=== PATIENT | female | born 1955 | race Caucasian/White ===

== ENCOUNTER 2017-05-18 12:01 | Observation (INO) | payer MEDICARE ==
--- NOTE | 2017-05-18 12:23 | ERPHSYRPT ---
- History of Present Illness Time Seen by Provider: 05/18/17 12:18 Source: patient Exam Limitations: no limitations Patient Subjective Stated Complaint: PT REPORTS FALLING 1 WK AGO TODAY-REPORTS LEFT HIP PAIN-STATES THAT SHE GOT HER WALKER CAUGHT ON KITCHEN TABLE-DENIES LOC Triage Nursing Assessment: PT PALE WARM ET [id number] QUESTIONS CORRECTLY-SHORTENING NOTED THAT PT STATES IS NORMAL FOR HER SINCE HER SUGERY- PEDAL PULSES PRESENT Physician History: This is 62-year-old white female with history of dementia seizures, cataracts, hypothyroidism, asthma, COPD arthritis, fibromyalgia, anxiety and depression She arrives with complaint of pain in her left hip laterally for one week she states she fell one week ago she states she's had pain in the left lateral hip since she states she is unable to walk on the left left leg secondary to pain for 2-3 days. Patient is on chronic oxycodone and acetaminophen 10/325 secondary to chronic pain. Past medical history includes dementia, seizures, cataracts, hypothyroidism, asthma, COPD, pneumonia, diverticulitis, cervical cancer, arthritis, fibromyalgia, anxiety, depression Past surgical history includes appendectomy, cholecystectomy, hysterectomy, orthopedic surgery, left and right hip surgery social history positive tobacco use Method of Injury: fell (follow week ago) Occurred: other (fell week ago) Lower Extremities Pain: hip: left Modifying Factors: Improves With: nothing Associated Symptoms: unable to bear weight Allergies/Adverse Reactions: tramadol HCl [From Ultram] Allergy (Mild, Verified 05/18/17 12:07) aspirin Allergy (Verified 05/18/17 12:07) ciprofloxacin [From Cipro] Allergy (Verified 05/18/17 12:07) ciprofloxacin HCl [From Cipro] Allergy (Verified 05/18/17 12:07) penicillin V [Penicillin V] Allergy (Verified 05/18/17 12:07) Home Medications: AMITRIPTYLINE HCL 50 mg Tab [AMITRIPTYLINE HCL 50 mg Tablet] 150 mg PO HS [History] Alendronate Sodium 70 mg [Fosamax 70 MG] 70 mg PO WEEKLY 12/19/15 [History ] Alprazolam 1 mg [Xanax 1 mg] 1 mg PO QID 12/19/15 [History] Cyclobenzaprine HCl 10 mg [Cyclobenzaprine 10 MG] 10 mg PO QPM 12/19/15 [ History] Duloxetine HCl [Cymbalta] 60 mg PO QAM 12/19/15 [History] Estradiol 1 mg [Estrace 1 mg] 1 mg PO DAILY 12/19/15 [History] Levetiracetam [Keppra] 750 mg PO BID 12/19/15 [History] Levothyroxine Sodium 75 Mcg [Synthroid 75 Mcg] 75 mcg PO DAILY 12/19/15 [ History] Lisinopril [Zestril] 20 mg PO QAM 12/19/15 [History] Potassium Chloride 10 Meq Tab* [Klor Con 10 MEQ] 10 meq PO TID 12/19/15 [ History] Ranitidine HCl [Zantac 75] 150 mg PO BID 12/19/15 [History] Rivastigmine [Exelon] 1 each TD DAILY 12/19/15 [History] Oxycodone / APAP 10/325 mg [Oxycodone-Acetaminophen 10-325] 1 tab PO Q4HPRN PRN 02/20/16 [History] Albuterol Sulfate [Albuterol Sulfate Hfa] 2 puff IH Q4HPRN PRN 02/22/17 [History ] Cyclosporine [Restasis Multidose] 1 drop OP BID 02/22/17 [History] Omeprazole 20 MG [Prilosec 20 mg] 20 mg PO DAILY 02/22/17 [History] Risperidone [Risperdal] 2 mg PO TID 02/22/17 [History] Buspirone HCl [Buspar] 15 mg PO BID 05/18/17 [History] Trazodone HCl [Desyrel] 150 mg PO DAILY 05/18/17 [History] Hx Tetanus, Diphtheria Vaccination/Date Given: Yes Hx Influenza Vaccination/Date Given: Yes Hx Pneumococcal Vaccination/Date Given: Yes Immunizations Up to Date: Yes - Review of Systems Constitutional: No Fever, No Chills Eyes: No Symptoms Ears, Nose, & Throat: No Symptoms Respiratory: No Cough, No Dyspnea Cardiac: No Chest Pain, No Edema, No Syncope Abdominal/Gastrointestinal: No Abdominal Pain, No Nausea, No Vomiting, No Diarrhea Genitourinary Symptoms: No Dysuria Musculoskeletal: Fall (follow week ago), Injury, Joint Pain (left hip pain) Skin: No Rash Neurological: No Dizziness, No Focal Weakness, No Sensory Changes Psychological: No Symptoms Endocrine: No Symptoms All Other Systems: Reviewed and Negative - Past Medical History Pertinent Past Medical History: Yes Neurological History: Dementia, Seizures ENT History: Cataracts Cardiac History: No Pertinent History Respiratory History: Asthma, COPD, Pneumonia Endocrine Medical History: Hypothyroidism Musculoskeletal History: Arthritis, Fibromyalgia GI Medical History: Diverticulitis History: No Pertinent History Psycho-Social History: Anxiety, Depression Female Reproductive Disorders: Cervical Cancer - Past Surgical History Past Surgical History: Yes Neuro Surgical History: No Pertinent History Cardiac: No Pertinent History Respiratory: No Pertinent History Gastrointestinal: Appendectomy, Cholecystectomy Genitourinary: No Pertinent History Musculoskeletal: Orthopedic Surgery Female Surgical History: Hysterectomy Other Surgical History: LEFT, RIGHT HIP SURGERY - Social History Smoking Status: Current every day smoker How long have you smoked: YRS Exposure to second hand smoke: Yes Drug Use: none Patient Lives Alone: No - Female History Hx Now: No - Nursing Vital Signs Nursing Vital Signs: Initial Vital Signs Temperature 98.6 F 05/18/17 12:02 Pulse Rate 97 H 05/18/17 12:02 Respiratory Rate 18 05/18/17 12:02 Blood Pressure 124/69 05/18/17 12:02 O2 Sat by Pulse Oximetry 97 05/18/17 12:02 Pain Scale Pain Intensity 8 - Physical Exam General Appearance: alert Eyes, Ears, Nose, Throat Exam: moist mucous membranes Neck Exam: non-tender, supple Cardiovascular/Respiratory Exam: chest non-tender, normal breath sounds, regular rate/rhythm, no respiratory distress Gastrointestinal/Abdominal Exam: non-tender, guarding Back Exam: normal inspection Hips Exam: right: non-tender, left: bone tenderness, bilateral: normal range of motion, no evidence of injury Legs Exam: bilateral leg: non-tender, normal inspection, normal range of motion , no evidence of injury Knees Exam: bilateral knee: non-tender, normal inspection, normal range of motion, no evidence of injury Ankle Exam: bilateral ankle: non-tender, normal inspection, normal range of motion, no evidence of injury Foot Exam: bilateral foot: non-tender, normal inspection, normal range of motion , no evidence of injury DTR - Lower Extremities Exam: ankle (R): 2+, ankle (L): 2+ Neuro/Tendon Exam: normal sensation, normal motor functions Mental Status Exam: alert, oriented x 3, cooperative Skin Exam: normal color, warm, dry SpO2 Interpretation: normal (97%) SpO2: 97 Oxygen Delivery: Room Air - Radiology Exams Other X-ray Interpretation: Discussed w/ radiologist (x-ray pelvis and left hip: Osteopenia and new minimally displaced left superior/inferior pubic bone fractures. Stable old left proximal femur fracture with intact orthopedic hardware and incidental right hip arthroplasty) Left Femur X-ray Interpretation: Discussed w/ radiologist (x-ray left femur intact with osteopenia, old proximal/distal femur fractures with multiple orthopedic hardware and smaller soft tissue ossification lateral to the distal fracture. Left pubic bone fractures reported on same day hip exam) Ordered Tests: Active Orders 24 hr Category Date Time Status FEMUR Stat Exams 05/18/17 12:45 Completed HIP UNI (2V) INCL PEL IF DONE Stat Exams 05/18/17 12:17 Completed Medication Summary Discontinued Medications Generic Name Dose Route Start Last Admin Trade Name Anaid PRN Reason Stop Dose Admin Morphine Sulfate 4 mg 05/18/17 13:36 05/18/17 13:45 Morphine Sulfate 4 Mg Inj IM 05/18/17 13:37 4 mg STAT ONE Administration Morphine Sulfate Confirm 05/18/17 13:41 Morphine Sulfate 4 Mg Inj Administered 05/18/17 13:42 Dose 4 mg .ROUTE .[id number]-MED ONE - Progress Progress: improved Progress Note: 05/18/17 12:49 62-year-old white female with a history of a 1 week of left hip pain also pain in the left groin after falling patient has hip surgery in the past. patient appears to have left superior and inferior pubic rami fractures. Large amount of hardware in the patient's left hip Will go ahead and obtain a complete femur. Patient states she took a Percocet tablet 2 hours prior to arrival she is essentially pain-free when she is not trying to stand. 05/18/17 13:42 Patient given morphine 4 mg IM. Patient with inferior and superior left pubic rami fracture on x-ray minimal displacement. X-ray of the left femur shows the femur to be intact with osteopenia an old proximal/distal femur fractures with multiple orthopedic hardware and smaller soft tissue ossification lateral to the distal fracture x-ray left hip remarkable for the left superior and inferior pubic bone fracture stable old left proximal femur fracture with intact orthopedic hardware and incidental right hip arthroplasty. I initially attempted to contact Dr. Guerin he apparently is out of town. I have contacted Dr. Tim the patient's family doctor. Patient already has a walker and a wheelchair. She is already on Percocet for pain and sees a pain control. \ unfortunately, the patient's states he is having trouble getting the patient even up to the bathroom. And she has very little tolerance for getting her up and around at home secondary to pain in her left hip and pelvis area. I have recontacted Dr. Prudencio Tim. He has agreed to place patient in observation. Will provide pain control. - Departure Time of Disposition: 13:45 Departure Disposition: Observation Clinical Impression: inferior pelvic rami fracture, Left hip pain Fracture of superior pubic ramus Qualifiers: Encounter type: initial encounter Fracture type: closed Laterality: left Qualified Code(s): S32.512A - Fracture of superior rim of left pubis, initial encounter for closed fracture Accidental fall Qualifiers: Encounter type: initial encounter Qualified Code(s): W19.XXXA - Unspecified fall, initial encounter Condition: Fair Critical Care Time: No Referrals: LOIS NICK [Primary Care Provider] -
--- NOTE | 2017-05-18 12:55 | XRAY ---
Indication: Pain following fall one week ago. Comparison: February 16, 2015. AP pelvis and 2 views of the left hip again demonstrates osteopenia and new minimally displaced left superior/inferior pubic bone fractures. Stable old left proximal femur fracture with intact orthopedic hardware and incidental right hip arthroplasty.
--- NOTE | 2017-05-18 13:23 | XRAY ---
Indication: Pain following fall one week ago. Comparison: December 29, 2014. 2 views of the left femur intact again with osteopenia, old proximal/distal femur fractures with multiple orthopedic hardware, and smaller soft tissue ossification lateral to the distal fracture. Left pubic bone fractures reported on same day hip exam.
[2017-05-18] MEDS ORDERED: MORPHINE SULFATE 4 MG INJ IM ONE (13:36)
[2017-05-18] MEDS ORDERED: MORPHINE SULFATE 4 MG INJ ONE (13:41)
[2017-05-18] MEDS ORDERED: Sodium Chloride 0.9% 10 ML FLUSH Syringe IV PRN (16:56)
[2017-05-18] MEDS: MORPHINE SULFATE 4 MG INJ IV PRN ×2 (17:35→21:59)
[2017-05-18] MEDS ORDERED: OXYCODONE-ACETAMINOPHEN 10-325 PO PRN (20:30)
[2017-05-18] MEDS ORDERED: xanAX 0.25 MG ONE (21:20)
[2017-05-18] MEDS: Keppra 250 MG PO SCH (21:50)
[2017-05-18] MEDS: Klor Con 10 MEQ PO SCH (21:51)
[2017-05-18] MEDS: BUSPAR 5 MG PO SCH (21:54)
[2017-05-18] MEDS: Risperdal 1 MG PO SCH (21:56)
[2017-05-18] MEDS ORDERED: SYNTHROID 75 MCG PO ONE (22:00)
[2017-05-18] MEDS ORDERED: xanAX 0.25 MG PO SCH (22:00)
[2017-05-18] MEDS ORDERED: ENOXAPARIN SODIUM SQ ONE (22:00)
[2017-05-18] MEDS ORDERED: Cyclobenzaprine 10 MG PO PRN (22:00)
[2017-05-18] MEDS: Zofran 4 MG/2 ML VIAL IV PRN (22:00)
[2017-05-18] MEDS: Sodium Chloride 0.9% 10 ML FLUSH Syringe IV SCH (22:08)
[2017-05-19] MEDS: MORPHINE SULFATE 4 MG INJ IV PRN ×3 (03:03→11:55)
[2017-05-19 06:07] LABS: BASOPHIL % 0.6 % (0.0-0.4); Eosinophil % 4.5 % (0.00-5.0); Granulocytes % 53.6 % (36.0-66.0); Lymphocytes % 32.4 % (24.0-44.0); Mean Cell Volume 96.3 fl (78-100); Monocytes % 8.9 % (0.0-12.0); Platelet Count 254 K/mm3 (150-450); Red Blood Count 4.02 M/mm3 (4.1-5.4); Red Cell Distribution Width 13.8 % (11.5-14.0); White Blood Count 12.6 K/mm3 (4.0-10.5)
[2017-05-19 06:22] LABS: ALBUMIN 2.9 g/dL (3.4-5.0); ALKALINE PHOSPHATASE 120 U/L (46-116); ANION GAP 10.4 MEQ/L (5-15); BLOOD UREA NITROGEN 17 mg/dL (9-20); CHLORIDE 102 mEq/L (98-107); Carbon Dioxide 28.4 mEq/L (21-32); Glucose 103 MG/DL (70-110); Potassium 4.9 mEq/L (3.5-5.1); SGOT/AST 13 U/L (15-37); SGPT/ALT 8 U/L (12-78); SODIUM 136 mEq/L (136-145); Total Protein 6.8 gm/dL (6.4-8.2)
[2017-05-19] MEDS: Sodium Chloride 0.9% 10 ML FLUSH Syringe IV SCH ×2 (06:51→11:56)
[2017-05-19] MEDS: Zofran 4 MG/2 ML VIAL IV PRN (07:19)
[2017-05-19 08:11] VITALS: O2SAT 92
[2017-05-19] MEDS ORDERED: MEDICATION INTERVENTION MC PRN (08:18)
--- NOTE | 2017-05-19 09:15 | PCM.HP ---
History of Present Illness - Chief Complaint Chief Complaint: left hip pain Date: 05/19/17 History of Present Illness: is a 62 year old female. who had a fall in the home 1 week prior to presentation and has been in bed since with left hip pain. She cannot bear weight without assistance but has difficulty doing that at baseline normally prior to the fall. she has osteoporosis and severe arthritis. She follwos with pain mgmt for her pain medications her is her caregiver at home but he cannot lift her in and out of the home so had to come by ambulance. she denies any other complaints other then the left hip and groin pain - Review of Systems Constitutional: No Fever, No Chills Eyes: No Symptoms Ears, Nose, & Throat: No Symptoms Respiratory: No Cough, No Short Of Breath Cardiac: No Chest Pain, No Edema, No Syncope Abdominal/Gastrointestinal: No Abdominal Pain, No Nausea, No Vomiting, No Diarrhea Genitourinary Symptoms: No Dysuria Musculoskeletal: No Back Pain, No Neck Pain Skin: No Rash Neurological: No Dizziness, No Focal Weakness, No Sensory Changes Psychological: No Symptoms Endocrine: No Symptoms Hematologic/Lymphatic: No Symptoms Immunological/Allergic: No Symptoms Medications & Allergies Home Medications: Home Medication List AMITRIPTYLINE HCL 50 mg Tab [AMITRIPTYLINE HCL 50 mg Tablet] 150 mg PO HS [History Confirmed 05/18/17] Alendronate Sodium 70 mg [Fosamax 70 MG] 70 mg PO WEEKLY 12/19/15 [ History Confirmed 05/18/17] Cyclobenzaprine HCl 10 mg [Cyclobenzaprine 10 MG] 10 mg PO HS PRN PRN 03/30 [History Confirmed 05/18/17] Duloxetine HCl [Cymbalta] 60 mg PO QAM 12/19/15 [History Confirmed 05/18/17] Estradiol 1 mg [Estrace 1 mg] 1 mg PO DAILY 12/19/15 [History Confirmed ] Levetiracetam [Keppra] 750 mg PO BID 12/19/15 [History Confirmed 05/18/17] Lisinopril [Zestril] 20 mg PO QAM 12/19/15 [History Confirmed 05/18/17] Potassium Chloride 10 Meq Tab* [Klor Con 10 MEQ] 10 meq PO TID 12/19/15 [ History Confirmed 05/18/17] Ranitidine HCl [Zantac 75] 150 mg PO DAILY 12/19/15 [History Confirmed 05/18/17] Rivastigmine [Exelon] 1 each TD DAILY 12/19/15 [History Confirmed 05/18/17] Oxycodone / APAP 10/325 mg [Oxycodone-Acetaminophen 10-325] 1 tab PO Q4- 6HPRN PRN 02/20/16 [History Confirmed 05/18/17] Albuterol Sulfate [Albuterol Sulfate Hfa] 2 puff IH Q4HPRN PRN 02/22/17 [ History Confirmed 05/18/17] Cyclosporine [Restasis Multidose] 1 drop OP BID 02/22/17 [History Confirmed 01/29] Omeprazole 20 MG [Prilosec 20 mg] 20 mg PO DAILY 02/22/17 [History Confirmed 01/29] Risperidone [Risperdal] 2 mg PO TID 02/22/17 [History Confirmed 05/18/17] Buspirone HCl [Buspar] 7.5 mg PO BID 05/18/17 [History Confirmed 05/18/17] Levothyroxine Sodium 50 Mcg [Synthroid 50 Mcg] 50 mcg PO DAILY #30 tablet 05/19/17 [Rx] Allergies/Adverse Reactions: Allergies Allergy/AdvReac Type Severity Reaction Status Date / Time tramadol HCl [From Ultram] Allergy Mild Verified 05/18/17 12:07 aspirin Allergy Verified 05/18/17 12:07 ciprofloxacin [From Cipro] Allergy Verified 05/18/17 12:07 ciprofloxacin HCl Allergy Verified 05/18/17 12:07 [From Cipro] penicillin V [Penicillin V] Allergy Verified 05/18/17 12:07 - Past Medical History Past Medical History: Yes Neurological History: Dementia, Seizures ENT History: Cataracts Cardiac History: Other Respiratory History: Asthma, COPD, Pneumonia Endocrine Medical History: Hypothyroidism Musculoskelatal History: Arthritis, Fibromyalgia GI Medical History: Diverticulitis History: No Pertinent History Pyscho-Social History: Anxiety, Depression Reproductive Disorders: Cervical Cancer Comment: pt states she has a murmur - Female History Are you now?: No - Past Surgical History Past Surgical History: Yes Neuro Surgical History: No Pertinent History Cardiac History: No Pertinent History Respiratory Surgery: No Pertinent History GI Surgical History: Appendectomy, Cholecystectomy Genitourinary Surgical Hx: No Pertinent History Musculskeletal Surgical Hx: Orthopedic Surgery Female Surgical History: Hysterectomy Other Surgical History: LEFT, RIGHT HIP SURGERY - Social History Smoking Status: Current every day smoker How long have you smoked: 40 Exposure to second hand smoke: No Alcohol: None Drug Use: none - Physical Exam Vital Signs: Vital Signs - 24 hr Temp Pulse Resp BP Pulse Ox 05/19/17 08:00 97.9 F 96 H 20 124/58 92 L 05/19/17 04:00 97.9 F 88 16 120/62 95 05/18/17 23:33 98.4 F 82 18 138/63 96 05/18/17 20:09 98.7 F 93 H 20 136/84 96 05/18/17 16:42 98.6 F 88 18 136/68 94 L 05/18/17 14:45 90 18 144/53 96 05/18/17 14:37 97 05/18/17 13:05 91 H 05/18/17 12:02 98.6 F 97 H 18 124/69 97 General Appearance: no apparent distress, alert Neurologic Exam: alert, oriented x 3, cooperative, normal mood/affect, nml cerebellar function, sensation nml, No nml station & gait Eye Exam: PERRL/EOMI, eyes nml inspection Ears, Nose, Throat Exam: normal ENT inspection, pharynx normal, moist mucous membranes Neck Exam: normal inspection, non-tender, supple, full range of motion Respiratory Exam: normal breath sounds, lungs clear, No respiratory distress Cardiovascular Exam: regular rate/rhythm, normal heart sounds, normal peripheral pulses Gastrointestinal/Abdomen Exam: soft, normal bowel sounds, No tenderness, No mass Back Exam: normal inspection, vertebral tenderness Extremity Exam: pelvis stable, other (pain with rotation of left hip and palpation of the pelvis good peripheral perfusion and sensation and no limb length changes she has chronic genu valgus severe.) Skin Exam: normal color, warm, dry, No rash Lymphatic Exam: No adenopathy Results - Labs Lab/Micro Results: Lab Results-Last 24 Hours 05/19/17 05/19/17 05/19/17 Range/Units 05:40 05:40 05:40 WBC 12.6 H (4.0-10.5) K/mm3 RBC 4.02 L (4.1-5.4) M/mm3 Hgb 12.1 (12.0-16.0) gm/dl Hct 38.7 (35-47) % MCV 96.3 (78-100) fl MCH 30.0 (26-32) pg MCHC 31.3 L (32-36) g/dl RDW 13.8 (11.5-14.0) % Plt Count 254 (150-450) K/mm3 MPV 11.0 H (6-9.5) fl Gran % 53.6 (36.0-66.0) % Lymphocytes % 32.4 (24.0-44.0) % Monocytes % 8.9 (0.0-12.0) % Eosinophils % 4.5 (0.00-5.0) % Basophils % 0.6 (0.0-0.4) % Basophils # 0.07 (0-0.4) Sodium 136 (136-145) mEq/L Potassium 4.9 (3.5-5.1) mEq/L Chloride 102 (98-107) mEq/L Carbon Dioxide 28.4 (21-32) mEq/L Anion Gap 10.4 (5-15) MEQ/L BUN 17 (9-20) mg/dL Creatinine 0.92 (0.55-1.30) mg/dl Estimated GFR > 60 ML/MIN Glucose 103 (70-110) MG/DL Calcium 8.9 (8.5-10.1) mg/dL Total Bilirubin 0.20 (0.2-1.0) mg/dL AST 13 L (15-37) U/L ALT 8 L (12-78) U/L Alkaline Phosphatase 120 H (46-116) U/L Serum Total Protein 6.8 (6.4-8.2) gm/dL Albumin 2.9 L (3.4-5.0) g/dL Free T4 1.50 H (0.76-1.46) ng/dl TSH 3rd Generation 0.007 L (0.358-3.740) mIU/L Assessment/Plan (1) Fracture of superior pubic ramus Current Visit: Yes Status: Acute Qualifiers: Encounter type: initial encounter Fracture type: closed Laterality: left Qualified Code(s): S32.512A - Fracture of superior rim of left pubis, initial encounter for closed fracture Assessment & Plan: she is home bound with significant difficulty in getting from home and needs actual assistance to be able to get into and out of home that her is currently unable to provide discussed emergency jail placement she refused and wants to do therapy at home states she has what she needs for her to care for herself with her husbands help if she can get into her bedroom. She will need PT/OT to evaluate and treat and likely home health aid as well discussed typical healing of 4 to 8 weeks and desire to start weight bearing as tolerated now. continue tx for her osteoporosis and adjust thyroid medication dose decreased today Code(s): S32.519A - FRACTURE OF SUPERIOR RIM OF UNSP PUBIS, INIT FOR CLOS FX (2) Hypothyroidism Current Visit: Yes Status: Acute Assessment & Plan: supratherapeutic decrease to 50 mcg repeat in 6 weeks. Code(s): E03.9 - HYPOTHYROIDISM, UNSPECIFIED (3) Osteoporosis Current Visit: Yes Status: Chronic Code(s): M81.0 - AGE-RELATED OSTEOPOROSIS W/O CURRENT PATHOLOGICAL FRACTURE (4) Tobacco abuse Current Visit: Yes Status: Chronic Code(s): Z72.0 - TOBACCO USE (5) Seizure disorder Current Visit: Yes Status: Chronic Code(s): G40.909 - EPILEPSY, UNSP, NOT INTRACTABLE, WITHOUT STATUS EPILEPTICUS
[2017-05-19] MEDS: Risperdal 1 MG PO SCH (09:31)
[2017-05-19] MEDS: Klor Con 10 MEQ PO SCH (09:31)
[2017-05-19] MEDS: BUSPAR 5 MG PO SCH (09:31)
[2017-05-19] MEDS: Keppra 250 MG PO SCH (09:32)
--- NOTE | 2017-05-19 09:57 | PCM.DCORD ---
- Discharge Discharge Date: 05/19/17 Disposition: HOME HEALTH SERVICE Condition: Fair Prescriptions: New Levothyroxine Sodium 50 Mcg [Synthroid 50 Mcg] 50 mcg PO DAILY #30 tablet Continue Cyclobenzaprine HCl 10 mg [Cyclobenzaprine 10 MG] 10 mg PO HS PRN PRN PRN Reason: Mild Pain Lisinopril [Zestril] 20 mg PO QAM Estradiol 1 mg [Estrace 1 mg] 1 mg PO DAILY Rivastigmine [Exelon] 1 each TD DAILY Levetiracetam [Keppra] 750 mg PO BID Duloxetine HCl [Cymbalta] 60 mg PO QAM AMITRIPTYLINE HCL 50 mg Tab [AMITRIPTYLINE HCL 50 mg Tablet] 150 mg PO HS Ranitidine HCl [Zantac 75] 150 mg PO DAILY Potassium Chloride 10 Meq Tab* [Klor Con 10 MEQ] 10 meq PO TID Alendronate Sodium 70 mg [Fosamax 70 MG] 70 mg PO WEEKLY Oxycodone / APAP 10/325 mg [Oxycodone-Acetaminophen 10-325] 1 tab PO Q4 -6HPRN PRN PRN Reason: Pain Omeprazole 20 MG [Prilosec 20 mg] 20 mg PO DAILY Albuterol Sulfate [Albuterol Sulfate Hfa] 2 puff IH Q4HPRN PRN PRN Reason: breathing Cyclosporine [Restasis Multidose] 1 drop OP BID Risperidone [Risperdal] 2 mg PO TID Buspirone HCl [Buspar] 7.5 mg PO BID Discontinued Levothyroxine Sodium 75 Mcg [Synthroid 75 Mcg] 75 mcg PO DAILY Trazodone HCl [Desyrel] 150 mg PO DAILY Alprazolam 0.25 mg [xanAX 0.25 MG] 0.25 mg PO TID Additional Instructions: home PT/OT evaluate and treat pelvic fracture weight bearing as tolerated Follow up with: LOIS NICK [Primary Care Provider] -
[2017-05-19] MEDS ORDERED: Artificial Tears 15 ML OP SCH (10:00)
[2017-05-19] MEDS ORDERED: NON-FORMULARY ITEM (Duloxetine Hcl [Cymbalta] 60 MG) PO SCH (10:00)
[2017-05-19] MEDS ORDERED: NON-FORMULARY ITEM (Omeprazole 20 Mg [Prilosec 20 Mg] 20 MG) PO SCH (10:00)
[2017-05-19] MEDS ORDERED: CYCLOSPORINE OP SCH (10:00)
[2017-05-19] MEDS ORDERED: Protonix 40MG Tablet PO SCH (10:00)
[2017-05-19] MEDS ORDERED: Pepcid 20 MG PO SCH (10:00)
[2017-05-19] MEDS ORDERED: NON-FORMULARY ITEM (Ranitidine Hcl [Zantac 75] 150 MG) PO SCH (10:00)
[2017-05-19] MEDS ORDERED: Zestril 20 MG PO SCH (10:00)
[2017-05-19] MEDS ORDERED: Cymbalta 30 MG Capsule PO SCH (10:00)
[2017-05-19] MEDS ORDERED: RIVASTIGMINE TD SCH (10:00)
[2017-05-19] MEDS ORDERED: Ventolin Hfa MDI IH PRN (10:31)
[2017-05-19] MEDS ORDERED: PROVENTIL COMMON CANISTER IH PRN (10:33)
[2017-05-19 11:19] VITALS: BP 119/73; PULSE 92
[2017-05-19] MEDS ORDERED: SYNTHROID 75 MCG PO SCH (16:00)
[2017-05-19] MEDS ORDERED: SYNTHROID 75 MCG PO ONE (22:00)
[2017-05-19] MEDS ORDERED: ENOXAPARIN SODIUM SQ SCH (22:00)
== END 2017-05-19 13:20 | disposition home health service (06) ==
LOC: ED 12:01 → MED SURG 16:16
PROVIDERS: ADMIT Family Medicine; ATTEND Family Medicine
DX: S32.519A Fracture of superior rim of unspecified pubis, initial encounter for closed fracture (principal); E03.9 Hypothyroidism, unspecified; M81.0 Age-related osteoporosis without current pathological fracture; Z72.0 Tobacco use; G40.909 Epilepsy, unspecified, not intractable, without status epilepticus
CPT/HCPCS: 36000; 36415; 73502; 73552; 80053; 84439; 84443; 85025; 96372; 99285; G0378; J1650; J2270; J2405; A9270-GY

== ENCOUNTER 2018-02-26 11:50 | Inpatient (IN) | payer MEDICARE ==
[2018-02-26 12:29] LABS: A-aADO2 100; ABG HEMOGLOBIN 11.1; ABG POTASSIUM 5.1 (3.5-5.1); ARTERIAL BLD GAS O2 SATURATION 97.2 % (95-100); ARTERIAL BLOOD GAS BASE EXCESS 6.9 (-2.0-2.0); ARTERIAL BLOOD GAS FIO2 36 %; ARTERIAL BLOOD GAS PO2 79 mmHg (75-100); ARTERIAL BLOOD GAS pH 7.35 (7.35-7.45); CARBOXYHEMOGLOBIN 2.1 % THgb (0.0-6.9); HCO3- 34.2 (22-28); HGB O2 SAT 94.2 g/dF (94-100); Lactic Acid 0.4 (0.4-2.0); Methhemoglobin 1.1 % (1.4-1.5); paO2 pAO1 0.44
[2018-02-26 12:30] LABS: ABG SITE LEFT RADIAL; ALLEN TEST OK? Yes; ARTERIAL BLOOD GAS PCO2 62 mmHg (35-45)
[2018-02-26] MEDS ORDERED: solu-MEDROL 125 MG IV SCH (12:30)
[2018-02-26] MEDS ORDERED: Colace 100 MG PO PRN (12:30)
[2018-02-26] MEDS: ROCEPHIN 1 Gm-D5w 50 ml Bag** 1 G/50 ML IVPB IV SCH (13:08)
[2018-02-26] MEDS: Dextrose 5% -0.45 NaCl 1000 ML 1,000 ML IV SCH (13:08)
--- NOTE | 2018-02-26 13:17 | XRAY ---
Indication: Hypoxia. Pneumonia. Comparison: February 08, 2018. Portable chest underinflated today again without focal infiltrate, consolidation, or large effusion. Heart is not enlarged. Bony thorax intact again with osteopenia, degenerative changes, and remote T12 compression fracture. Impression: Nonacute underinflated chest.
[2018-02-26 13:26] LABS: Granulocyte Absolute (ANC) 11.61 (1.4-6.9); Mean Cell Volume 94.9 fl (78-100); Mean Corpuscular Hemoglobin 28.2 pg (26-32); Mean Corpuscular Hgb Concent. 29.7 g/dl (32-36); Mean Platelet Volume 10.5 fl (6-9.5); Platelet Count 271 K/mm3 (150-450); Red Cell Distribution Width 14.9 % (11.5-14.0); White Blood Count 17.8 K/mm3 (4.0-10.5)
[2018-02-26 13:44] LABS: INR 0.93 (0.8-3.0)
[2018-02-26 13:47] LABS: PTT 27.3 SECONDS (25.3-37.0)
[2018-02-26 13:49] LABS: ALBUMIN 3.4 g/dL (3.5-5.0); ALKALINE PHOSPHATASE 139 U/L (38-126); ANION GAP 11.9 MEQ/L (5-15); BLOOD UREA NITROGEN 19 mg/dL (7-17); CHLORIDE 101 mmol/L (98-107); Calcium 8.9 mg/dL (8.4-10.2); Carbon Dioxide 34 mmol/L (22-30); Glucose 95 mg/dL (74-106); SGOT/AST 13 U/L (14-36); SGPT/ALT 10 U/L (0-35); SODIUM 142 mmol/L (137-145); Total Protein 6.8 g/dL (6.3-8.2)
[2018-02-26] MEDS: Zithromax 500 MG/ 250 ML NaCl Premix 500 MG/250 ML IVPB IV SCH (13:56)
[2018-02-26 13:58] LABS: NT PRO BNP 116 pg/mL (0-900)
[2018-02-26 14:08] LABS: Appearance CLEAR (CLEAR); Bacteria FEW /HPF (NEGATIVE); Bilirubin NEGATIVE (NEGATIVE); Blood NEGATIVE Ery/ul (0-5); Epithelial Cells FEW /HPF (FEW); Glucose NEGATIVE (NEGATIVE); Ketones NEGATIVE (NEGATIVE); Leukocyte Esterase TRACE (NEGATIVE); Mucus SLIGHT /HPF (NEGATIVE); Nitrite NEGATIVE (NEGATIVE); Protein,Urine Dip NEGATIVE (Negative); RBC 0-2 /HPF (0-2); Specific Gravity 1.015 (1.005-1.025); Urobilinogen NORMAL mg/dL (0-1)
[2018-02-26] MEDS ORDERED: PROVENTIL 2.5 MG/3 ML NEB IH PRN (14:44)
[2018-02-26 15:27] LABS: Lymphocytes 30 % (24-44); Monocyte 1 % (0.0-12.0); Neutrophils 69 % (36.0-66.0); Total Cells Counted 100
[2018-02-26 15:28] LABS: Platelet Estimate NORMAL (NORMAL)
--- NOTE | 2018-02-26 17:02 | XRAY ---
Indication: Short of breath. Elevated d-dimer. Multiple contiguous axial images obtained through the chest using 80 cc of Isovue-370 contrast and PE protocol. Comparison: February 02, 2014. There is satisfactory opacification of the pulmonary arteries to include the lobar and segmental branches. Again no filling defect or pulmonary embolus. Heart is not enlarged. Aorta is minimally arteriosclerotic without aneurysm/dissection. No pathologic mediastinal/hilar lymphadenopathy. New mild/moderate hiatal hernia. Examination of the lung parenchyma demonstrates new mild/moderate bibasilar dependent atelectasis, right greater than left. Also minimal subpleural cystic changes bilaterally. No suspicious pulmonary mass or infiltrate. Tiny nonspecific left effusion. Bony thorax demonstrates new finding for remote T12 compression fracture with complete collapse. Also partially visualized superior L2 endplate concave deformity either remote fracture versus prominent Schmorl node. Limited upper abdomen is unremarkable. Impression: 1. Again negative pulmonary embolus. 2. Bibasilar atelectasis, right greater than left. Also tiny nonspecific left effusion and minimal bilateral subpleural cystic changes. 3. New hiatal hernia. 4. Remote appearing T12 compression fracture. L2 superior endplate concave deformity either remote fracture versus prominent Schmorl node. CTDI 18.37
[2018-02-26] MEDS ORDERED: solu-MEDROL 125 MG IV PRN (18:00)
[2018-02-26] MEDS: solu-MEDROL 125 MG IV SCH ×2 (18:18→23:44)
[2018-02-26] MEDS: NEURONTIN 300 MG PO SCH ×2 (21:40)
[2018-02-26] MEDS: Risperdal 1 MG PO SCH (21:42)
[2018-02-26] MEDS ORDERED: BUSPAR 5 MG PO SCH (22:00)
[2018-02-26] MEDS ORDERED: KEPPRA 500 MG PO SCH (22:00)
[2018-02-26] MEDS ORDERED: ENOXAPARIN SODIUM SQ SCH (22:15)
[2018-02-27] MEDS: Dextrose 5% -0.45 NaCl 1000 ML 1,000 ML IV SCH ×2 (04:15→21:45)
[2018-02-27] MEDS: solu-MEDROL 125 MG IV SCH ×3 (05:33→17:25)
[2018-02-27] MEDS ORDERED: Ventolin Hfa MDI IH PRN (07:09)
[2018-02-27] MEDS ORDERED: ZOFRAN ODT 4 MG PO PRN (07:09)
[2018-02-27] MEDS ORDERED: NON-FORMULARY ITEM (Ranitidine Hcl [Ranitidine Hcl] 150 MG) PO PRN (07:09)
[2018-02-27] MEDS ORDERED: PROVENTIL COMMON CANISTER IH SCH (07:30)
--- NOTE | 2018-02-27 07:56 | HP ---
HISTORY OF PRESENT ILLNESS: This is a 62 year-old patient who presented to my clinic for a sick visit. She normally sees Dr. dEuardo Canales. She presented there with her significant other. They reported that she had some problems with her breathing and pneumonia. She had just finished a course of Cefdinir and some prednisone. It looks like this was prescribed 02/08/2018. There had been a call into the clinic the day before that her oxygen saturation was 81 to 84% on room air and that her blood pressure was 100/52 that she was not coming up with deep breaths. The nurse told them that she needed to go to the hospital for evaluation. It is documented that her friend, Stevie, refused. The patient reports today that she also did not want to go to the hospital so in my clinic when she presented her oxygen saturation was 82% on room air. On exam her chest was tight. She was not moving very much air at all. The patient reports over the past few months she has had more trouble with her breathing. She does report a long history of smoking and was smoking two packs per day of cigarettes and states she has weaned down to one half pack per day and is thinking about quitting. She has Albuterol at home that she uses. Her significant other noted that she seemed to be getting more confused last night and not quite acting like herself. He stated they did not want to go to the emergency room because they did not want to have a long wait. The patient was brought over by ambulance to the hospital as a direct admission to the ICU. When I had seen her this evening she reports that her breathing is better. She would like to eat. She states she has a little bit of right middle abdominal pain otherwise does not have any complaints of pain. She reports she has been doing PT and trying to work on getting out of the wheelchair and using her walker again. In my clinic before she was transferred she was placed on 10 liters of oxygen. O2 saturations came up 96%. We weaned that down in the clinic to about 6 liters and then she was transported by ambulance so she was on oxygen during her transport. I also gave her an Albuterol treatment before she left this did improve the wheezing some but she continued not to feel well. Her blood pressure was stable. Heart rate was stable. REVIEW OF SYSTEMS: As documented in HPI. PAST MEDICAL HISTORY: Seizure disorder, anxiety, osteoarthritis of her knee, muscle weakness, depressive disorder, osteoarthritis, hypertension, osteoporosis, acquired unequal leg length, stroke and dementia is also recorded in her old chart. PAST SURGICAL HISTORY: Right hip surgery 2017. Left femur. Hysterectomy. MEDICATIONS: Albuterol 2 puffs every four hours as needed, Fosamax 70 mg p.o. weekly, amitriptyline 150 mg p.o. q.h.s., Buspar 15 mg p.o. b.i.d., Celebrex 200 mg p.o. daily, cyclobenzaprine 100 mg daily as needed, duloxetine 60 mg q.a.m., Estradiol 1 mg p.o. daily, folic acid 1 mg p.o. daily, gabapentin 1 tablet in the morning and 3 tablets q.h.s., Keppra 750 mg p.o. b.i.d., lisinopril 20 mg p.o. q.a.m., omeprazole 20 mg p.o. daily, Zofran 4 mg p.o. every six hours PRN nausea, potassium chloride 10 mEq p.o. t.i.d., ranitidine 150 mg p.o. daily PRN gas or belching, Risperdal 2 mg p.o. t.i.d., tizanidine 4 mg p.o. q.h.s., trazodone 150 mg p.o. q.h.s. ALLERGIES: CIPRO, PENICILLIN, ULTRAM. SOCIAL HISTORY: She lives at home with her friend, Stevie. She smokes about a pack per day of cigarettes. She denies any illicit drug use. No alcohol use. FAMILY HISTORY: She reports her mother had hysterectomy. She does not know her father's family history. PHYSICAL EXAMINATION: VITAL SIGNS: Temperature current 97.3F, temperature max 98.5F, heart rate 87 to 90, respiratory rate 22 to 32 currently 24, blood pressure 110 to 148 over 67 to 75, weight 71.4 kg. Oxygen saturation 95 to 100% currently 95% on 4 liters. GENERAL: The patient is a pleasant lady. She is alert, talkative and looks much better than when she was in the clinic. She is oriented to place and she knows she is at a hospital but cannot tell me the name of the city. She can tell me her full name, the year and who the calibration checker is. CVS: She has a regular rate and rhythm. No murmurs, gallops or rubs. CHEST: She has equal breath sounds with expiratory wheezes throughout but good air movement, no retractions, no tachypnea. ABDOMEN: Soft with mild right upper quadrant tenderness. No guarding. No rigidity. Normal bowel sounds. EXTREMITIES: No clubbing, cyanosis or edema. SKIN: Warm, dry and intact. LABORATORY DATA AND TESTS: Her white blood cell count was 17,900 with 69% neutrophils, 30% lymphocytes. D-dimer was high at 662. The pCO2 on her blood gas was 62 with a pH of 7.35. Creatinine was 0.9. Alkaline phosphatase 139. UA was negative. She has two blood cultures and urine culture in lab. Chest x-ray was read as nonacute underinflated chest. Chest CT was read as negative for pulmonary embolism. Please see the radiologist report for the rest of the dictation. ASSESSMENT AND PLAN: 1) CHRONIC OBSTRUCTIVE PULMONARY DISEASE EXACERBATION: She was started on IV Solu-Medrol. Oxygen was continued. She was started on ceftriaxone and azithromycin as well as Albuterol every four hours as needed. Dr. Roverto Drummond, Knockout Worker, was consulted and plans to see the patient tomorrow. 2) HISTORY OF HYPERTENSION: Currently holding her antihypertensive. 3) HISTORY OF SEIZURE DISORDER: Will continue with her Keppra. 4) DEPRESSION AND ANXIETY: Will continue with the Cymbalta, Buspar and amitriptyline. 5) OSTEOARTHRITIS: She has Tylenol ordered as needed. I am holding her Celebrex. 6) DEEP VENOUS THROMBOSIS PROPHYLAXIS: Will use Lovenox, JASMIN hose and SCD's. 7) TOBACCO ABUSE: The patient was counseled that she needs to think about quitting smoking. She declined a nicotine patch at this time.
[2018-02-27] MEDS ORDERED: NEURONTIN 300 MG PO SCH (08:00)
--- NOTE | 2018-02-27 08:18 | PCM.NOTE ---
Date and Time: 02/27/18815 Subjective Assessment: she did have 1 desaturation overnight when she was in deep sleep and they used venti mask when O2 dropped to 83% otherwise she has been weaned to 2L nc O2 and is awake and alert this am. She thinks she is breathing much better still coughing. She is very hungry. Objective Exam General Appearance: no apparent distress, alert Neurologic Exam: alert, oriented x 3, cooperative, normal mood/affect, sensation nml, other (chronically leans to the right and neck deformity with head leaning to the right as well as lower limb chronic deformities after surgery), No motor deficits Skin Exam: warm, dry, pale Ears, Nose, Throat Exam: pharynx normal, moist mucous membranes Neck Exam: normal inspection, non-tender, supple, full range of motion Respiratory Exam: rhonchi, wheezing, No respiratory distress Cardiovascular Exam: regular rate/rhythm, normal heart sounds Gastrointestinal/Abdomen Exam: soft, other (Xiong with clear yellow urine), No tenderness, No mass Extremity Exam: No pedal edema Back Exam: normal inspection, normal range of motion, No CVA tenderness, No vertebral tenderness Pelvic Exam: deferred Rectal Exam: deferred OBJECTIVE DATA Vital Signs: Vital Signs - 24 hr Temp Pulse Resp BP Pulse Ox 02/27/18 07:41 105 H 22 98 02/27/18 07:22 98 F 103 H 21 148/85 97 02/27/18 04:00 96.8 F 85 24 137/71 95 02/26/18 23:57 91 H 02/26/18 23:41 97.0 F 91 H 24 129/69 93 L 02/26/18 23:38 24 02/26/18 23:37 93 L 02/26/18 20:45 98 02/26/18 20:00 97.2 F 90 100 H 138/72 02/26/18 19:49 91 H 20 100 02/26/18 18:05 97.2 F 24 L 24 135/94 100 02/26/18 17:00 97.3 F 90 24 141/73 95 02/26/18 16:49 89 02/26/18 16:30 97.5 F 89 22 148/76 96 02/26/18 16:00 28 H 98 02/26/18 15:00 97.7 F 90 28 H 125/67 98 02/26/18 14:45 90 24 100 02/26/18 14:00 89 27 H 142/75 100 02/26/18 13:25 98.5 F 87 32 H 110/73 96 02/26/18 12:56 30 H 96 02/26/18 12:41 97 H 26 H 123/75 98 Oxygen-Last 24 hours O2 Percentage 50% O2 Percentage 50% O2 Percentage 50% O2 Percentage 4 Liters = 36% O2 Percentage 4 Liters = 36% O2 Percentage 4 Liters = 36% O2 Percentage 4 Liters = 36% O2 Percentage 4 Liters = 36% O2 Percentage 4 Liters = 36% O2 Percentage 6 Liters = 44% O2 Percentage 4 Liters = 36% O2 Percentage 6 Liters = 44% Oxygen Flowrate (L/min)-RT 12 Oxygen Flowrate (L/min)-RT 12 Oxygen Flowrate (L/min)-RT 12 Pain Assessment - Last Documented Pain Intensity 0 Intake and Output: Intake & Output 02/24/18 02/25/18 02/26/18 02/27/18 11:59 11:59 11:59 11:59 Intake Total 1679 Output Total 1380 Balance 299 Weight 71.4 kg Lab Results: Accuchecks Date 02/26/18 Time 12:30 Accucheck Value: 93 Lab Results-Last 24 Hours 02/26/18 02/26/18 02/26/18 Range/Units 12:24 12:50 12:55 WBC 17.8 H (4.0-10.5) K/mm3 RBC 3.90 L (4.1-5.4) M/mm3 Hgb 11.0 L (12.0-16.0) gm/dl Hct 37.0 (35-47) % MCV 94.9 (78-100) fl MCH 28.2 (26-32) pg MCHC 29.7 L (32-36) g/dl RDW 14.9 H (11.5-14.0) % Plt Count 271 (150-450) K/mm3 MPV 10.5 H (6-9.5) fl Absolute Granulocytes 11.61 H (1.4-6.9) Segmented Neutrophils 69 H (36.0-66.0) % Lymphocytes (Manual) 30 (24-44) % Monocytes (Manual) 1 (0.0-12.0) % Platelet Estimate NORMAL (NORMAL) RBC Morphology NORMAL PT (9.95-12.35) SECONDS INR (0.8-3.0) APTT (25.3-37.0) SECONDS D-Dimer (215-500) ng/mL Puncture Site LEFT RADIAL pCO2 62 H* (35-45) mmHg pO2 79 (75-100) mmHg Base Excess 6.9 H (-2.0-2.0) O2 Saturation 94.2 (94-100) g/dF ABG pH 7.35 (7.35-7.45) ABG HCO3 34.2 H* (22-28) ABG O2 Sat (Measured) 97.2 (95-100) % Tyson Test Yes A-a Gradient 100 a/A Ratio 0.44 Hemoglobin 11.1 Carboxyhemoglobin 2.1 (0.0-6.9) % THgb Methemoglobin 1.1 L (1.4-1.5) % Potassium 5.1 (3.5-5.1) Temperature 37.0 C POC O2 Flow Rate 36 % Sodium (137-145) mmol/L Chloride (98-107) mmol/L Carbon Dioxide (22-30) mmol/L Anion Gap (5-15) MEQ/L BUN (7-17) mg/dL Creatinine (0.52-1.04) mg/dL Estimated GFR ML/MIN Glucose (74-106) mg/dL Lactic Acid 0.4 (0.4-2.0) Calcium (8.4-10.2) mg/dL Total Bilirubin (0.2-1.3) mg/dL AST (14-36) U/L ALT (0-35) U/L Alkaline Phosphatase (38-126) U/L NT-Pro-B Natriuret Pep (0-900) pg/mL Serum Total Protein (6.3-8.2) g/dL Albumin (3.5-5.0) g/dL Ur Collection Type CATH Urine Color YELLOW (YELLOW) Urine Appearance CLEAR (CLEAR) Urine pH 5.0 (5-6) Ur Specific [place] 1.015 (1.005-1.025) Urine Protein NEGATIVE (Negative) Urine Ketones NEGATIVE (NEGATIVE) Urine Blood NEGATIVE (0-5) Velasquez/ul Urine Nitrite NEGATIVE (NEGATIVE) Urine Bilirubin NEGATIVE (NEGATIVE) Urine Urobilinogen NORMAL (0-1) mg/dL Ur Leukocyte Esterase TRACE (NEGATIVE) Urine Microscopic RBC 0-2 (0-2) /HPF Urine Microscopic WBC 2-5 (0-5) /HPF Ur Epithelial Cells FEW (FEW) /HPF Urine Bacteria FEW (NEGATIVE) /HPF Urine Mucus SLIGHT (NEGATIVE) /HPF Urine Glucose NEGATIVE (NEGATIVE) mg/dL Specimen Received 02-26-18 1300 02/26/18 02/26/18 Range/Units 12:55 12:55 WBC (4.0-10.5) K/mm3 RBC (4.1-5.4) M/mm3 Hgb (12.0-16.0) gm/dl Hct (35-47) % MCV (78-100) fl MCH (26-32) pg MCHC (32-36) g/dl RDW (11.5-14.0) % Plt Count (150-450) K/mm3 MPV (6-9.5) fl Absolute Granulocytes (1.4-6.9) Segmented Neutrophils (36.0-66.0) % Lymphocytes (Manual) (24-44) % Monocytes (Manual) (0.0-12.0) % Platelet Estimate (NORMAL) RBC Morphology PT 10.8 (9.95-12.35) SECONDS INR 0.93 (0.8-3.0) APTT 27.3 (25.3-37.0) SECONDS D-Dimer 662 H* (215-500) ng/mL Puncture Site pCO2 (35-45) mmHg pO2 (75-100) mmHg Base Excess (-2.0-2.0) O2 Saturation (94-100) g/dF ABG pH (7.35-7.45) ABG HCO3 (22-28) ABG O2 Sat (Measured) (95-100) % Tyson Test A-a Gradient a/A Ratio Hemoglobin Carboxyhemoglobin (0.0-6.9) % THgb Methemoglobin (1.4-1.5) % Potassium 5.0 (3.5-5.1) Temperature C POC O2 Flow Rate % Sodium 142 (137-145) mmol/L Chloride 101 (98-107) mmol/L Carbon Dioxide 34 H (22-30) mmol/L Anion Gap 11.9 (5-15) MEQ/L BUN 19 H (7-17) mg/dL Creatinine 0.90 (0.52-1.04) mg/dL Estimated GFR > 60.0 ML/MIN Glucose 95 (74-106) mg/dL Lactic Acid (0.4-2.0) Calcium 8.9 (8.4-10.2) mg/dL Total Bilirubin 0.20 (0.2-1.3) mg/dL AST 13 L (14-36) U/L ALT 10 (0-35) U/L Alkaline Phosphatase 139 H (38-126) U/L NT-Pro-B Natriuret Pep 116 (0-900) pg/mL Serum Total Protein 6.8 (6.3-8.2) g/dL Albumin 3.4 L (3.5-5.0) g/dL Ur Collection Type Urine Color (YELLOW) Urine Appearance (CLEAR) Urine pH (5-6) Ur Specific [place] (1.005-1.025) Urine Protein (Negative) Urine Ketones (NEGATIVE) Urine Blood (0-5) Velasquez/ul Urine Nitrite (NEGATIVE) Urine Bilirubin (NEGATIVE) Urine Urobilinogen (0-1) mg/dL Ur Leukocyte Esterase (NEGATIVE) Urine Microscopic RBC (0-2) /HPF Urine Microscopic WBC (0-5) /HPF Ur Epithelial Cells (FEW) /HPF Urine Bacteria (NEGATIVE) /HPF Urine Mucus (NEGATIVE) /HPF Urine Glucose (NEGATIVE) mg/dL Specimen Received Radiology Exams: Radiology Procedures Category Date Time Status CHEST 1 VIEW (PORTABLE) Routine Exams 02/26/18 12:45 Completed CHEST WITH CONTRAST [CT] Urgent Exams 02/26/18 15:23 Completed Assessment/Plan (1) COPD exacerbation Current Visit: Yes Status: Acute Assessment & Plan: continue nebs and the flutter device continue steroids wean as tolerated wean O2 as tolerated continue ceftriaxone and azithromycin repeat cbc, bmp in am d/c xiong [facility] ppx Code(s): J44.1 - CHRONIC OBSTRUCTIVE PULMONARY DISEASE W (ACUTE) EXACERBATION (2) Metabolic encephalopathy Current Visit: Yes Status: Acute Assessment & Plan: secondary to the hypoxia and the copd exacerbation/bronchitis infection improving Code(s): G93.41 - METABOLIC ENCEPHALOPATHY (3) Acute hypoxemic respiratory failure Current Visit: Yes Status: Acute Code(s): J96.01 - ACUTE RESPIRATORY FAILURE WITH HYPOXIA (4) Depression Current Visit: Yes Status: Chronic Code(s): F32.9 - MAJOR DEPRESSIVE DISORDER, SINGLE EPISODE, UNSPECIFIED (5) Hypothyroidism Current Visit: Yes Status: Chronic Code(s): E03.9 - HYPOTHYROIDISM, UNSPECIFIED (6) Tobacco abuse Current Visit: Yes Status: Chronic Code(s): Z72.0 - TOBACCO USE (7) Seizure disorder Current Visit: Yes Status: Chronic Code(s): G40.909 - EPILEPSY, UNSP, NOT INTRACTABLE, WITHOUT STATUS EPILEPTICUS
[2018-02-27] MEDS: ROCEPHIN 1 Gm-D5w 50 ml Bag** 1 G/50 ML IVPB IV SCH (09:10)
[2018-02-27] MEDS: FOLATE 1 MG PO SCH (09:11)
[2018-02-27] MEDS: Protonix 40MG Tablet PO SCH (09:11)
[2018-02-27] MEDS: Cymbalta 30 MG Capsule PO SCH (09:11)
[2018-02-27] MEDS: Keppra 250 MG PO SCH ×2 (09:11→20:21)
[2018-02-27] MEDS: Risperdal 1 MG PO SCH ×3 (09:11→20:20)
[2018-02-27] MEDS: ESTRACE 1 MG PO SCH (09:12)
[2018-02-27] MEDS: NEURONTIN 300 MG PO SCH ×2 (09:12→20:21)
[2018-02-27] MEDS: KEPPRA 500 MG PO SCH ×2 (09:15→20:21)
[2018-02-27] MEDS ORDERED: NON-FORMULARY ITEM (Duloxetine Hcl [Cymbalta] 60 MG) PO SCH (10:00)
[2018-02-27] MEDS ORDERED: NON-FORMULARY ITEM (Omeprazole 20 Mg [Prilosec 20 Mg] 20 MG) PO SCH (10:00)
[2018-02-27] MEDS ORDERED: Pepcid 20 MG PO PRN (10:00)
[2018-02-27] MEDS ORDERED: NON-FORMULARY ITEM (Buspirone Hcl [Buspar] 15 MG) PO SCH (10:00)
[2018-02-27] MEDS ORDERED: BUSPAR 5 MG PO SCH (10:00)
[2018-02-27] MEDS: Zithromax 500 MG/ 250 ML NaCl Premix 500 MG/250 ML IVPB IV SCH (10:03)
[2018-02-27] MEDS: BUSPAR 5 MG PO SCH ×2 (11:59→20:24)
[2018-02-27] MEDS: PROVENTIL 2.5 MG/3 ML NEB IH SCH (19:00)
[2018-02-27] MEDS: Advair Hfa 115/21 Common canister IH SCH (19:02)
[2018-02-27] MEDS: ENOXAPARIN SODIUM SQ SCH (20:22)
[2018-02-28] MEDS: solu-MEDROL 125 MG IV SCH ×4 (00:09→21:10)
[2018-02-28] MEDS: PROVENTIL 2.5 MG/3 ML NEB IH SCH ×6 (05:45→23:25)
[2018-02-28 06:01] LABS: ALBUMIN 3.2 g/dL (3.5-5.0); ALKALINE PHOSPHATASE 116 U/L (38-126); ANION GAP 11.8 MEQ/L (5-15); BLOOD UREA NITROGEN 11 mg/dL (7-17); CHLORIDE 101 mmol/L (98-107); Calcium 8.5 mg/dL (8.4-10.2); Carbon Dioxide 30 mmol/L (22-30); Creatinine 1 0.66 mg/dL (0.52-1.04); Glucose 140 mg/dL (74-106); Granulocyte Absolute (ANC) 28.11 (1.4-6.9); Hematocrit 34.9 % (35-47); Hemoglobin 10.7 gm/dl (12.0-16.0); Mean Cell Volume 91.1 fl (78-100); Mean Corpuscular Hemoglobin 27.9 pg (26-32); Mean Corpuscular Hgb Concent. 30.7 g/dl (32-36); Platelet Count 283 K/mm3 (150-450); Potassium 4.5 mmol/L (3.5-5.1); Red Blood Count 3.83 M/mm3 (4.1-5.4); Red Cell Distribution Width 14.7 % (11.5-14.0); SGOT/AST 14 U/L (14-36); SODIUM 139 mmol/L (137-145); Total Protein 6.5 g/dL (6.3-8.2)
[2018-02-28 06:08] LABS: SGPT/ALT 16 U/L (0-35)
[2018-02-28 06:24] LABS: White Blood Count 30.2 K/mm3 (4.0-10.5)
[2018-02-28] MEDS: Advair Hfa 115/21 Common canister IH SCH ×2 (06:54→19:19)
[2018-02-28 07:57] LABS: Lymphocytes 3 % (24-44); Neutrophils 97 % (36.0-66.0); Total Cells Counted 100
[2018-02-28 07:58] LABS: ANISOCYTOSIS 1+; Platelet Estimate NORMAL (NORMAL); Toxic Granulation 2+
[2018-02-28] MEDS: TYLENOL 325 MG PO PRN (07:59)
--- NOTE | 2018-02-28 08:32 | CONS ---
CONSULT DATE: 02/27/2018 HISTORY: Barbara Ansari is a 62 year-old woman with significant smoking history who has been admitted after failing two outpatient treatments of acute bronchitis. The patient was seen by Dr. Eduardo Canales and was treated with oral steroids and antibiotics. Although initially she felt better but her symptoms got progressively worse. She was seen by Dr. Alston yesterday and was admitted. The patient is noted to have cough productive of yellow expectoration. She is continued on bronchodilators along with antibiotics and steroids. She also had a positive D-dimer. CT chest was obtained which was negative for pulmonary embolism but did show evidence of basilar atelectasis and tiny left pleural effusion with minimal basilar cysts. A new hiatal hernia was also noted along with old T12 fracture. At the time of my evaluation the patient is awake, comfortable, able to talk. She continues to laugh and joke. She voices no other acute symptoms. Her effort tolerance has been greatly reduced due to recent pelvic fracture. She is apparently going through therapy at home according to who is present in the room. PAST MEDICAL HISTORY: Positive for chronic obstructive pulmonary disease, hypertension, seizure disorder, anxiety, depression, osteoporosis. PAST SURGICAL HISTORY: No recent surgery. PERSONAL AND SOCIAL HISTORY: The patient has been a smoker up until this admission. MEDICATIONS: Home and current medications are reviewed. ALLERGIES: ALLERGIES NOTED. PHYSICAL EXAMINATION: This is an elderly woman who appears fairly comfortable. Vital signs noted. HEENT: Normocephalic. Oral exam is limited. NECK: Supple. CVS: First and second heart sounds are normal, regular, rhythmic. RESPIRATORY: Shows diminished breath sounds. Bilateral fairly diffuse rhonchi and crackles are heard. ABDOMEN: Soft. EXTREMITIES: No significant edema is noted. LABORATORY DATA AND TESTS: Labs reviewed. CT chest reviewed. ASSESSMENT: This is a 62 year old woman admitted with significant smoking history admitted with: 1) Chronic obstructive pulmonary disease with exacerbation. 2) Acute bronchitis. 3) Hypoxemia. 4) Comorbid as listed above. 5) Nicotine addiction. RECOMMENDATIONS: 1) The need for complete smoking cessation was stressed. Will obtain venous Doppler's in view of positive D-dimer test. Continue bronchodilators. The patient will benefit from Advair 150/21 mg 2 puffs b.i.d. 2) PFT upon discharge. Further recommendations pending clinical improvement. Discussed plan of care with patient and who verbalized their understanding. Thank you for allowing me to participate in the care of Barbara Ansari.
[2018-02-28] MEDS ORDERED: Lopressor 25MG Tab PO ONE (08:55)
--- NOTE | 2018-02-28 09:03 | PCM.NOTE ---
Date and Time: 02/28/18857 Subjective Assessment: Patient reports that her breathing is better. She feels like she is coughing stuff up better now. Her nurse notes that she just took tylenol for a headache. When asked, the patient denies pain any where. She reports she ate her breakfast well. No fevers. Patient is asking when she can go home. She does not use oxygen at home. Her nurse notes her heart rate on tele is now in the 120 's. - Review of Systems Constitutional: No Symptoms Eyes: No Symptoms Ears, Nose, & Throat: No Symptoms Respiratory: Cough Cardiac: No Symptoms Abdominal/Gastrointestinal: No Symptoms Genitourinary Symptoms: No Symptoms Musculoskeletal: No Symptoms Skin: No Symptoms Objective Exam General Appearance: no apparent distress, alert, other (smiling, talkative) Neurologic Exam: alert, cooperative, normal mood/affect Skin Exam: normal color, warm, dry, No rash Respiratory Exam: other (scattered expiratory wheezes throughout, equal breath sounds), No respiratory distress, No accessory muscle use Cardiovascular Exam: other (tachycardic, regular rhythm), No murmur, No friction rub, No gallop Gastrointestinal/Abdomen Exam: soft, normal bowel sounds, No tenderness, No distention, No mass Extremity Exam: other (no c/c/e) OBJECTIVE DATA Vital Signs: Vital Signs - 24 hr Temp Pulse Resp BP Pulse Ox 02/28/18 08:15 22 96 02/28/18 07:26 97.8 F 90 22 168/84 96 02/28/18 06:55 90 22 95 02/28/18 04:10 98.6 F 88 22 147/78 93 L 02/28/18 04:00 22 93 L 02/28/18 00:21 98.6 F 103 H 19 165/77 91 L 02/28/18 00:00 18 92 L 02/27/18 19:59 99.1 F 117 H 20 115/70 93 L 02/27/18 19:57 25 H 92 L 02/27/18 19:00 119 H 17 91 L 02/27/18 16:00 98.5 F 55 L 20 145/68 93 L 02/27/18 12:00 22 02/27/18 11:31 97.8 F 102 H 22 152/80 95 02/27/18 10:54 109 H 22 96 Oxygen-Last 24 hours O2 Percentage 2 Liters = 28% O2 Percentage 2 Liters = 28% O2 Percentage 2 Liters = 28% O2 Percentage 2 Liters = 28% O2 Percentage 2 Liters = 28% Pain Assessment - Last Documented Pain Intensity 7 Pain Scale Used 0-10 Pain Scale Intake and Output: Intake & Output 02/26/18 02/27/1818 03/01/18 06:59 06:59 06:59 06:59 Intake Total 1679 2290 Output Total 1380 1250 Balance 299 1040 Weight 71.4 kg Lab Results: Lab Results-Last 24 Hours 02/28/18 02/28/18 Range/Units 05:28 05:28 WBC 30.2 H* (4.0-10.5) K/mm3 RBC 3.83 L (4.1-5.4) M/mm3 Hgb 10.7 L (12.0-16.0) gm/dl Hct 34.9 L (35-47) % MCV 91.1 (78-100) fl MCH 27.9 (26-32) pg MCHC 30.7 L (32-36) g/dl RDW 14.7 H (11.5-14.0) % Plt Count 283 (150-450) K/mm3 MPV 10.0 H (6-9.5) fl Absolute Granulocytes 28.11 H (1.4-6.9) Segmented Neutrophils 97 H (36.0-66.0) % Lymphocytes (Manual) 3 L (24-44) % Toxic Granulation 2+ Platelet Estimate NORMAL (NORMAL) RBC Morphology ABNORMAL Anisocytosis 1+ Smear Path Review Pending Sodium 139 (137-145) mmol/L Potassium 4.5 (3.5-5.1) mmol/L Chloride 101 (98-107) mmol/L Carbon Dioxide 30 (22-30) mmol/L Anion Gap 11.8 (5-15) MEQ/L BUN 11 (7-17) mg/dL Creatinine 0.66 (0.52-1.04) mg/dL Estimated GFR > 60.0 ML/MIN Glucose 140 H (74-106) mg/dL Calcium 8.5 (8.4-10.2) mg/dL Total Bilirubin 0.10 L (0.2-1.3) mg/dL AST 14 (14-36) U/L ALT 16 (0-35) U/L Alkaline Phosphatase 116 (38-126) U/L Serum Total Protein 6.5 (6.3-8.2) g/dL Albumin 3.2 L (3.5-5.0) g/dL Radiology Exams: Radiology Procedures Category Date Time Status CHEST 1 VIEW (PORTABLE) Routine Exams 02/26/18 12:45 Completed CHEST 2 VIEWS (PA AND LAT) Routine Exams 02/28/18 Ordered CHEST WITH CONTRAST [CT] Urgent Exams 02/26/18 15:23 Completed VENOUS BILATERAL EXTREMITY [US] Routine Exams 02/28/18 08:00 Taken Assessment/Plan (1) COPD with exacerbation Current Visit: Yes Status: Acute Assessment & Plan: Continue with azithromycin and ceftriaxone both day 3. Continue albuterol as needed and Advair as ordered by Dr. Micha Drummond, title i paraprofessional. I appreciate him seeing her yesterday. I called him today and he also agrees that her elevated WBC is most likely due to steroids. Recheck chest X-ray PA and lateral and will start to wean steroids today and recheck CBC in AM. Continue oxygen as needed. She does not have oxygen at home. Code(s): J44.1 - CHRONIC OBSTRUCTIVE PULMONARY DISEASE W (ACUTE) EXACERBATION (2) Essential hypertension Current Visit: Yes Status: Acute Assessment & Plan: Her lisinopril is currently being held. Will start metoprolol today due to increased heart rate and hypertension. Dr. Micha Drummond was ok with using a beta danii for her as he felt like her breathing was doing well enough to tolerate this. Code(s): I10 - ESSENTIAL (PRIMARY) HYPERTENSION (3) Seizure disorder Current Visit: Yes Status: Chronic Assessment & Plan: Continue home medication. Code(s): G40.909 - EPILEPSY, UNSP, NOT INTRACTABLE, WITHOUT STATUS EPILEPTICUS (4) Depression Current Visit: Yes Status: Chronic Assessment & Plan: Continue home medication. Code(s): F32.9 - MAJOR DEPRESSIVE DISORDER, SINGLE EPISODE, UNSPECIFIED (5) Anxiety Current Visit: Yes Status: Acute Assessment & Plan: Continue home medication. Code(s): F41.9 - ANXIETY DISORDER, UNSPECIFIED (6) Osteoarthritis Current Visit: Yes Status: Acute Assessment & Plan: Continue to hold celebrex and use tylenol as needed. Code(s): M19.90 - UNSPECIFIED OSTEOARTHRITIS, UNSPECIFIED SITE (7) Elevated d-dimer Current Visit: Yes Status: Acute Assessment & Plan: Chest CT neg for PE. Dopplers ordered per Dr. Micha Drummond. Code(s): R79.89 - OTHER SPECIFIED ABNORMAL FINDINGS OF BLOOD CHEMISTRY (8) Tobacco abuse Current Visit: Yes Status: Chronic Assessment & Plan: Patient counseled that she needs to quit smoking. Code(s): Z72.0 - TOBACCO USE (9) Sinus tachycardia Current Visit: Yes Status: Acute Assessment & Plan: EKG with HR 120 and sinus rhythm. Starting metoprolol. Code(s): R00.0 - TACHYCARDIA, UNSPECIFIED (10) Leukocytosis Current Visit: Yes Status: Acute Assessment & Plan: Clinically improving with stable blood pressure and oxygen has been weaned to 2L and patient states feeling better. Most likely due to steroids. Pathologist review of slide pending. Start to wean steroids. Code(s): D72.829 - ELEVATED WHITE BLOOD CELL COUNT, UNSPECIFIED
--- NOTE | 2018-02-28 10:03 | XRAY ---
Indication: Acute bronchitis. COPD PA Comparison: February 26, 2018. AP/lateral chest now demonstrates subtle bibasilar infiltrate versus atelectasis and tiny left effusion. Remaining heart and lungs unremarkable.
[2018-02-28] MEDS: Protonix 40MG Tablet PO SCH (10:29)
[2018-02-28] MEDS: Cymbalta 30 MG Capsule PO SCH (10:29)
[2018-02-28] MEDS: FOLATE 1 MG PO SCH (10:29)
[2018-02-28] MEDS: Keppra 250 MG PO SCH ×2 (10:29→21:09)
[2018-02-28] MEDS: Risperdal 1 MG PO SCH ×3 (10:29→21:09)
[2018-02-28] MEDS: NEURONTIN 300 MG PO SCH ×2 (10:29→21:09)
[2018-02-28] MEDS: ROCEPHIN 1 Gm-D5w 50 ml Bag** 1 G/50 ML IVPB IV SCH (10:30)
[2018-02-28] MEDS: ESTRACE 1 MG PO SCH (10:30)
[2018-02-28] MEDS: KEPPRA 500 MG PO SCH ×2 (10:30→21:09)
--- NOTE | 2018-02-28 10:47 | XRAY ---
Indication: Elevated d-dimer. Two-dimensional sonogram and color Doppler imaging of the major venous vessels of the left and right leg was performed. Comparison: February 01, 2014. Again no thrombus seen in the examined deep venous vessels of the left and right leg including greater saphenous veins. Veins demonstrate normal compressibility. Venous waveforms are normal with and without augmentation. Impression: Left and right legs again negative for DVT.
[2018-02-28] MEDS: Zithromax 500 MG/ 250 ML NaCl Premix 500 MG/250 ML IVPB IV SCH (11:37)
[2018-02-28] MEDS: BUSPAR 5 MG PO SCH ×2 (12:17→21:08)
[2018-02-28] MEDS: Dextrose 5% -0.45 NaCl 1000 ML 1,000 ML IV SCH (14:40)
[2018-02-28] MEDS: ENOXAPARIN SODIUM SQ SCH (21:08)
[2018-02-28] MEDS: Lopressor 25MG Tab PO SCH (21:09)
[2018-03-01] MEDS: Dextrose 5% -0.45 NaCl 1000 ML 1,000 ML IV SCH (03:08)
[2018-03-01] MEDS: solu-MEDROL 125 MG IV SCH (05:12)
[2018-03-01 05:44] LABS: Granulocyte Absolute (ANC) 20.99 (1.4-6.9); Hematocrit 32.6 % (35-47); Mean Cell Volume 91.6 fl (78-100); Mean Corpuscular Hgb Concent. 30.7 g/dl (32-36); Mean Platelet Volume 10.4 fl (6-9.5); Platelet Count 271 K/mm3 (150-450); Red Blood Count 3.56 M/mm3 (4.1-5.4); White Blood Count 23.1 K/mm3 (4.0-10.5)
[2018-03-01 06:07] LABS: BLOOD UREA NITROGEN 14 mg/dL (7-17); CHLORIDE 104 mmol/L (98-107); Calcium 7.5 mg/dL (8.4-10.2); Carbon Dioxide 28 mmol/L (22-30); Creatinine 1 0.61 mg/dL (0.52-1.04); Glucose 126 mg/dL (74-106); Potassium 4.6 mmol/L (3.5-5.1); SODIUM 137 mmol/L (137-145)
[2018-03-01] MEDS: Advair Hfa 115/21 Common canister IH SCH (06:50)
[2018-03-01] MEDS: PROVENTIL 2.5 MG/3 ML NEB IH SCH ×3 (06:50→14:42)
[2018-03-01 08:02] LABS: BAND 3 % (0.0-2.0); Lymphocytes 4 % (24-44); Monocyte 1 % (0.0-12.0); Neutrophils 92 % (36.0-66.0); Total Cells Counted 100
[2018-03-01 08:03] LABS: Platelet Estimate NORMAL (NORMAL)
--- NOTE | 2018-03-01 08:16 | PCM.NOTE ---
Date and Time: 03/01/18815 OBJECTIVE DATA Vital Signs: Vital Signs - 24 hr Temp Pulse Resp BP Pulse Ox 03/01/18 07:28 97.5 F 99 H 18 163/84 99 03/01/18 06:58 90 18 99 03/01/18 04:10 98.1 F 79 23 140/79 99 03/01/18 04:00 20 03/01/18 03:00 98 02/28/18 23:48 98.2 F 94 H 22 163/90 98 02/28/18 23:41 22 02/28/18 23:00 94 H 22 98 02/28/18 22:55 94 L 02/28/18 20:13 98.7 F 112 H 20 164/82 95 02/28/18 20:00 20 02/28/18 19:21 109 H 28 H 95 02/28/18 16:22 97.9 F 83 22 178/80 96 02/28/18 16:00 96 02/28/18 14:57 100 H 22 02/28/18 12:00 97 02/28/18 11:17 95 H 24 02/28/18 11:11 97.9 F 94 H 22 189/87 96 Oxygen-Last 24 hours O2 Percentage 2 Liters = 28% O2 Percentage 2 Liters = 28% O2 Percentage 2 Liters = 28% O2 Percentage 2 Liters = 28% O2 Percentage 2 Liters = 28% O2 Percentage 2 Liters = 28% Pain Assessment - Last Documented Pain Intensity 0 Pain Scale Used 0-10 Pain Scale,FLACC Intake and Output: Intake & Output 02/27/18 02/28/18 03/01/18 03/02/18 06:59 06:59 06:59 06:59 Intake Total 1679 2290 3007 Output Total 1380 1250 2100 Balance 299 1040 907 Weight 71.4 kg 71.4 kg Lab Results: Lab Results-Last 24 Hours 02/28/18 03/01/18 03/01/18 Range/Units 05:28 05:05 05:05 WBC 30.2 H* 23.1 H (4.0-10.5) K/mm3 RBC 3.83 L 3.56 L (4.1-5.4) M/mm3 Hgb 10.7 L 10.0 L (12.0-16.0) gm/dl Hct 34.9 L 32.6 L (35-47) % MCV 91.1 91.6 (78-100) fl MCH 27.9 28.0 (26-32) pg MCHC 30.7 L 30.7 L (32-36) g/dl RDW 14.7 H 15.0 H (11.5-14.0) % Plt Count 283 271 (150-450) K/mm3 MPV 10.0 H 10.4 H (6-9.5) fl Absolute Granulocytes 28.11 H 20.99 H (1.4-6.9) Segmented Neutrophils 97 H 92 H (36.0-66.0) % Band Neutrophils 3 H (0.0-2.0) % Lymphocytes (Manual) 3 L 4 L (24-44) % Monocytes (Manual) 1 (0.0-12.0) % Toxic Granulation 2+ Platelet Estimate NORMAL NORMAL (NORMAL) RBC Morphology ABNORMAL NORMAL Anisocytosis 1+ Smear Path Review Sodium 137 (137-145) mmol/L Potassium 4.6 (3.5-5.1) mmol/L Chloride 104 (98-107) mmol/L Carbon Dioxide 28 (22-30) mmol/L Anion Gap 10.0 (5-15) MEQ/L BUN 14 (7-17) mg/dL Creatinine 0.61 (0.52-1.04) mg/dL Estimated GFR > 60.0 ML/MIN Glucose 126 H (74-106) mg/dL Calcium 7.5 L (8.4-10.2) mg/dL Radiology Exams: Radiology Procedures Category Date Time Status CHEST 2 VIEWS (PA AND LAT) Routine Exams 02/28/18 09:47 Completed VENOUS BILATERAL EXTREMITY [US] Routine Exams 02/28/18 08:00 Completed Multi-Disciplinary Progress Notes: Multi-Disciplinary Progress Notes 02/28/18 12:30 (created 02/28/18 14:06) Case Management Note by Monalisa Patton SPOKE WITH PATIENT REGARDING DC PLAN AND NEEDS. PATIENT LIVES AT HOME WITH . PATIENT STATES SHE HAS A WALKER AT HOME AND IS GETTING PHYSICAL THERAPY THRU [facility]. SHE PLANS TO RETURN HOME WITH AND CONTINUED THERAPY ALREADY SET UP. SHE DENIES THE NEED FOR ANY NEW SERVICES OR EQUIPMENT. WILL CONTINUES TO FOLLOW AND ASSESS Initialized on 02/28/18 14:06 - END OF NOTE Assessment/Plan (1) COPD with exacerbation Current Visit: Yes Status: Acute Code(s): J44.1 - CHRONIC OBSTRUCTIVE PULMONARY DISEASE W (ACUTE) EXACERBATION (2) Essential hypertension Current Visit: Yes Status: Acute Code(s): I10 - ESSENTIAL (PRIMARY) HYPERTENSION (3) Seizure disorder Current Visit: Yes Status: Chronic Code(s): G40.909 - EPILEPSY, UNSP, NOT INTRACTABLE, WITHOUT STATUS EPILEPTICUS (4) Depression Current Visit: Yes Status: Chronic Code(s): F32.9 - MAJOR DEPRESSIVE DISORDER, SINGLE EPISODE, UNSPECIFIED (5) Anxiety Current Visit: Yes Status: Acute Code(s): F41.9 - ANXIETY DISORDER, UNSPECIFIED (6) Osteoarthritis Current Visit: Yes Status: Acute Code(s): M19.90 - UNSPECIFIED OSTEOARTHRITIS, UNSPECIFIED SITE (7) Elevated d-dimer Current Visit: Yes Status: Acute Code(s): R79.89 - OTHER SPECIFIED ABNORMAL FINDINGS OF BLOOD CHEMISTRY (8) Tobacco abuse Current Visit: Yes Status: Chronic Code(s): Z72.0 - TOBACCO USE (9) Sinus tachycardia Current Visit: Yes Status: Acute Code(s): R00.0 - TACHYCARDIA, UNSPECIFIED (10) Leukocytosis Current Visit: Yes Status: Acute Code(s): D72.829 - ELEVATED WHITE BLOOD CELL COUNT, UNSPECIFIED
--- NOTE | 2018-03-01 08:56 | PCM.NOTE ---
Date and Time: 03/01/18 0851 Subjective Assessment: Patient denies any pain. Reports she continues to have some cough. She has had a good appetite and states she is feeling better than when she came in. She reports she plans to quit smoking and is asking for nicotine patches at discharge. - Review of Systems Constitutional: No Symptoms Eyes: No Symptoms Ears, Nose, & Throat: No Symptoms Respiratory: Cough Cardiac: No Symptoms Abdominal/Gastrointestinal: No Symptoms Genitourinary Symptoms: No Symptoms Musculoskeletal: No Symptoms Skin: No Symptoms Objective Exam General Appearance: no apparent distress, alert, other (smiling, talkative) Neurologic Exam: alert, cooperative, normal mood/affect Skin Exam: normal color, warm, dry, No rash Respiratory Exam: other (distant breath sounds, few coarse rhonchi, no wheezing , + cough) Cardiovascular Exam: regular rate/rhythm, normal heart sounds, No murmur, No friction rub, No gallop Gastrointestinal/Abdomen Exam: soft, normal bowel sounds, No tenderness, No distention, No mass Extremity Exam: other (no c/c/e) OBJECTIVE DATA Vital Signs: Vital Signs - 24 hr Temp Pulse Resp BP Pulse Ox 03/01/18 07:28 97.5 F 99 H 18 163/84 99 03/01/18 06:58 90 18 99 03/01/18 04:10 98.1 F 79 23 140/79 99 03/01/18 04:00 20 03/01/18 03:00 98 02/28/18 23:48 98.2 F 94 H 22 163/90 98 02/28/18 23:41 22 02/28/18 23:00 94 H 22 98 02/28/18 22:55 94 L 02/28/18 20:13 98.7 F 112 H 20 164/82 95 02/28/18 20:00 20 02/28/18 19:21 109 H 28 H 95 02/28/18 16:22 97.9 F 83 22 178/80 96 02/28/18 16:00 96 02/28/18 14:57 100 H 22 02/28/18 12:00 97 02/28/18 11:17 95 H 24 02/28/18 11:11 97.9 F 94 H 22 189/87 96 Oxygen-Last 24 hours O2 Percentage 2 Liters = 28% O2 Percentage 2 Liters = 28% O2 Percentage 2 Liters = 28% O2 Percentage 2 Liters = 28% O2 Percentage 2 Liters = 28% O2 Percentage 2 Liters = 28% Pain Assessment - Last Documented Pain Intensity 0 Pain Scale Used 0-10 Pain Scale,FLACC Intake and Output: Intake & Output 02/27/18 02/28/18 03/01/18 03/02/18 06:59 06:59 06:59 06:59 Intake Total 1679 2290 3007 Output Total 1380 1250 2100 Balance 299 1040 907 Weight 71.4 kg 71.4 kg Lab Results: Lab Results-Last 24 Hours 02/28/18 03/01/18 03/01/18 Range/Units 05:28 05:05 05:05 WBC 23.1 H (4.0-10.5) K/mm3 RBC 3.56 L (4.1-5.4) M/mm3 Hgb 10.0 L (12.0-16.0) gm/dl Hct 32.6 L (35-47) % MCV 91.6 (78-100) fl MCH 28.0 (26-32) pg MCHC 30.7 L (32-36) g/dl RDW 15.0 H (11.5-14.0) % Plt Count 271 (150-450) K/mm3 MPV 10.4 H (6-9.5) fl Absolute Granulocytes 20.99 H (1.4-6.9) Segmented Neutrophils 92 H (36.0-66.0) % Band Neutrophils 3 H (0.0-2.0) % Lymphocytes (Manual) 4 L (24-44) % Monocytes (Manual) 1 (0.0-12.0) % Platelet Estimate NORMAL (NORMAL) RBC Morphology NORMAL Smear Path Review Sodium 137 (137-145) mmol/L Potassium 4.6 (3.5-5.1) mmol/L Chloride 104 (98-107) mmol/L Carbon Dioxide 28 (22-30) mmol/L Anion Gap 10.0 (5-15) MEQ/L BUN 14 (7-17) mg/dL Creatinine 0.61 (0.52-1.04) mg/dL Estimated GFR > 60.0 ML/MIN Glucose 126 H (74-106) mg/dL Calcium 7.5 L (8.4-10.2) mg/dL Radiology Exams: Radiology Procedures Category Date Time Status CHEST 2 VIEWS (PA AND LAT) Routine Exams 02/28/18 09:47 Completed VENOUS BILATERAL EXTREMITY [US] Routine Exams 02/28/18 08:00 Completed Multi-Disciplinary Progress Notes: Multi-Disciplinary Progress Notes 02/28/18 12:30 (created 02/28/18 14:06) Case Management Note by Monalisa Patton SPOKE WITH PATIENT REGARDING DC PLAN AND NEEDS. PATIENT LIVES AT HOME WITH . PATIENT STATES SHE HAS A WALKER AT HOME AND IS GETTING PHYSICAL THERAPY THRU [facility]. SHE PLANS TO RETURN HOME WITH AND CONTINUED THERAPY ALREADY SET UP. SHE DENIES THE NEED FOR ANY NEW SERVICES OR EQUIPMENT. WILL CONTINUES TO FOLLOW AND ASSESS Initialized on 02/28/18 14:06 - END OF NOTE Assessment/Plan (1) COPD with exacerbation Current Visit: Yes Status: Acute Assessment & Plan: Wean solumedrol to 60 mg IV q 12 hours, continue with oxygen and try to wean if possible, continue breathing treatments, continue ceftriaxone and azithromycin. WBC is improved today and peripheral smear consistent with infection. Code(s): J44.1 - CHRONIC OBSTRUCTIVE PULMONARY DISEASE W (ACUTE) EXACERBATION (2) Essential hypertension Current Visit: Yes Status: Acute Assessment & Plan: Will restart her home lisinopril today and continue metoprolol. Her heart rate is better controlled today. Will decrease IV fluids. Code(s): I10 - ESSENTIAL (PRIMARY) HYPERTENSION (3) Seizure disorder Current Visit: Yes Status: Chronic Assessment & Plan: No seizure activity. Continue home medication. Code(s): G40.909 - EPILEPSY, UNSP, NOT INTRACTABLE, WITHOUT STATUS EPILEPTICUS (4) Depression Current Visit: Yes Status: Chronic Code(s): F32.9 - MAJOR DEPRESSIVE DISORDER, SINGLE EPISODE, UNSPECIFIED (5) Anxiety Current Visit: Yes Status: Acute Code(s): F41.9 - ANXIETY DISORDER, UNSPECIFIED (6) Osteoarthritis Current Visit: Yes Status: Acute Code(s): M19.90 - UNSPECIFIED OSTEOARTHRITIS, UNSPECIFIED SITE (7) Elevated d-dimer Current Visit: Yes Status: Acute Assessment & Plan: Chest CT neg for PE and bilat LE dopplers neg for DVT. Code(s): R79.89 - OTHER SPECIFIED ABNORMAL FINDINGS OF BLOOD CHEMISTRY (8) Tobacco abuse Current Visit: Yes Status: Chronic Code(s): Z72.0 - TOBACCO USE (9) Sinus tachycardia Current Visit: Yes Status: Resolved Code(s): R00.0 - TACHYCARDIA, UNSPECIFIED (10) Leukocytosis Current Visit: Yes Status: Acute Assessment & Plan: Improving with decrease in steroids. Blood culture no growth to date. Continue antibiotics as above. Code(s): D72.829 - ELEVATED WHITE BLOOD CELL COUNT, UNSPECIFIED
[2018-03-01] MEDS ORDERED: Zestril 20 MG PO SCH (10:00)
[2018-03-01] MEDS: ROCEPHIN 1 Gm-D5w 50 ml Bag** 1 G/50 ML IVPB IV SCH (10:08)
[2018-03-01] MEDS: Cymbalta 30 MG Capsule PO SCH (10:10)
[2018-03-01] MEDS: FOLATE 1 MG PO SCH (10:11)
[2018-03-01] MEDS: KEPPRA 500 MG PO SCH (10:11)
[2018-03-01] MEDS: ESTRACE 1 MG PO SCH (10:11)
[2018-03-01] MEDS: NEURONTIN 300 MG PO SCH (10:11)
[2018-03-01] MEDS: Protonix 40MG Tablet PO SCH (10:11)
[2018-03-01] MEDS: Risperdal 1 MG PO SCH ×2 (10:11→13:27)
[2018-03-01] MEDS: Keppra 250 MG PO SCH (10:11)
[2018-03-01] MEDS: Lopressor 25MG Tab PO SCH (10:11)
[2018-03-01] MEDS: TYLENOL 325 MG PO PRN (10:15)
[2018-03-01] MEDS: Zithromax 500 MG/ 250 ML NaCl Premix 500 MG/250 ML IVPB IV SCH (11:29)
[2018-03-01] MEDS: BUSPAR 5 MG PO SCH (11:54)
[2018-03-01] MEDS ORDERED: LOPRESSOR 5 MG/5 ML INJECTION IV ONE ×2 (13:52→15:12)
[2018-03-01] MEDS ORDERED: BABY ASPIRIN 81 MG CHEW PO ONE (15:12)
[2018-03-01 16:40] VITALS: BP 183/90; PULSE 116; O2SAT 97
[2018-03-01] MEDS ORDERED: solu-MEDROL 125 MG IV SCH (22:00)
[2018-03-03] MEDS ORDERED: Fosamax 70 MG PO SCH (06:00)
--- NOTE | 2018-03-15 08:29 | DS ---
DISCHARGE DIAGNOSES: 1) TACHYCARDIA WITH ELEVATED TROPONIN. 2) CHRONIC OBSTRUCTIVE PULMONARY DISEASE WITH EXACERBATION. 3) HYPERTENSION. 4) SEIZURE DISORDER. 5) DEPRESSION. 6) ANXIETY. 7) OSTEOARTHRITIS. 8) ELEVATED D-DIMER. 9) TOBACCO ABUSE. 10) LEUKOCYTOSIS. DISCHARGE PHYSICAL EXAMINATION: VITALS: Temperature current 97.5F, temperature max 98.2F, heart rate 79 to 112, respiratory rate 18 to 23, blood pressure 140 to 189 over 79 to 90. Oxygen saturation 94 to 99% on 2 liters nasal cannula. GENERAL: The patient is lying in bed in no acute distress. She is alert and talkative. She was cooperative with normal mood and affect. CHEST: She had distant breath sounds, few coarse rhonchi. No wheezes. She had a cough. CVS: Her heart had a regular rate and rhythm. Normal heart sounds. No murmurs, gallops or rubs are appreciated. ABDOMEN: Soft, nontender, nondistended with normal bowel sounds. EXTREMITIES: No clubbing, cyanosis or edema. SKIN: Warm, dry and intact. HOSPITAL COURSE: 1) ELEVATED TROPONIN WITH TACHYCARDIA: The nurses called me with elevated heart rate and she was also having some chest pain. The troponin was checked and was found to be elevated at 0.068. The Hospitalist at [facility] was contacted and was willing to accept her in transfer so that she could see her supervisor shearing there. 2) CHRONIC OBSTRUCTIVE PULMONARY DISEASE WITH EXACERBATION: On admission her white blood cell count was elevated to 17,800 up to 30,200. It was down to 23,100. Elevation up to 30,000 was thought to be due to steroids. Dr. Roverto Drummond, Medical Imaging Specialist, had been consulted during her hospitalization and saw her and agreed with treatment. She was on IV steroids which had been weaned down to 60 mg IV every 12 hours as well as ceftriaxone and azithromycin. She was on oxygen and breathing treatment. 3) HYPERTENSION: She was restarted on her home dose of lisinopril. On the day of discharge metoprolol had been started because she had some sinus tachycardia. Her heart rate was better controlled until they called me with the chest pain and tachycardia and they found the elevated troponin at that time. 4) SEIZURE DISORDER: She did not have any seizure activity and was continued on her home medications. 5) DEPRESSION: She was continued on her home medications. 6) ANXIETY: Continued on her home medications. 7) OSTEOARTHRITIS: She was continued on her home medications. 8) ELEVATED D-DIMER: She had a chest CT that was negative for pulmonary embolism and also bilateral lower extremity Doppler's that were negative for deep venous thrombosis. 9) TOBACCO ABUSE: The patient was counseled that she needed to quit smoking. 10) SINUS TACHYCARDIA: She had initially responded to the beta danii but with the chest pain she had continued tachycardia. I did give her metoprolol 5 mg IV on 03/01/2018 at 1352 hours and 1512 hours before her transfer to [facility] to try to help control her heart rate. 11) LEUKOCYTOSIS: The leukocytosis was most likely due to her infection and the jump was due to the steroids. Blood cultures were no growth and she was on antibiotic. DISPOSITION: The patient was discharged to [facility] to the care of the Hospitalist in stable condition.
== END 2018-03-01 18:00 | disposition short-term general hospital (02) | DRG 308 ==
LOC: ICU 12:18 → EDSTATUS 12:18 → MED SURG 02-27 10:14
PROVIDERS: ADMIT Internal Medicine; ATTEND Internal Medicine
DX: R00.0 Tachycardia, unspecified (principal); G93.41 Metabolic encephalopathy; J96.01 Acute respiratory failure with hypoxia; J90 Pleural effusion, not elsewhere classified; J44.0 Chronic obstructive pulmonary disease with (acute) lower respiratory infection; J44.1 Chronic obstructive pulmonary disease with (acute) exacerbation; R79.89 Other specified abnormal findings of blood chemistry; J20.9 Acute bronchitis, unspecified; G40.909 Epilepsy, unspecified, not intractable, without status epilepticus; F41.8 Other specified anxiety disorders; M19.90 Unspecified osteoarthritis, unspecified site; R79.1 Abnormal coagulation profile; Z72.0 Tobacco use; D72.829 Elevated white blood cell count, unspecified; I10 Essential (primary) hypertension; E03.9 Hypothyroidism, unspecified; M81.0 Age-related osteoporosis without current pathological fracture; M79.89 Other specified soft tissue disorders; Z86.73 Personal history of transient ischemic attack (TIA), and cerebral infarction without residual deficits; F03.90 Unspecified dementia, unspecified severity, without behavioral disturbance, psychotic disturbance, mood disturbance, and anxiety; Z79.899 Other long term (current) drug therapy
CPT/HCPCS: 36415; 36600; 71045; 71046; 71260; 80048; 80053; 81000; 82375; 82803; 83605; 83880; 84484; 85025; 85379; 85610; 85730; 87040; 87086; 93005; 93970; 94150; 94640; 94667; 94668; 94760; J7609; J0456; J0696; J1650; J2930; A9270-GY

== ENCOUNTER 2018-05-15 10:38 | Inpatient (IN) | payer MEDICARE ==
[2018-05-15] MEDS ORDERED: solu-MEDROL 125 MG IV ONE (10:48)
[2018-05-15] MEDS ORDERED: PROVENTIL 2.5 MG/3 ML NEB IH ONE ×2 (10:48→11:03)
--- NOTE | 2018-05-15 10:55 | ERPHSYRPT ---
- History of Present Illness Time Seen by Provider: 05/15/18 10:51 Source: patient Exam Limitations: no limitations Physician History: 63-year-old white female with history of dementia, seizures, asthma, COPD, pneumonia arrives with complaint of shortness of breath 4 days. Patient apparently recently discharged from the longterm. Patient denies fevers denies nausea vomiting denies any chest pain. Past medical history includes dementia, seizures, cataracts, asthma, COPD, pneumonia, hypothyroidism, arthritis, fibromyalgia, diverticulitis, anxiety, depression, cervical cancer. Past surgical history includes appendectomy, cholecystectomy, hysterectomy, left and right hip surgeries. Social history patient denies tobacco use alcohol use or illicit drug use Timing/Duration: day(s) (4 days) Activities at Onset: none Severity of Dyspnea-Max: moderate Severity of Dyspnea-Current: moderate Possible Cause: occasional episodes Modifying Factors: Improves With: albuterol nebulizer, coughing Associated Symptoms: cough, wheezing, No chest pain/discomfort, No edema, No fever, No insomnia, No loss of appetite, No lightheadedness, No weakness, No ankle swelling, No chills, No hemoptysis, No calf pain, No dizziness, No heaviness, No heart racing, No lightheadedness, No leg swelling, No muscle spasms feet, No muscle spasms hands, No painful breathing, No productive cough, No sweating International travel in last 2 weeks: No Allergies/Adverse Reactions: tramadol HCl [From Ultram] Allergy (Mild, Verified 05/15/18 13:50) Rash ciprofloxacin [From Cipro] Allergy (Verified 05/15/18 13:50) Rash ciprofloxacin HCl [From Cipro] Allergy (Verified 05/15/18 13:50) Rash penicillin V [Penicillin V] Allergy (Verified 05/15/18 13:50) Rash Home Medications: AMITRIPTYLINE HCL 50 mg Tab [AMITRIPTYLINE HCL 50 mg Tablet] 150 mg PO HS [History] Alendronate Sodium 70 mg [Fosamax 70 MG] 70 mg PO WEEKLY 12/19/15 [History ] Duloxetine HCl [Cymbalta] 60 mg PO QAM 12/19/15 [History] Levetiracetam [Keppra] 750 mg PO BID 12/19/15 [History] Lisinopril [Zestril] 20 mg PO QAM 12/19/15 [History] Potassium Chloride 10 Meq Tab* [Klor Con 10 MEQ] 10 meq PO TID 12/19/15 [ History] Albuterol Sulfate [Albuterol Sulfate Hfa] 2 puff IH Q4HPRN PRN 02/22/17 [History ] risperiDONE [Risperdal] 2 mg PO TID 02/22/17 [History] Buspirone HCl [Buspar] 15 mg PO BID 05/18/17 [History] Tizanidine HCl 4 mg [Zanaflex 4 MG] 4 mg PO HS 12/17/17 [History] Celecoxib [Celebrex] 200 mg PO DAILY 02/11/18 [History] Folic Acid 1 mg PO DAILY 02/26/18 [History] Ondansetron ODT 4 MG [Zofran Odt 4 mg] 4 mg PO Q6H PRN PRN 02/26/18 [ History] Trazodone HCl 150 mg PO HS 02/26/18 [History] raNITIdine HCl [Ranitidine HCl] 150 mg PO DAILY PRN 02/26/18 [History] Albuterol 2.5 mg/3 ml Neb [Proventil 2.5 mg/3 ml Neb] 2.5 mg IH Q4HPRN PRN 05/15/18 [History] Alprazolam 0.25 mg [xanAX 0.25 MG] 0.25 mg PO TIDPRN PRN 05/15/18 [History ] Atorvastatin Calcium 40 mg PO DAILY 05/15/18 [History] Budesonide [Pulmicort Flexhaler] 180 mcg IH BID 05/15/18 [History] Gabapentin 300 mg PO QAM 05/15/18 [History] Gabapentin 600 mg PO QPM 05/15/18 [History] Metoprolol Tartrate 100 mg PO BID 05/15/18 [History] PANTOPRAZOLE 40 mg Tablet [Protonix 40MG Tablet] 40 mg PO DAILY 05/15/18 [ History] Hx Tetanus, Diphtheria Vaccination/Date Given: Yes Hx Influenza Vaccination/Date Given: Yes Hx Pneumococcal Vaccination/Date Given: Yes - Review of Systems Constitutional: No Fever, No Chills Eyes: No Symptoms Ears, Nose, & Throat: No Symptoms Respiratory: Cough, Wheezing Cardiac: No Chest Pain, No Edema, No Syncope Abdominal/Gastrointestinal: No Abdominal Pain, No Nausea, No Vomiting, No Diarrhea Genitourinary Symptoms: No Dysuria Musculoskeletal: No Back Pain, No Neck Pain Skin: No Rash Neurological: No Dizziness, No Focal Weakness, No Sensory Changes Psychological: No Symptoms Endocrine: No Symptoms All Other Systems: Reviewed and Negative - Past Medical History Pertinent Past Medical History: Yes Neurological History: Dementia, Seizures ENT History: Cataracts Cardiac History: Other Respiratory History: Asthma, COPD, Pneumonia Endocrine Medical History: Hypothyroidism Musculoskeletal History: Arthritis, Fibromyalgia GI Medical History: Diverticulitis History: No Pertinent History Psycho-Social History: Anxiety, Depression Female Reproductive Disorders: Cervical Cancer Other Medical History: pt states she has a murmur - Past Surgical History Past Surgical History: Yes Neuro Surgical History: No Pertinent History Cardiac: No Pertinent History Respiratory: No Pertinent History Gastrointestinal: Appendectomy, Cholecystectomy Genitourinary: No Pertinent History Musculoskeletal: Orthopedic Surgery Female Surgical History: Hysterectomy Other Surgical History: LEFT x 4, RIGHT x 1 HIP SURGERY - Social History Smoking Status: Current every day smoker How long have you smoked: 40 Exposure to second hand smoke: No Drug Use: none Patient Lives Alone: No - Nursing Vital Signs Nursing Vital Signs: Initial Vital Signs Pulse Rate 81 05/15/18 10:50 Respiratory Rate 22 05/15/18 10:50 O2 Sat by Pulse Oximetry 100 05/15/18 10:50 Pain Scale Pain Intensity 0 - Physical Exam General Appearance: mild distress Eye Exam: PERRL/EOMI Ears, Nose, Throat Exam: hearing grossly normal, normal pharynx, No abnormal TM (R), No abnormal TM (L), No pharyngeal erythema Neck Exam: normal inspection, supple Respiratory Exam: diminished breath sounds, wheezing Cardiovascular/Chest Exam: normal heart sounds, regular rate/rhythm Abdominal/Gastrointestinal Exam: soft, No tenderness, No distention, No mass Extremity Exam: non-tender, normal range of motion, normal inspection, no calf tenderness, no pedal edema Peripheral Pulses Exam: dorsalis-pedis (R): 2+, dorsalis-pedis (L): 2+ Neurologic Exam: alert, oriented x 3, cooperative, logistics/shipper II-XII nml as tested, sensation nml, No motor deficits Skin Exam: normal color SpO2 Interpretation: normal - Course Nursing assessment & vital signs reviewed: Yes EKG Interpreted by Me: RATE (80 bpm), Sinus Rhythm, NORMAL AXIS, Other (EKG: Sinus rhythm,80 bpm, large amount of artifact, no acute ST or T wave changes are noted) Rhythm Strip: Rate Ordered Tests: Active Orders 24 hr Category Date Time Status Bedrest with BRP/BSC ROUTINE Activity 05/15/18 13:43 Active Admit as Inpatient ROUTINE Care 05/15/18 13:43 Active CO2 Monitoring CONTINUOUS Care 05/15/18 13:43 Active Call Admit Doctor for Orders ON ADMISSION Care 05/15/18 13:43 Active Dope Weigh Operator STAT Care 05/15/18 10:48 Completed Code Status Order ROUTINE Care 05/15/18 13:43 Active EKG-ER Only STAT Care 05/15/18 10:48 Completed IV Care Q6H Care 05/15/18 13:43 Active IV Insertion STAT Care 05/15/18 10:48 Completed Oxygen-ED Only NASAL CANNULA 2 lpm Care 05/15/18 10:48 Completed Pulse Oximetry (ED) STAT Care 05/15/18 10:48 Completed Telemetry ROUTINE Care 05/15/18 13:43 Active Weight,Daily 0600 Care 05/15/18 13:43 Active Cardiac Diet Diet 05/15/18 Dinner Active CHEST 1 VIEW (PORTABLE) Stat Exams 05/15/18 10:48 Completed BLOOD CULTURE Stat Lab 05/15/18 11:23 Received CBC W DIFF AM.LAB Lab 05/16/18 05:00 Completed CBC W DIFF Stat Lab 05/15/18 11:07 Completed CMP AM.LAB Lab 05/16/18 05:00 Completed CMP Stat Lab 05/15/18 10:48 Completed CULTURE,SPUTUM Stat Lab 05/15/18 10:49 Uncollected NT PRO BNP Stat Lab 05/15/18 10:48 Completed TROPONIN Q3H Lab 05/15/18 11:07 Completed TROPONIN Q3H Lab 05/15/18 14:31 Completed VENOUS BLOOD GAS Stat Lab 05/15/18 11:05 Completed Oxygen NASAL CANNULA 2 lpm RT 05/15/18 13:43 Active Pulse Oximetry CONTINUOUS RT 05/15/18 13:43 Active Respiratory Nebulizer STAT RT 05/15/18 10:50 Completed Respiratory Therapy Consult ROUTINE RT 05/15/18 13:43 Completed Medication Summary Generic Name Dose Route Start Last Admin Trade Name Freq PRN Reason Stop Dose Admin Albuterol Sulfate 2.5 mg 05/15/18 16:02 Proventil 2.5 Mg/3 Ml Neb IH 06/14/18 16:01 Q4HPRN PRN SHORTNESS OF BREATH/WHEEZING Albuterol Sulfate 2 puff 05/15/18 16:19 Proventil Common Canister IH 06/14/18 16:18 Q4H PRN PRN SHORTNESS OF BREATH/WHEEZING Albuterol/Ipratropium 3 ml 05/15/18 13:43 Duoneb 0.5-3 Mg/3 Ml Neb IH 06/14/18 13:42 Q4HPRN PRN SHORTNESS OF BREATH/WHEEZING Alprazolam 0.25 mg 05/15/18 16:02 Xanax 0.25 Mg PO 06/14/18 16:01 TIDPRN PRN ANXIETY Buspirone HCl 15 mg 05/15/18 22:00 05/15/18 21:58 Buspar 5 Mg PO 06/14/18 21:59 15 mg 1200,2200 EDMUNDO Administration Duloxetine HCl 60 mg 05/16/18 10:00 Cymbalta 30 Mg Capsule PO 06/15/18 09:59 QAM EDMUNDO Famotidine 20 mg 05/15/18 16:16 Pepcid 20 Mg PO 06/14/18 16:15 DAILY PRN PRN GAS OR [place]CH[place] Folic Acid 1 mg 05/16/18 10:00 Folate 1 Mg PO 06/15/18 09:59 DAILY EDMUNDO Gabapentin 300 mg 05/16/18 10:00 Neurontin 300 Mg PO 06/15/18 09:59 QAM EDMUNDO Gabapentin 600 mg 05/15/18 22:00 05/15/18 21:59 Neurontin 300 Mg PO 06/14/18 21:59 600 mg QPM EDMUNDO Administration Azithromycin 500 mg in 250 mls @ 250 mls/hr 05/15/18 14:00 05/15/18 14:37 Zithromax 500 Mg/ 250 Ml Nacl Premix IV 06/14/18 13:59 250 mls/hr Q24H10 EDMUNDO Administration Ceftriaxone Sodium/Dextrose 1 g in 50 mls @ 100 mls/hr 05/16/18 10:00 Rocephin 1 Gm-D5w 50 Ml Bag IV 06/15/18 09:59 Q24H10 EDMUNDO Levetiracetam 500 mg 05/15/18 22:00 05/15/18 21:59 Keppra 500 Mg PO 06/14/18 21:59 500 mg BID EDMUNDO Administration Levetiracetam 250 mg 05/15/18 22:00 05/15/18 21:59 Keppra 250 Mg PO 06/14/18 21:59 250 mg BID EDMUNDO Administration Lisinopril 20 mg 05/16/18 10:00 Zestril 20 Mg PO 06/15/18 09:59 QAM EDMUNDO Methylprednisolone Sodium Succinate 80 mg 05/15/18 18:00 05/16/18 05:26 Solu-Medrol 125 Mg IV 06/14/18 17:59 80 mg Q6HT EDMUNDO Administration Metoprolol Tartrate 100 mg 05/15/18 22:00 05/15/18 21:59 Lopressor 50 Mg PO 06/14/18 21:59 100 mg BID EDMUNDO Administration Miscellaneous Information 1 each 05/15/18 16:30 Medication Intervention 06/14/18 16:29 .RT TO CHECK ON EDMUNDO Ondansetron HCl 4 mg 05/15/18 16:02 Zofran Odt 4 Mg PO 06/14/18 16:01 Q6H PRN PRN NAUSEA Pantoprazole Sodium 40 mg 05/16/18 10:00 Protonix 40mg Tablet PO 06/15/18 09:59 DAILY EDMUNDO Potassium Chloride 10 meq 05/15/18 16:30 05/15/18 21:59 Klor Con 10 Meq PO 06/14/18 16:29 10 meq TID EDMUNDO Administration Risperidone 2 mg 05/15/18 16:30 05/15/18 21:59 Risperdal 1 Mg PO 06/14/18 16:29 2 mg TID EDMUNDO Administration Simvastatin 40 mg 05/16/18 10:00 Zocor 20mg PO 06/15/18 09:59 DAILY EDMUNDO Tizanidine HCl 4 mg 05/15/18 22:00 05/15/18 21:24 Zanaflex 4 Mg PO 06/14/18 21:59 Not Given HS EDMUNDO Trazodone HCl 150 mg 05/15/18 22:00 05/15/18 21:41 Desyrel 150 Mg PO 06/14/18 21:59 Not Given HS EDMUNDO Discontinued Medications Generic Name Dose Route Start Last Admin Trade Name Anaid PRN Reason Stop Dose Admin Albuterol Sulfate 2.5 mg 05/15/18 10:48 05/15/18 11:33 Proventil 2.5 Mg/3 Ml Neb IH 05/15/18 10:49 2.5 mg STAT ONE Administration Albuterol Sulfate Confirm 05/15/18 11:03 Proventil 2.5 Mg/3 Ml Neb Administered 05/15/18 11:04 Dose 2.5 mg IH .STK-MED ONE Sodium Chloride 1,000 mls @ 100 mls/hr 05/15/18 11:00 05/15/18 11:22 Sodium Chloride 0.9% 1000 Ml IV 06/14/18 10:59 100 mls/hr .Q10H EDUMNDO Administration Ceftriaxone Sodium/Dextrose 1 g in 50 mls @ 100 mls/hr 05/15/18 12:43 12:56 Rocephin 1 Gm-D5w 50 Ml Bag IV 05/15/18 13:12 100 mls/hr STAT STA 100 mls/hr Administration Ceftriaxone Sodium/Dextrose Confirm 05/15/18 12:54 Rocephin 1 Gm-D5w 50 Ml Bag Administered 05/15/18 12:55 Dose 1 g in 50 mls @ ud IV .STK-MED ONE Methylprednisolone Sodium Succinate 125 mg 05/15/18 10:48 05/15/18 11:22 Solu-Medrol 125 Mg IV 05/15/18 10:49 125 mg STAT ONE Administration Methylprednisolone Sodium Succinate Confirm 05/15/18 11:02 Solu-Medrol 125 Mg Administered 05/15/18 11:03 Dose 125 mg .ROUTE .STK-MED ONE Lab/Rad Data: Laboratory Result Diagrams 05/15/18 11:07 05/15/18 10:48 Laboratory Results 0805/15/18 05/15/18 Range/Units 11:07 11:07 11:05 WBC 10.3 (4.0-10.5) K/mm3 RBC 3.48 L (4.1-5.4) M/mm3 Hgb 8.9 L (12.0-16.0) gm/dl Hct 31.1 L (35-47) % MCV 89.4 (78-100) fl MCH 25.5 L (26-32) pg MCHC 28.6 L (32-36) g/dl RDW 15.9 H (11.5-14.0) % Plt Count 288 (150-450) K/mm3 MPV 9.8 H (6-9.5) fl Gran % 55.6 (36.0-66.0) % Eos # (Auto) 0.67 H (0-0.5) Absolute Lymphs (auto) 2.57 (1.0-4.6) Absolute Monos (auto) 1.25 (0.0-1.3) Lymphocytes % 24.9 (24.0-44.0) % Monocytes % 12.1 H (0.0-12.0) % Eosinophils % 6.5 H (0.00-5.0) % Basophils % 0.9 (0.0-0.4) % Absolute Granulocytes 5.76 (1.4-6.9) Basophils # 0.09 (0-0.4) pO2/FiO2 Ratio 28 % VBG pH 7.28 L (7.32-7.42) VBG pCO2 at Pat Temp 74 H* (42-55) mm/Hg VBG pO2 at Pat Temp 31 (25-40) mm/Hg VBG HCO3 34.8 H* (22-28) meq/L VBG O2 Sat ([place]) 54.4 L (95-100) VBG Base Excess 6.5 H (-2.0-2.0) VBG Hemoglobin 9.5 VBG Carboxyhemoglobin 2.2 (0.0-6.9) % T HGB POC Potassium 4.6 (3.5-5.1) Sodium (137-145) mmol/L Potassium (3.5-5.1) mmol/L Chloride (98-107) mmol/L Carbon Dioxide (22-30) mmol/L Anion Gap (5-15) MEQ/L BUN (7-17) mg/dL Creatinine (0.52-1.04) mg/dL Estimated GFR ML/MIN Glucose (74-106) mg/dL Calcium (8.4-10.2) mg/dL Total Bilirubin (0.2-1.3) mg/dL AST (14-36) U/L ALT (0-35) U/L Alkaline Phosphatase (38-126) U/L Troponin I < 0.012 (0.000-0.034) ng/mL NT-Pro-B Natriuret Pep (0-900) pg/mL Serum Total Protein (6.3-8.2) g/dL Albumin (3.5-5.0) g/dL Slides for Path Review YES 05/15/18 Range/Units 10:48 WBC (4.0-10.5) K/mm3 RBC (4.1-5.4) M/mm3 Hgb (12.0-16.0) gm/dl Hct (35-47) % MCV (78-100) fl MCH (26-32) pg MCHC (32-36) g/dl RDW (11.5-14.0) % Plt Count (150-450) K/mm3 MPV (6-9.5) fl Gran % (36.0-66.0) % Eos # (Auto) (0-0.5) Absolute Lymphs (auto) (1.0-4.6) Absolute Monos (auto) (0.0-1.3) Lymphocytes % (24.0-44.0) % Monocytes % (0.0-12.0) % Eosinophils % (0.00-5.0) % Basophils % (0.0-0.4) % Absolute Granulocytes (1.4-6.9) Basophils # (0-0.4) pO2/FiO2 Ratio % VBG pH (7.32-7.42) VBG pCO2 at Pat Temp (42-55) mm/Hg VBG pO2 at Pat Temp (25-40) mm/Hg VBG HCO3 (22-28) meq/L VBG O2 Sat ([place]) (95-100) VBG Base Excess (-2.0-2.0) VBG Hemoglobin VBG Carboxyhemoglobin (0.0-6.9) % T HGB POC Potassium (3.5-5.1) Sodium 143 (137-145) mmol/L Potassium 4.6 (3.5-5.1) mmol/L Chloride 98 (98-107) mmol/L Carbon Dioxide 34 H (22-30) mmol/L Anion Gap 15.6 H (5-15) MEQ/L BUN 14 (7-17) mg/dL Creatinine 1.06 H (0.52-1.04) mg/dL Estimated GFR 55.5 ML/MIN Glucose 111 H (74-106) mg/dL Calcium 8.5 (8.4-10.2) mg/dL Total Bilirubin 0.10 L (0.2-1.3) mg/dL AST 10 L (14-36) U/L ALT 7 (0-35) U/L Alkaline Phosphatase 117 (38-126) U/L Troponin I (0.000-0.034) ng/mL NT-Pro-B Natriuret Pep 1330 H (0-900) pg/mL Serum Total Protein 6.5 (6.3-8.2) g/dL Albumin 3.4 L (3.5-5.0) g/dL Slides for Path Review - Progress Progress: improved Air Movement: fair Progress Note: 05/15/18 12:44 This is a 63-year-old white female with history of dementia, seizures, cataracts , asthma, COPD, pneumonia She arrives with complaint of shortness of breath for 4 days she's had a nonproductive cough She denies any chest pain nausea she states she has not had a fever. Patient was recently released from a longterm. There is a question as to whether the patient has been using her nebulizers at home currently she states she has been. Patient was given a DuoNeb treatment prior to arrival patient arrives with pulse ox of 90% on room air she is afebrile heart rate is 83 bpm. She has bilateral wheezes and diminished breath sounds with auscultation. Venous blood gases show a pH of 7.28 and a PCO2 of 74%. Patient's EKG is remarkable for sinus rhythm 80 bpm normal axis large amount of artifact no acute ST or T wave changes are noted chest x-ray read by radiologist impression 1 lung volumes a bit less than average does not represent a significant change 2. Minor chronic lung changes seen within the peripheral right mid lung field and left lung base no acute infiltrate or other active cardiopulmonary disease is seen. HEENT patient's CBC shows a white count of 10.3 hemoglobin 8.9 hematocrit 31.1 platelets 288 Patient's chemistry essentially normal Patient BNP is elevated at 1330 Patient's troponin is less than 0.012 Patient is given albuterol treatment as well as Solu-Medrol she states she is feeling better however she still has wheezing in her lungs \Patient does have hypercapnia as evidenced by her venous blood gas I've discussed the case with Dr. Tim will admit the patient to inpatient continue IV Solu-Medrol, continue Rocephin 1 g IV every 24 hours begin Zithromax , continue albuterol treatments. Diagnosis COPD with exacerbation, hypercapnia - Departure Time of Disposition: 12:49 Departure Disposition: In-patient Admission Clinical Impression: COPD exacerbation, Hypercapnia Condition: Fair Critical Care Time: No
[2018-05-15] MEDS ORDERED: Sodium Chloride 0.9% 1000 ML 1,000 ML IV SCH (11:00)
[2018-05-15] MEDS ORDERED: solu-MEDROL 125 MG ONE (11:02)
[2018-05-15 11:25] LABS: BASOPHIL % 0.9 % (0.0-0.4); Basophil (Absolute #) 0.09 (0-0.4); Eosinophil % 6.5 % (0.00-5.0); Eosinophil (Absolute #) 0.67 (0-0.5); Granulocyte Absolute (ANC) 5.76 (1.4-6.9); Granulocytes % 55.6 % (36.0-66.0); Hematocrit 31.1 % (35-47); Hemoglobin 8.9 gm/dl (12.0-16.0); Lymphocyte (Absolute #) 2.57 (1.0-4.6); Lymphocytes % 24.9 % (24.0-44.0); Mean Cell Volume 89.4 fl (78-100); Mean Corpuscular Hgb Concent. 28.6 g/dl (32-36); Mean Platelet Volume 9.8 fl (6-9.5); Monocyte (Absolute #) 1.25 (0.0-1.3); Monocytes % 12.1 % (0.0-12.0); Platelet Count 288 K/mm3 (150-450); Red Blood Count 3.48 M/mm3 (4.1-5.4); Red Cell Distribution Width 15.9 % (11.5-14.0); White Blood Count 10.3 K/mm3 (4.0-10.5)
[2018-05-15 11:25] LABS: VBG pH 7.28 (7.32-7.42)
[2018-05-15 11:26] LABS: VBG HCO3- 34.8 meq/L (22-28)
[2018-05-15 11:27] LABS: VBG BASE EXCESS 6.5 (-2.0-2.0); VBG CARBOXYHEMOGLOBIN 2.2 % T HGB (0.0-6.9); VBG HEMOGLOBIN 9.5; VBG O2 SATURATION 54.4 (95-100); VBG POTASSIUM 4.6 (3.5-5.1)
[2018-05-15 11:35] LABS: Mean Corpuscular Hemoglobin 25.5 pg (26-32)
[2018-05-15 11:45] LABS: Slide Review 1 YES
--- NOTE | 2018-05-15 11:46 | XRAY ---
Exam: AP upright portable chest film from 05/15/2018. Comparison: Two-view chest from 02/28/2018. Indication: Shortness of breath. Findings: The patient is mildly rotated toward the right. The transverse heart size appears within normal limits for this AP portable technique. Mild tortuosity of both the ascending and descending thoracic aorta are seen. The remainder of the carol and mediastinal structures appears unremarkable. Inflation of the lungs is a bit less than average. There is slight accentuation of the lung markings at the peripheral right midlung field and left lung base which I believe is similar to 02/28/2018 and likely due to subtle scarring/chronic linear atelectasis. No acute air space infiltrates, vascular congestion, pneumothorax, or pleural fluid is seen. No acute osseous abnormality is seen on this AP portable radiograph. The patient is noted to be relatively large. Impression: 1. Lung volumes appear a bit less than average. I don't believe this represents a significant change. 2. Minor chronic lung changes are seen within the peripheral right midlung field and left lung base. No acute lung infiltrates or other active cardiopulmonary disease is seen.
[2018-05-15 11:51] LABS: ALBUMIN 3.4 g/dL (3.5-5.0); ANION GAP 15.6 MEQ/L (5-15); BILIRUBIN,TOTAL 0.1 mg/dL (0.2-1.3); Calcium 8.5 mg/dL (8.4-10.2); Creatinine 1 1.06 mg/dL (0.52-1.04); Potassium 4.6 mmol/L (3.5-5.1); Total Protein 6.5 g/dL (6.3-8.2)
[2018-05-15] MEDS ORDERED: ROCEPHIN 1 Gm-D5w 50 ml Bag** 1 G/50 ML IVPB IV STA (12:43)
[2018-05-15] MEDS ORDERED: ROCEPHIN 1 Gm-D5w 50 ml Bag** 1 G/50 ML IVPB IV ONE (12:54)
[2018-05-15] MEDS ORDERED: DUONEB 0.5-3 MG/3 ml Neb IH PRN (13:43)
[2018-05-15] MEDS: Zithromax 500 MG/ 250 ML NaCl Premix 500 MG/250 ML IVPB IV SCH (14:37)
[2018-05-15] MEDS ORDERED: xanAX 0.25 MG PO PRN (16:02)
[2018-05-15] MEDS ORDERED: NON-FORMULARY ITEM (Ranitidine Hcl [Ranitidine Hcl] 150 MG) PO PRN (16:02)
[2018-05-15] MEDS ORDERED: PROVENTIL 2.5 MG/3 ML NEB IH PRN (16:02)
[2018-05-15] MEDS ORDERED: Ventolin Hfa MDI IH PRN (16:02)
[2018-05-15] MEDS ORDERED: ZOFRAN ODT 4 MG PO PRN (16:02)
[2018-05-15] MEDS ORDERED: Pepcid 20 MG PO PRN (16:16)
[2018-05-15] MEDS ORDERED: PROVENTIL COMMON CANISTER IH PRN (16:19)
[2018-05-15] MEDS ORDERED: MEDICATION INTERVENTION MC SCH (16:30)
[2018-05-15] MEDS: Risperdal 1 MG PO SCH ×2 (17:02→21:59)
[2018-05-15] MEDS: Klor Con 10 MEQ PO SCH ×2 (17:02→21:59)
[2018-05-15] MEDS: solu-MEDROL 125 MG IV SCH ×2 (17:05→23:46)
--- NOTE | 2018-05-15 17:44 | PCM.HP ---
History of Present Illness - Chief Complaint Chief Complaint: COPD exacerbation Date: 05/15/18 History of Present Illness: is a 63 year old female. who was discharged from the [facility] last sunday but notes that she became weak and short of breath over the last 4 days. She states she didn't know how to do her breathing treatments and no longer has a nebulizer. She did have home health set up at discharge. Her weakness was worsning and her partner she lives with Stevie brought her to the ED. She is coughing nonproductive and short of breath. She continues to not smoke and no exposures that she is aware of. - Review of Systems Constitutional: Fatigue, No Fever, No Chills Eyes: No Symptoms Ears, Nose, & Throat: No Symptoms Respiratory: Cough, Short Of Breath Cardiac: No Chest Pain, No Edema, No Syncope Abdominal/Gastrointestinal: No Abdominal Pain, No Nausea, No Vomiting, No Diarrhea Genitourinary Symptoms: No Dysuria Musculoskeletal: No Back Pain, No Neck Pain Skin: No Rash Neurological: No Dizziness, No Focal Weakness, No Sensory Changes Psychological: No Symptoms Endocrine: No Symptoms Hematologic/Lymphatic: No Symptoms Immunological/Allergic: No Symptoms Medications & Allergies Home Medications: Home Medication List AMITRIPTYLINE HCL 50 mg Tab [AMITRIPTYLINE HCL 50 mg Tablet] 150 mg PO HS [History Confirmed 05/15/18] Alendronate Sodium 70 mg [Fosamax 70 MG] 70 mg PO WEEKLY 12/19/15 [ History Confirmed 05/15/18] Duloxetine HCl [Cymbalta] 60 mg PO QAM 12/19/15 [History Confirmed 05/15/18] Levetiracetam [Keppra] 750 mg PO BID 12/19/15 [History Confirmed 05/15/18] Lisinopril [Zestril] 20 mg PO QAM 12/19/15 [History Confirmed 05/15/18] Potassium Chloride 10 Meq Tab* [Klor Con 10 MEQ] 10 meq PO TID 12/19/15 [ History Confirmed 05/15/18] Albuterol Sulfate [Albuterol Sulfate Hfa] 2 puff IH Q4HPRN PRN 02/22/17 [ History Confirmed 05/15/18] risperiDONE [Risperdal] 2 mg PO TID 02/22/17 [History Confirmed 05/15/18] Buspirone HCl [Buspar] 15 mg PO BID 05/18/17 [History Confirmed 05/15/18] Tizanidine HCl 4 mg [Zanaflex 4 MG] 4 mg PO HS 12/17/17 [History Confirmed 05/15/18] Celecoxib [Celebrex] 200 mg PO DAILY 02/11/18 [History Confirmed 05/15/18] Folic Acid 1 mg PO DAILY 02/26/18 [History Confirmed 05/15/18] Ondansetron ODT 4 MG [Zofran Odt 4 mg] 4 mg PO Q6H PRN PRN 02/26/18 [ History Confirmed 05/15/18] Trazodone HCl 150 mg PO HS 02/26/18 [History Confirmed 05/15/18] raNITIdine HCl [Ranitidine HCl] 150 mg PO DAILY PRN 02/26/18 [History Confirmed 05/15/18] Albuterol 2.5 mg/3 ml Neb [Proventil 2.5 mg/3 ml Neb] 2.5 mg IH Q4HPRN PRN 05/15/18 [History Confirmed 05/15/18] Alprazolam 0.25 mg [xanAX 0.25 MG] 0.25 mg PO TIDPRN PRN 05/15/18 [ History Confirmed 05/15/18] Atorvastatin Calcium 40 mg PO DAILY 05/15/18 [History Confirmed 05/15/18] Budesonide [Pulmicort Flexhaler] 180 mcg IH BID 05/15/18 [History Confirmed 11/01] Gabapentin 300 mg PO QAM 05/15/18 [History Confirmed 05/15/18] Gabapentin 600 mg PO QPM 05/15/18 [History Confirmed 05/15/18] Metoprolol Tartrate 100 mg PO BID 05/15/18 [History Confirmed 05/15/18] PANTOPRAZOLE 40 mg Tablet [Protonix 40MG Tablet] 40 mg PO DAILY 05/15/18 [ History Confirmed 05/15/18] Allergies/Adverse Reactions: Allergies Allergy/AdvReac Type Severity Reaction Status Date / Time tramadol HCl [From [facility]] Allergy Mild Rash Verified 05/15/18 13:50 ciprofloxacin [From Cipro] Allergy Rash Verified 05/15/18 13:50 ciprofloxacin HCl Allergy Rash Verified 05/15/18 13:50 [From Cipro] penicillin V [Penicillin V] Allergy Rash Verified 05/15/18 13:50 - Past Medical History Past Medical History: Yes Neurological History: Dementia, Seizures ENT History: Cataracts Cardiac History: Other Respiratory History: Asthma, COPD, Pneumonia Endocrine Medical History: Hypothyroidism Musculoskelatal History: Arthritis, Fibromyalgia GI Medical History: Diverticulitis History: No Pertinent History Pyscho-Social History: Anxiety, Depression Reproductive Disorders: Cervical Cancer Comment: recently discharged from [facility] for deconditioning following pneumonia - Female History Are you now?: No - Past Surgical History Past Surgical History: Yes Neuro Surgical History: No Pertinent History Cardiac History: No Pertinent History Respiratory Surgery: No Pertinent History GI Surgical History: Appendectomy, Cholecystectomy Genitourinary Surgical Hx: No Pertinent History Musculskeletal Surgical Hx: Orthopedic Surgery Female Surgical History: Hysterectomy Other Surgical History: LEFT x 4, RIGHT x 1 HIP SURGERY - Social History Smoking Status: Current every day smoker How long have you smoked: 40 Exposure to second hand smoke: No Alcohol: None Drug Use: none - Physical Exam Vital Signs: Vital Signs - 24 hr Temp Pulse Resp BP Pulse Ox 05/15/18 13:50 98.0 F 83 23 148/65 96 05/15/18 13:43 93 H 20 95 05/15/18 12:56 84 20 135/74 94 L 05/15/18 11:45 81 18 137/69 100 05/15/18 10:56 98.9 F 83 18 109/65 98 05/15/18 10:52 94 L 05/15/18 10:51 18 90 L 05/15/18 10:50 81 22 100 Oxygen-Last 24 hours O2 Percentage 2 Liters = 28% O2 Percentage 2 Liters = 28% O2 Percentage 2 Liters = 28% General Appearance: no apparent distress, alert, anxiety Neurologic Exam: alert, oriented x 3, cooperative, No motor deficits Eye Exam: PERRL/EOMI, eyes nml inspection Ears, Nose, Throat Exam: normal ENT inspection, TMs normal, pharynx normal, moist mucous membranes Neck Exam: normal inspection, non-tender, supple, full range of motion Respiratory Exam: lungs clear, prolonged expirations, rhonchi, wheezing Cardiovascular Exam: regular rate/rhythm, normal heart sounds, normal peripheral pulses Gastrointestinal/Abdomen Exam: soft, normal bowel sounds, No tenderness, No mass Back Exam: normal inspection, normal range of motion, No CVA tenderness, No vertebral tenderness Extremity Exam: normal inspection, normal range of motion, pelvis stable Skin Exam: normal color, warm, dry, No rash Lymphatic Exam: No adenopathy Results - Labs Lab/Micro Results: Lab Results-Last 24 Hours 05/15/18 05/15/18 05/15/18 Range/Units 10:48 11:05 11:07 WBC 10.3 (4.0-10.5) K/mm3 RBC 3.48 L (4.1-5.4) M/mm3 Hgb 8.9 L (12.0-16.0) gm/dl Hct 31.1 L (35-47) % MCV 89.4 (78-100) fl MCH 25.5 L (26-32) pg MCHC 28.6 L (32-36) g/dl RDW 15.9 H (11.5-14.0) % Plt Count 288 (150-450) K/mm3 MPV 9.8 H (6-9.5) fl Gran % 55.6 (36.0-66.0) % Eos # (Auto) 0.67 H (0-0.5) Absolute Lymphs (auto) 2.57 (1.0-4.6) Absolute Monos (auto) 1.25 (0.0-1.3) Lymphocytes % 24.9 (24.0-44.0) % Monocytes % 12.1 H (0.0-12.0) % Eosinophils % 6.5 H (0.00-5.0) % Basophils % 0.9 (0.0-0.4) % Absolute Granulocytes 5.76 (1.4-6.9) Basophils # 0.09 (0-0.4) pO2/FiO2 Ratio 28 % VBG pH 7.28 L (7.32-7.42) VBG pCO2 at Pat Temp 74 H* (42-55) mm/Hg VBG pO2 at Pat Temp 31 (25-40) mm/Hg VBG HCO3 34.8 H* (22-28) meq/L VBG O2 Sat ([place]) 54.4 L (95-100) VBG Base Excess 6.5 H (-2.0-2.0) VBG Hemoglobin 9.5 VBG Carboxyhemoglobin 2.2 (0.0-6.9) % T HGB POC Potassium 4.6 (3.5-5.1) Sodium 143 (137-145) mmol/L Potassium 4.6 (3.5-5.1) mmol/L Chloride 98 (98-107) mmol/L Carbon Dioxide 34 H (22-30) mmol/L Anion Gap 15.6 H (5-15) MEQ/L BUN 14 (7-17) mg/dL Creatinine 1.06 H (0.52-1.04) mg/dL Estimated GFR 55.5 ML/MIN Glucose 111 H (74-106) mg/dL Calcium 8.5 (8.4-10.2) mg/dL Total Bilirubin 0.10 L (0.2-1.3) mg/dL AST 10 L (14-36) U/L ALT 7 (0-35) U/L Alkaline Phosphatase 117 (38-126) U/L Troponin I (0.000-0.034) ng/mL NT-Pro-B Natriuret Pep 1330 H (0-900) pg/mL Serum Total Protein 6.5 (6.3-8.2) g/dL Albumin 3.4 L (3.5-5.0) g/dL Slides for Path Review YES 05/15/18 05/15/18 Range/Units 11:07 14:31 WBC (4.0-10.5) K/mm3 RBC (4.1-5.4) M/mm3 Hgb (12.0-16.0) gm/dl Hct (35-47) % MCV (78-100) fl MCH (26-32) pg MCHC (32-36) g/dl RDW (11.5-14.0) % Plt Count (150-450) K/mm3 MPV (6-9.5) fl Gran % (36.0-66.0) % Eos # (Auto) (0-0.5) Absolute Lymphs (auto) (1.0-4.6) Absolute Monos (auto) (0.0-1.3) Lymphocytes % (24.0-44.0) % Monocytes % (0.0-12.0) % Eosinophils % (0.00-5.0) % Basophils % (0.0-0.4) % Absolute Granulocytes (1.4-6.9) Basophils # (0-0.4) pO2/FiO2 Ratio % VBG pH (7.32-7.42) VBG pCO2 at Pat Temp (42-55) mm/Hg VBG pO2 at Pat Temp (25-40) mm/Hg VBG HCO3 (22-28) meq/L VBG O2 Sat ([place]) (95-100) VBG Base Excess (-2.0-2.0) VBG Hemoglobin VBG Carboxyhemoglobin (0.0-6.9) % T HGB POC Potassium (3.5-5.1) Sodium (137-145) mmol/L Potassium (3.5-5.1) mmol/L Chloride (98-107) mmol/L Carbon Dioxide (22-30) mmol/L Anion Gap (5-15) MEQ/L BUN (7-17) mg/dL Creatinine (0.52-1.04) mg/dL Estimated GFR ML/MIN Glucose (74-106) mg/dL Calcium (8.4-10.2) mg/dL Total Bilirubin (0.2-1.3) mg/dL AST (14-36) U/L ALT (0-35) U/L Alkaline Phosphatase (38-126) U/L Troponin I < 0.012 < 0.012 (0.000-0.034) ng/mL NT-Pro-B Natriuret Pep (0-900) pg/mL Serum Total Protein (6.3-8.2) g/dL Albumin (3.5-5.0) g/dL Slides for Path Review - Radiology Impressions Radiology Exams & Impressions: Radiology Procedures Category Date Time Status CHEST 1 VIEW (PORTABLE) Stat Exams 05/15/18 10:48 Completed - Other Procedures and Tests Respiratory Therapy 05/15/18 13:43 Oxygen NASAL CANNULA 2 lpm Respiratory Therapy Consult ROUTINE 05/15/18 15:35 Respiratory Nebulizer PRN Assessment/Plan (1) Acute respiratory acidosis Current Visit: Yes Status: Acute Assessment & Plan: will continue O2 and iv steroids with nebs and azithromycin wean steroids as tolerated work on safe disposition may require further halfway rehab vs better education on home nebulizer treatments and ensuring a working nebulizer machine at her home. Code(s): E87.2 - ACIDOSIS (2) COPD exacerbation Current Visit: Yes Status: Acute Onset Date: ~02/26/18 Code(s): J44.1 - CHRONIC OBSTRUCTIVE PULMONARY DISEASE W (ACUTE) EXACERBATION (3) Hypercapnia Current Visit: Yes Status: Acute Code(s): R06.89 - OTHER ABNORMALITIES OF BREATHING (4) Hypothyroidism Current Visit: Yes Status: Chronic Code(s): E03.9 - HYPOTHYROIDISM, UNSPECIFIED (5) Seizure disorder Current Visit: Yes Status: Chronic Code(s): G40.909 - EPILEPSY, UNSP, NOT INTRACTABLE, WITHOUT STATUS EPILEPTICUS (6) Essential hypertension Current Visit: Yes Status: Chronic Code(s): I10 - ESSENTIAL (PRIMARY) HYPERTENSION (7) Anxiety Current Visit: Yes Status: Chronic Code(s): F41.9 - ANXIETY DISORDER, UNSPECIFIED
[2018-05-15] MEDS: Zanaflex 4 MG PO SCH (21:24)
[2018-05-15] MEDS: Desyrel 150 MG PO SCH (21:41)
[2018-05-15] MEDS: BUSPAR 5 MG PO SCH (21:58)
[2018-05-15] MEDS: Keppra 250 MG PO SCH (21:59)
[2018-05-15] MEDS: NEURONTIN 300 MG PO SCH (21:59)
[2018-05-15] MEDS: KEPPRA 500 MG PO SCH (21:59)
[2018-05-15] MEDS: Lopressor 50 MG PO SCH (21:59)
[2018-05-15] MEDS ORDERED: NON-FORMULARY ITEM (Metoprolol Tartrate [Metoprolol Tartrate] 100 MG) PO SCH (22:00)
[2018-05-15] MEDS ORDERED: NON-FORMULARY ITEM (Risperidone [Risperdal] 2 MG) PO SCH (22:00)
[2018-05-15] MEDS ORDERED: NON-FORMULARY ITEM (Buspirone Hcl [Buspar] 15 MG) PO SCH (22:00)
[2018-05-15] MEDS ORDERED: NON-FORMULARY ITEM (Gabapentin [Gabapentin] 600 MG) PO SCH (22:00)
[2018-05-15] MEDS ORDERED: BUDESONIDE 180 MCG IH SCH (22:00)
[2018-05-15] MEDS ORDERED: NON-FORMULARY ITEM (Levetiracetam [Keppra] 750 MG) PO SCH (22:00)
[2018-05-16] MEDS: solu-MEDROL 125 MG IV SCH (05:26)
[2018-05-16 05:42] LABS: BASOPHIL % 0.2 % (0.0-0.4); Basophil (Absolute #) 0.02 (0-0.4); Eosinophil (Absolute #) 0 (0-0.5); Granulocyte Absolute (ANC) 9.38 (1.4-6.9); Granulocytes % 85.7 % (36.0-66.0); Hematocrit 34.2 % (35-47); Hemoglobin 9.8 gm/dl (12.0-16.0); Lymphocyte (Absolute #) 1.27 (1.0-4.6); Lymphocytes % 11.6 % (24.0-44.0); Mean Cell Volume 87.2 fl (78-100); Mean Corpuscular Hgb Concent. 28.7 g/dl (32-36); Monocyte (Absolute #) 0.27 (0.0-1.3); Monocytes % 2.5 % (0.0-12.0); Platelet Count 295 K/mm3 (150-450); Red Blood Count 3.92 M/mm3 (4.1-5.4); Red Cell Distribution Width 15.1 % (11.5-14.0); White Blood Count 10.9 K/mm3 (4.0-10.5)
[2018-05-16 05:55] LABS: ALBUMIN 3.5 g/dL (3.5-5.0); ALKALINE PHOSPHATASE 119 U/L (38-126); ANION GAP 11.9 MEQ/L (5-15); BLOOD UREA NITROGEN 16 mg/dL (7-17); CHLORIDE 99 mmol/L (98-107); Calcium 8.2 mg/dL (8.4-10.2); Carbon Dioxide 33 mmol/L (22-30); Glucose 131 mg/dL (74-106); Potassium 4.6 mmol/L (3.5-5.1); SGOT/AST 10 U/L (14-36); SGPT/ALT 7 U/L (0-35); SODIUM 140 mmol/L (137-145); Total Protein 6.7 g/dL (6.3-8.2)
[2018-05-16 08:23] LABS: Slide Review 1 YES
--- NOTE | 2018-05-16 09:10 | PCM.NOTE ---
Date and Time: 05/16/18 0858 Subjective Assessment: states feeling better this am. She is confused however on recent events. She does not recall coming to the ED yesterday and is having some distortion of recent events she is still having some coughing and shortness of breath as well. Objective Exam General Appearance: no apparent distress Neurologic Exam: alert, oriented x 3, cooperative, confusion (oriented but confused as to recent events with some confabulation of details over the last 1 week) Skin Exam: warm, dry Ears, Nose, Throat Exam: dry mucous membranes Neck Exam: non-tender, supple Respiratory Exam: prolonged expirations, rhonchi, wheezing Cardiovascular Exam: regular rate/rhythm, normal peripheral pulses, No murmur, No edema Gastrointestinal/Abdomen Exam: soft, normal bowel sounds, No tenderness Extremity Exam: normal inspection, No calf tenderness OBJECTIVE DATA Vital Signs: Vital Signs - 24 hr Temp Pulse Resp BP Pulse Ox 05/16/18 07:45 98.3 F 70 20 155/60 98 05/16/18 07:21 93 L 05/16/18 03:40 98.1 F 68 20 133/62 93 L 05/15/18 23:56 97.4 F 67 20 124/58 93 L 05/15/18 20:08 84 22 94 L 05/15/18 20:00 98.0 F 90 22 138/65 96 05/15/18 13:50 98.0 F 83 23 148/65 96 05/15/18 13:43 93 H 20 95 05/15/18 12:56 84 20 135/74 94 L 05/15/18 11:45 81 18 137/69 100 05/15/18 10:56 98.9 F 83 18 109/65 98 05/15/18 10:52 94 L 05/15/18 10:51 18 90 L 05/15/18 10:50 81 22 100 Oxygen-Last 24 hours O2 Percentage 2 Liters = 28% O2 Percentage 2 Liters = 28% O2 Percentage 2 Liters = 28% O2 Percentage 2 Liters = 28% O2 Percentage 2 Liters = 28% O2 Percentage 2 Liters = 28% O2 Percentage 2 Liters = 28% Pain Assessment - Last Documented Pain Intensity 0 Pain Scale Used 0-10 Pain Scale Intake and Output: Intake & Output 05/13/18 05/14/18 05/15/18 05/16/18 11:59 11:59 11:59 11:59 Intake Total 1780 Balance 1780 Weight 74.843 kg 73 kg Lab Results: Lab Results-Last 24 Hours 05/15/18 05/15/18 05/15/18 Range/Units 10:48 11:05 11:07 WBC 10.3 (4.0-10.5) K/mm3 RBC 3.48 L (4.1-5.4) M/mm3 Hgb 8.9 L (12.0-16.0) gm/dl Hct 31.1 L (35-47) % MCV 89.4 (78-100) fl MCH 25.5 L (26-32) pg MCHC 28.6 L (32-36) g/dl RDW 15.9 H (11.5-14.0) % Plt Count 288 (150-450) K/mm3 MPV 9.8 H (6-9.5) fl Gran % 55.6 (36.0-66.0) % Eos # (Auto) 0.67 H (0-0.5) Absolute Lymphs (auto) 2.57 (1.0-4.6) Absolute Monos (auto) 1.25 (0.0-1.3) Lymphocytes % 24.9 (24.0-44.0) % Monocytes % 12.1 H (0.0-12.0) % Eosinophils % 6.5 H (0.00-5.0) % Basophils % 0.9 (0.0-0.4) % Absolute Granulocytes 5.76 (1.4-6.9) Basophils # 0.09 (0-0.4) pO2/FiO2 Ratio 28 % VBG pH 7.28 L (7.32-7.42) VBG pCO2 at Pat Temp 74 H* (42-55) mm/Hg VBG pO2 at Pat Temp 31 (25-40) mm/Hg VBG HCO3 34.8 H* (22-28) meq/L VBG O2 Sat ([place]) 54.4 L (95-100) VBG Base Excess 6.5 H (-2.0-2.0) VBG Hemoglobin 9.5 VBG Carboxyhemoglobin 2.2 (0.0-6.9) % T HGB POC Potassium 4.6 (3.5-5.1) Sodium 143 (137-145) mmol/L Potassium 4.6 (3.5-5.1) mmol/L Chloride 98 (98-107) mmol/L Carbon Dioxide 34 H (22-30) mmol/L Anion Gap 15.6 H (5-15) MEQ/L BUN 14 (7-17) mg/dL Creatinine 1.06 H (0.52-1.04) mg/dL Estimated GFR 55.5 ML/MIN Glucose 111 H (74-106) mg/dL Calcium 8.5 (8.4-10.2) mg/dL Total Bilirubin 0.10 L (0.2-1.3) mg/dL AST 10 L (14-36) U/L ALT 7 (0-35) U/L Alkaline Phosphatase 117 (38-126) U/L Troponin I (0.000-0.034) ng/mL NT-Pro-B Natriuret Pep 1330 H (0-900) pg/mL Serum Total Protein 6.5 (6.3-8.2) g/dL Albumin 3.4 L (3.5-5.0) g/dL Slides for Path Review YES 05/15/18 05/15/18 05/16/18 Range/Units 11:07 14:31 05:00 WBC 10.9 H (4.0-10.5) K/mm3 RBC 3.92 L (4.1-5.4) M/mm3 Hgb 9.8 L (12.0-16.0) gm/dl Hct 34.2 L (35-47) % MCV 87.2 (78-100) fl MCH 25.0 L (26-32) pg MCHC 28.7 L (32-36) g/dl RDW 15.1 H (11.5-14.0) % Plt Count 295 (150-450) K/mm3 MPV 10.0 H (6-9.5) fl Gran % 85.7 H (36.0-66.0) % Eos # (Auto) 0 (0-0.5) Absolute Lymphs (auto) 1.27 (1.0-4.6) Absolute Monos (auto) 0.27 (0.0-1.3) Lymphocytes % 11.6 L (24.0-44.0) % Monocytes % 2.5 (0.0-12.0) % Eosinophils % 0.0 (0.00-5.0) % Basophils % 0.2 (0.0-0.4) % Absolute Granulocytes 9.38 H (1.4-6.9) Basophils # 0.02 (0-0.4) pO2/FiO2 Ratio % VBG pH (7.32-7.42) VBG pCO2 at Pat Temp (42-55) mm/Hg VBG pO2 at Pat Temp (25-40) mm/Hg VBG HCO3 (22-28) meq/L VBG O2 Sat ([place]) (95-100) VBG Base Excess (-2.0-2.0) VBG Hemoglobin VBG Carboxyhemoglobin (0.0-6.9) % T HGB POC Potassium (3.5-5.1) Sodium (137-145) mmol/L Potassium (3.5-5.1) mmol/L Chloride (98-107) mmol/L Carbon Dioxide (22-30) mmol/L Anion Gap (5-15) MEQ/L BUN (7-17) mg/dL Creatinine (0.52-1.04) mg/dL Estimated GFR ML/MIN Glucose (74-106) mg/dL Calcium (8.4-10.2) mg/dL Total Bilirubin (0.2-1.3) mg/dL AST (14-36) U/L ALT (0-35) U/L Alkaline Phosphatase (38-126) U/L Troponin I < 0.012 < 0.012 (0.000-0.034) ng/mL NT-Pro-B Natriuret Pep (0-900) pg/mL Serum Total Protein (6.3-8.2) g/dL Albumin (3.5-5.0) g/dL Slides for Path Review YES 05/16/18 Range/Units 05:00 WBC (4.0-10.5) K/mm3 RBC (4.1-5.4) M/mm3 Hgb (12.0-16.0) gm/dl Hct (35-47) % MCV (78-100) fl MCH (26-32) pg MCHC (32-36) g/dl RDW (11.5-14.0) % Plt Count (150-450) K/mm3 MPV (6-9.5) fl Gran % (36.0-66.0) % Eos # (Auto) (0-0.5) Absolute Lymphs (auto) (1.0-4.6) Absolute Monos (auto) (0.0-1.3) Lymphocytes % (24.0-44.0) % Monocytes % (0.0-12.0) % Eosinophils % (0.00-5.0) % Basophils % (0.0-0.4) % Absolute Granulocytes (1.4-6.9) Basophils # (0-0.4) pO2/FiO2 Ratio % VBG pH (7.32-7.42) VBG pCO2 at Pat Temp (42-55) mm/Hg VBG pO2 at Pat Temp (25-40) mm/Hg VBG HCO3 (22-28) meq/L VBG O2 Sat ([place]) (95-100) VBG Base Excess (-2.0-2.0) VBG Hemoglobin VBG Carboxyhemoglobin (0.0-6.9) % T HGB POC Potassium (3.5-5.1) Sodium 140 (137-145) mmol/L Potassium 4.6 (3.5-5.1) mmol/L Chloride 99 (98-107) mmol/L Carbon Dioxide 33 H (22-30) mmol/L Anion Gap 11.9 (5-15) MEQ/L BUN 16 (7-17) mg/dL Creatinine 0.80 (0.52-1.04) mg/dL Estimated GFR > 60.0 ML/MIN Glucose 131 H (74-106) mg/dL Calcium 8.2 L (8.4-10.2) mg/dL Total Bilirubin 0.20 (0.2-1.3) mg/dL AST 10 L (14-36) U/L ALT 7 (0-35) U/L Alkaline Phosphatase 119 (38-126) U/L Troponin I (0.000-0.034) ng/mL NT-Pro-B Natriuret Pep (0-900) pg/mL Serum Total Protein 6.7 (6.3-8.2) g/dL Albumin 3.5 (3.5-5.0) g/dL Slides for Path Review Radiology Exams: Radiology Procedures Category Date Time Status CHEST 1 VIEW (PORTABLE) Stat Exams 05/15/18 10:48 Completed Assessment/Plan (1) Acute respiratory acidosis Current Visit: Yes Status: Acute Assessment & Plan: improving wean steroid to 40 q8h iv continue abx continue nebs q4h likely need rehab stay Code(s): E87.2 - ACIDOSIS (2) COPD exacerbation Current Visit: Yes Status: Acute Onset Date: ~02/26/18 Code(s): J44.1 - CHRONIC OBSTRUCTIVE PULMONARY DISEASE W (ACUTE) EXACERBATION (3) Hypercapnia Current Visit: Yes Status: Acute Code(s): R06.89 - OTHER ABNORMALITIES OF BREATHING (4) Hypothyroidism Current Visit: Yes Status: Chronic Code(s): E03.9 - HYPOTHYROIDISM, UNSPECIFIED (5) Seizure disorder Current Visit: Yes Status: Chronic Code(s): G40.909 - EPILEPSY, UNSP, NOT INTRACTABLE, WITHOUT STATUS EPILEPTICUS (6) Essential hypertension Current Visit: Yes Status: Chronic Code(s): I10 - ESSENTIAL (PRIMARY) HYPERTENSION (7) Anxiety Current Visit: Yes Status: Chronic Code(s): F41.9 - ANXIETY DISORDER, UNSPECIFIED
[2018-05-16] MEDS ORDERED: LIPITOR 40MG PO SCH (10:00)
[2018-05-16] MEDS ORDERED: ROCEPHIN 1 Gm-D5w 50 ml Bag** 1 G/50 ML IVPB IV SCH (10:00)
[2018-05-16] MEDS ORDERED: NON-FORMULARY ITEM (Duloxetine Hcl [Cymbalta] 60 MG) PO SCH (10:00)
[2018-05-16] MEDS: Zithromax 500 MG/ 250 ML NaCl Premix 500 MG/250 ML IVPB IV SCH (10:01)
[2018-05-16] MEDS: Klor Con 10 MEQ PO SCH ×3 (10:01→21:35)
[2018-05-16] MEDS: Risperdal 1 MG PO SCH ×3 (10:02→21:35)
[2018-05-16] MEDS: ZOCOR 20MG PO SCH (10:02)
[2018-05-16] MEDS: KEPPRA 500 MG PO SCH ×2 (10:02→21:35)
[2018-05-16] MEDS: FOLATE 1 MG PO SCH (10:03)
[2018-05-16] MEDS: Keppra 250 MG PO SCH ×2 (10:03→21:35)
[2018-05-16] MEDS: Zestril 20 MG PO SCH (10:03)
[2018-05-16] MEDS: NEURONTIN 300 MG PO SCH ×2 (10:03→21:36)
[2018-05-16] MEDS: Protonix 40MG Tablet PO SCH (10:03)
[2018-05-16] MEDS: Lopressor 50 MG PO SCH ×2 (10:03→21:35)
[2018-05-16] MEDS: Cymbalta 30 MG Capsule PO SCH (10:05)
[2018-05-16] MEDS: PROVENTIL 2.5 MG/3 ML NEB IH SCH ×4 (10:27→22:23)
[2018-05-16] MEDS: BUSPAR 5 MG PO SCH ×2 (13:04→21:34)
[2018-05-16] MEDS: solu-MEDROL 40 MG IV SCH ×2 (14:35→22:14)
[2018-05-16] MEDS: PULMICORT 0.5 MG/2 ML RESPULES IH SCH ×2 (14:55→19:19)
[2018-05-16] MEDS: Zanaflex 4 MG PO SCH (21:35)
[2018-05-16] MEDS: Desyrel 150 MG PO SCH (21:35)
[2018-05-17] MEDS: PROVENTIL 2.5 MG/3 ML NEB IH SCH ×6 (03:39→23:37)
[2018-05-17] MEDS: solu-MEDROL 40 MG IV SCH (06:02)
[2018-05-17] MEDS: PULMICORT 0.5 MG/2 ML RESPULES IH SCH ×2 (06:36→18:45)
--- NOTE | 2018-05-17 07:47 | PCM.NOTE ---
Date and Time: 05/17/18 0743 Subjective Assessment: states she is feeling better. still coughing and wheezing. she has been in bed or in the chair. she has not been up walking. Objective Exam General Appearance: no apparent distress Neurologic Exam: alert, oriented x 3, cooperative Skin Exam: warm, dry Ears, Nose, Throat Exam: moist mucous membranes Neck Exam: non-tender, supple Respiratory Exam: crackles/rales (bibasilar), rhonchi, wheezing Cardiovascular Exam: regular rate/rhythm, normal heart sounds, normal peripheral pulses, edema (1+ brigitte LE) Gastrointestinal/Abdomen Exam: soft, normal bowel sounds, No tenderness, No distention Extremity Exam: normal inspection, No calf tenderness OBJECTIVE DATA Vital Signs: Vital Signs - 24 hr Temp Pulse Resp BP Pulse Ox 05/17/18 07:17 97.8 F 73 18 137/72 97 05/17/18 06:38 74 18 98 05/17/18 04:13 97.8 F 70 20 94 L 05/17/18 03:40 70 20 94 L 05/16/18 23:29 98.4 F 70 20 124/57 96 05/16/18 22:23 55 L 18 95 05/16/18 19:59 99.2 F 95 H 15 141/68 94 L 05/16/18 19:21 95 H 15 94 L 05/16/18 16:00 20 05/16/18 15:57 99.3 F 96 H 20 136/71 96 05/16/18 14:58 84 20 97 05/16/18 12:00 20 05/16/18 11:45 99.1 F 74 20 115/67 99 05/16/18 10:33 77 22 97 05/16/18 07:45 98.3 F 70 20 155/60 98 Oxygen-Last 24 hours O2 Percentage 2 Liters = 28% O2 Percentage 2 Liters = 28% O2 Percentage 2 Liters = 28% O2 Percentage 2 Liters = 28% O2 Percentage 2 Liters = 28% O2 Percentage 2 Liters = 28% O2 Percentage 2 Liters = 28% Pain Assessment - Last Documented Pain Intensity 0 Pain Scale Used 0-10 Pain Scale Intake and Output: Intake & Output 05/14/18 05/15/18 05/16/18 05/17/18 11:59 11:59 11:59 11:59 Intake Total 2140 2740 Balance 2140 2740 Weight 74.843 kg 75.7 kg 75.7 kg Lab Results: Lab Results-Last 24 Hours 05/16/18 Range/Units 05:00 Slides for Path Review YES Radiology Exams: Radiology Procedures Category Date Time Status CHEST 1 VIEW (PORTABLE) Stat Exams 05/15/18 10:48 Completed Multi-Disciplinary Progress Notes: Multi-Disciplinary Progress Notes 05/16/18 10:00 (created 05/16/18 10:26) Case Management Note by Isatu Triplett CALL [facility], PT'S [facility] PROVIDER, AND SPOKE WITH RADHA BARAHONA. JUN REPORTS THAT ON SUNDAY OF THIS WEEK, SIG OTHER HAD CALLED MARISSA HAILE TO COME TO HOUSE AND EVALUATE FOR RETURN TO RESIDENTIAL. STEVIE, PT'S SIG OTHER, REPORTED TO [facility] THAT HE WAS PHYSICALLY UNABLE TO CARE FOR PT ANYMORE. RADHA BARAHONA REPORTS THAT PT WAS JUST DISCHARGED FROM REHAB LAST 05/08/18. REPORTS THAT FAR THEY KNOW, PT DID NOT HAVE A NEBULIZER IN THE HOUSE, AND PT NOR STEVIE UNDERSTOOD HOW TO USE HER INHALER. REPORTS THAT THEY CAN READMIT TO SERVICE IF PT IS DC'D TO HOME, BUT THEY ALSO FEEL THAT PT COULD BENEFIT FROM ADDITIONAL REHAB. WILL FOLLOW. Initialized on 05/16/18 10:26 - END OF NOTE 05/16/18 09:59 Case Management Note by Monalisa Patton AND LOC ASSESS STARTED AT THIS TIME, IN REVIEW AT THIS TIME Initialized on 05/16/18 09:59 - END OF NOTE 05/16/18 08:20 (created 05/16/18 10:22) Case Management Note by Isatu Triplett ATTEMPTED TO REVIEW DISCHARGE PLAN WITH PT. PT DOES NOT SEEM TO COMPLETELY COMPREHEND THE QUESTIONS BEING ASKED. TENDS TO TALK IN CIRCLES WITH SCATTERED THOUGHTS. WILL CONTINUE TO ATTEMPT TO REACH PT'S SIG OTHER, STEVIE. Initialized on 05/16/18 10:22 - END OF NOTE 05/16/18 07:55 (created 05/16/18 10:22) Case Management Note by Isatu Triplett TATTEMPTED TO REACH STEVIE, PT'S SIG OTHER AND LAY CAREGIVER, VIA TELEPHONE X 3 - [phone], GOES STRAIGHT TO A RECORDING THAT NO VOICEMAIL IS SET UP. WILL KEEP TRYING TO REACH. Initialized on 05/16/18 10:22 - END OF NOTE Assessment/Plan (1) COPD exacerbation Current Visit: Yes Status: Acute Onset Date: ~02/26/18 Assessment & Plan: continue nebs q4h and azithromycin wean steroid to prednisone from the iv solumedrol increased edema in lower extremities and more rales bibasilar today will give a one time dose of iv lasix this am and monitor work on increased mobility as tolerated she would benefit from additional rehab stay vs home with home health and education to her partner Stevie and her on proper use of her inhaler and nebulizer. Code(s): J44.1 - CHRONIC OBSTRUCTIVE PULMONARY DISEASE W (ACUTE) EXACERBATION (2) Hypercapnia Current Visit: Yes Status: Acute Code(s): R06.89 - OTHER ABNORMALITIES OF BREATHING (3) Hypothyroidism Current Visit: Yes Status: Chronic Code(s): E03.9 - HYPOTHYROIDISM, UNSPECIFIED (4) Seizure disorder Current Visit: Yes Status: Chronic Code(s): G40.909 - EPILEPSY, UNSP, NOT INTRACTABLE, WITHOUT STATUS EPILEPTICUS (5) Essential hypertension Current Visit: Yes Status: Chronic Code(s): I10 - ESSENTIAL (PRIMARY) HYPERTENSION (6) Anxiety Current Visit: Yes Status: Chronic Code(s): F41.9 - ANXIETY DISORDER, UNSPECIFIED (7) Acute respiratory acidosis Current Visit: Yes Status: Resolved Code(s): E87.2 - ACIDOSIS
[2018-05-17] MEDS ORDERED: Lasix 20 MG/2 ML IV ONE (08:00)
[2018-05-17] MEDS: Cymbalta 30 MG Capsule PO SCH (09:47)
[2018-05-17] MEDS: FOLATE 1 MG PO SCH (09:48)
[2018-05-17] MEDS: DELTASONE 20 MG PO SCH (09:48)
[2018-05-17] MEDS: Lopressor 50 MG PO SCH ×2 (09:49→22:08)
[2018-05-17] MEDS: KEPPRA 500 MG PO SCH ×2 (09:49→22:08)
[2018-05-17] MEDS: NEURONTIN 300 MG PO SCH ×2 (09:49→22:07)
[2018-05-17] MEDS: Keppra 250 MG PO SCH ×2 (09:49→22:08)
[2018-05-17] MEDS: Klor Con 10 MEQ PO SCH ×3 (09:49→22:07)
[2018-05-17] MEDS: ZOCOR 20MG PO SCH (09:50)
[2018-05-17] MEDS: Risperdal 1 MG PO SCH ×3 (09:50→22:08)
[2018-05-17] MEDS: Zestril 20 MG PO SCH (09:50)
[2018-05-17] MEDS: Protonix 40MG Tablet PO SCH (09:50)
[2018-05-17] MEDS: Zithromax 500 MG/ 250 ML NaCl Premix 500 MG/250 ML IVPB IV SCH (09:50)
--- NOTE | 2018-05-17 10:55 | PCM.DS ---
Discharge Summary Date of Admission: 05/15/18 13:34 Date of Discharge: 05/17/2018 Admitting Physician: LOIS NICK Primary Care Provider: LOIS NICK Allergies Allergies tramadol HCl [From Ultram] Allergy (Mild, Verified 05/15/18 13:50) Rash ciprofloxacin [From Cipro] Allergy (Verified 05/15/18 13:50) Rash ciprofloxacin HCl [From Cipro] Allergy (Verified 05/15/18 13:50) Rash penicillin V [Penicillin V] Allergy (Verified 05/15/18 13:50) Rash Hospital Summary - Hospital Course Hospital Course: She was discharged 1 week prior to presentation after rehab stay at [facility]. Her partner and her were not able to use her inhaler properly and did not have a functional nebulizer. She had home health coming but was getting more and more weak and started having more respiratory difficulty and wheezing and confusion. She was very weak and short of breath and ems irving her to the ED. She was found to have acute on chronic respiratory acidosis with copd exaceration. This improved with oxygen, nebs, steroids iv weaned to po and antibiotic with ceftriaxone and azithromycin. She was also having some increased swelling and given one dose of iv lasix on 05/17. She was very weak still and with her periods of confusion her and her partner viral did not feel safe with her at home in this state and she will continue her rehabilitation back at [facility]. Her mood is doing well with the treatment of her mild depression on the cymbalta and trazodone and he elavil was held to prevent the interactions. will continue of this. SHe has been stable on the high dose risperidal for several years. SHe did not tolerate wean in the past. We could very slowly try if she has prolonged rehab stay in structured environment. She was having some delusions on her last rehab stay but none at home or during this hospitalization. - Vitals & Intake/Output Vital Signs: Vital Signs Temperature 97.8 F 05/17/18 07:17 Pulse Rate 73 05/17/18 07:17 Respiratory Rate 18 05/17/18 08:00 Blood Pressure 137/72 05/17/18 07:17 O2 Sat by Pulse Oximetry 97 05/17/18 07:17 Oxygen-Last Documented O2 Percentage 2 Liters = 28% Intake & Output: Intake & Output 05/14/18 05/15/18 05/16/18 05/17/18 11:59 11:59 11:59 11:59 Intake Total 2140 2980 Balance 2140 2980 Weight 74.843 kg 75.7 kg 75.7 kg - Lab Result Diagrams: 05/16/18 05:00 05/16/18 05:00 Micro Results-Entire Visit: Microbiology 05/16/18 11:00 Gram Stain - Final Sputum - Expectorant - Radiology Exams Ordered Rad Exams-Entire Visit: Radiology Procedures Category Date Time Status CHEST 1 VIEW (PORTABLE) Stat Exams 05/15/18 10:48 Completed - Procedures and Test Procedures and Tests throughout Hospitalization: Therapy Orders & Screens 05/15/18 10:50 Respiratory Nebulizer STAT Comment: Diagnosis: Shortness of Breath 05/15/18 13:43 Oxygen NASAL CANNULA 2 lpm Comment: Diagnosis: Shortness of Breath Respiratory Therapy Consult ROUTINE Comment: Reason For Exam: Diagnosis: Shortness of Breath 05/15/18 15:35 Respiratory Nebulizer PRN Comment: DUONEB Q4PRN Diagnosis: COPD exacerbation 05/16/18 07:00 Respiratory Therapy Assessment DAILY Comment: Diagnosis: COPD exacerbation 05/16/18 11:00 Respiratory Nebulizer Q4H Comment: ALBUTEROL Q4 Diagnosis: COPD exacerbation 05/17/18 06:47 Peak Expiratory Flow Rate ONCE Comment: Reason For Exam: Diagnosis: COPD exacerbation Discharge Exam General Appearance: no apparent distress, alert Neurologic Exam: alert, oriented x 3, cooperative, normal mood/affect, sensation nml, motor deficits (generalized weakness gait instability), confusion Skin Exam: normal color, warm, dry Eye Exam: PERRL, EOMI, eyes nml inspection Ears, Nose, Throat Exam: normal ENT inspection, pharynx normal, moist mucous membranes Neck Exam: normal inspection, non-tender, supple, full range of motion Respiratory Exam: crackles/rales (bibasilar), rhonchi, wheezing, No respiratory distress Cardiovascular Exam: regular rate/rhythm, normal heart sounds, edema (trace brigitte LE) Gastrointestinal/Abdomen Exam: soft, normal bowel sounds, No tenderness, No mass Extremity Exam: normal inspection, normal range of motion, other (chronic knee deformity and limb length discrepencey with genu valgus) Back Exam: normal inspection, normal range of motion, No CVA tenderness, No vertebral tenderness Pelvic Exam: deferred Rectal Exam: deferred Final Diagnosis/Problem List - Final Discharge Diagnosis/Problem (1) COPD exacerbation Current Visit: Yes Status: Acute Onset Date: ~02/26/18 (2) Hypercapnia Current Visit: Yes Status: Acute (3) Hypothyroidism Current Visit: Yes Status: Chronic (4) Seizure disorder Current Visit: Yes Status: Chronic (5) Essential hypertension Current Visit: Yes Status: Chronic (6) Anxiety Current Visit: Yes Status: Chronic (7) Acute respiratory acidosis Current Visit: Yes Status: Resolved (8) Mild major depression Current Visit: Yes Status: Chronic - Discharge Discharge Date: 05/17/18 Disposition: DC TO [facility] Condition: Fair Prescriptions: New Prednisone 20 mg [Deltasone 20 mg] 40 mg PO UD tablet Albuterol/Ipratropium 3ml Neb* [DUONEB 0.5-3 MG/3 ml Neb] 3 ml IH Q4HPRN PRN ampul.neb PRN Reason: Shortness Of Breath/Wheezing Azithromycin 250 mg [Zithromax 250 MG TABLET] 250 mg PO DAILY #3 tablet Continue Lisinopril [Zestril] 20 mg PO QAM Levetiracetam [Keppra] 750 mg PO BID Duloxetine HCl [Cymbalta] 60 mg PO QAM Potassium Chloride 10 Meq Tab* [Klor Con 10 MEQ] 10 meq PO TID Alendronate Sodium 70 mg [Fosamax 70 MG] 70 mg PO WEEKLY Albuterol Sulfate [Albuterol Sulfate Hfa] 2 puff IH Q4HPRN PRN PRN Reason: breathing risperiDONE [Risperdal] 2 mg PO TID Buspirone HCl [Buspar] 15 mg PO BID Tizanidine HCl 4 mg [Zanaflex 4 MG] 4 mg PO HS Celecoxib [Celebrex] 200 mg PO DAILY Folic Acid 1 mg PO DAILY raNITIdine HCl [Ranitidine HCl] 150 mg PO DAILY PRN PRN Reason: Gas Or Belching Ondansetron ODT 4 MG [Zofran Odt 4 mg] 4 mg PO Q6H PRN PRN PRN Reason: Nausea Trazodone HCl 150 mg PO HS PANTOPRAZOLE 40 mg Tablet [Protonix 40MG Tablet] 40 mg PO DAILY Gabapentin 300 mg PO QAM Budesonide [Pulmicort Flexhaler] 180 mcg IH BID Atorvastatin Calcium 40 mg PO DAILY Albuterol 2.5 mg/3 ml Neb [Proventil 2.5 mg/3 ml Neb] 2.5 mg IH Q4HPRN PRN PRN Reason: Shortness Of Breath/Wheezing Metoprolol Tartrate 100 mg PO BID Gabapentin 600 mg PO QPM Alprazolam 0.25 mg [xanAX 0.25 MG] 0.25 mg PO TIDPRN PRN #90 tablet PRN Reason: Anxiety Discontinued AMITRIPTYLINE HCL 50 mg Tab [AMITRIPTYLINE HCL 50 mg Tablet] 150 mg PO HS Follow up with: LOIS NICK [Primary Care Provider] - 1 Week
[2018-05-17] MEDS: BUSPAR 5 MG PO SCH ×2 (11:46→23:27)
[2018-05-17] MEDS: Desyrel 150 MG PO SCH (22:07)
[2018-05-17] MEDS: Zanaflex 4 MG PO SCH (22:07)
[2018-05-18] MEDS: PROVENTIL 2.5 MG/3 ML NEB IH SCH ×3 (05:08→10:39)
[2018-05-18] MEDS: PULMICORT 0.5 MG/2 ML RESPULES IH SCH (06:45)
[2018-05-18] MEDS: Zithromax 500 MG/ 250 ML NaCl Premix 500 MG/250 ML IVPB IV SCH (10:00)
[2018-05-18] MEDS: Risperdal 1 MG PO SCH (10:09)
[2018-05-18] MEDS: KEPPRA 500 MG PO SCH (10:09)
[2018-05-18] MEDS: Cymbalta 30 MG Capsule PO SCH (10:10)
[2018-05-18] MEDS: Zestril 20 MG PO SCH (10:10)
[2018-05-18] MEDS: FOLATE 1 MG PO SCH (10:10)
[2018-05-18] MEDS: NEURONTIN 300 MG PO SCH (10:10)
[2018-05-18] MEDS: Keppra 250 MG PO SCH (10:10)
[2018-05-18] MEDS: Klor Con 10 MEQ PO SCH (10:10)
[2018-05-18] MEDS: Protonix 40MG Tablet PO SCH (10:10)
[2018-05-18] MEDS: Lopressor 50 MG PO SCH (10:11)
[2018-05-18] MEDS: DELTASONE 20 MG PO SCH (10:11)
[2018-05-18] MEDS: ZOCOR 20MG PO SCH (10:16)
[2018-05-18 11:08] VITALS: BP 147/78; PULSE 74; O2SAT 96
--- NOTE | 2018-05-18 12:04 | PCM.DS ---
Discharge Summary Date of Admission: 05/15/18 13:34 Date of Discharge: 05/17/18 Admitting Physician: LOIS NICK Primary Care Provider: LOIS NICK Allergies Allergies tramadol HCl [From Ultram] Allergy (Mild, Verified 05/15/18 13:50) Rash ciprofloxacin [From Cipro] Allergy (Verified 05/15/18 13:50) Rash ciprofloxacin HCl [From Cipro] Allergy (Verified 05/15/18 13:50) Rash penicillin V [Penicillin V] Allergy (Verified 05/15/18 13:50) Rash Hospital Summary - Hospital Course Hospital Course: Pt is [address] Nick with COPD who 1 week prior to presentation was discharged from rehab at [facility]. She apparently didn't have the correct equipment at home to use her inhaled medicines so she started having more respiratory difficulty, weakness, and confusion so was brought to the ED by EMS. She was treated for COPD exacerbation with IV ceftriaxone and zithromax, and initial IV steriods then weaned to PO. She did have some edema and received 1d of IV lasix. She continues to have some weakness and confusion so the decision was made to discharge her to [facility]. However, there is some issue wiht paperwork so she will probably not be discharged until next week; until then she will continue her rehab in a swing bed here at [facility]. She has been treated with cymbalta and trazodone for mild depression; elavil being held to prevent drug interactions. Continue risperdal; has hx of delusions apparently at last hospital stay but no report of any this stay. Today she has no complaints, says her breathing is "good." Danisha po well. It's unclear whether she thinks she is going home or back to [facility] upon discharge , but she seems accepting of the delay. - Vitals & Intake/Output Vital Signs: Vital Signs Temperature 97.9 F 05/18/18 11:07 Pulse Rate 74 05/18/18 11:07 Respiratory Rate 20 05/18/18 11:07 Blood Pressure 147/78 05/18/18 11:07 O2 Sat by Pulse Oximetry 96 05/18/18 11:07 Oxygen-Last Documented O2 Percentage 2 Liters = 28% Intake & Output: Intake & Output 05/15/18 05/16/18 05/17/18 05/18/18 11:59 11:59 11:59 11:59 Intake Total 2140 2980 1740 Output Total 1450 Balance 2140 2980 290 Weight 74.843 kg 75.7 kg 75.7 kg 75.1 kg - Lab Result Diagrams: 05/16/18 05:00 05/16/18 05:00 Micro Results-Entire Visit: Microbiology 05/15/18 11:23 Blood Culture - Preliminary Blood NO GROWTH TO DATE 05/15/18 11:07 Blood Culture - Preliminary Blood NO GROWTH TO DATE 05/16/18 11:00 Gram Stain - Final Sputum - Expectorant - Procedures and Test Procedures and Tests throughout Hospitalization: Therapy Orders & Screens 05/15/18 10:50 Respiratory Nebulizer STAT Comment: Diagnosis: Shortness of Breath 05/15/18 13:43 Oxygen NASAL CANNULA 2 lpm Comment: Diagnosis: Shortness of Breath Respiratory Therapy Consult ROUTINE Comment: Reason For Exam: Diagnosis: Shortness of Breath 05/15/18 15:35 Respiratory Nebulizer PRN Comment: DUONEB Q4PRN Diagnosis: COPD exacerbation 05/16/18 07:00 Respiratory Therapy Assessment DAILY Comment: Diagnosis: COPD exacerbation 05/16/18 11:00 Respiratory Nebulizer Q4H Comment: ALBUTEROL Q4 Diagnosis: COPD exacerbation 05/17/18 06:47 Peak Expiratory Flow Rate ONCE Comment: Reason For Exam: Diagnosis: COPD exacerbation Discharge Exam General Appearance: no apparent distress, alert Neurologic Exam: cooperative Skin Exam: normal color, warm, dry, No rash Ears, Nose, Throat Exam: moist mucous membranes Neck Exam: normal inspection Respiratory Exam: diminished breath sounds, wheezing (exp throughout), No crackles/rales, No rhonchi Cardiovascular Exam: regular rate/rhythm, normal heart sounds, No murmur Gastrointestinal/Abdomen Exam: soft, No tenderness, No distention Extremity Exam: swelling (trace pretibial edema bilat) Back Exam: normal inspection, No rash Final Diagnosis/Problem List - Final Discharge Diagnosis/Problem (1) COPD exacerbation Current Visit: Yes Status: Acute Onset Date: ~02/26/18 Assessment & Plan: Continue po antibiotics and steroids. (2) Muscular deconditioning Current Visit: Yes Status: Acute Assessment & Plan: PT here in swing bed until can be discharged to [facility] [place]. (3) Hypercapnia Current Visit: Yes Status: Chronic (4) Anxiety Current Visit: Yes Status: Chronic (5) Essential hypertension Current Visit: Yes Status: Chronic (6) Hypothyroidism Current Visit: Yes Status: Chronic (7) Mild major depression Current Visit: Yes Status: Chronic (8) Seizure disorder Current Visit: Yes Status: Chronic (9) Acute respiratory acidosis Current Visit: Yes Status: Resolved - Discharge Disposition: Swing Bed @ [facility] Condition: Fair Prescriptions: New Prednisone 20 mg [Deltasone 20 mg] 40 mg PO UD tablet Albuterol/Ipratropium 3ml Neb* [DUONEB 0.5-3 MG/3 ml Neb] 3 ml IH Q4HPRN PRN ampul.neb PRN Reason: Shortness Of Breath/Wheezing Azithromycin 250 mg [Zithromax 250 MG TABLET] 250 mg PO DAILY #3 tablet Continue Lisinopril [Zestril] 20 mg PO QAM Levetiracetam [Keppra] 750 mg PO BID Duloxetine HCl [Cymbalta] 60 mg PO QAM Potassium Chloride 10 Meq Tab* [Klor Con 10 MEQ] 10 meq PO TID Alendronate Sodium 70 mg [Fosamax 70 MG] 70 mg PO WEEKLY Albuterol Sulfate [Albuterol Sulfate Hfa] 2 puff IH Q4HPRN PRN PRN Reason: breathing risperiDONE [Risperdal] 2 mg PO TID Buspirone HCl [Buspar] 15 mg PO BID Tizanidine HCl 4 mg [Zanaflex 4 MG] 4 mg PO HS Celecoxib [Celebrex] 200 mg PO DAILY Folic Acid 1 mg PO DAILY raNITIdine HCl [Ranitidine HCl] 150 mg PO DAILY PRN PRN Reason: Gas Or Belching Ondansetron ODT 4 MG [Zofran Odt 4 mg] 4 mg PO Q6H PRN PRN PRN Reason: Nausea Trazodone HCl 150 mg PO HS PANTOPRAZOLE 40 mg Tablet [Protonix 40MG Tablet] 40 mg PO DAILY Gabapentin 300 mg PO QAM Budesonide [Pulmicort Flexhaler] 180 mcg IH BID Atorvastatin Calcium 40 mg PO DAILY Albuterol 2.5 mg/3 ml Neb [Proventil 2.5 mg/3 ml Neb] 2.5 mg IH Q4HPRN PRN PRN Reason: Shortness Of Breath/Wheezing Metoprolol Tartrate 100 mg PO BID Gabapentin 600 mg PO QPM Alprazolam 0.25 mg [xanAX 0.25 MG] 0.25 mg PO TIDPRN PRN #90 tablet PRN Reason: Anxiety Discontinued AMITRIPTYLINE HCL 50 mg Tab [AMITRIPTYLINE HCL 50 mg Tablet] 150 mg PO HS Instructions: Hypothyroidism (Underactive Thyroid), Exacerbation of COPD Follow up with: LOIS NICK [Primary Care Provider] - 1 Week
[2018-05-18] MEDS: BUSPAR 5 MG PO SCH (12:06)
== END 2018-05-18 13:30 | disposition swing bed (61) | DRG 191 ==
LOC: ED 10:38 → OBSVTOIN 13:34 → MED SURG 13:34
PROVIDERS: ADMIT Family Medicine; ATTEND Family Medicine
DX: J44.1 Chronic obstructive pulmonary disease with (acute) exacerbation (principal); E87.2 Acidosis; R06.89 Other abnormalities of breathing; F03.90 Unspecified dementia, unspecified severity, without behavioral disturbance, psychotic disturbance, mood disturbance, and anxiety; G40.909 Epilepsy, unspecified, not intractable, without status epilepticus; I10 Essential (primary) hypertension; J45.909 Unspecified asthma, uncomplicated; E03.9 Hypothyroidism, unspecified; M19.90 Unspecified osteoarthritis, unspecified site; M79.7 Fibromyalgia; F32.9 Major depressive disorder, single episode, unspecified; F41.9 Anxiety disorder, unspecified; Z85.41 Personal history of malignant neoplasm of cervix uteri; R01.1 Cardiac murmur, unspecified; Z72.0 Tobacco use; Z79.899 Other long term (current) drug therapy
CPT/HCPCS: 36415; 71045; 80053; 82805; 83880; 84484; 85025; 87040; 87070; 93005; 93041; 94150; 94640; 94760; 94762; 94770; 96365; 96374; 99285; J7609; J0456; J0696; J1940; J2920; J2930; A9270-GY

== ENCOUNTER 2018-05-18 10:36 | Inpatient (IN) | payer MEDICARE ==
[2018-05-18] MEDS ORDERED: Pepcid 20 MG PO PRN (13:39)
[2018-05-18] MEDS ORDERED: ZOFRAN ODT 4 MG PO PRN (13:39)
[2018-05-18] MEDS ORDERED: PROVENTIL COMMON CANISTER IH PRN (13:39)
[2018-05-18] MEDS ORDERED: DUONEB 0.5-3 MG/3 ml Neb IH PRN (13:39)
[2018-05-18] MEDS: PROVENTIL 2.5 MG/3 ML NEB IH SCH ×3 (15:11→23:04)
[2018-05-18] MEDS: Klor Con 10 MEQ PO SCH ×2 (15:13→21:29)
[2018-05-18] MEDS: Risperdal 1 MG PO SCH ×2 (15:13→21:29)
[2018-05-18] MEDS: PULMICORT 0.5 MG/2 ML RESPULES IH SCH (18:55)
[2018-05-18] MEDS: Keppra 250 MG PO SCH (21:28)
[2018-05-18] MEDS: Desyrel 150 MG PO SCH (21:28)
[2018-05-18] MEDS: BUSPAR 5 MG PO SCH (21:28)
[2018-05-18] MEDS: KEPPRA 500 MG PO SCH (21:28)
[2018-05-18] MEDS: Lopressor 50 MG PO SCH (21:29)
[2018-05-18] MEDS: NEURONTIN 300 MG PO SCH (21:29)
[2018-05-18] MEDS: Sodium Chloride 0.9% 10 ML FLUSH Syringe IV SCH (21:30)
[2018-05-18] MEDS: Zanaflex 4 MG PO SCH (21:30)
[2018-05-19] MEDS: PROVENTIL 2.5 MG/3 ML NEB IH SCH ×6 (03:22→23:11)
[2018-05-19] MEDS: Sodium Chloride 0.9% 10 ML FLUSH Syringe IV SCH ×3 (07:06→21:27)
[2018-05-19] MEDS: PULMICORT 0.5 MG/2 ML RESPULES IH SCH ×2 (07:14→19:06)
[2018-05-19] MEDS: ZOCOR 20MG PO SCH (09:13)
[2018-05-19] MEDS: Lopressor 50 MG PO SCH ×2 (09:14→21:23)
[2018-05-19] MEDS: Cymbalta 30 MG Capsule PO SCH (09:14)
[2018-05-19] MEDS: FOLATE 1 MG PO SCH (09:14)
[2018-05-19] MEDS: Klor Con 10 MEQ PO SCH ×3 (09:14→21:23)
[2018-05-19] MEDS: Zestril 20 MG PO SCH (09:14)
[2018-05-19] MEDS: NEURONTIN 300 MG PO SCH ×2 (09:14→21:24)
[2018-05-19] MEDS: Protonix 40MG Tablet PO SCH (09:14)
[2018-05-19] MEDS: DELTASONE 20 MG PO SCH (09:14)
[2018-05-19] MEDS: Keppra 250 MG PO SCH ×2 (09:15→21:23)
[2018-05-19] MEDS: KEPPRA 500 MG PO SCH ×2 (09:15→21:23)
[2018-05-19] MEDS: Zithromax 500 MG/ 250 ML NaCl Premix 500 MG/250 ML IVPB IV SCH (09:15)
[2018-05-19] MEDS: Risperdal 1 MG PO SCH ×3 (09:16→21:24)
[2018-05-19] MEDS ORDERED: Aplisol ID SCH (10:00)
[2018-05-19] MEDS: BUSPAR 5 MG PO SCH ×2 (11:44→21:23)
[2018-05-19] MEDS: xanAX 0.25 MG PO PRN ×2 (15:15→23:45)
[2018-05-19] MEDS: Desyrel 150 MG PO SCH (21:23)
[2018-05-19] MEDS: Zanaflex 4 MG PO SCH (21:24)
[2018-05-20] MEDS: Sodium Chloride 0.9% 10 ML FLUSH Syringe IV SCH ×3 (05:30→21:47)
[2018-05-20] MEDS: PROVENTIL 2.5 MG/3 ML NEB IH SCH ×6 (05:53→23:10)
[2018-05-20] MEDS: PULMICORT 0.5 MG/2 ML RESPULES IH SCH ×2 (06:54→18:50)
[2018-05-20] MEDS: Lopressor 50 MG PO SCH ×2 (09:10→21:46)
[2018-05-20] MEDS: Risperdal 1 MG PO SCH ×3 (09:10→21:46)
[2018-05-20] MEDS: Protonix 40MG Tablet PO SCH (09:10)
[2018-05-20] MEDS: Klor Con 10 MEQ PO SCH ×3 (09:10→21:45)
[2018-05-20] MEDS: DELTASONE 20 MG PO SCH (09:10)
[2018-05-20] MEDS: Cymbalta 30 MG Capsule PO SCH (09:10)
[2018-05-20] MEDS: Keppra 250 MG PO SCH ×2 (09:10→21:45)
[2018-05-20] MEDS: FOLATE 1 MG PO SCH (09:11)
[2018-05-20] MEDS: Zestril 20 MG PO SCH (09:11)
[2018-05-20] MEDS: ZOCOR 20MG PO SCH (09:11)
[2018-05-20] MEDS: NEURONTIN 300 MG PO SCH ×2 (09:11→21:46)
[2018-05-20] MEDS: KEPPRA 500 MG PO SCH ×2 (09:11→21:45)
[2018-05-20] MEDS: Zithromax 500 MG/ 250 ML NaCl Premix 500 MG/250 ML IVPB IV SCH (09:17)
[2018-05-20] MEDS: xanAX 0.25 MG PO PRN ×2 (09:17→15:38)
[2018-05-20] MEDS: BUSPAR 5 MG PO SCH ×2 (11:43→21:43)
[2018-05-20] MEDS: Desyrel 150 MG PO SCH (21:44)
[2018-05-20] MEDS: Zanaflex 4 MG PO SCH (21:47)
[2018-05-21] MEDS: PROVENTIL 2.5 MG/3 ML NEB IH SCH ×6 (04:44→22:58)
[2018-05-21] MEDS: Sodium Chloride 0.9% 10 ML FLUSH Syringe IV SCH ×2 (06:15→12:11)
[2018-05-21] MEDS: PULMICORT 0.5 MG/2 ML RESPULES IH SCH ×2 (06:32→19:11)
[2018-05-21] MEDS: Klor Con 10 MEQ PO SCH ×3 (09:20→21:50)
[2018-05-21] MEDS: Cymbalta 30 MG Capsule PO SCH (09:20)
[2018-05-21] MEDS: NEURONTIN 300 MG PO SCH ×2 (09:20→21:47)
[2018-05-21] MEDS: Zestril 20 MG PO SCH (09:20)
[2018-05-21] MEDS: Protonix 40MG Tablet PO SCH (09:21)
[2018-05-21] MEDS: KEPPRA 500 MG PO SCH ×2 (09:21→21:50)
[2018-05-21] MEDS: FOLATE 1 MG PO SCH (09:21)
[2018-05-21] MEDS: DELTASONE 10 MG PO SCH (09:21)
[2018-05-21] MEDS: Keppra 250 MG PO SCH ×2 (09:21→21:50)
[2018-05-21] MEDS: Risperdal 1 MG PO SCH ×3 (09:21→21:50)
[2018-05-21] MEDS: TYLENOL 325 MG PO PRN (09:21)
[2018-05-21] MEDS: Lopressor 50 MG PO SCH ×2 (09:21→21:48)
[2018-05-21] MEDS: Zithromax 500 MG/ 250 ML NaCl Premix 500 MG/250 ML IVPB IV SCH (09:21)
[2018-05-21] MEDS: ZOCOR 20MG PO SCH (09:21)
[2018-05-21] MEDS: xanAX 0.25 MG PO PRN ×2 (09:23→16:05)
[2018-05-21] MEDS: BUSPAR 5 MG PO SCH ×2 (12:10→21:50)
[2018-05-22] MEDS: PROVENTIL 2.5 MG/3 ML NEB IH SCH ×6 (02:35→23:20)
[2018-05-22] MEDS: Zanaflex 4 MG PO SCH ×2 (03:10→21:46)
[2018-05-22] MEDS: Sodium Chloride 0.9% 10 ML FLUSH Syringe IV SCH ×2 (03:10→05:30)
[2018-05-22] MEDS: Desyrel 150 MG PO SCH ×2 (03:10→21:45)
[2018-05-22] MEDS: PULMICORT 0.5 MG/2 ML RESPULES IH SCH ×2 (07:14→18:34)
[2018-05-22] MEDS: DELTASONE 10 MG PO SCH (09:43)
[2018-05-22] MEDS: Lopressor 50 MG PO SCH ×2 (09:44→21:45)
[2018-05-22] MEDS: Protonix 40MG Tablet PO SCH (09:44)
[2018-05-22] MEDS: Risperdal 1 MG PO SCH ×3 (09:44→21:44)
[2018-05-22] MEDS: FOLATE 1 MG PO SCH (09:44)
[2018-05-22] MEDS: Keppra 250 MG PO SCH ×2 (09:44→21:46)
[2018-05-22] MEDS: Klor Con 10 MEQ PO SCH ×3 (09:44→21:45)
[2018-05-22] MEDS: Zestril 20 MG PO SCH (09:44)
[2018-05-22] MEDS: Cymbalta 30 MG Capsule PO SCH (09:44)
[2018-05-22] MEDS: ZOCOR 20MG PO SCH (09:44)
[2018-05-22] MEDS: NEURONTIN 300 MG PO SCH ×2 (09:44→21:45)
[2018-05-22] MEDS: KEPPRA 500 MG PO SCH ×2 (09:44→21:45)
[2018-05-22] MEDS: BUSPAR 5 MG PO SCH ×2 (11:58→21:53)
[2018-05-22] MEDS: TYLENOL 325 MG PO PRN ×2 (14:50→21:44)
[2018-05-22] MEDS: xanAX 0.25 MG PO PRN ×2 (14:53→21:47)
[2018-05-23] MEDS: PROVENTIL 2.5 MG/3 ML NEB IH SCH ×6 (01:50→22:43)
[2018-05-23] MEDS: PULMICORT 0.5 MG/2 ML RESPULES IH SCH ×2 (07:00→19:17)
[2018-05-23] MEDS: NEURONTIN 300 MG PO SCH ×2 (08:58→22:06)
[2018-05-23] MEDS: ZOCOR 20MG PO SCH (08:58)
[2018-05-23] MEDS: Risperdal 1 MG PO SCH ×3 (08:58→22:07)
[2018-05-23] MEDS: Cymbalta 30 MG Capsule PO SCH (08:58)
[2018-05-23] MEDS: Lopressor 50 MG PO SCH ×2 (08:58→22:06)
[2018-05-23] MEDS: Protonix 40MG Tablet PO SCH (08:59)
[2018-05-23] MEDS: KEPPRA 500 MG PO SCH ×2 (08:59→22:06)
[2018-05-23] MEDS: Keppra 250 MG PO SCH ×2 (08:59→22:06)
[2018-05-23] MEDS: FOLATE 1 MG PO SCH (08:59)
[2018-05-23] MEDS: DELTASONE 10 MG PO SCH (08:59)
[2018-05-23] MEDS: Klor Con 10 MEQ PO SCH ×3 (08:59→22:06)
[2018-05-23] MEDS: Zestril 20 MG PO SCH (08:59)
[2018-05-23] MEDS ORDERED: DIFLUCAN PO ONE (10:15)
[2018-05-23] MEDS: BUSPAR 5 MG PO SCH ×2 (11:34→22:06)
[2018-05-23] MEDS: xanAX 0.25 MG PO PRN (15:21)
[2018-05-23] MEDS: TYLENOL 325 MG PO PRN (18:04)
[2018-05-23] MEDS: Desyrel 150 MG PO SCH (22:06)
[2018-05-23] MEDS: Zanaflex 4 MG PO SCH (22:07)
[2018-05-24] MEDS: PROVENTIL 2.5 MG/3 ML NEB IH SCH ×4 (03:06→14:31)
[2018-05-24] MEDS: PULMICORT 0.5 MG/2 ML RESPULES IH SCH (07:09)
[2018-05-24 08:29] VITALS: BP 161/72
[2018-05-24] MEDS: Zestril 20 MG PO SCH (09:28)
[2018-05-24] MEDS: Protonix 40MG Tablet PO SCH (09:28)
[2018-05-24] MEDS: Cymbalta 30 MG Capsule PO SCH (09:29)
[2018-05-24] MEDS: FOLATE 1 MG PO SCH (09:29)
[2018-05-24] MEDS: DELTASONE 10 MG PO SCH (09:29)
[2018-05-24] MEDS: NEURONTIN 300 MG PO SCH (09:29)
[2018-05-24] MEDS: Keppra 250 MG PO SCH (09:29)
[2018-05-24] MEDS: Risperdal 1 MG PO SCH ×2 (09:29→15:43)
[2018-05-24] MEDS: Klor Con 10 MEQ PO SCH ×2 (09:29→15:43)
[2018-05-24] MEDS: ZOCOR 20MG PO SCH (09:29)
[2018-05-24] MEDS: xanAX 0.25 MG PO PRN ×2 (09:29→15:46)
[2018-05-24] MEDS: KEPPRA 500 MG PO SCH (09:29)
[2018-05-24] MEDS: Lopressor 50 MG PO SCH (09:29)
[2018-05-24] MEDS: BUSPAR 5 MG PO SCH (11:15)
[2018-05-24 14:37] VITALS: PULSE 74; O2SAT 91
--- NOTE | 2018-05-24 16:24 | PCM.DCORD ---
- Discharge Discharge Date: 05/24/18 Disposition: Home, Self-Care Condition: Stable Prescriptions: Continue Lisinopril [Zestril] 20 mg PO QAM Levetiracetam [Keppra] 750 mg PO BID Duloxetine HCl [Cymbalta] 60 mg PO QAM Potassium Chloride 10 Meq Tab* [Klor Con 10 MEQ] 10 meq PO TID Alendronate Sodium 70 mg [Fosamax 70 MG] 70 mg PO WEEKLY Albuterol Sulfate [Albuterol Sulfate Hfa] 2 puff IH Q4HPRN PRN PRN Reason: breathing risperiDONE [Risperdal] 2 mg PO TID Buspirone HCl [Buspar] 15 mg PO BID Tizanidine HCl 4 mg [Zanaflex 4 MG] 4 mg PO HS Celecoxib [Celebrex] 200 mg PO DAILY Folic Acid 1 mg PO DAILY raNITIdine HCl [Ranitidine HCl] 150 mg PO DAILY PRN PRN Reason: Gas Or Belching Ondansetron ODT 4 MG [Zofran Odt 4 mg] 4 mg PO Q6H PRN PRN PRN Reason: Nausea Trazodone HCl 150 mg PO HS PANTOPRAZOLE 40 mg Tablet [Protonix 40MG Tablet] 40 mg PO DAILY Gabapentin 300 mg PO QAM Budesonide [Pulmicort Flexhaler] 180 mcg IH BID Atorvastatin Calcium 40 mg PO DAILY Albuterol 2.5 mg/3 ml Neb [Proventil 2.5 mg/3 ml Neb] 2.5 mg IH Q4HPRN PRN PRN Reason: Shortness Of Breath/Wheezing Metoprolol Tartrate 100 mg PO BID Gabapentin 600 mg PO QPM Albuterol/Ipratropium 3ml Neb* [DUONEB 0.5-3 MG/3 ml Neb] 3 ml IH Q4HPRN PRN ampul.neb PRN Reason: Shortness Of Breath/Wheezing Alprazolam 0.25 mg [xanAX 0.25 MG] 0.25 mg PO TIDPRN PRN #90 tablet PRN Reason: Anxiety Changed Prednisone 20 mg [Deltasone 20 mg] 20 mg PO UD #0 tablet Discontinued Azithromycin 250 mg [Zithromax 250 MG TABLET] 250 mg PO DAILY #3 tablet Additional Instructions: MARISSA HAILE ORDERS: PT/OT EVAL AND TREAT HEART HEALTHY DIET AMBULATE WITH WALKER/ASSIST SEE ATTACHED FOR CURRENT MED LIST Follow up with: LOIS NICK [Primary Care Provider] - 1 Week
[2018-05-24] MEDS: TYLENOL 325 MG PO PRN (16:43)
--- NOTE | 2018-05-26 17:39 | PCM.DS ---
Discharge Summary Date of Admission: 05/18/18 13:30 Date of Discharge: 05/24/18 Admitting Physician: LOIS NICK Primary Care Provider: LOIS NICK Allergies Allergies tramadol HCl [From Ultram] Allergy (Mild, Verified 05/15/18 13:50) Rash ciprofloxacin [From Cipro] Allergy (Verified 05/15/18 13:50) Rash ciprofloxacin HCl [From Cipro] Allergy (Verified 05/15/18 13:50) Rash penicillin V [Penicillin V] Allergy (Verified 05/15/18 13:50) Rash Hospital Summary - Hospital Course Hospital Course: she was in swing bed for weakness after exacerbation of copd resulted in inpatient stay. she has been home from rehab for 1 week prior to hospitalization and was not able to be cared for at home by her partner viral and had exacerbation of her copd due to not understanding how to use her inhaler and not having a working neb machine. She was accepted back to [facility] for continued rehab and was to be discharged there on 05/17 but level II was still pending at that time so she was continued in swing bed. Her nebs were continued. She worked with therapy. She had her steroids weaned and antibiotics completed. She continued to have intermittent confusion and bazaar affect at times. Her level II went through after 1 week of waiting and she will continue therapy at [facility]. - Vitals & Intake/Output Vital Signs: Vital Signs Temperature 98.2 F 05/24/18 08:00 Pulse Rate 74 05/24/18 14:31 Respiratory Rate 20 05/24/18 14:31 Blood Pressure 161/72 05/24/18 08:00 O2 Sat by Pulse Oximetry 91 L 05/24/18 14:31 Oxygen-Last Documented O2 Percentage 1 Liter = 24% Intake & Output: Intake & Output 05/24/18 05/25/18 05/26/18 05/27/18 11:59 11:59 11:59 11:59 Intake Total 1520 120 Output Total 700 Balance 820 120 - Procedures and Test Procedures and Tests throughout Hospitalization: Therapy Orders & Screens 05/18/18 14:30 PT Eval & Treat (MD Order) ROUTINE Reason for Eval:: swingbed status for strengthening Diagnosis: Deconditioning r/t exac copd,resp acidosis 05/18/18 15:00 Respiratory MDI PRN Comment: ALBUTEROL Q4PRN Diagnosis: Deconditioning r/t exac copd,resp acidosis Respiratory Nebulizer PRN Comment: DUONEB Q4PRN Diagnosis: Deconditioning r/t exac copd,resp acidosis Respiratory Nebulizer Q4H Comment: ALBUTEROL Q4 Diagnosis: Deconditioning r/t exac copd,resp acidosis 05/18/18 15:15 Oxygen NASAL CANNULA 2 lpm Comment: Diagnosis: Deconditioning r/t exac copd,resp acidosis 05/18/18 19:00 Respiratory Nebulizer BID Comment: PULMICORT BID Diagnosis: Deconditioning r/t exac copd,resp acidosis 05/19/18 07:00 Peak Expiratory Flow Rate ONCE Comment: DAILY Reason For Exam: Diagnosis: Deconditioning r/t exac copd,resp acidosis Respiratory Therapy Assessment DAILY Comment: Diagnosis: Deconditioning r/t exac copd,resp acidosis Final Diagnosis/Problem List - Final Discharge Diagnosis/Problem (1) COPD exacerbation Status: Acute Onset Date: ~02/26/18 (2) Anxiety Status: Chronic (3) Depression Status: Chronic (4) Essential hypertension Status: Chronic (5) Hypothyroidism Status: Chronic (6) Seizure disorder Status: Chronic - Discharge Disposition: Home, Self-Care Condition: Stable Prescriptions: Continue Lisinopril [Zestril] 20 mg PO QAM Levetiracetam [Keppra] 750 mg PO BID Duloxetine HCl [Cymbalta] 60 mg PO QAM Potassium Chloride 10 Meq Tab* [Klor Con 10 MEQ] 10 meq PO TID Alendronate Sodium 70 mg [Fosamax 70 MG] 70 mg PO WEEKLY Albuterol Sulfate [Albuterol Sulfate Hfa] 2 puff IH Q4HPRN PRN PRN Reason: breathing risperiDONE [Risperdal] 2 mg PO TID Buspirone HCl [Buspar] 15 mg PO BID Tizanidine HCl 4 mg [Zanaflex 4 MG] 4 mg PO HS Celecoxib [Celebrex] 200 mg PO DAILY Folic Acid 1 mg PO DAILY raNITIdine HCl [Ranitidine HCl] 150 mg PO DAILY PRN PRN Reason: Gas Or Belching Ondansetron ODT 4 MG [Zofran Odt 4 mg] 4 mg PO Q6H PRN PRN PRN Reason: Nausea Trazodone HCl 150 mg PO HS PANTOPRAZOLE 40 mg Tablet [Protonix 40MG Tablet] 40 mg PO DAILY Gabapentin 300 mg PO QAM Budesonide [Pulmicort Flexhaler] 180 mcg IH BID Atorvastatin Calcium 40 mg PO DAILY Albuterol 2.5 mg/3 ml Neb [Proventil 2.5 mg/3 ml Neb] 2.5 mg IH Q4HPRN PRN PRN Reason: Shortness Of Breath/Wheezing Metoprolol Tartrate 100 mg PO BID Gabapentin 600 mg PO QPM Albuterol/Ipratropium 3ml Neb* [DUONEB 0.5-3 MG/3 ml Neb] 3 ml IH Q4HPRN PRN ampul.neb PRN Reason: Shortness Of Breath/Wheezing Alprazolam 0.25 mg [xanAX 0.25 MG] 0.25 mg PO TIDPRN PRN #90 tablet PRN Reason: Anxiety Changed Prednisone 20 mg [Deltasone 20 mg] 20 mg PO UD #0 tablet Discontinued Azithromycin 250 mg [Zithromax 250 MG TABLET] 250 mg PO DAILY #3 tablet Additional Instructions: MARISSA HAILE ORDERS: PT/OT EVAL AND TREAT HEART HEALTHY DIET AMBULATE WITH WALKER/ASSIST SEE ATTACHED FOR CURRENT MED LIST Follow up with: LOIS NICK [Primary Care Provider] - 1 Week Forms: Ambulance Transport Record, Transfer Record Inter[facility]Agency
[2018-05-29] MEDS ORDERED: Aplisol ID SCH (10:00)
== END 2018-05-24 17:05 | disposition home or self-care (01) | DRG 191 ==
LOC: MED SURG 13:30
PROVIDERS: ADMIT Family Medicine; ATTEND Family Medicine
DX: J44.1 Chronic obstructive pulmonary disease with (acute) exacerbation (principal); G40.109 Localization-related (focal) (partial) symptomatic epilepsy and epileptic syndromes with simple partial seizures, not intractable, without status epilepticus; F41.9 Anxiety disorder, unspecified; F32.9 Major depressive disorder, single episode, unspecified; E03.9 Hypothyroidism, unspecified; Z79.899 Other long term (current) drug therapy; R53.1 Weakness
CPT/HCPCS: 94150; 94640; 94760; J0456; J7609; 97110-GP; A9270-GY

== ENCOUNTER 2018-06-10 13:53 | Inpatient (IN) | payer MEDICARE ==
[2018-06-10] MEDS ORDERED: solu-MEDROL 125 MG IV ONE (13:55)
[2018-06-10] MEDS ORDERED: DUONEB 0.5-3 MG/3 ml Neb IH ONE ×3 (13:55→20:30)
--- NOTE | 2018-06-10 14:03 | ERPHSYRPT ---
- History of Present Illness Time Seen by Provider: 06/10/18 13:58 Source: patient, EMS Physician History: NH pt with mild to mod shortness of breath and wheezing with increasing confusion, no 4liters, no fever, no injury, poor historian Allergies/Adverse Reactions: tramadol HCl [From Ultram] Allergy (Mild, Verified 06/10/18 14:07) Rash ciprofloxacin [From Cipro] Allergy (Verified 06/10/18 14:07) Rash ciprofloxacin HCl [From Cipro] Allergy (Verified 06/10/18 14:07) Rash penicillin V [Penicillin V] Allergy (Verified 06/10/18 14:07) Rash Home Medications: Alendronate Sodium 70 mg [Fosamax 70 MG] 70 mg PO WEEKLY 12/19/15 [History ] Duloxetine HCl [Cymbalta] 60 mg PO QAM 12/19/15 [History] Levetiracetam [Keppra] 750 mg PO BID 12/19/15 [History] Lisinopril [Zestril] 20 mg PO QAM 12/19/15 [History] Potassium Chloride 10 Meq Tab* [Klor Con 10 MEQ] 10 meq PO TID 12/19/15 [ History] Albuterol Sulfate [Albuterol Sulfate Hfa] 2 puff IH Q4HPRN PRN 02/22/17 [History ] risperiDONE [Risperdal] 2 mg PO TID 02/22/17 [History] Buspirone HCl [Buspar] 15 mg PO BID 05/18/17 [History] Tizanidine HCl 4 mg [Zanaflex 4 MG] 4 mg PO HS 12/17/17 [History] Celecoxib [Celebrex] 200 mg PO DAILY 02/11/18 [History] Folic Acid 1 mg PO DAILY 02/26/18 [History] Ondansetron ODT 4 MG [Zofran Odt 4 mg] 4 mg PO Q6H PRN PRN 02/26/18 [ History] Trazodone HCl 150 mg PO HS 02/26/18 [History] raNITIdine HCl [Ranitidine HCl] 150 mg PO DAILY PRN 02/26/18 [History] Albuterol 2.5 mg/3 ml Neb [Proventil 2.5 mg/3 ml Neb] 2.5 mg IH Q4HPRN PRN 05/15/18 [History] Atorvastatin Calcium 40 mg PO DAILY 05/15/18 [History] Budesonide [Pulmicort Flexhaler] 180 mcg IH BID 05/15/18 [History] Gabapentin 300 mg PO QAM 05/15/18 [History] Gabapentin 600 mg PO QPM 05/15/18 [History] Metoprolol Tartrate 100 mg PO BID 05/15/18 [History] PANTOPRAZOLE 40 mg Tablet [Protonix 40MG Tablet] 40 mg PO DAILY 05/15/18 [ History] Hx Tetanus, Diphtheria Vaccination/Date Given: Yes Hx Influenza Vaccination/Date Given: Yes Hx Pneumococcal Vaccination/Date Given: Yes - Review of Systems Eyes: No Eye Redness Ears, Nose, & Throat: No Mouth Pain Respiratory: Cough, Dyspnea Cardiac: No Chest Pain, No Other Abdominal/Gastrointestinal: No Vomiting Genitourinary Symptoms: No Dysuria Musculoskeletal: No Neck Pain Neurological: No Dizziness - Past Medical History Pertinent Past Medical History: Yes Neurological History: Dementia, Seizures ENT History: Cataracts Cardiac History: Other Respiratory History: Asthma, COPD, Pneumonia Endocrine Medical History: Hypothyroidism Musculoskeletal History: Arthritis, Fibromyalgia GI Medical History: Diverticulitis History: No Pertinent History Psycho-Social History: Anxiety, Depression Female Reproductive Disorders: Cervical Cancer Other Medical History: pt states she has a murmur - Past Surgical History Past Surgical History: Yes Neuro Surgical History: No Pertinent History Cardiac: No Pertinent History Respiratory: No Pertinent History Gastrointestinal: Appendectomy, Cholecystectomy Genitourinary: No Pertinent History Musculoskeletal: Orthopedic Surgery Female Surgical History: Hysterectomy Other Surgical History: LEFT x 4, RIGHT x 1 HIP SURGERY - Social History Smoking Status: Current every day smoker How long have you smoked: 40 Exposure to second hand smoke: Yes Drug Use: none Patient Lives Alone: No - Nursing Vital Signs Nursing Vital Signs: Initial Vital Signs O2 Sat by Pulse Oximetry 100 06/10/18 13:55 Pain Scale Pain Intensity 0 - Physical Exam General Appearance: no apparent distress Eye Exam: PERRL/EOMI Ears, Nose, Throat Exam: moist mucous membranes Neck Exam: supple Respiratory Exam: wheezing, No stridor Cardiovascular Exam: regular rate/rhythm Gastrointestinal/Abdomen Exam: soft, No tenderness Back Exam: No vertebral tenderness Extremity Exam: swelling Neurologic Exam: cooperative, ribber II-XII nml as tested Skin Exam: warm, dry - Course Nursing assessment & vital signs reviewed: Yes EKG Interpreted by Me: Other (nsr 95 similar to 05/15/18, no stemi) - Radiology Exams Chest X-ray Interpretation: Discussed w/ radiologist, Other (mild pul vas congestion) - CT Exams Chest CT Interpretation: Discussed w/radiologist, Other (no pe, +bilateral infil) Ordered Tests: Active Orders 24 hr Category Date Time Status Acting Professor STAT Care 06/10/18 13:56 Active Catheter-[place] Hinojosa STAT Care 06/10/18 13:56 Active EKG-ER Only STAT Care 06/10/18 13:55 Active IV Insertion STAT Care 06/10/18 13:55 Active Pulse Oximetry (ED) STAT Care 06/10/18 13:55 Active CHEST 1 VIEW (PORTABLE) Stat Exams 06/10/18 13:56 Completed CHEST WITH CONTRAST [CT] Stat Exams 06/10/18 16:22 Completed HEAD WITHOUT CONTRAST [CT] Stat Exams 06/10/18 13:57 Completed ABG [ARTERIAL BLOOD GASES] Urgent Lab 06/10/18 16:12 Completed ARTERIAL BLOOD GASES Stat Lab 06/10/18 14:09 Completed BLOOD CULTURE Stat Lab 06/10/18 15:12 Received CBC W DIFF Stat Lab 06/10/18 15:00 Completed CMP Stat Lab 06/10/18 15:00 Completed D-DIMER QUANTITATION Stat Lab 06/10/18 15:00 Completed Lactic Acid Stat Lab 06/10/18 14:09 Completed Manual Differential NC Stat Lab 06/10/18 15:00 Completed NT PRO BNP Stat Lab 06/10/18 15:00 Completed TROPONIN Q3H Lab 06/10/18 15:00 Completed TROPONIN Q3H Lab 06/10/18 17:04 Received TROPONIN Q3H Lab 06/10/18 20:00 Ordered TROPONIN Q3H Lab 06/10/18 23:00 Ordered TROPONIN Q3H Lab 06/11/18 02:00 Ordered UA W/RFX UR CULTURE Stat Lab 06/10/18 15:09 Completed BiPap/CPAP STAT RT 06/10/18 15:30 Active Respiratory Nebulizer STAT RT 06/10/18 13:56 Completed Respiratory Therapy Assessment DAILY RT 06/10/18 14:17 Active Transfer Order Routine Transfer 06/10/18 Ordered Medication Summary Discontinued Medications Generic Name Dose Route Start Last Admin Trade Name Anaid PRN Reason Stop Dose Admin Albuterol/Ipratropium 3 ml 06/10/18 13:55 06/10/18 14:11 Duoneb 0.5-3 Mg/3 Ml Neb IH 06/10/18 13:56 3 ml STAT ONE Administration Albuterol/Ipratropium Confirm 06/10/18 14:06 Duoneb 0.5-3 Mg/3 Ml Neb Administered 06/10/18 14:07 Dose 3 ml IH .STK-MED ONE Azithromycin 500 mg in 250 mls @ 250 mls/hr 06/10/18 15:34 06/10/18 15:50 Zithromax 500 Mg/ 250 Ml Nacl Premix IV 06/10/18 16:33 250 mls/hr STAT STA Administration Azithromycin Confirm 06/10/18 15:48 Zithromax 500 Mg/ 250 Ml Nacl Premix Administered 06/10/18 15:49 Dose 500 mg in 250 mls @ ud IV .STK-MED ONE Methylprednisolone Sodium Succinate 125 mg 06/10/18 13:55 06/10/18 14:16 Solu-Medrol 125 Mg IV 06/10/18 13:56 125 mg STAT ONE Administration Methylprednisolone Sodium Succinate Confirm 06/10/18 14:12 Solu-Medrol 125 Mg Administered 06/10/18 14:13 Dose 125 mg .ROUTE .STK-MED ONE Lab/Rad Data: Laboratory Result Diagrams 06/10/18 15:00 06/10/18 15:00 Laboratory Results 06/10/18 06/10/18 06/10/18 Range/Units 16:12 15:09 15:00 WBC (4.0-10.5) K/mm3 RBC (4.1-5.4) M/mm3 Hgb (12.0-16.0) gm/dl Hct (35-47) % MCV (78-100) fl MCH (26-32) pg MCHC (32-36) g/dl RDW (11.5-14.0) % Plt Count (150-450) K/mm3 MPV (6-9.5) fl Absolute Granulocytes (1.4-6.9) Segmented Neutrophils (36.0-66.0) % Band Neutrophils (0.0-2.0) % Lymphocytes (Manual) (24-44) % Monocytes (Manual) (0.0-12.0) % Toxic Granulation Platelet Estimate (NORMAL) RBC Morphology D-Dimer (215-500) ng/mL Puncture Site LEFT RADIAL pCO2 75 H* (35-45) mmHg pO2 62 L (75-100) mmHg Base Excess 6.8 H (-2.0-2.0) O2 Saturation 91.1 L (94-100) g/dF ABG pH 7.28 L (7.35-7.45) ABG HCO3 35.2 H* (22-28) ABG O2 Sat (Measured) 92.4 L (95-100) % Tyson Test YES A-a Gradient 129 a/A Ratio 0.32 Hemoglobin 9.5 Carboxyhemoglobin 0.8 (0.0-6.9) % THgb Methemoglobin 0.6 L (1.4-1.5) % Potassium 5.6 H (3.5-5.1) Temperature 37.0 C POC O2 Flow Rate 40 % Inspiratory BiPAP 14 Expiratory BiPAP 6 Sodium (137-145) mmol/L Chloride (98-107) mmol/L Carbon Dioxide (22-30) mmol/L Anion Gap (5-15) MEQ/L BUN (7-17) mg/dL Creatinine (0.52-1.04) mg/dL Estimated GFR ML/MIN Glucose (74-106) mg/dL Lactic Acid (0.4-2.0) Calcium (8.4-10.2) mg/dL Total Bilirubin (0.2-1.3) mg/dL AST (14-36) U/L ALT (0-35) U/L Alkaline Phosphatase (38-126) U/L Troponin I < 0.012 (0.000-0.034) ng/mL NT-Pro-B Natriuret Pep (0-900) pg/mL Serum Total Protein (6.3-8.2) g/dL Albumin (3.5-5.0) g/dL Ur Collection Type CATH Urine Color YELLOW (YELLOW) Urine Appearance CLEAR (CLEAR) Urine pH 5.0 (5-6) Ur Specific Cuero 1.010 (1.005-1.025) Urine Protein NEGATIVE (Negative) Urine Ketones NEGATIVE (NEGATIVE) Urine Blood NEGATIVE (0-5) Velasquez/ul Urine Nitrite NEGATIVE (NEGATIVE) Urine Bilirubin NEGATIVE (NEGATIVE) Urine Urobilinogen NORMAL (0-1) mg/dL Ur Leukocyte Esterase NEGATIVE (NEGATIVE) Urine Culture Reflexed NO (NO) Urine Glucose NEGATIVE (NEGATIVE) mg/dL Specimen Received 06/10/18 1500 06/10/18 06/10/18 06/10/18 Range/Units 15:00 15:00 15:00 WBC 15.1 H (4.0-10.5) K/mm3 RBC 3.70 L (4.1-5.4) M/mm3 Hgb 8.9 L (12.0-16.0) gm/dl Hct 32.4 L (35-47) % MCV 87.6 (78-100) fl MCH 24.0 L (26-32) pg MCHC 27.5 L (32-36) g/dl RDW 15.7 H (11.5-14.0) % Plt Count 225 (150-450) K/mm3 MPV 11.4 H (6-9.5) fl Absolute Granulocytes 12.65 H (1.4-6.9) Segmented Neutrophils 86 H (36.0-66.0) % Band Neutrophils 2 (0.0-2.0) % Lymphocytes (Manual) 8 L (24-44) % Monocytes (Manual) 4 (0.0-12.0) % Toxic Granulation 1+ Platelet Estimate NORMAL (NORMAL) RBC Morphology NORMAL D-Dimer 1142 H* (215-500) ng/mL Puncture Site pCO2 (35-45) mmHg pO2 (75-100) mmHg Base Excess (-2.0-2.0) O2 Saturation (94-100) g/dF ABG pH (7.35-7.45) ABG HCO3 (22-28) ABG O2 Sat (Measured) (95-100) % Tyson Test A-a Gradient a/A Ratio Hemoglobin Carboxyhemoglobin (0.0-6.9) % THgb Methemoglobin (1.4-1.5) % Potassium 5.8 H (3.5-5.1) Temperature C POC O2 Flow Rate % Inspiratory BiPAP Expiratory BiPAP Sodium 141 (137-145) mmol/L Chloride 102 (98-107) mmol/L Carbon Dioxide 33 H (22-30) mmol/L Anion Gap 11.1 (5-15) MEQ/L BUN 15 (7-17) mg/dL Creatinine 0.80 (0.52-1.04) mg/dL Estimated GFR > 60.0 ML/MIN Glucose 135 H (74-106) mg/dL Lactic Acid (0.4-2.0) Calcium 9.0 (8.4-10.2) mg/dL Total Bilirubin 0.20 (0.2-1.3) mg/dL AST 11 L (14-36) U/L ALT 11 (0-35) U/L Alkaline Phosphatase 115 (38-126) U/L Troponin I (0.000-0.034) ng/mL NT-Pro-B Natriuret Pep 2410 H (0-900) pg/mL Serum Total Protein 6.0 L (6.3-8.2) g/dL Albumin 3.2 L (3.5-5.0) g/dL Ur Collection Type Urine Color (YELLOW) Urine Appearance (CLEAR) Urine pH (5-6) Ur Specific Cuero (1.005-1.025) Urine Protein (Negative) Urine Ketones (NEGATIVE) Urine Blood (0-5) Velasquez/ul Urine Nitrite (NEGATIVE) Urine Bilirubin (NEGATIVE) Urine Urobilinogen (0-1) mg/dL Ur Leukocyte Esterase (NEGATIVE) Urine Culture Reflexed (NO) Urine Glucose (NEGATIVE) mg/dL Specimen Received 06/10/18 Range/Units 14:09 WBC (4.0-10.5) K/mm3 RBC (4.1-5.4) M/mm3 Hgb (12.0-16.0) gm/dl Hct (35-47) % MCV (78-100) fl MCH (26-32) pg MCHC (32-36) g/dl RDW (11.5-14.0) % Plt Count (150-450) K/mm3 MPV (6-9.5) fl Absolute Granulocytes (1.4-6.9) Segmented Neutrophils (36.0-66.0) % Band Neutrophils (0.0-2.0) % Lymphocytes (Manual) (24-44) % Monocytes (Manual) (0.0-12.0) % Toxic Granulation Platelet Estimate (NORMAL) RBC Morphology D-Dimer (215-500) ng/mL Puncture Site RIGHT RADIAL pCO2 75 H* (35-45) mmHg pO2 143 H* (75-100) mmHg Base Excess 6.8 H (-2.0-2.0) O2 Saturation 96.0 (94-100) g/dF ABG pH 7.28 L (7.35-7.45) ABG HCO3 35.2 H* (22-28) ABG O2 Sat (Measured) 97.3 (95-100) % Tyson Test YES A-a Gradient 48 a/A Ratio 0.75 Hemoglobin 9.4 Carboxyhemoglobin 0.7 (0.0-6.9) % THgb Methemoglobin 0.6 L (1.4-1.5) % Potassium 5.6 H (3.5-5.1) Temperature 37.0 C POC O2 Flow Rate 40 % Inspiratory BiPAP Expiratory BiPAP Sodium (137-145) mmol/L Chloride (98-107) mmol/L Carbon Dioxide (22-30) mmol/L Anion Gap (5-15) MEQ/L BUN (7-17) mg/dL Creatinine (0.52-1.04) mg/dL Estimated GFR ML/MIN Glucose (74-106) mg/dL Lactic Acid 0.7 (0.4-2.0) Calcium (8.4-10.2) mg/dL Total Bilirubin (0.2-1.3) mg/dL AST (14-36) U/L ALT (0-35) U/L Alkaline Phosphatase (38-126) U/L Troponin I (0.000-0.034) ng/mL NT-Pro-B Natriuret Pep (0-900) pg/mL Serum Total Protein (6.3-8.2) g/dL Albumin (3.5-5.0) g/dL Ur Collection Type Urine Color (YELLOW) Urine Appearance (CLEAR) Urine pH (5-6) Ur Specific Cu[place] (1.005-1.025) Urine Protein (Negative) Urine Ketones (NEGATIVE) Urine Blood (0-5) Velasquez/ul Urine Nitrite (NEGATIVE) Urine Bilirubin (NEGATIVE) Urine Urobilinogen (0-1) mg/dL Ur Leukocyte Esterase (NEGATIVE) Urine Culture Reflexed (NO) Urine Glucose (NEGATIVE) mg/dL Specimen Received - Progress Progress: improved Air Movement: fair Progress Note: 06/10/18 17:17 d/w Dr Chasity Cole for consult and admit d/w Dr Alston Blood Culture(s) Obtained: Yes Antibiotics given: Yes Discussed with : Gamaliel Will see patient in: hospital (full admit) Counseled pt/family regarding: lab results, diagnosis, rad results - Departure Time of Disposition: 17:18 Departure Disposition: In-patient Admission Clinical Impression: Respiratory distress Condition: Stable Critical Care Time: No Referrals: LOIS NICK [Primary Care Provider] -
[2018-06-10] MEDS ORDERED: solu-MEDROL 125 MG ONE (14:12)
[2018-06-10 14:27] LABS: A-aADO2 48; ABG HEMOGLOBIN 9.4; ABG POTASSIUM 5.6 (3.5-5.1); ARTERIAL BLD GAS O2 SATURATION 97.3 % (95-100); ARTERIAL BLOOD GAS BASE EXCESS 6.8 (-2.0-2.0); ARTERIAL BLOOD GAS FIO2 40 %; ARTERIAL BLOOD GAS PO2 143 mmHg (75-100); ARTERIAL BLOOD GAS pH 7.28 (7.35-7.45); CARBOXYHEMOGLOBIN 0.7 % THgb (0.0-6.9); HCO3- 35.2 (22-28); Lactic Acid 0.7 (0.4-2.0); Methhemoglobin 0.6 % (1.4-1.5); paO2 pAO1 0.75
[2018-06-10 14:28] LABS: ABG SITE RIGHT RADIAL; ALLEN TEST OK? YES; ARTERIAL BLOOD GAS PCO2 75 mmHg (35-45)
--- NOTE | 2018-06-10 14:50 | XRAY ---
Indication: Altered mental status. Multiple contiguous axial images obtained through the head without contrast. Comparison: May 31, 2014. Head is side bent in the CT gantry. Stable mild asymmetric left temporoparietal atrophy. No acute intracranial hemorrhage, abnormal extra-axial fluid collection, or mass effect. Fourth ventricle is midline without hydrocephalus. Sharp-white matter differentiation preserved. Bony calvarium intact. Visualized paranasal sinuses and mastoid air cells are clear. Impression: Stable mild nonspecific left temporoparietal atrophy. No new or acute intracranial abnormalities. CT DI 69.38
--- NOTE | 2018-06-10 14:55 | XRAY ---
Indication: Altered mental status. Comparison: May 15 Portable chest remains underinflated with new central vascular prominence, mild interstitial edema, and tiny bibasilar effusions without cardiomegaly. Rule out noncardiogenic causes for pulmonary interstitial edema.
[2018-06-10 15:06] LABS: Granulocyte Absolute (ANC) 12.65 (1.4-6.9); Hematocrit 32.4 % (35-47); Hemoglobin 8.9 gm/dl (12.0-16.0); Mean Cell Volume 87.6 fl (78-100); Mean Corpuscular Hgb Concent. 27.5 g/dl (32-36); Mean Platelet Volume 11.4 fl (6-9.5); Platelet Count 225 K/mm3 (150-450); Red Cell Distribution Width 15.7 % (11.5-14.0); White Blood Count 15.1 K/mm3 (4.0-10.5)
[2018-06-10 15:19] LABS: ALBUMIN 3.2 g/dL (3.5-5.0); ALKALINE PHOSPHATASE 115 U/L (38-126); ANION GAP 11.1 MEQ/L (5-15); BLOOD UREA NITROGEN 15 mg/dL (7-17); CHLORIDE 102 mmol/L (98-107); Carbon Dioxide 33 mmol/L (22-30); Glucose 135 mg/dL (74-106); NT PRO BNP 2410 pg/mL (0-900); Potassium 5.8 mmol/L (3.5-5.1); SGOT/AST 11 U/L (14-36); SGPT/ALT 11 U/L (0-35); SODIUM 141 mmol/L (137-145)
[2018-06-10] MEDS ORDERED: Zithromax 500 MG/ 250 ML NaCl Premix 500 MG/250 ML IVPB IV STA (15:34)
[2018-06-10 15:41] LABS: Appearance CLEAR (CLEAR); Bilirubin NEGATIVE (NEGATIVE); Blood NEGATIVE Ery/ul (0-5); Glucose NEGATIVE (NEGATIVE); Ketones NEGATIVE (NEGATIVE); Leukocyte Esterase NEGATIVE (NEGATIVE); Nitrite NEGATIVE (NEGATIVE); Protein,Urine Dip NEGATIVE (Negative); Urobilinogen NORMAL mg/dL (0-1)
[2018-06-10] MEDS ORDERED: Zithromax 500 MG/ 250 ML NaCl Premix 500 MG/250 ML IVPB IV ONE (15:48)
[2018-06-10 16:11] LABS: BAND 2 % (0.0-2.0); Lymphocytes 8 % (24-44); Monocyte 4 % (0.0-12.0); Neutrophils 86 % (36.0-66.0); Platelet Estimate NORMAL (NORMAL); Total Cells Counted 100; Toxic Granulation 1+
[2018-06-10 16:14] LABS: A-aADO2 129; ABG HEMOGLOBIN 9.5; ABG POTASSIUM 5.6 (3.5-5.1); ARTERIAL BLD GAS O2 SATURATION 92.4 % (95-100); ARTERIAL BLOOD GAS BASE EXCESS 6.8 (-2.0-2.0); ARTERIAL BLOOD GAS FIO2 40 %; ARTERIAL BLOOD GAS PCO2 75 mmHg (35-45); ARTERIAL BLOOD GAS PO2 62 mmHg (75-100); ARTERIAL BLOOD GAS pH 7.28 (7.35-7.45); CARBOXYHEMOGLOBIN 0.8 % THgb (0.0-6.9); HCO3- 35.2 (22-28); HGB O2 SAT 91.1 g/dF (94-100); Methhemoglobin 0.6 % (1.4-1.5); paO2 pAO1 0.32
[2018-06-10 16:15] LABS: ABG SITE LEFT RADIAL; ALLEN TEST OK? YES
--- NOTE | 2018-06-10 16:43 | XRAY ---
Indication: Short of breath. Elevated d-dimer. Multiple contiguous axial images obtained through the chest using 80 cc of Isovue-370 contrast and PE protocol. Comparison: February 26, 2018. There is satisfactory opacification of the pulmonary arteries to include the lobar and segmental branches. However mild respiration artifact limits evaluation of the more distal lobar and segmental branches. No large filling defect or central pulmonary embolus. Heart is not enlarged. Aorta remains minimally arteriosclerotic without aneurysm/dissection. No pathologic mediastinal/hilar lymphadenopathy. Again 1.5 cm right thyroid hypodense lesion and small hiatal hernia. Examination of the lung parenchyma demonstrates new diffuse patchy air space opacities, right lung greater than left. Also small bilateral effusions more than before. There remains bibasilar dependent atelectasis again right greater than left. Bony thorax again demonstrates remote T12 compression fracture with complete collapse. Limited upper abdomen is unremarkable. Impression: 1. Pulmonary embolus evaluation limited by respiration artifact. Again no large central pulmonary embolus. 2. New bilateral patchy airspace disease with increasing bilateral effusions. 3. Stable right thyroid hypodense lesion, small hiatal hernia, and remote appearing T12 compression fracture. CTDI 30.28
[2018-06-10] MEDS ORDERED: PROVENTIL 2.5 MG/3 ML NEB IH PRN (18:43)
[2018-06-10] MEDS: Sodium Chloride 0.9% 1000 ML 1,000 ML IV SCH (19:50)
[2018-06-10] MEDS: ROCEPHIN 1 Gm-D5w 50 ml Bag** 1 G/50 ML IVPB IV SCH (19:50)
[2018-06-10] MEDS: PROVENTIL 2.5 MG/3 ML NEB IH SCH (19:59)
[2018-06-10] MEDS: solu-MEDROL 40 MG IV SCH (21:32)
[2018-06-10] MEDS: BUMEX 1 MG IV SCH (21:32)
[2018-06-10] MEDS: TYLENOL 325 MG PO PRN (23:02)
[2018-06-11] MEDS ORDERED: DUONEB 0.5-3 MG/3 ml Neb IH ONE (01:17)
[2018-06-11] MEDS: PROVENTIL 2.5 MG/3 ML NEB IH SCH (01:24)
[2018-06-11 05:11] LABS: Granulocyte Absolute (ANC) 14.33 (1.4-6.9); Hematocrit 29.8 % (35-47); Hemoglobin 8.5 gm/dl (12.0-16.0); Mean Cell Volume 85.4 fl (78-100); Mean Corpuscular Hgb Concent. 28.5 g/dl (32-36); Mean Platelet Volume 10.2 fl (6-9.5); Platelet Count 196 K/mm3 (150-450); Red Blood Count 3.49 M/mm3 (4.1-5.4); Red Cell Distribution Width 15.7 % (11.5-14.0); White Blood Count 16.8 K/mm3 (4.0-10.5)
[2018-06-11 05:15] LABS: Mean Corpuscular Hemoglobin 24.3 pg (26-32)
[2018-06-11 05:18] LABS: A-aADO2 -65; ABG HEMOGLOBIN 9.1; ABG POTASSIUM 4.3 (3.5-5.1); ABG SITE RIGHT RADIAL; ALLEN TEST OK? YES; ARTERIAL BLD GAS O2 SATURATION 97.3 % (95-100); ARTERIAL BLOOD GAS BASE EXCESS 9.9 (-2.0-2.0); ARTERIAL BLOOD GAS FIO2 21 %; ARTERIAL BLOOD GAS PCO2 52 mmHg (35-45); ARTERIAL BLOOD GAS PO2 150 mmHg (75-100); ARTERIAL BLOOD GAS pH 7.44 (7.35-7.45); CARBOXYHEMOGLOBIN 2.6 % THgb (0.0-6.9); HCO3- 35.3 (22-28); HGB O2 SAT 94.4 g/dF (94-100); Methhemoglobin 0.4 % (1.4-1.5); paO2 pAO1 1.76
[2018-06-11] MEDS: Sodium Chloride 0.9% 1000 ML 1,000 ML IV SCH (05:29)
[2018-06-11] MEDS: solu-MEDROL 40 MG IV SCH ×3 (05:32→21:32)
[2018-06-11 06:00] LABS: ALBUMIN 3.2 g/dL (3.5-5.0); ALKALINE PHOSPHATASE 120 U/L (38-126); ANION GAP 9.3 MEQ/L (5-15); BLOOD UREA NITROGEN 15 mg/dL (7-17); CHLORIDE 101 mmol/L (98-107); Calcium 8.2 mg/dL (8.4-10.2); Carbon Dioxide 35 mmol/L (22-30); Creatinine 1 0.71 mg/dL (0.52-1.04); Glucose 135 mg/dL (74-106); NT PRO BNP 2940 pg/mL (0-900); Potassium 4.2 mmol/L (3.5-5.1); SGOT/AST 12 U/L (14-36); SGPT/ALT 13 U/L (0-35); SODIUM 141 mmol/L (137-145); Total Protein 6.2 g/dL (6.3-8.2)
[2018-06-11 06:15] LABS: BAND 1 % (0.0-2.0); Basophil 1 % (0.0-1.0); Lymphocytes 8 % (24-44); Monocyte 3 % (0.0-12.0); Neutrophils 87 % (36.0-66.0); Total Cells Counted 100
[2018-06-11 06:16] LABS: Hypochromia 1+; Ovalocytes 1+; Polychromasia 1+
[2018-06-11 06:17] LABS: Basophilic Stippling 1+
[2018-06-11 06:18] LABS: ANISOCYTOSIS 1+; Platelet Estimate NORMAL (NORMAL)
[2018-06-11] MEDS: DUONEB 0.5-3 MG/3 ml Neb IH SCH ×3 (06:42→17:36)
[2018-06-11] MEDS: PULMICORT 0.5 MG/2 ML RESPULES IH SCH ×2 (06:42→17:36)
--- NOTE | 2018-06-11 08:21 | CONS ---
CONSULT DATE: 06/10/2018 REASON FOR CONSULT: Respiratory failure, shortness of breath. HISTORY: Barbara Ansari is a 63 year-old woman with long standing history of cardiopulmonary problems who is resident of prison, was transferred from prison complaining of shortness of breath. The patient was seen in the emergency room of [facility]. She was noted to have elevated D-dimer for which a CT was performed that showed bilateral patchy infiltrates with pleural effusion. She was also noted to have elevated BNP. The patient is currently on BiPAP. She is arousable and appears fairly normal. No additional history is available at this time. PAST MEDICAL HISTORY: Positive for chronic obstructive pulmonary disease, hypertension, anxiety disorder, esophageal reflux, hyperlipidemia, history of seizure disorder, polyneuropathy and history of myocardial infarction. PAST SURGICAL HISTORY: No recent surgery. PERSONAL AND SOCIAL HISTORY: The patient is a resident of a nursing facility. MEDICATIONS: Home and current medications are reviewed. ALLERGIES: ZITHROMAX, CIPROFLOXACIN, METRONIDAZOLE, SULFA, TRAMADOL, PENICILLIN, QUINOLONE AND SULFA ANTIBIOTICS. EXACT NATURE OF ALLERGIES UNKNOWN. PHYSICAL EXAMINATION: This is a middle aged woman who appears fairly comfortable on BiPAP. The patient is able to nod but appears somewhat lethargic but arousable and afebrile. VITAL SIGNS: Heart rate 80, blood pressure 132/76. Saturating 99%. HEENT: Normocephalic. Pupils are reactive. BiPAP is in place. NECK: Supple. CVS: First and second heart sounds are normal, regular, rhythmic. RESPIRATORY: Shows diminished breath sounds. Crackles are heard. ABDOMEN: Soft and obese. EXTREMITIES: Lower extremities show 2+ leg edema. LABORATORY DATA AND TESTS: UA was unremarkable. D-dimer 1142. Troponin was negative. Sodium 141, potassium 5.8, chloride 102, bicarb 33, , BUN 15, creatinine 0.8. BNP 2410. Liver function tests within normal limits. White blood cell count 15.1, hemoglobin 8.9, hematocrit 32, PLT 225,000. Chest x-ray was noted. CT head showed no acute pathology. The pH 7.28, pCO2 75, pO2 143 is noted. ASSESSMENT: This is a 63 year old woman with multiple health problems including cardiopulmonary problems admitted with: 1) Acute on chronic hypercapnic/hypoxemic respiratory failure. 2) Congestive heart failure with decompensation. 3) Possible pneumonia health care associated cannot be excluded with infiltrates and mild elevated white blood cell count. 4) Chronic obstructive pulmonary disease with exacerbation. 5) Hyperkalemia question etiology. 6) Bipolar disorder. RECOMMENDATIONS: Continue BiPAP, respiratory back up rate was increased from 16 to 20. Continue antibiotics, steroids. Antibiotic choice will be difficult the listed medical allergies. I may check with pharmacy to see what she has received in the past with intolerance. Cautious diuresis. Monitor potassium. She may require a dose of Kayexalate. Repeat labs along with x-ray in the a.m. along with ABG. I will continue other supportive care. I will be able to assist in the care if required. Her condition is complex but stable and prognosis remains guarded with multiple comorbidities. Thank you, Dr. Eve Alston, for allowing me to participate in the care of this patient.
--- NOTE | 2018-06-11 08:27 | XRAY ---
Indication: Respiratory distress. Comparison: One day earlier. Portable chest slightly better inflated with interval diminished bilateral interstitial alveolar opacities especially in the right mid-upper lung. Worsening right infrahilar infiltrate/atelectasis with stable small bibasilar effusions. Heart is not enlarged.
[2018-06-11] MEDS: ROCEPHIN 1 Gm-D5w 50 ml Bag** 1 G/50 ML IVPB IV SCH (09:05)
[2018-06-11] MEDS: BUMEX 1 MG IV SCH ×2 (09:05→21:35)
[2018-06-11] MEDS: ENOXAPARIN SODIUM SQ SCH (09:05)
[2018-06-11] MEDS ORDERED: NON-FORMULARY ITEM (Levetiracetam [Keppra] 750 MG) PO SCH (10:00)
[2018-06-11] MEDS ORDERED: NON-FORMULARY ITEM (Risperidone [Risperdal] 2 MG) PO SCH (10:00)
[2018-06-11] MEDS ORDERED: NON-FORMULARY ITEM (Duloxetine Hcl [Cymbalta] 60 MG) PO SCH (10:00)
[2018-06-11] MEDS ORDERED: NEURONTIN 300 MG PO SCH ×2 (10:00→22:00)
[2018-06-11] MEDS ORDERED: NON-FORMULARY ITEM (Metoprolol Tartrate [Metoprolol Tartrate] 100 MG) PO SCH (10:00)
[2018-06-11] MEDS: Risperdal 1 MG PO SCH ×3 (10:01→21:39)
[2018-06-11] MEDS: Lopressor 50 MG PO SCH ×2 (10:01→21:39)
[2018-06-11] MEDS: Cymbalta 30 MG Capsule PO SCH (10:01)
[2018-06-11] MEDS: Protonix 40MG Tablet PO SCH (10:02)
[2018-06-11] MEDS: Zithromax 500 MG/ 250 ML NaCl Premix 500 MG/250 ML IVPB IV SCH (10:02)
[2018-06-11] MEDS: Zestril 20 MG PO SCH (10:02)
[2018-06-11] MEDS: KEPPRA 500 MG PO SCH ×2 (10:02→21:39)
[2018-06-11] MEDS: FOLATE 1 MG PO SCH (10:02)
[2018-06-11] MEDS: Keppra 250 MG PO SCH ×2 (10:02→21:39)
[2018-06-11] MEDS: TYLENOL 325 MG PO PRN ×2 (10:23→20:17)
--- NOTE | 2018-06-11 10:25 | HP ---
HISTORY OF PRESENT ILLNESS: This is a 63 year-old patient of Dr. Eduardo Canales who presented to the emergency department in acute respiratory distress. The emergency room doctor contacted me and said she had an elevated D-dimer and had a CT chest done that revealed bilateral pneumonia. I asked them to contact Dr. Roverto Drummond who saw the patient in the emergency department. When I saw the patient she was on BiPAP. She was alert and trying to answer my questions but I could not understand what she was saying and thought it would be in her best interest to continue with the BiPAP instead of answering my questions. Further history of present illness is unobtainable at this time. She did not have any family members or staff with her. REVIEW OF SYSTEMS: Unobtainable due to the patient's condition. PAST MEDICAL HISTORY: From previous hospitalization: Seizure disorder, anxiety, osteoarthritis of her knee, muscle weakness, depression, hypertension, osteoporosis, stroke and dementia. PAST SURGICAL HISTORY: Right hip surgery in 2006. Hysterectomy. MEDICATIONS: Please see her medication reconciliation form. ALLERGIES: TRAMADOL, CIPROFLOXACIN, PENICILLIN. SOCIAL HISTORY: She resides at [facility]. Further social history is unobtainable. FAMILY HISTORY: Unobtainable. PHYSICAL EXAMINATION: VITAL SIGNS: Temperature current 97.5F, heart rate 84 to 98, respiratory rate 22 to 23, blood pressure 137/79. Oxygen saturation 93 to 100% on first nasal cannula and then BiPAP. GENERAL: The patient was lying in bed. Again, she was alert and looking around. When I asked her questions she would try to answer but her voice was very soft and with a BiPAP mask in place I could not hear her. Again, I thought it was best to let her receive the BiPAP therapy rather than to take that off to answer multiple questions given the seriousness of her condition. CVS: Her heart has a regular rate and rhythm. No murmurs, gallops or rubs were appreciated. CHEST: She had course breath sounds bilaterally. Breath sounds were equal. No retractions. ABDOMEN: Soft, nontender, nondistended. EXTREMITIES: No clubbing, cyanosis or edema. SKIN: Warm, dry and intact. LABORATORY DATA AND TESTS: On admission her white blood cell count was 15,000, hemoglobin 8.9, PLT count 225,000. D-dimer 1,142. Blood gas had a pH of 7.28. The pCO2 of 75, pO2 of 62, base excess of 6.8. Her potassium was 5.8, glucose 135. BNP 2,410. Albumin 3.2. UA was negative. Blood cultures were drawn. Chest CT was read as no large central pulmonary embolus, new bilateral patchy air space disease with increasing bilateral effusions. Please see the radiologist dictation for the full report. Head CT was read as no new or acute intracranial abnormalities. Please see the radiologist report for the full dictation. Chest x-ray portable under-inflated with new central vascular prominence, mild interstitial edema and tiny bibasilar effusions without cardiomegaly. Please see the radiologist report for the full dictation. ASSESSMENT AND PLAN: 1) ACUTE ON CHRONIC RESPIRATORY FAILURE: She was started on BiPAP in the emergency room and hi low truck driver, Dr. Roverto Drummond, was consulted. She had been started on azithromycin in the emergency room and Dr. Roverto Drummond also ordered ceftriaxone. 2) BILATERAL PNEUMONIA: Again, on antibiotics and blood cultures are in lab. 3) HISTORY OF CHRONIC OBSTRUCTIVE PULMONARY DISEASE: Will continue with supportive care. 4) HYPOKALEMIA: Her creatinine was normal. I plan to recheck in the morning. PROGNOSIS: Overall the patient's prognosis is guarded. She has a history of multiple chronic medical problems with recent hospitalization in February 2018.
[2018-06-11] MEDS: Zofran 4 MG/2 ML VIAL IV PRN (10:43)
--- NOTE | 2018-06-11 14:19 | PCM.NOTE ---
Date and Time: 06/11/18 1414 OBJECTIVE DATA Vital Signs: Vital Signs - 24 hr Temp Pulse Resp BP Pulse Ox 06/11/18 12:55 99 H 25 H 97 06/11/18 11:37 99.5 F 93 H 24 146/99 100 06/11/18 07:50 116 H 06/11/18 07:40 98.2 F 99 H 26 H 172/76 97 06/11/18 06:50 102 H 24 94 L 06/11/18 04:00 98.1 F 90 25 H 147/86 97 06/11/18 03:54 92 H 28 H 06/11/18 01:25 92 H 33 H 99 06/11/18 00:01 84 06/11/18 00:00 84 26 H 165/82 99 06/10/18 20:31 88 50 H 97 06/10/18 20:00 97.5 F 82 25 H 153/72 95 06/10/18 17:50 91 H 18 140/74 98 06/10/18 17:29 89 26 H 125/92 06/10/18 15:04 84 33 H 137/79 93 L 06/10/18 14:18 98 H 22 100 Oxygen-Last 24 hours O2 Percentage 5 Liters = 40% O2 Percentage 5 Liters = 40% O2 Percentage 50% O2 Percentage 50% O2 Percentage 50% O2 Percentage 50% Pain Assessment - Last Documented Pain Intensity 0 Pain Scale Used 0-10 Pain Scale Intake and Output: Intake & Output 06/09/18 06/10/18 06/11/18 06/12/18 11:59 11:59 11:59 11:59 Intake Total 1098 Output Total 2975 Balance -1877 Weight 77.2 kg Lab Results: Accuchecks Date 06/11/1806/11/1806/10/18 Time 03:53 Time 00:05 Time 20:10 Accucheck Value: 146 Accucheck Value: 137 Accucheck Value: 149 Accucheck Value: 141 Accucheck Value: 151 Lab Results-Last 24 Hours 06/10/18 06/10/18 06/10/18 Range/Units 14:09 15:00 15:00 WBC 15.1 H (4.0-10.5) K/mm3 RBC 3.70 L (4.1-5.4) M/mm3 Hgb 8.9 L (12.0-16.0) gm/dl Hct 32.4 L (35-47) % MCV 87.6 (78-100) fl MCH 24.0 L (26-32) pg MCHC 27.5 L (32-36) g/dl RDW 15.7 H (11.5-14.0) % Plt Count 225 (150-450) K/mm3 MPV 11.4 H (6-9.5) fl Absolute Granulocytes 12.65 H (1.4-6.9) Segmented Neutrophils 86 H (36.0-66.0) % Band Neutrophils 2 (0.0-2.0) % Lymphocytes (Manual) 8 L (24-44) % Monocytes (Manual) 4 (0.0-12.0) % Basophils (Manual) (0.0-1.0) % Hypochromia Toxic Granulation 1+ Platelet Estimate NORMAL (NORMAL) RBC Morphology NORMAL Polychromasia Basophilic Stippling Anisocytosis Ovalocytes D-Dimer (215-500) ng/mL Puncture Site RIGHT RADIAL pCO2 75 H* (35-45) mmHg pO2 143 H* (75-100) mmHg Base Excess 6.8 H (-2.0-2.0) O2 Saturation 96.0 (94-100) g/dF ABG pH 7.28 L (7.35-7.45) ABG HCO3 35.2 H* (22-28) ABG O2 Sat (Measured) 97.3 (95-100) % Tyson Test YES A-a Gradient 48 a/A Ratio 0.75 Hemoglobin 9.4 Carboxyhemoglobin 0.7 (0.0-6.9) % THgb Methemoglobin 0.6 L (1.4-1.5) % Potassium 5.6 H 5.8 H (3.5-5.1) Temperature 37.0 C POC O2 Flow Rate 40 % Inspiratory BiPAP Expiratory BiPAP Sodium 141 (137-145) mmol/L Chloride 102 (98-107) mmol/L Carbon Dioxide 33 H (22-30) mmol/L Anion Gap 11.1 (5-15) MEQ/L BUN 15 (7-17) mg/dL Creatinine 0.80 (0.52-1.04) mg/dL Estimated GFR > 60.0 ML/MIN Glucose 135 H (74-106) mg/dL Lactic Acid 0.7 (0.4-2.0) Calcium 9.0 (8.4-10.2) mg/dL Total Bilirubin 0.20 (0.2-1.3) mg/dL AST 11 L (14-36) U/L ALT 11 (0-35) U/L Alkaline Phosphatase 115 (38-126) U/L Troponin I (0.000-0.034) ng/mL NT-Pro-B Natriuret Pep 2410 H (0-900) pg/mL Serum Total Protein 6.0 L (6.3-8.2) g/dL Albumin 3.2 L (3.5-5.0) g/dL Ur Collection Type Urine Color (YELLOW) Urine Appearance (CLEAR) Urine pH (5-6) Ur Specific Magness (1.005-1.025) Urine Protein (Negative) Urine Ketones (NEGATIVE) Urine Blood (0-5) Velasquez/ul Urine Nitrite (NEGATIVE) Urine Bilirubin (NEGATIVE) Urine Urobilinogen (0-1) mg/dL Ur Leukocyte Esterase (NEGATIVE) Urine Culture Reflexed (NO) Urine Glucose (NEGATIVE) mg/dL Specimen Received 06/10/18 06/10/18 06/10/18 Range/Units 15:00 15:00 15:09 WBC (4.0-10.5) K/mm3 RBC (4.1-5.4) M/mm3 Hgb (12.0-16.0) gm/dl Hct (35-47) % MCV (78-100) fl MCH (26-32) pg MCHC (32-36) g/dl RDW (11.5-14.0) % Plt Count (150-450) K/mm3 MPV (6-9.5) fl Absolute Granulocytes (1.4-6.9) Segmented Neutrophils (36.0-66.0) % Band Neutrophils (0.0-2.0) % Lymphocytes (Manual) (24-44) % Monocytes (Manual) (0.0-12.0) % Basophils (Manual) (0.0-1.0) % Hypochromia Toxic Granulation Platelet Estimate (NORMAL) RBC Morphology Polychromasia Basophilic Stippling Anisocytosis Ovalocytes D-Dimer 1142 H* (215-500) ng/mL Puncture Site pCO2 (35-45) mmHg pO2 (75-100) mmHg Base Excess (-2.0-2.0) O2 Saturation (94-100) g/dF ABG pH (7.35-7.45) ABG HCO3 (22-28) ABG O2 Sat (Measured) (95-100) % Tyson Test A-a Gradient a/A Ratio Hemoglobin Carboxyhemoglobin (0.0-6.9) % THgb Methemoglobin (1.4-1.5) % Potassium (3.5-5.1) Temperature C POC O2 Flow Rate % Inspiratory BiPAP Expiratory BiPAP Sodium (137-145) mmol/L Chloride (98-107) mmol/L Carbon Dioxide (22-30) mmol/L Anion Gap (5-15) MEQ/L BUN (7-17) mg/dL Creatinine (0.52-1.04) mg/dL Estimated GFR ML/MIN Glucose (74-106) mg/dL Lactic Acid (0.4-2.0) Calcium (8.4-10.2) mg/dL Total Bilirubin (0.2-1.3) mg/dL AST (14-36) U/L ALT (0-35) U/L Alkaline Phosphatase (38-126) U/L Troponin I < 0.012 (0.000-0.034) ng/mL NT-Pro-B Natriuret Pep (0-900) pg/mL Serum Total Protein (6.3-8.2) g/dL Albumin (3.5-5.0) g/dL Ur Collection Type CATH Urine Color YELLOW (YELLOW) Urine Appearance CLEAR (CLEAR) Urine pH 5.0 (5-6) Ur Specific Magness 1.010 (1.005-1.025) Urine Protein NEGATIVE (Negative) Urine Ketones NEGATIVE (NEGATIVE) Urine Blood NEGATIVE (0-5) Velasquez/ul Urine Nitrite NEGATIVE (NEGATIVE) Urine Bilirubin NEGATIVE (NEGATIVE) Urine Urobilinogen NORMAL (0-1) mg/dL Ur Leukocyte Esterase NEGATIVE (NEGATIVE) Urine Culture Reflexed NO (NO) Urine Glucose NEGATIVE (NEGATIVE) mg/dL Specimen Received 06/10/18 1500 06/10/18 06/10/18 06/10/18 Range/Units 16:12 17:04 20:35 WBC (4.0-10.5) K/mm3 RBC (4.1-5.4) M/mm3 Hgb (12.0-16.0) gm/dl Hct (35-47) % MCV (78-100) fl MCH (26-32) pg MCHC (32-36) g/dl RDW (11.5-14.0) % Plt Count (150-450) K/mm3 MPV (6-9.5) fl Absolute Granulocytes (1.4-6.9) Segmented Neutrophils (36.0-66.0) % Band Neutrophils (0.0-2.0) % Lymphocytes (Manual) (24-44) % Monocytes (Manual) (0.0-12.0) % Basophils (Manual) (0.0-1.0) % Hypochromia Toxic Granulation Platelet Estimate (NORMAL) RBC Morphology Polychromasia Basophilic Stippling Anisocytosis Ovalocytes D-Dimer (215-500) ng/mL Puncture Site LEFT RADIAL pCO2 75 H* (35-45) mmHg pO2 62 L (75-100) mmHg Base Excess 6.8 H (-2.0-2.0) O2 Saturation 91.1 L (94-100) g/dF ABG pH 7.28 L (7.35-7.45) ABG HCO3 35.2 H* (22-28) ABG O2 Sat (Measured) 92.4 L (95-100) % Tyson Test YES A-a Gradient 129 a/A Ratio 0.32 Hemoglobin 9.5 Carboxyhemoglobin 0.8 (0.0-6.9) % THgb Methemoglobin 0.6 L (1.4-1.5) % Potassium 5.6 H (3.5-5.1) Temperature 37.0 C POC O2 Flow Rate 40 % Inspiratory BiPAP 14 Expiratory BiPAP 6 Sodium (137-145) mmol/L Chloride (98-107) mmol/L Carbon Dioxide (22-30) mmol/L Anion Gap (5-15) MEQ/L BUN (7-17) mg/dL Creatinine (0.52-1.04) mg/dL Estimated GFR ML/MIN Glucose (74-106) mg/dL Lactic Acid (0.4-2.0) Calcium (8.4-10.2) mg/dL Total Bilirubin (0.2-1.3) mg/dL AST (14-36) U/L ALT (0-35) U/L Alkaline Phosphatase (38-126) U/L Troponin I < 0.012 < 0.012 (0.000-0.034) ng/mL NT-Pro-B Natriuret Pep (0-900) pg/mL Serum Total Protein (6.3-8.2) g/dL Albumin (3.5-5.0) g/dL Ur Collection Type Urine Color (YELLOW) Urine Appearance (CLEAR) Urine pH (5-6) Ur Specific Magness (1.005-1.025) Urine Protein (Negative) Urine Ketones (NEGATIVE) Urine Blood (0-5) Velasquez/ul Urine Nitrite (NEGATIVE) Urine Bilirubin (NEGATIVE) Urine Urobilinogen (0-1) mg/dL Ur Leukocyte Esterase (NEGATIVE) Urine Culture Reflexed (NO) Urine Glucose (NEGATIVE) mg/dL Specimen Received 06/10/18 06/11/18 06/11/18 Range/Units 23:20 02:16 05:02 WBC (4.0-10.5) K/mm3 RBC (4.1-5.4) M/mm3 Hgb (12.0-16.0) gm/dl Hct (35-47) % MCV (78-100) fl MCH (26-32) pg MCHC (32-36) g/dl RDW (11.5-14.0) % Plt Count (150-450) K/mm3 MPV (6-9.5) fl Absolute Granulocytes (1.4-6.9) Segmented Neutrophils (36.0-66.0) % Band Neutrophils (0.0-2.0) % Lymphocytes (Manual) (24-44) % Monocytes (Manual) (0.0-12.0) % Basophils (Manual) (0.0-1.0) % Hypochromia Toxic Granulation Platelet Estimate (NORMAL) RBC Morphology Polychromasia Basophilic Stippling Anisocytosis Ovalocytes D-Dimer (215-500) ng/mL Puncture Site RIGHT RADIAL pCO2 52 H (35-45) mmHg pO2 150 H* (75-100) mmHg Base Excess 9.9 H (-2.0-2.0) O2 Saturation 94.4 (94-100) g/dF ABG pH 7.44 (7.35-7.45) ABG HCO3 35.3 H* (22-28) ABG O2 Sat (Measured) 97.3 (95-100) % Tyson Test YES A-a Gradient -65 a/A Ratio 1.76 Hemoglobin 9.1 Carboxyhemoglobin 2.6 (0.0-6.9) % THgb Methemoglobin 0.4 L (1.4-1.5) % Potassium 4.3 (3.5-5.1) Temperature 37.0 C POC O2 Flow Rate 21 % Inspiratory BiPAP Expiratory BiPAP Sodium (137-145) mmol/L Chloride (98-107) mmol/L Carbon Dioxide (22-30) mmol/L Anion Gap (5-15) MEQ/L BUN (7-17) mg/dL Creatinine (0.52-1.04) mg/dL Estimated GFR ML/MIN Glucose (74-106) mg/dL Lactic Acid (0.4-2.0) Calcium (8.4-10.2) mg/dL Total Bilirubin (0.2-1.3) mg/dL AST (14-36) U/L ALT (0-35) U/L Alkaline Phosphatase (38-126) U/L Troponin I < 0.012 < 0.012 (0.000-0.034) ng/mL NT-Pro-B Natriuret Pep (0-900) pg/mL Serum Total Protein (6.3-8.2) g/dL Albumin (3.5-5.0) g/dL Ur Collection Type Urine Color (YELLOW) Urine Appearance (CLEAR) Urine pH (5-6) Ur Specific Magness (1.005-1.025) Urine Protein (Negative) Urine Ketones (NEGATIVE) Urine Blood (0-5) Velasquez/ul Urine Nitrite (NEGATIVE) Urine Bilirubin (NEGATIVE) Urine Urobilinogen (0-1) mg/dL Ur Leukocyte Esterase (NEGATIVE) Urine Culture Reflexed (NO) Urine Glucose (NEGATIVE) mg/dL Specimen Received 06/11/18 06/11/18 Range/Units 05:08 05:08 WBC 16.8 H (4.0-10.5) K/mm3 RBC 3.49 L (4.1-5.4) M/mm3 Hgb 8.5 L (12.0-16.0) gm/dl Hct 29.8 L (35-47) % MCV 85.4 (78-100) fl MCH 24.3 L (26-32) pg MCHC 28.5 L (32-36) g/dl RDW 15.7 H (11.5-14.0) % Plt Count 196 (150-450) K/mm3 MPV 10.2 H (6-9.5) fl Absolute Granulocytes 14.33 H (1.4-6.9) Segmented Neutrophils 87 H (36.0-66.0) % Band Neutrophils 1 (0.0-2.0) % Lymphocytes (Manual) 8 L (24-44) % Monocytes (Manual) 3 (0.0-12.0) % Basophils (Manual) 1 (0.0-1.0) % Hypochromia 1+ Toxic Granulation Platelet Estimate NORMAL (NORMAL) RBC Morphology ABNORMAL Polychromasia 1+ Basophilic Stippling 1+ Anisocytosis 1+ Ovalocytes 1+ D-Dimer (215-500) ng/mL Puncture Site pCO2 (35-45) mmHg pO2 (75-100) mmHg Base Excess (-2.0-2.0) O2 Saturation (94-100) g/dF ABG pH (7.35-7.45) ABG HCO3 (22-28) ABG O2 Sat (Measured) (95-100) % Tyson Test A-a Gradient a/A Ratio Hemoglobin Carboxyhemoglobin (0.0-6.9) % THgb Methemoglobin (1.4-1.5) % Potassium 4.2 (3.5-5.1) Temperature C POC O2 Flow Rate % Inspiratory BiPAP Expiratory BiPAP Sodium 141 (137-145) mmol/L Chloride 101 (98-107) mmol/L Carbon Dioxide 35 H (22-30) mmol/L Anion Gap 9.3 (5-15) MEQ/L BUN 15 (7-17) mg/dL Creatinine 0.71 (0.52-1.04) mg/dL Estimated GFR > 60.0 ML/MIN Glucose 135 H (74-106) mg/dL Lactic Acid (0.4-2.0) Calcium 8.2 L (8.4-10.2) mg/dL Total Bilirubin 0.10 L (0.2-1.3) mg/dL AST 12 L (14-36) U/L ALT 13 (0-35) U/L Alkaline Phosphatase 120 (38-126) U/L Troponin I (0.000-0.034) ng/mL NT-Pro-B Natriuret Pep 2940 H (0-900) pg/mL Serum Total Protein 6.2 L (6.3-8.2) g/dL Albumin 3.2 L (3.5-5.0) g/dL Ur Collection Type Urine Color (YELLOW) Urine Appearance (CLEAR) Urine pH (5-6) Ur Specific Magness (1.005-1.025) Urine Protein (Negative) Urine Ketones (NEGATIVE) Urine Blood (0-5) Velasquez/ul Urine Nitrite (NEGATIVE) Urine Bilirubin (NEGATIVE) Urine Urobilinogen (0-1) mg/dL Ur Leukocyte Esterase (NEGATIVE) Urine Culture Reflexed (NO) Urine Glucose (NEGATIVE) mg/dL Specimen Received Radiology Exams: Radiology Procedures Category Date Time Status CHEST 1 VIEW (PORTABLE) Routine Exams 06/11/18 08:00 Completed CHEST 1 VIEW (PORTABLE) Stat Exams 06/10/18 13:56 Completed CHEST WITH CONTRAST [CT] Stat Exams 06/10/18 16:22 Completed ECHO W/2D AND DOPPLER [US] Routine Exams 06/11/18 12:17 Ordered HEAD WITHOUT CONTRAST [CT] Stat Exams 06/10/18 13:57 Completed VENOUS BILATERAL EXTREMITY [US] Routine Exams 06/11/18 12:17 Ordered Assessment/Plan (1) Acute exacerbation of COPD with asthma Current Visit: Yes Status: Acute Assessment & Plan: with suspected pneumonia rule out cardiac decompensation the echo was ordered and pending improving on the nebs steroids and azithromycin and ceftriaxone doing well this am off the bipap will allow diet and d/c iv fluids monitor fluid status closely. pulmonology Dr. Mcdonald has consulted as well appreciate recommendations. on lovenox for dvt ppx chronically on ppi for gerd Code(s): J44.1 - CHRONIC OBSTRUCTIVE PULMONARY DISEASE W (ACUTE) EXACERBATION; J45.901 - UNSPECIFIED ASTHMA WITH (ACUTE) EXACERBATION (2) Acute and chronic respiratory failure with hypercapnia Current Visit: Yes Status: Acute Onset Date: ~06/10/18 Code(s): J96.22 - ACUTE AND CHRONIC RESPIRATORY FAILURE WITH HYPERCAPNIA (3) Acute and chronic respiratory failure with hypoxia Current Visit: Yes Status: Acute Onset Date: ~06/10/18 Code(s): J96.21 - ACUTE AND CHRONIC RESPIRATORY FAILURE WITH HYPOXIA (4) Pneumonia Current Visit: Yes Status: Acute Onset Date: ~06/11/18 Code(s): J18.9 - PNEUMONIA, UNSPECIFIED ORGANISM (5) Bipolar disorder Current Visit: Yes Status: Chronic (6) Anemia Current Visit: Yes Status: Acute Code(s): D64.9 - ANEMIA, UNSPECIFIED
--- NOTE | 2018-06-11 16:47 | XRAY ---
Indication: Respiratory distress. Abnormal labs. Two-dimensional sonogram and color Doppler imaging of the major venous vessels of the left and right leg was performed. Comparison: February 28, 2018 Again no thrombus seen in the examined deep venous vessels of the left and right leg including greater saphenous veins. Veins demonstrate normal compressibility. Venous waveforms are normal with and without augmentation. Impression: Left and right legs again negative for DVT.
[2018-06-11] MEDS: ZOCOR 20MG PO SCH (21:39)
[2018-06-11] MEDS ORDERED: NON-FORMULARY ITEM (Gabapentin [Gabapentin] 600 MG) PO SCH (22:00)
[2018-06-11] MEDS ORDERED: LIPITOR 40MG PO SCH (22:00)
[2018-06-12] MEDS: DUONEB 0.5-3 MG/3 ml Neb IH SCH ×4 (01:12→17:30)
[2018-06-12 05:44] LABS: Hematocrit 32.3 % (35-47); Hemoglobin 9.2 gm/dl (12.0-16.0); Mean Cell Volume 86.6 fl (78-100); Mean Corpuscular Hgb Concent. 28.5 g/dl (32-36); Mean Platelet Volume 10.9 fl (6-9.5); Platelet Count 232 K/mm3 (150-450); Red Blood Count 3.73 M/mm3 (4.1-5.4); Red Cell Distribution Width 16.1 % (11.5-14.0)
[2018-06-12 05:48] LABS: ALBUMIN 3.2 g/dL (3.5-5.0); ALKALINE PHOSPHATASE 114 U/L (38-126); BLOOD UREA NITROGEN 22 mg/dL (7-17); CHLORIDE 99 mmol/L (98-107); Calcium 8.6 mg/dL (8.4-10.2); Creatinine 1 0.78 mg/dL (0.52-1.04); Glucose 132 mg/dL (74-106); Potassium 4.8 mmol/L (3.5-5.1); SGOT/AST 17 U/L (14-36); SGPT/ALT 12 U/L (0-35); SODIUM 142 mmol/L (137-145); Total Protein 6.4 g/dL (6.3-8.2)
[2018-06-12 05:53] LABS: Mean Corpuscular Hemoglobin 24.6 pg (26-32)
[2018-06-12 05:55] LABS: Carbon Dioxide 38 mmol/L (22-30)
[2018-06-12] MEDS: solu-MEDROL 40 MG IV SCH (06:28)
[2018-06-12] MEDS: PULMICORT 0.5 MG/2 ML RESPULES IH SCH ×2 (06:32→17:30)
[2018-06-12 06:34] LABS: A-aADO2 144; ABG HEMOGLOBIN 8.9; ABG POTASSIUM 4.4 (3.5-5.1); ARTERIAL BLD GAS O2 SATURATION 97.2 % (95-100); ARTERIAL BLOOD GAS BASE EXCESS 11.9 (-2.0-2.0); ARTERIAL BLOOD GAS FIO2 50 %; ARTERIAL BLOOD GAS PO2 104 mmHg (75-100); ARTERIAL BLOOD GAS pH 7.28 (7.35-7.45); CARBOXYHEMOGLOBIN 0.5 % THgb (0.0-6.9); HCO3- 40.9 (22-28); HGB O2 SAT 96.6 g/dF (94-100); paO2 pAO1 0.42
[2018-06-12 06:35] LABS: ABG SITE LEFT BRACHIAL; ARTERIAL BLOOD GAS PCO2 87 mmHg (35-45)
[2018-06-12 06:43] LABS: ANION GAP 9.8 MEQ/L (5-15)
[2018-06-12 07:43] LABS: BAND 1 % (0.0-2.0); Lymphocytes 9 % (24-44); Monocyte 2 % (0.0-12.0); Neutrophils 88 % (36.0-66.0); Total Cells Counted 100
[2018-06-12 07:44] LABS: ANISOCYTOSIS 1+; Platelet Estimate NORMAL (NORMAL); Polychromasia RARE
[2018-06-12 08:02] LABS: A-aADO2 115; ABG HEMOGLOBIN 9.4; ABG POTASSIUM 4.6 (3.5-5.1); ARTERIAL BLD GAS O2 SATURATION 97.2 % (95-100); ARTERIAL BLOOD GAS BASE EXCESS 12.4 (-2.0-2.0); ARTERIAL BLOOD GAS FIO2 50 %; ARTERIAL BLOOD GAS PO2 134 mmHg (75-100); ARTERIAL BLOOD GAS pH 7.29 (7.35-7.45); CARBOXYHEMOGLOBIN 0.3 % THgb (0.0-6.9); HCO3- 41.4 (22-28); HGB O2 SAT 96.6 g/dF (94-100); Methhemoglobin 0.4 % (1.4-1.5); paO2 pAO1 0.54
[2018-06-12 08:04] LABS: ABG SITE RIGHT BRACHIAL; ARTERIAL BLOOD GAS PCO2 86 mmHg (35-45)
--- NOTE | 2018-06-12 08:17 | PCM.NOTE ---
Date and Time: 06/12/18 08 Subjective Assessment: Overnight she was having decreased level of consciousness and was placed back on bipap. she was moved to the unit. She had abg drawn with worsening CO2 retention. This am she is drowsy but easily arousable talking through the bipap joking about her son who came to visit and asking to take the mask off. She is complaining of pain in her back area. Objective Exam General Appearance: no apparent distress, alert Neurologic Exam: alert, oriented x 3, cooperative, normal mood/affect, nml cerebellar function, sensation nml, No motor deficits Skin Exam: normal color, warm, dry Eye Exam: PERRL, EOMI, eyes nml inspection Ears, Nose, Throat Exam: pharynx normal, moist mucous membranes Neck Exam: normal inspection, non-tender, supple, full range of motion Respiratory Exam: prolonged expirations (99% on FiO2 of 35% currently. with rate of 24), crackles/rales, wheezing Cardiovascular Exam: regular rate/rhythm, normal heart sounds Gastrointestinal/Abdomen Exam: soft, No tenderness, No mass Extremity Exam: normal inspection, normal range of motion, pedal edema (trace diffuse) Back Exam: normal inspection, normal range of motion, No CVA tenderness, No vertebral tenderness Pelvic Exam: deferred Rectal Exam: deferred OBJECTIVE DATA Vital Signs: Vital Signs - 24 hr Temp Pulse Resp BP Pulse Ox 06/12/18 07:36 97.7 F 77 24 131/82 98 06/12/18 06:40 84 26 H 99 06/12/18 06:30 80 24 156/76 98 06/12/18 05:52 73 24 142/65 99 06/12/18 04:00 97.5 F 92 H 20 138/77 100 06/12/18 01:12 75 28 H 96 06/12/18 00:00 97.5 F 89 24 154/79 99 06/11/18 20:00 99.2 F 103 H 19 151/69 97 06/11/18 19:37 103 H 19 94 L 06/11/18 17:37 82 22 98 06/11/18 16:00 98.0 F 93 H 18 146/74 95 06/11/18 12:55 99 H 25 H 97 06/11/18 11:37 99.5 F 93 H 24 146/99 100 Oxygen-Last 24 hours O2 Percentage 40% O2 Percentage 40% O2 Percentage 40% O2 Percentage 5 Liters = 40% O2 Percentage 5 Liters = 40% Oxygen Flowrate (L/min)-RT 5 Pain Assessment - Last Documented Pain Intensity 0 Pain Scale Used [facility] Intake and Output: Intake & Output 06/09/18 06/10/18 06/11/18 06/12/18 11:59 11:59 11:59 11:59 Intake Total 1098 120 Output Total 2975 700 Balance -1877 -580 Weight 77.2 kg 75.2 kg Lab Results: Accuchecks Date 06/11/18 Time 22:00 Accucheck Value: 120 Accucheck Value: 190 Accucheck Value: 125 Accucheck Value: 146 Lab Results-Last 24 Hours 06/11/18 06/12/18 06/12/18 Range/Units 18:10 03:25 05:00 WBC 14.0 H (4.0-10.5) K/mm3 RBC 3.73 L (4.1-5.4) M/mm3 Hgb 9.2 L (12.0-16.0) gm/dl Hct 32.3 L (35-47) % MCV 86.6 (78-100) fl MCH 24.6 L (26-32) pg MCHC 28.5 L (32-36) g/dl RDW 16.1 H (11.5-14.0) % Plt Count 232 (150-450) K/mm3 MPV 10.9 H (6-9.5) fl Absolute Granulocytes 11.40 H (1.4-6.9) Segmented Neutrophils 88 H (36.0-66.0) % Band Neutrophils 1 (0.0-2.0) % Lymphocytes (Manual) 9 L (24-44) % Monocytes (Manual) 2 (0.0-12.0) % Platelet Estimate NORMAL (NORMAL) RBC Morphology ABNORMAL Polychromasia RARE Anisocytosis 1+ Puncture Site LEFT BRACHIAL pCO2 87 H* (35-45) mmHg pO2 104 H (75-100) mmHg Base Excess 11.9 H (-2.0-2.0) O2 Saturation 96.6 (94-100) g/dF ABG pH 7.28 L (7.35-7.45) ABG HCO3 40.9 H* (22-28) ABG O2 Sat (Measured) 97.2 (95-100) % Tyson Test NOT APPLICABLE A-a Gradient 144 a/A Ratio 0.42 Hemoglobin 8.9 Carboxyhemoglobin 0.5 (0.0-6.9) % THgb Methemoglobin 0.0 L (1.4-1.5) % Potassium 4.4 (3.5-5.1) Temperature 37.0 C POC O2 Flow Rate 50 % Inspiratory BiPAP 16 Expiratory BiPAP 6 Sodium (137-145) mmol/L Chloride (98-107) mmol/L Carbon Dioxide (22-30) mmol/L Anion Gap (5-15) MEQ/L BUN (7-17) mg/dL Creatinine (0.52-1.04) mg/dL Estimated GFR ML/MIN Glucose (74-106) mg/dL Hemoglobin A1c 5.71 (4.5-6.0) % Calcium (8.4-10.2) mg/dL Total Bilirubin (0.2-1.3) mg/dL AST (14-36) U/L ALT (0-35) U/L Alkaline Phosphatase (38-126) U/L Serum Total Protein (6.3-8.2) g/dL Albumin (3.5-5.0) g/dL 06/12/18 06/12/18 Range/Units 05:00 05:00 WBC (4.0-10.5) K/mm3 RBC (4.1-5.4) M/mm3 Hgb (12.0-16.0) gm/dl Hct (35-47) % MCV (78-100) fl MCH (26-32) pg MCHC (32-36) g/dl RDW (11.5-14.0) % Plt Count (150-450) K/mm3 MPV (6-9.5) fl Absolute Granulocytes (1.4-6.9) Segmented Neutrophils (36.0-66.0) % Band Neutrophils (0.0-2.0) % Lymphocytes (Manual) (24-44) % Monocytes (Manual) (0.0-12.0) % Platelet Estimate (NORMAL) RBC Morphology Polychromasia Anisocytosis Puncture Site RIGHT BRACHIAL pCO2 86 H* (35-45) mmHg pO2 134 H* (75-100) mmHg Base Excess 12.4 H (-2.0-2.0) O2 Saturation 96.6 (94-100) g/dF ABG pH 7.29 L (7.35-7.45) ABG HCO3 41.4 H* (22-28) ABG O2 Sat (Measured) 97.2 (95-100) % Tyson Test NOT APPLICABLE A-a Gradient 115 a/A Ratio 0.54 Hemoglobin 9.4 Carboxyhemoglobin 0.3 (0.0-6.9) % THgb Methemoglobin 0.4 L (1.4-1.5) % Potassium 4.8 4.6 (3.5-5.1) Temperature 37.0 C POC O2 Flow Rate 50 % Inspiratory BiPAP 20 Expiratory BiPAP 6 Sodium 142 (137-145) mmol/L Chloride 99 (98-107) mmol/L Carbon Dioxide 38 H (22-30) mmol/L Anion Gap 9.8 (5-15) MEQ/L BUN 22 H (7-17) mg/dL Creatinine 0.78 (0.52-1.04) mg/dL Estimated GFR > 60.0 ML/MIN Glucose 132 H (74-106) mg/dL Hemoglobin A1c (4.5-6.0) % Calcium 8.6 (8.4-10.2) mg/dL Total Bilirubin 0.20 (0.2-1.3) mg/dL AST 17 (14-36) U/L ALT 12 (0-35) U/L Alkaline Phosphatase 114 (38-126) U/L Serum Total Protein 6.4 (6.3-8.2) g/dL Albumin 3.2 L (3.5-5.0) g/dL Radiology Exams: Radiology Procedures Category Date Time Status CHEST 1 VIEW (PORTABLE) Routine Exams 06/11/18 08:00 Completed CHEST 1 VIEW (PORTABLE) Stat Exams 06/10/18 13:56 Completed CHEST 1 VIEW (PORTABLE) Stat Exams 06/12/18 07:45 Ordered CHEST WITH CONTRAST [CT] Stat Exams 06/10/18 16:22 Completed ECHO W/2D AND DOPPLER [US] Routine Exams 06/11/18 12:17 Taken HEAD WITHOUT CONTRAST [CT] Stat Exams 06/10/18 13:57 Completed VENOUS BILATERAL EXTREMITY [US] Routine Exams 06/11/18 12:17 Completed Multi-Disciplinary Progress Notes: Multi-Disciplinary Progress Notes 06/12/18 03:50 Respiratory Note by VirginiaNinat 06/12/18 03:25 PT IS NOT VERY RESPONSIVE AND HER PUPILS ARE LARGE AND NOT RESPONDING TO LIGHT AT THIS TIME. PT HAS BEEN ON BIPAP SINCE 23:20 FROM THE EVENING BEFORE. AN ABG ORDER WAS WRITTEN PER [facility] DUE TO THESE REASONS. Initialized on 06/12/18 03:50 - END OF NOTE Assessment/Plan (1) Acute exacerbation of COPD with asthma Current Visit: Yes Status: Acute Assessment & Plan: alert this am and talking well joking maintaining oxygenation well repeat chest xray now repeat abg stop ceftriaxone start meropenem increase steroid from 60 q8h to 80 q6h stop gabapentin decrease risperdal from 2 tid to 1 tid she is down 2kg will hold bumex pending the chest xray she is asking to eat breakfast will check xray and abg first and will update Dr. Drummond again after above for further recommendations her son was also updated at bedside Code(s): J44.1 - CHRONIC OBSTRUCTIVE PULMONARY DISEASE W (ACUTE) EXACERBATION; J45.901 - UNSPECIFIED ASTHMA WITH (ACUTE) EXACERBATION (2) Acute and chronic respiratory failure with hypercapnia Current Visit: Yes Status: Acute Onset Date: ~06/10/18 Code(s): J96.22 - ACUTE AND CHRONIC RESPIRATORY FAILURE WITH HYPERCAPNIA (3) Acute and chronic respiratory failure with hypoxia Current Visit: Yes Status: Acute Onset Date: ~06/10/18 Code(s): J96.21 - ACUTE AND CHRONIC RESPIRATORY FAILURE WITH HYPOXIA (4) Pneumonia Current Visit: Yes Status: Acute Onset Date: ~06/11/18 Code(s): J18.9 - PNEUMONIA, UNSPECIFIED ORGANISM (5) Bipolar disorder Current Visit: Yes Status: Chronic (6) Anemia Current Visit: Yes Status: Acute Code(s): D64.9 - ANEMIA, UNSPECIFIED
[2018-06-12 08:27] LABS: A-aADO2 86; ABG HEMOGLOBIN 9.3; ABG POTASSIUM 4.7 (3.5-5.1); ABG SITE LEFT RADIAL; ARTERIAL BLD GAS O2 SATURATION 94.6 % (95-100); ARTERIAL BLOOD GAS BASE EXCESS 12.9 (-2.0-2.0); ARTERIAL BLOOD GAS FIO2 35 %; ARTERIAL BLOOD GAS PCO2 78 mmHg (35-45); ARTERIAL BLOOD GAS PO2 66 mmHg (75-100); ARTERIAL BLOOD GAS VENT MODE BiPAP; ARTERIAL BLOOD GAS pH 7.33 (7.35-7.45); CARBOXYHEMOGLOBIN 0.9 % THgb (0.0-6.9); HCO3- 41.1 (22-28); HGB O2 SAT 93.6 g/dF (94-100); Methhemoglobin 0.2 % (1.4-1.5); paO2 pAO1 0.43
--- NOTE | 2018-06-12 08:34 | XRAY ---
Indication: Worsening respiratory failure. Comparison: One day earlier. Portable chest demonstrates mild clearing of the previous right infrahilar infiltrate/atelectasis with stable mild bilateral interstitial opacities and stable small bibasilar effusions. Heart is not enlarged. No new cardiopulmonary abnormalities.
[2018-06-12] MEDS: Cymbalta 30 MG Capsule PO SCH (09:14)
[2018-06-12] MEDS: Risperdal 1 MG PO SCH ×3 (09:15→21:09)
[2018-06-12] MEDS: FOLATE 1 MG PO SCH (09:15)
[2018-06-12] MEDS: Protonix 40MG Tablet PO SCH (09:15)
[2018-06-12] MEDS: Lopressor 50 MG PO SCH ×2 (09:15→21:09)
[2018-06-12] MEDS: Zestril 20 MG PO SCH (09:15)
[2018-06-12] MEDS: KEPPRA 500 MG PO SCH ×2 (09:15→21:09)
[2018-06-12] MEDS: Keppra 250 MG PO SCH ×2 (09:16→21:09)
[2018-06-12] MEDS: Merrem 1 GM 1 G in Sodium Chloride 100ML MINI-BAG PLUS 100 ML IV SCH ×2 (09:22→17:05)
[2018-06-12] MEDS: BUMEX 1 MG IV SCH (09:22)
[2018-06-12] MEDS: ENOXAPARIN SODIUM SQ SCH (09:38)
[2018-06-12] MEDS: Zithromax 500 MG/ 250 ML NaCl Premix 500 MG/250 ML IVPB IV SCH (10:48)
[2018-06-12] MEDS: xanAX 0.25 MG PO PRN ×2 (11:23→18:16)
[2018-06-12] MEDS: NovoLOG Insulin SQ PRN ×2 (12:06→21:11)
[2018-06-12] MEDS: solu-MEDROL 125 MG IV SCH ×3 (12:29→23:02)
[2018-06-12] MEDS: TYLENOL 325 MG PO PRN (17:05)
[2018-06-12] MEDS: ZOCOR 20MG PO SCH (21:09)
[2018-06-13] MEDS: Merrem 1 GM 1 G in Sodium Chloride 100ML MINI-BAG PLUS 100 ML IV SCH ×4 (00:04→17:37)
[2018-06-13] MEDS: xanAX 0.25 MG PO PRN (00:59)
[2018-06-13] MEDS: DUONEB 0.5-3 MG/3 ml Neb IH SCH ×4 (01:00→19:16)
[2018-06-13] MEDS: PULMICORT 0.5 MG/2 ML RESPULES IH SCH ×2 (05:27→19:16)
[2018-06-13] MEDS: solu-MEDROL 125 MG IV SCH (05:28)
[2018-06-13 05:53] LABS: Granulocyte Absolute (ANC) 11.98 (1.4-6.9); Hematocrit 31.2 % (35-47); Hemoglobin 8.9 gm/dl (12.0-16.0); Mean Cell Volume 86.4 fl (78-100); Mean Corpuscular Hgb Concent. 28.5 g/dl (32-36); Mean Platelet Volume 10.5 fl (6-9.5); Platelet Count 252 K/mm3 (150-450); Red Blood Count 3.61 M/mm3 (4.1-5.4); Red Cell Distribution Width 15.9 % (11.5-14.0); White Blood Count 14.9 K/mm3 (4.0-10.5)
[2018-06-13 05:58] LABS: Mean Corpuscular Hemoglobin 24.6 pg (26-32)
[2018-06-13 06:01] LABS: ALBUMIN 3.3 g/dL (3.5-5.0); ALKALINE PHOSPHATASE 107 U/L (38-126); BLOOD UREA NITROGEN 29 mg/dL (7-17); CHLORIDE 98 mmol/L (98-107); Calcium 8.9 mg/dL (8.4-10.2); Creatinine 1 0.89 mg/dL (0.52-1.04); Glucose 134 mg/dL (74-106); Potassium 4.4 mmol/L (3.5-5.1); SGOT/AST 10 U/L (14-36); SGPT/ALT 12 U/L (0-35); SODIUM 142 mmol/L (137-145); Total Protein 6.3 g/dL (6.3-8.2)
[2018-06-13 06:08] LABS: Carbon Dioxide 37 mmol/L (22-30)
[2018-06-13 06:13] LABS: ANION GAP 11.4 MEQ/L (5-15)
[2018-06-13 08:12] LABS: Lymphocytes 16 % (24-44); Monocyte 1 % (0.0-12.0); Neutrophils 83 % (36.0-66.0); Total Cells Counted 100
[2018-06-13 08:13] LABS: ANISOCYTOSIS 1+; Platelet Estimate NORMAL (NORMAL); Polychromasia 1+
--- NOTE | 2018-06-13 08:21 | PCM.NOTE ---
Date and Time: 06/13/18 0816 Subjective Assessment: she did not sleep any last night did not tolerate the bipap after midnight. she has remained oriented but started having repetitive speech and hallucinations at times as well her risperdal dose was decreased yestday due to her somnolence the previous night. She continues to complain of shortness of breath and contniues to have the coughing. Objective Exam General Appearance: mild distress, alert, anxiety (repatitive speech is oriented to time place and situation) Neurologic Exam: oriented x 3, cooperative Skin Exam: warm, dry Ears, Nose, Throat Exam: dry mucous membranes Neck Exam: supple Respiratory Exam: prolonged expirations (short shallow breathing), rhonchi, wheezing Cardiovascular Exam: regular rate/rhythm, normal heart sounds, No murmur Gastrointestinal/Abdomen Exam: soft, normal bowel sounds, No tenderness, No distention Extremity Exam: normal inspection, pedal edema (trace), No calf tenderness OBJECTIVE DATA Vital Signs: Vital Signs - 24 hr Temp Pulse Resp BP Pulse Ox 06/13/18 05:27 92 H 27 H 98 06/13/18 04:00 98.5 F 93 H 30 H 174/82 98 06/13/18 01:00 99 H 28 H 98 06/13/18 00:00 93 H 24 183/86 97 06/12/18 20:00 97.6 F 88 28 H 171/73 99 06/12/18 19:57 88 06/12/18 17:31 102 H 26 H 97 06/12/18 16:00 99.0 F 91 H 21 150/88 94 L 06/12/18 13:32 96 H 24 98 06/12/18 12:00 97.9 F 84 21 142/82 96 Oxygen-Last 24 hours O2 Percentage 4 Liters = 36% O2 Percentage 4 Liters = 36% O2 Percentage 35% O2 Percentage 35% O2 Percentage 35% Pain Assessment - Last Documented Pain Intensity 0 Pain Scale Used 0-10 Pain Scale Intake and Output: Intake & Output 06/10/18 06/11/18 06/12/18 06/13/18 11:59 11:59 11:59 11:59 Intake Total 7066 358 3594 Output Total 2975 700 1300 Balance -1877 -029 500 Weight 77.2 kg 75.2 kg 76.1 kg Lab Results: Accuchecks Date 06/12/18 Time 21:00 Accucheck Value: 147 Accucheck Value: 235 Lab Results-Last 24 Hours 06/12/18 06/13/18 06/13/18 Range/Units 08:18 05:25 05:25 WBC 14.9 H (4.0-10.5) K/mm3 RBC 3.61 L (4.1-5.4) M/mm3 Hgb 8.9 L (12.0-16.0) gm/dl Hct 31.2 L (35-47) % MCV 86.4 (78-100) fl MCH 24.6 L (26-32) pg MCHC 28.5 L (32-36) g/dl RDW 15.9 H (11.5-14.0) % Plt Count 252 (150-450) K/mm3 MPV 10.5 H (6-9.5) fl Absolute Granulocytes 11.98 H (1.4-6.9) Segmented Neutrophils 83 H (36.0-66.0) % Lymphocytes (Manual) 16 L (24-44) % Monocytes (Manual) 1 (0.0-12.0) % Platelet Estimate NORMAL (NORMAL) RBC Morphology ABNORMAL Polychromasia 1+ Anisocytosis 1+ Puncture Site LEFT RADIAL pCO2 78 H* (35-45) mmHg pO2 66 L (75-100) mmHg Base Excess 12.9 H (-2.0-2.0) O2 Saturation 93.6 L (94-100) g/dF ABG pH 7.33 L (7.35-7.45) ABG HCO3 41.1 H* (22-28) ABG O2 Sat (Measured) 94.6 L (95-100) % Tyson Test YEs A-a Gradient 86 a/A Ratio 0.43 Hemoglobin 9.3 Carboxyhemoglobin 0.9 (0.0-6.9) % THgb Methemoglobin 0.2 L (1.4-1.5) % Potassium 4.7 4.4 (3.5-5.1) Temperature 37.0 C POC O2 Flow Rate 35 % Vent Mode BiPAP Inspiratory BiPAP 20 Expiratory BiPAP 6 Sodium 142 (137-145) mmol/L Chloride 98 (98-107) mmol/L Carbon Dioxide 37 H (22-30) mmol/L Anion Gap 11.4 (5-15) MEQ/L BUN 29 H (7-17) mg/dL Creatinine 0.89 (0.52-1.04) mg/dL Estimated GFR > 60.0 ML/MIN Glucose 134 H (74-106) mg/dL Calcium 8.9 (8.4-10.2) mg/dL Total Bilirubin 0.10 L (0.2-1.3) mg/dL AST 10 L (14-36) U/L ALT 12 (0-35) U/L Alkaline Phosphatase 107 (38-126) U/L Serum Total Protein 6.3 (6.3-8.2) g/dL Albumin 3.3 L (3.5-5.0) g/dL Radiology Exams: Radiology Procedures Category Date Time Status CHEST 1 VIEW (PORTABLE) Routine Exams 06/11/18 08:00 Completed CHEST 1 VIEW (PORTABLE) Stat Exams 06/12/18 07:45 Completed ECHO W/2D AND DOPPLER [US] Routine Exams 06/11/18 12:17 Taken VENOUS BILATERAL EXTREMITY [US] Routine Exams 06/11/18 12:17 Completed Multi-Disciplinary Progress Notes: Multi-Disciplinary Progress Notes 06/12/18 11:00 (created 06/12/18 14:32) Case Management Note by Isatu Triplett [place], PLANS FOR PT TO RETURN TO [facility] ON DISCHARGE. DENIES ADDNL NEEDS PRESENTLY. WILL FOLLOW FOR ALL DC NEEDS. Initialized on 06/12/18 14:32 - END OF NOTE Assessment/Plan (1) Acute exacerbation of COPD with asthma Current Visit: Yes Status: Acute Assessment & Plan: changed to meropenem yesterday for pseudomonas coverage she continues to have significnat respiratory difficulty she has not tolerated the bipap the last few hours she did not sleep likely related to her decreased risperidal and began to have hallucinations as well it was dropped from 2 tid to 1 tid and will increase it back to 2 mg tid and increase her prn alprazolam from 0.25 to 0.5 to help with her acute anxiety and hallucinations slow wean of her steroid today to 60 tid from [address] Mcdonald is following as well and appreciate recommendations her bumex last night and this am has been held she is not on iv fluids will add clonidine for her hypertension and hopefully help some with her anxiety as well Code(s): J44.1 - CHRONIC OBSTRUCTIVE PULMONARY DISEASE W (ACUTE) EXACERBATION; J45.901 - UNSPECIFIED ASTHMA WITH (ACUTE) EXACERBATION (2) Acute and chronic respiratory failure with hypercapnia Current Visit: Yes Status: Acute Onset Date: ~06/10/18 Code(s): J96.22 - ACUTE AND CHRONIC RESPIRATORY FAILURE WITH HYPERCAPNIA (3) Acute and chronic respiratory failure with hypoxia Current Visit: Yes Status: Acute Onset Date: ~06/10/18 Code(s): J96.21 - ACUTE AND CHRONIC RESPIRATORY FAILURE WITH HYPOXIA (4) Pneumonia Current Visit: Yes Status: Acute Onset Date: ~06/11/18 Code(s): J18.9 - PNEUMONIA, UNSPECIFIED ORGANISM (5) Bipolar disorder Current Visit: Yes Status: Chronic Qualifiers: Active/Remission status: currently active Current bipolar episode type: depressed Current episode severity: severe Psychotic features: with psychotic features Qualified Code(s): F31.5 - Bipolar disorder, current episode depressed, severe, with psychotic features (6) Anemia Current Visit: Yes Status: Acute Code(s): D64.9 - ANEMIA, UNSPECIFIED
[2018-06-13] MEDS: Catapres 0.1 MG PO SCH ×4 (08:23→22:23)
[2018-06-13] MEDS: Protonix 40MG Tablet PO SCH (09:03)
[2018-06-13] MEDS: Risperdal 1 MG PO SCH ×3 (09:03→23:00)
[2018-06-13] MEDS: Lopressor 50 MG PO SCH ×2 (09:03→22:23)
[2018-06-13] MEDS: Cymbalta 30 MG Capsule PO SCH (09:03)
[2018-06-13] MEDS: Zestril 20 MG PO SCH (09:03)
[2018-06-13] MEDS: FOLATE 1 MG PO SCH (09:03)
[2018-06-13] MEDS: xanAX 0.5 MG PO PRN ×2 (09:04→17:37)
[2018-06-13] MEDS: ENOXAPARIN SODIUM SQ SCH (09:06)
[2018-06-13] MEDS: KEPPRA 500 MG PO SCH ×2 (09:16→22:24)
[2018-06-13] MEDS: Keppra 250 MG PO SCH ×2 (09:16→22:24)
[2018-06-13] MEDS: Zithromax 500 MG/ 250 ML NaCl Premix 500 MG/250 ML IVPB IV SCH (10:17)
[2018-06-13] MEDS ORDERED: solu-MEDROL 125 MG IV SCH (14:00)
--- NOTE | 2018-06-13 14:50 | ECHO ---
Transthoracic echocardiographic examination and color Doppler was done on 06/11/2018. INDICATION: Shortness of breath. IMPRESSION: 1) NO DEFINITE REGIONAL WALL MOTION ABNORMALITY. ESTIMATED GLOBAL LEFT VENTRICULAR EJECTION FRACTION 60%. 2) MODERATE TO SEVERE AORTIC REGURGITATION. 3) MILD TO MODERATE MITRAL REGURGITATION. 4) MODERATE TRICUSPID REGURGITATION. RIGHT VENTRICULAR SYSTOLIC PRESSURE OF 48 MM OF MERCURY. 5) LEFT VENTRICULAR HYPERTROPHY. The left ventricle was partially visualized but this demonstrated adequate contractility. Estimated global left ventricular ejection fraction 50 to 60%. There is mild left ventricular hypertrophy. The mitral valve is seen and this opens adequately. There is moderate mitral regurgitation. Left atrium appears to be mildly enlarged. The aortic valve is sclerotic. There is no significant gradient across the left ventricular outflow tract. There is at least moderate to severe aortic regurgitation. The right side chambers are normal. There is moderate tricuspid regurgitation. The right ventricular systolic pressure of 48 mm of Mercury.
[2018-06-13] MEDS ORDERED: solu-MEDROL 40 MG IV SCH (17:45)
[2018-06-13] MEDS: TYLENOL 325 MG PO PRN (17:56)
[2018-06-13] MEDS: solu-MEDROL 40 MG IV SCH (22:19)
[2018-06-13] MEDS: ZOCOR 20MG PO SCH (22:23)
[2018-06-14] MEDS: Merrem 1 GM 1 G in Sodium Chloride 100ML MINI-BAG PLUS 100 ML IV SCH ×3 (00:24→17:44)
[2018-06-14] MEDS: DUONEB 0.5-3 MG/3 ml Neb IH SCH ×4 (00:56→19:54)
[2018-06-14] MEDS: xanAX 0.5 MG PO PRN ×2 (05:25→12:42)
[2018-06-14 05:29] LABS: Hematocrit 31.9 % (35-47); Hemoglobin 9.1 gm/dl (12.0-16.0); Mean Cell Volume 85.3 fl (78-100); Mean Corpuscular Hemoglobin 24.3 pg (26-32); Mean Corpuscular Hgb Concent. 28.5 g/dl (32-36); Mean Platelet Volume 9.8 fl (6-9.5); Platelet Count 241 K/mm3 (150-450); Red Blood Count 3.74 M/mm3 (4.1-5.4); Red Cell Distribution Width 15.9 % (11.5-14.0); White Blood Count 14.3 K/mm3 (4.0-10.5)
[2018-06-14 05:47] LABS: BLOOD UREA NITROGEN 29 mg/dL (7-17); CHLORIDE 98 mmol/L (98-107); Creatinine 1 0.83 mg/dL (0.52-1.04); Glucose 123 mg/dL (74-106); Potassium 4.7 mmol/L (3.5-5.1); SODIUM 143 mmol/L (137-145)
[2018-06-14 05:55] LABS: Carbon Dioxide 42 mmol/L (22-30)
[2018-06-14] MEDS: solu-MEDROL 40 MG IV SCH (06:00)
[2018-06-14] MEDS: PULMICORT 0.5 MG/2 ML RESPULES IH SCH ×2 (06:45→19:54)
[2018-06-14] MEDS: TYLENOL 325 MG PO PRN (06:59)
[2018-06-14] MEDS: Protonix 40MG Tablet PO SCH (07:54)
[2018-06-14] MEDS: Cymbalta 30 MG Capsule PO SCH (07:54)
[2018-06-14] MEDS: Risperdal 1 MG PO SCH ×3 (07:54→21:05)
[2018-06-14] MEDS: ENOXAPARIN SODIUM SQ SCH (07:54)
[2018-06-14] MEDS: Catapres 0.1 MG PO SCH ×3 (07:54→21:04)
[2018-06-14] MEDS: KEPPRA 500 MG PO SCH ×2 (07:54→21:05)
[2018-06-14] MEDS: Lopressor 50 MG PO SCH ×2 (07:55→21:05)
[2018-06-14] MEDS: Zestril 20 MG PO SCH (07:55)
[2018-06-14] MEDS: Keppra 250 MG PO SCH ×2 (07:56→21:05)
[2018-06-14] MEDS ORDERED: DELTASONE 20 MG PO ONE (08:19)
--- NOTE | 2018-06-14 08:21 | PCM.NOTE ---
Date and Time: 06/14/18820 Subjective Assessment: still having shortness of breath feels like she is unable to breath the delusions and hallucinations improved with the increased rispridal yesterday back to her normal dose of 2mg tid. She was able to sleep some with htis as well. This am she is eating breakfast but feeling short of breath still. she has developed diarrhea overnight as well no abdominal pain Objective Exam General Appearance: no apparent distress, alert, obese Neurologic Exam: alert, oriented x 3, cooperative Skin Exam: normal color, warm, dry, No rash Eye Exam: PERRL, EOMI, eyes nml inspection Ears, Nose, Throat Exam: moist mucous membranes Respiratory Exam: prolonged expirations, rhonchi, wheezing Cardiovascular Exam: regular rate/rhythm, normal heart sounds Gastrointestinal/Abdomen Exam: soft, normal bowel sounds, No tenderness, No distention, No mass, No guarding Extremity Exam: normal inspection, normal range of motion Back Exam: normal inspection, normal range of motion, No CVA tenderness, No vertebral tenderness Pelvic Exam: deferred Rectal Exam: deferred OBJECTIVE DATA Vital Signs: Vital Signs - 24 hr Temp Pulse Resp BP Pulse Ox 06/14/18 08:00 18 06/14/18 07:54 97.6 F 76 18 141/78 98 06/14/18 07:00 84 22 99 06/14/18 04:00 98.4 F 79 176/86 99 06/14/18 00:57 77 20 97 06/14/18 00:00 97.7 F 63 30 H 131/79 97 06/13/18 21:21 80 36 H 97 06/13/18 20:00 97.1 F 78 32 H 154/76 97 06/13/18 16:00 98.9 F 85 18 176/78 97 06/13/18 14:08 82 33 H 99 06/13/18 12:00 98.8 F 100 H 24 161/101 99 Oxygen-Last 24 hours O2 Percentage 4 Liters = 36% O2 Percentage 3 Liters = 32% O2 Percentage 3 Liters = 32% O2 Percentage 3 Liters = 32% O2 Percentage 3 Liters = 32% O2 Percentage 3 Liters = 32% Pain Assessment - Last Documented Pain Intensity 9 Pain Scale Used 0-10 Pain Scale Intake and Output: Intake & Output 06/11/18 06/12/18 06/13/1806/14/18 11:59 11:59 11:59 11:59 Intake Total 9568 854 6372 1390 Output Total 2975 700 1300 1025 Balance -1877 -580 500 365 Weight 77.2 kg 75.2 kg 76.1 kg 76.5 kg Lab Results: Accuchecks Date 06/14/18 Date 06/13/18 Time 07:08 Time 22:15 Accucheck Value: 107 Accucheck Value: 176 Accucheck Value: 145 Accucheck Value: 163 Lab Results-Last 24 Hours 06/14/18 06/14/18 Range/Units 05:25 05:25 WBC 14.3 H (4.0-10.5) K/mm3 RBC 3.74 L (4.1-5.4) M/mm3 Hgb 9.1 L (12.0-16.0) gm/dl Hct 31.9 L (35-47) % MCV 85.3 (78-100) fl MCH 24.3 L (26-32) pg MCHC 28.5 L (32-36) g/dl RDW 15.9 H (11.5-14.0) % Plt Count 241 (150-450) K/mm3 MPV 9.8 H (6-9.5) fl Sodium 143 (137-145) mmol/L Potassium 4.7 (3.5-5.1) mmol/L Chloride 98 (98-107) mmol/L Carbon Dioxide 42 H (22-30) mmol/L Anion Gap 8.0 (5-15) MEQ/L BUN 29 H (7-17) mg/dL Creatinine 0.83 (0.52-1.04) mg/dL Estimated GFR > 60.0 ML/MIN Glucose 123 H (74-106) mg/dL Calcium 9.0 (8.4-10.2) mg/dL Radiology Exams: Radiology Procedures Category Date Time Status CHEST 1 VIEW (PORTABLE) Stat Exams 06/12/18 07:45 Completed Multi-Disciplinary Progress Notes: Multi-Disciplinary Progress Notes 06/13/18 10:15 (created 06/13/18 15:54) Case Management Note by Isatu Triplett FAMILY CONTINUE TO PLAN FOR PT TO RETURN TO [facility] ON DISCHARGE. NO ADDNL DC NEEDS IDENTIFIED AT PRESENT. WILL FOLLOW. Initialized on 06/13/18 15:54 - END OF NOTE Assessment/Plan (1) Acute exacerbation of COPD with asthma Current Visit: Yes Status: Acute Assessment & Plan: after her decompensation after initial improvement she was placed on meropenem with her recent hospitalization and cultures pending the sputum culture thus far showed gbs strep so far today otherwise unremarkabel she has allergy to pcn so will continue current for now. Will continue attempt to wean steroid as the high dose has seemed to exacerbate her psychosis more. she is back on her risperidal 2mg tid home dose and this has improved the psychosis her alprazolam was increased to 0.5 mg tid from 0.25 she is having diarrhea. c. diff testing will be sent. Code(s): J44.1 - CHRONIC OBSTRUCTIVE PULMONARY DISEASE W (ACUTE) EXACERBATION; J45.901 - UNSPECIFIED ASTHMA WITH (ACUTE) EXACERBATION (2) Acute and chronic respiratory failure with hypercapnia Current Visit: Yes Status: Acute Onset Date: ~06/10/18 Code(s): J96.22 - ACUTE AND CHRONIC RESPIRATORY FAILURE WITH HYPERCAPNIA (3) Acute and chronic respiratory failure with hypoxia Current Visit: Yes Status: Acute Onset Date: ~06/10/18 Code(s): J96.21 - ACUTE AND CHRONIC RESPIRATORY FAILURE WITH HYPOXIA (4) Pneumonia Current Visit: Yes Status: Acute Onset Date: ~06/11/18 Code(s): J18.9 - PNEUMONIA, UNSPECIFIED ORGANISM (5) Bipolar disorder Current Visit: Yes Status: Chronic Qualifiers: Active/Remission status: currently active Current bipolar episode type: depressed Current episode severity: severe Psychotic features: with psychotic features Qualified Code(s): F31.5 - Bipolar disorder, current episode depressed, severe, with psychotic features (6) Anemia Current Visit: Yes Status: Acute Code(s): D64.9 - ANEMIA, UNSPECIFIED
[2018-06-14 10:56] LABS: 027 TOX PROD POSITIVE (NEGATIVE); TOXIGENIC C. DIFF ORG POSITIVE (NEGATIVE)
[2018-06-14] MEDS: VANCOMYCIN 25MG/ML ORAL SOLUTION COMPOUND KIT PO SCH ×3 (12:52→21:05)
[2018-06-14] MEDS: xanAX 0.5 MG PO SCH (21:06)
[2018-06-14] MEDS: Zofran 4 MG/2 ML VIAL IV PRN (21:07)
[2018-06-14] MEDS: ZOCOR 20MG PO SCH (21:07)
[2018-06-15] MEDS: Merrem 1 GM 1 G in Sodium Chloride 100ML MINI-BAG PLUS 100 ML IV SCH ×3 (00:44→17:49)
[2018-06-15] MEDS: DUONEB 0.5-3 MG/3 ml Neb IH SCH ×4 (01:22→20:08)
[2018-06-15] MEDS: TYLENOL 325 MG PO PRN ×3 (02:44→19:37)
[2018-06-15] MEDS: Zofran 4 MG/2 ML VIAL IV PRN (03:15)
[2018-06-15] MEDS: xanAX 0.5 MG PO SCH ×3 (05:06→19:38)
[2018-06-15] MEDS: PULMICORT 0.5 MG/2 ML RESPULES IH SCH ×2 (06:49→20:06)
[2018-06-15] MEDS ORDERED: DELTASONE 20 MG PO SCH (10:00)
[2018-06-15] MEDS: solu-MEDROL 125 MG IV SCH ×3 (10:25→22:11)
[2018-06-15] MEDS ORDERED: PHARMACY DOSING REQUEST MC ONE (10:53)
[2018-06-15] MEDS ORDERED: Lasix 40 MG/4 ML IV ONE (10:53)
[2018-06-15] MEDS: Risperdal 1 MG PO SCH ×4 (11:00→23:08)
[2018-06-15] MEDS: Lopressor 50 MG PO SCH ×2 (11:00→22:30)
[2018-06-15] MEDS: Protonix 40MG Tablet PO SCH (11:01)
[2018-06-15] MEDS: Keppra 250 MG PO SCH ×2 (11:01→22:31)
[2018-06-15] MEDS: Catapres 0.1 MG PO SCH ×3 (11:01→22:30)
[2018-06-15] MEDS: KEPPRA 500 MG PO SCH ×2 (11:01→22:31)
[2018-06-15] MEDS: Zestril 20 MG PO SCH (11:02)
[2018-06-15] MEDS: Cymbalta 30 MG Capsule PO SCH (11:02)
[2018-06-15] MEDS: ENOXAPARIN SODIUM SQ SCH (11:03)
[2018-06-15] MEDS: VANCOMYCIN 25MG/ML ORAL SOLUTION COMPOUND KIT PO SCH ×4 (12:00→22:28)
[2018-06-15] MEDS: CLARITIN 10 MG PO SCH (12:24)
[2018-06-15] MEDS: Singulair 10 MG PO SCH (12:24)
[2018-06-15] MEDS: THEOPHYLLINE ER 24HR PO SCH (12:25)
[2018-06-15] MEDS: ZOCOR 20MG PO SCH (22:30)
[2018-06-15] MEDS: NovoLOG Insulin SQ PRN (22:31)
[2018-06-16] MEDS: Merrem 1 GM 1 G in Sodium Chloride 100ML MINI-BAG PLUS 100 ML IV SCH ×3 (00:33→17:07)
[2018-06-16] MEDS: DUONEB 0.5-3 MG/3 ml Neb IH SCH ×4 (01:31→19:37)
[2018-06-16] MEDS: solu-MEDROL 125 MG IV SCH ×5 (03:31→23:15)
[2018-06-16] MEDS: xanAX 0.5 MG PO SCH ×3 (03:31→18:53)
[2018-06-16] MEDS: Zofran 4 MG/2 ML VIAL IV PRN ×2 (03:33→11:37)
[2018-06-16] MEDS: PULMICORT 0.5 MG/2 ML RESPULES IH SCH ×2 (07:22→19:37)
[2018-06-16] MEDS: Lopressor 50 MG PO SCH ×2 (09:30→21:51)
[2018-06-16] MEDS: TYLENOL 325 MG PO PRN ×2 (09:30→23:13)
[2018-06-16] MEDS: Protonix 40MG Tablet PO SCH (09:30)
[2018-06-16] MEDS: Catapres 0.1 MG PO SCH ×3 (09:30→21:51)
[2018-06-16] MEDS: Risperdal 1 MG PO SCH ×3 (09:31→21:51)
[2018-06-16] MEDS: Singulair 10 MG PO SCH (09:31)
[2018-06-16] MEDS: Zestril 20 MG PO SCH (09:31)
[2018-06-16] MEDS: Mucinex 600MG ER Tabs PO SCH ×2 (09:31→21:51)
[2018-06-16] MEDS: KEPPRA 500 MG PO SCH ×2 (09:31→21:51)
[2018-06-16] MEDS: Cymbalta 30 MG Capsule PO SCH (09:31)
[2018-06-16] MEDS: CLARITIN 10 MG PO SCH (09:31)
[2018-06-16] MEDS: Keppra 250 MG PO SCH ×2 (09:31→21:51)
[2018-06-16] MEDS: VANCOMYCIN 25MG/ML ORAL SOLUTION COMPOUND KIT PO SCH ×4 (09:32→21:52)
[2018-06-16] MEDS: ENOXAPARIN SODIUM SQ SCH (09:32)
[2018-06-16] MEDS: THEOPHYLLINE ER 24HR PO SCH (11:23)
[2018-06-16] MEDS: ZOCOR 20MG PO SCH (21:52)
[2018-06-17] MEDS: Merrem 1 GM 1 G in Sodium Chloride 100ML MINI-BAG PLUS 100 ML IV SCH ×3 (00:04→16:40)
[2018-06-17] MEDS: Zofran 4 MG/2 ML VIAL IV PRN ×2 (00:04→08:27)
[2018-06-17] MEDS: DUONEB 0.5-3 MG/3 ml Neb IH SCH ×4 (01:00→19:56)
[2018-06-17] MEDS: xanAX 0.5 MG PO SCH ×3 (03:11→20:57)
[2018-06-17] MEDS: TYLENOL 325 MG PO PRN ×2 (03:16→16:40)
[2018-06-17] MEDS: solu-MEDROL 125 MG IV SCH ×5 (04:24→23:20)
[2018-06-17 06:19] LABS: BLOOD UREA NITROGEN 20 mg/dL (7-17); CHLORIDE 89 mmol/L (98-107); Calcium 8.6 mg/dL (8.4-10.2); Creatinine 1 0.76 mg/dL (0.52-1.04); Glucose 136 mg/dL (74-106); Hematocrit 32.1 % (35-47); Hemoglobin 9.4 gm/dl (12.0-16.0); Mean Cell Volume 81.1 fl (78-100); Mean Corpuscular Hemoglobin 23.7 pg (26-32); Mean Corpuscular Hgb Concent. 29.3 g/dl (32-36); Mean Platelet Volume 10.7 fl (6-9.5); Platelet Count 273 K/mm3 (150-450); Potassium 4.2 mmol/L (3.5-5.1); Red Blood Count 3.96 M/mm3 (4.1-5.4); Red Cell Distribution Width 15.7 % (11.5-14.0); SODIUM 137 mmol/L (137-145); White Blood Count 18.6 K/mm3 (4.0-10.5)
[2018-06-17 06:27] LABS: Carbon Dioxide 44 mmol/L (22-30)
[2018-06-17 06:28] LABS: ANION GAP 8.2 MEQ/L (5-15)
[2018-06-17] MEDS: PULMICORT 0.5 MG/2 ML RESPULES IH SCH ×2 (06:40→19:56)
[2018-06-17] MEDS: Mucinex 600MG ER Tabs PO SCH ×2 (10:13→20:59)
[2018-06-17] MEDS: Singulair 10 MG PO SCH (10:13)
[2018-06-17] MEDS: Keppra 250 MG PO SCH ×2 (10:14→20:58)
[2018-06-17] MEDS: KEPPRA 500 MG PO SCH ×2 (10:14→20:59)
[2018-06-17] MEDS: ENOXAPARIN SODIUM SQ SCH (10:19)
[2018-06-17] MEDS: Risperdal 1 MG PO SCH ×3 (10:19→20:59)
[2018-06-17] MEDS: CLARITIN 10 MG PO SCH (10:19)
[2018-06-17] MEDS: Zestril 20 MG PO SCH (10:19)
[2018-06-17] MEDS: Catapres 0.1 MG PO SCH ×3 (10:20→20:57)
[2018-06-17] MEDS: Protonix 40MG Tablet PO SCH (10:20)
[2018-06-17] MEDS: Cymbalta 30 MG Capsule PO SCH (10:20)
[2018-06-17] MEDS: VANCOMYCIN 25MG/ML ORAL SOLUTION COMPOUND KIT PO SCH ×4 (10:22→20:57)
[2018-06-17] MEDS: Lopressor 50 MG PO SCH ×2 (10:30→20:59)
[2018-06-17] MEDS: THEOPHYLLINE ER 24HR PO SCH (12:00)
--- NOTE | 2018-06-17 15:28 | PCM.NOTE ---
Date and Time: 06/17/18 1523 Subjective Assessment: She required increased dosage of steroids over the weekend and addition of theophylline IV. She is complaining about her breathing when asked. She requests help from the nurses via her call light quite frequently. Complaining of some L frontal VALDEZ today. not complaining of diarrhea. - Review of Systems Constitutional: No Fever Respiratory: Cough, Short Of Breath Objective Exam General Appearance: no apparent distress, alert Neurologic Exam: cooperative, disoriented (Just thinks it is May,. Oriented to place.), other (has a stuffed dog on her lap.) Skin Exam: normal color, warm, dry, No rash Ears, Nose, Throat Exam: moist mucous membranes, other (NC partially in place in her nares) Neck Exam: normal inspection Respiratory Exam: diminished breath sounds (fair air exchange), wheezing (faint scattered), No crackles/rales, No rhonchi Cardiovascular Exam: regular rate/rhythm, normal heart sounds, No murmur Gastrointestinal/Abdomen Exam: soft, normal bowel sounds, No tenderness Extremity Exam: No pedal edema, No swelling Back Exam: normal inspection, No rash OBJECTIVE DATA Vital Signs: Vital Signs - 24 hr Temp Pulse Resp BP Pulse Ox 06/17/18 13:15 68 22 99 06/17/18 12:00 22 06/17/18 11:50 98.2 F 66 22 137/67 99 06/17/18 08:00 20 06/17/18 07:17 97.2 F 71 20 166/68 97 06/17/18 06:40 71 22 97 06/17/18 04:40 98.5 F 63 22 182/74 88 L 06/17/18 04:00 97.7 F 88 20 140/93 94 L 06/17/18 01:00 50 L 30 H 88 L 06/17/18 00:06 98.4 F 66 22 163/74 93 L 06/16/18 19:38 98.2 F 59 L 22 141/76 92 L 06/16/18 19:37 58 L 34 H 90 L 06/16/18 18:39 58 L 18 144/78 06/16/18 16:15 98 F 68 20 178/80 94 L 06/16/18 16:00 20 Oxygen-Last 24 hours O2 Percentage 5 Liters = 40% O2 Percentage 3 Liters = 32% O2 Percentage 3 Liters = 32% O2 Percentage 3 Liters = 32% O2 Percentage 3 Liters = 32% O2 Percentage 4 Liters = 36% Oxygen Flowrate (L/min)-RT 3 Pain Assessment - Last Documented Pain Intensity 7 Pain Scale Used 0-10 Pain Scale Intake and Output: Intake & Output 06/15/18 06/16/18 06/17/18 06/18/18 11:59 11:59 11:59 11:59 Intake Total 400 520 760 Output Total 200 Balance 200 520 760 Weight 80.8 kg 80 kg 79.2 kg Lab Results: Accuchecks Date 06/17/18 Date 06/17/18 Date 06/16/18 Time 11:30 Time 07:30 Time 16:30 Accucheck Value: 200 Accucheck Value: 136 Accucheck Value: 166 Accucheck Value: 173 Lab Results-Last 24 Hours 06/17/18 06/17/18 06/17/18 Range/Units 05:08 05:08 05:08 WBC 18.6 H (4.0-10.5) K/mm3 RBC 3.96 L (4.1-5.4) M/mm3 Hgb 9.4 L (12.0-16.0) gm/dl Hct 32.1 L (35-47) % MCV 81.1 (78-100) fl MCH 23.7 L (26-32) pg MCHC 29.3 L (32-36) g/dl RDW 15.7 H (11.5-14.0) % Plt Count 273 (150-450) K/mm3 MPV 10.7 H (6-9.5) fl Sodium 137 (137-145) mmol/L Potassium 4.2 (3.5-5.1) mmol/L Chloride 89 L (98-107) mmol/L Carbon Dioxide 44 H (22-30) mmol/L Anion Gap 8.2 (5-15) MEQ/L BUN 20 H (7-17) mg/dL Creatinine 0.76 (0.52-1.04) mg/dL Estimated GFR > 60.0 ML/MIN Glucose 136 H (74-106) mg/dL Calcium 8.6 (8.4-10.2) mg/dL Theophylline 9.4 L (10-20) ug/mL Assessment/Plan (1) Acute exacerbation of COPD with asthma Current Visit: Yes Status: Acute Assessment & Plan: Now on theophylline for 48 h IV - will change to po. Try again to decrease her steroids. Code(s): J44.1 - CHRONIC OBSTRUCTIVE PULMONARY DISEASE W (ACUTE) EXACERBATION; J45.901 - UNSPECIFIED ASTHMA WITH (ACUTE) EXACERBATION (2) Pneumonia Current Visit: Yes Status: Acute Onset Date: ~06/11/18 Qualifiers: Pneumonia type: due to unspecified organism Laterality: bilateral Lung location: unspecified part of lung Qualified Code(s): J18.9 - Pneumonia, unspecified organism Assessment & Plan: On IV meropenem, day #6. Stable currently. Code(s): J18.9 - PNEUMONIA, UNSPECIFIED ORGANISM (3) C. difficile colitis Current Visit: Yes Status: Acute Assessment & Plan: On day #4 of vancomycin po. (4) Acute and chronic respiratory failure with hypercapnia Current Visit: Yes Status: Chronic Onset Date: ~06/10/18 Code(s): J96.22 - ACUTE AND CHRONIC RESPIRATORY FAILURE WITH HYPERCAPNIA (5) Acute and chronic respiratory failure with hypoxia Current Visit: Yes Status: Chronic Onset Date: ~06/10/18 Code(s): J96.21 - ACUTE AND CHRONIC RESPIRATORY FAILURE WITH HYPOXIA (6) Anemia Current Visit: Yes Status: Acute Qualifiers: Anemia type: unspecified type Qualified Code(s): D64.9 - Anemia, unspecified Assessment & Plan: Hgb 9.4, stable. Code(s): D64.9 - ANEMIA, UNSPECIFIED (7) Bipolar disorder Current Visit: Yes Status: Chronic Qualifiers: Active/Remission status: currently active Current bipolar episode type: depressed Current episode severity: severe Psychotic features: with psychotic features Qualified Code(s): F31.5 - Bipolar disorder, current episode depressed, severe, with psychotic features Assessment & Plan: No complaints of behavior disturbance overnight. Pt on home dose of risperdal 2mg po TID.
[2018-06-17] MEDS: NovoLOG Insulin SQ PRN ×2 (17:16→23:21)
[2018-06-17] MEDS ORDERED: Phenergan 25 MG INJ ONE (19:42)
[2018-06-17] MEDS: ZOCOR 20MG PO SCH (21:00)
[2018-06-18] MEDS: Merrem 1 GM 1 G in Sodium Chloride 100ML MINI-BAG PLUS 100 ML IV SCH ×2 (00:08→09:21)
[2018-06-18] MEDS: DUONEB 0.5-3 MG/3 ml Neb IH SCH ×3 (01:04→13:09)
[2018-06-18] MEDS: Zofran 4 MG/2 ML VIAL IV PRN (03:38)
[2018-06-18] MEDS: xanAX 0.5 MG PO SCH ×2 (03:44→10:53)
[2018-06-18] MEDS: solu-MEDROL 125 MG IV SCH (05:17)
[2018-06-18] MEDS: TYLENOL 325 MG PO PRN ×2 (05:55→13:41)
[2018-06-18 07:39] VITALS: BP 110/58
[2018-06-18] MEDS: PULMICORT 0.5 MG/2 ML RESPULES IH SCH (07:39)
[2018-06-18] MEDS: Risperdal 1 MG PO SCH ×2 (09:21→15:14)
[2018-06-18] MEDS: Mucinex 600MG ER Tabs PO SCH (09:21)
[2018-06-18] MEDS: ENOXAPARIN SODIUM SQ SCH (09:21)
[2018-06-18] MEDS: Keppra 250 MG PO SCH (09:21)
[2018-06-18] MEDS: KEPPRA 500 MG PO SCH (09:22)
[2018-06-18] MEDS: Cymbalta 30 MG Capsule PO SCH (09:22)
[2018-06-18] MEDS: Zestril 20 MG PO SCH (09:22)
[2018-06-18] MEDS: CLARITIN 10 MG PO SCH (09:23)
[2018-06-18] MEDS: Lopressor 50 MG PO SCH (09:23)
[2018-06-18] MEDS: Catapres 0.1 MG PO SCH ×2 (09:23→15:28)
[2018-06-18] MEDS: Protonix 40MG Tablet PO SCH (09:23)
[2018-06-18] MEDS: Singulair 10 MG PO SCH (09:23)
[2018-06-18] MEDS: VANCOMYCIN 25MG/ML ORAL SOLUTION COMPOUND KIT PO SCH ×2 (09:24→12:13)
[2018-06-18] MEDS ORDERED: DELTASONE 20 MG PO SCH (10:00)
[2018-06-18] MEDS: THEOPHYLLINE ER 24HR PO SCH (10:53)
[2018-06-18] MEDS: NovoLOG Insulin SQ PRN (12:16)
[2018-06-18 13:14] VITALS: PULSE 82; O2SAT 98
--- NOTE | 2018-06-18 14:04 | PCM.DS ---
Discharge Summary Date of Admission: 06/10/18 18:30 Date of Discharge: 06/18/2018 Admitting Physician: NIKIA CHASE Consults: Consults on Case 06/10/18 18:43 Consult Pulmonology ROUTINE Primary Care Provider: LOIS NICK Allergies Allergies tramadol HCl [From Ultram] Allergy (Mild, Verified 06/10/18 14:07) Rash ciprofloxacin [From Cipro] Allergy (Verified 06/10/18 14:07) Rash ciprofloxacin HCl [From Cipro] Allergy (Verified 06/10/18 14:07) Rash penicillin V [Penicillin V] Allergy (Verified 06/10/18 14:07) Rash Hospital Summary - Hospital Course Hospital Course: she presented from [facility] with acute respiratory failrue and hypercapnea secondary to pneumonia with copd exacerbation she was initially on bipap and seen by pulmonology in the ER. She improved the gas slowly on the bipap and tolerated nc. howver on 12/05 became more confused and difficult to arouse and co2 was up again requiring transfer back to icu and continued bipap. she was improved with this on her cognition and avoided intubation. Her antibiotics at this time were changed to meropenem and azithromycin from ceftriaxone and azitrhomycin. The final cultures eventually came back with group b strep. Her cxr showed clearing of the pneumonia. she was given bumex with good results on diuresis but caused contraction metabolic alkalosis that worsened her respiratory acidosis and her loop diuretics were held at discharge. She had very slow improvement and had some worening abain on trial to wean to po steroids on 06/15 and required restarting iv steroids and was on 125 mg of solumedrol every 6 hours on 06/15 and 06/[address] Brock and she was also started on po theophyllin. the iv steroids were weaned on 06/[address] Campos and by 06/18 she was feeling much better she stated was breathing easier and tolerating po well. She did wear the bipap the night prior and was tolerating this. she was initally kept on all her home meds but after the difficulty arousing on 06/04 her tizanadine and trazodone that were already held we also held the gabapentin and decreased the risperidal to 1mg tid from 2mg tid. She as much more alert however then she did not sleep at all the night of 06/05 and was hallucinating and delusional with repatitive rapid speech and asking to speak with her mommy as well. Her risperidal was incrased to 2mg tid again non 06/06 and these symptoms slowly resolved and she was back at her baseline mental status on 06/18. on 06/14 she developed diarrhea that was positive for c. diff on 06/17 she had 2 stools that were loose and none as of time of discharge on 06/18. She was on vancomycin po for this. She will be placed on a prolonged steroid taper addition of singulair for her breathing. will add hctz for her htn at discharge stop the tizanidine, trazodone and gabapentin. continue the po vancomycin for the c. diff. - Vitals & Intake/Output Vital Signs: Vital Signs Temperature 97.7 F 06/18/18 12:19 Pulse Rate 82 06/18/18 13:09 Respiratory Rate 20 06/18/18 13:09 Blood Pressure 110/58 06/18/18 07:38 O2 Sat by Pulse Oximetry 98 06/18/18 13:09 Oxygen-Last Documented O2 Percentage 2 Liters = 28% Intake & Output: Intake & Output 06/16/18 06/17/18 06/18/18 06/19/18 11:59 11:59 11:59 11:59 Intake Total 520 760 790 Balance 520 760 790 Weight 80 kg 79.2 kg 80.3 kg - Lab Result Diagrams: 06/17/18 05:08 06/17/18 05:08 Lab Results-Last 24 Hrs: Accuchecks Date 06/18/18 Date 06/17/18 Time 16:30 Accucheck Value: 340 Accucheck Value: 180 Accucheck Value: 260 Accucheck Value: 202 Lab Results-Last 24 Hours 06/18/18 Range/Units 06:05 Theophylline 4.2 L (10-20) ug/mL Micro Results-Entire Visit: Microbiology 06/10/18 15:12 Blood Culture Gram Stain - Final Blood Not Reportable Blood Culture - Final NO GROWTH 06/10/18 15:00 Blood Culture Gram Stain - Final Blood Not Reportable Blood Culture - Final NO GROWTH 06/11/18 11:26 Gram Stain - Final Sputum - Expectorant Sputum Culture - Final Streptococcus Agalactiae Accuchecks Date 06/18/18 Date 06/17/18 Time 16:30 Accucheck Value: 340 Accucheck Value: 180 Accucheck Value: 260 Accucheck Value: 202 - Procedures and Test Procedures and Tests throughout Hospitalization: Therapy Orders & Screens 06/10/18 13:56 Respiratory Nebulizer STAT Comment: Diagnosis: Shortness of Breath 06/10/18 14:17 Respiratory Therapy Assessment DAILY Comment: Diagnosis: Shortness of Breath 06/10/18 15:30 BiPap/CPAP STAT Comment: Diagnosis: Shortness of Breath 06/10/18 18:43 Oxygen VENTI-MASK 40% Comment: Diagnosis: Shortness of Breath Respiratory Therapy Consult ROUTINE Comment: Reason For Exam: Diagnosis: Shortness of Breath 06/10/18 19:00 Respiratory Nebulizer UD Comment: duonebs every 6 hours and prn Diagnosis: Shortness of Breath 06/10/18 20:53 OT Screen per Nursing Assess Comment: Protocol Order Physician Instructions: Greater than 3 points order OT Admission Screening Reason For Exam: Triggered on Admission Diagnosis: Shortness of Breath, Respiratory Distress Open Wound/Cellutlitis/Pressure Ulcers: No Acute Fx/ORIF/Change in wt bearing status: No Severe MUSCULOSKELETAL pain: No ADL Dysfunction: Yes Acute CVA w/Hemiparesis/Hemiplegia: No Decreased Functional Mobility/Strength: Yes Sprain/Strain: No Acute Post-op Mobility Dysfunction: No Total Points: 4 PT Screen per Nursing Assess Comment: Protocol Order Physician Instructions: Greater than 3 points order PT Admission Screenin Reason For Exam: Triggered on Admission Diagnosis: Shortness of Breath, Respiratory Distress Open Wound/Cellutlitis/Pressure Ulcers: No Acute Fx/ORIF/Change in wt bearing status: No Severe MUSCULOSKELETAL pain: No ADL Dysfunction: Yes Acute CVA w/Hemiparesis/Hemiplegia: No Decreased Functional Mobility/Strength: Yes Sprain/Strain: No Acute Post-op Mobility Dysfunction: No Total Points: 4 RT Screen per Nursing Assess Comment: Protocol Order Physician Instructions: Greater than 3 points order RT Admission Screen Reason For Exam: Triggered on Admission Diagnosis: Shortness of Breath, Respiratory Distress Diagnosis: Shortness of Breath, Respiratory Distress Pneumonia: No Home O2: Yes Asthma: Yes CHF: No Home CPAP/BIPAP: No Home Nebs/MDI: Yes Total Points: 14 06/11/18 06:48 Oxygen NASAL CANNULA 5 lpm Comment: Diagnosis: Shortness of Breath, Respiratory Distress 06/11/18 07:00 Respiratory Nebulizer BID Comment: PULMICORT BID Diagnosis: Shortness of Breath, Respiratory Distress 06/12/18 11:27 EKG ONCE Comment: Diagnosis: Shortness of Breath, Respiratory Distress 06/16/18 09:12 FLUTTER [Flutter Therapy] UD Comment: give with respiratory treatments Diagnosis: Shortness of Breath, Respiratory Distress Discharge Exam General Appearance: no apparent distress, alert, obese Neurologic Exam: alert, oriented x 3, cooperative, normal mood/affect, nml cerebellar function, sensation nml, No motor deficits Skin Exam: normal color, warm, dry Eye Exam: PERRL, EOMI, eyes nml inspection Ears, Nose, Throat Exam: normal ENT inspection, pharynx normal, moist mucous membranes Neck Exam: normal inspection, non-tender, supple, full range of motion Respiratory Exam: prolonged expirations (still has some difficulty with air trapping there are annamarie mild rhonchi and minimal basilar rales no wheezing), rhonchi Cardiovascular Exam: regular rate/rhythm, normal heart sounds Gastrointestinal/Abdomen Exam: soft, No tenderness, No distention, No mass Extremity Exam: normal inspection, normal range of motion Back Exam: normal inspection, normal range of motion, No CVA tenderness, No vertebral tenderness Pelvic Exam: deferred Rectal Exam: deferred Final Diagnosis/Problem List - Final Discharge Diagnosis/Problem (1) Acute exacerbation of COPD with asthma Status: Acute (2) Acute and chronic respiratory failure with hypercapnia Status: Chronic Onset Date: ~06/10/18 (3) Acute and chronic respiratory failure with hypoxia Status: Chronic Onset Date: ~06/10/18 (4) Pneumonia Status: Acute Onset Date: ~06/11/18 (5) Bipolar disorder Status: Chronic (6) Anemia Status: Acute - Discharge Discharge Date: 06/18/18 Disposition: DC TO [facility] Condition: Fair Prescriptions: New Prednisone 20 mg [Deltasone 20 mg] 40 mg PO UD #30 tablet Hydrochlorothiazide 25 mg [hydroDIURIL 25 MG] 25 mg PO DAILY #30 tablet Guaifenesin 600 mg ER [Mucinex 600MG ER Tabs] 600 mg PO BID 7 Days tablet Albuterol 2.5 mg/3 ml Neb [Proventil 2.5 mg/3 ml Neb] 2.5 mg IH Q2H PRN PRN neb PRN Reason: Shortness Of Breath/Wheezing Acetaminophen 325 mg [Tylenol 325 mg] 650 mg PO Q4H PRN PRN tablet PRN Reason: Pain And/Or Fever Vancomycin HCl [Vancomycin 25Mg/ml Oral Solution Compound Kit] 10 ml PO QID 10 Days bottle Montelukast Sodium 10 mg [Singulair 10 MG] 10 mg PO DAILY #30 tablet Continue Lisinopril [Zestril] 20 mg PO QAM Levetiracetam [Keppra] 750 mg PO BID Duloxetine HCl [Cymbalta] 60 mg PO QAM Potassium Chloride 10 Meq Tab* [Klor Con 10 MEQ] 10 meq PO TID Alendronate Sodium 70 mg [Fosamax 70 MG] 70 mg PO WEEKLY risperiDONE [Risperdal] 2 mg PO TID Celecoxib [Celebrex] 200 mg PO DAILY Folic Acid 1 mg PO DAILY PANTOPRAZOLE 40 mg Tablet [Protonix 40MG Tablet] 40 mg PO DAILY Budesonide [Pulmicort Flexhaler] 180 mcg IH BID Atorvastatin Calcium 40 mg PO HS Metoprolol Tartrate 100 mg PO BID Arformoterol Tartrate [Brovana] 1 vial IH BID Budesonide 0.5 mg/2 ml [Pulmicort 0.5 mg/2 ml Respules] 1 vial IH BID Changed Albuterol/Ipratropium 3ml Neb* [DUONEB 0.5-3 MG/3 ml Neb] 3 ml IH QID #0 Alprazolam 0.25 mg [xanAX 0.25 MG] 0.25 mg PO TID #90 tablet Discontinued Tizanidine HCl 4 mg [Zanaflex 4 MG] 4 mg PO HS Trazodone HCl 150 mg PO HS Gabapentin 300 mg PO QAM Gabapentin 600 mg PO QPM Prednisone 20 mg [Deltasone 20 mg] 10 mg PO DAILY Forms: Discharge Instructions, Transfer Record Alf
== END 2018-06-18 15:25 | DRG 190 ==
LOC: ED 13:53 → ICU 18:30 → MED SURG 06-11 12:08 → ICU 06-12 06:18 → MED SURG 06-14 07:23
PROVIDERS: ADMIT Internal Medicine; ATTEND Family Medicine
DX: J44.1 Chronic obstructive pulmonary disease with (acute) exacerbation (principal); J96.22 Acute and chronic respiratory failure with hypercapnia; J96.21 Acute and chronic respiratory failure with hypoxia; J18.9 Pneumonia, unspecified organism; J45.901 Unspecified asthma with (acute) exacerbation; F31.5 Bipolar disorder, current episode depressed, severe, with psychotic features; A04.72 Enterocolitis due to Clostridium difficile, not specified as recurrent; F31.9 Bipolar disorder, unspecified; D64.9 Anemia, unspecified; R06.03 Acute respiratory distress; R41.0 Disorientation, unspecified; F41.9 Anxiety disorder, unspecified; M17.9 Osteoarthritis of knee, unspecified; M62.81 Muscle weakness (generalized); F32.9 Major depressive disorder, single episode, unspecified; I10 Essential (primary) hypertension; M81.0 Age-related osteoporosis without current pathological fracture; Z86.73 Personal history of transient ischemic attack (TIA), and cerebral infarction without residual deficits; Z79.899 Other long term (current) drug therapy; E87.6 Hypokalemia; F03.90 Unspecified dementia, unspecified severity, without behavioral disturbance, psychotic disturbance, mood disturbance, and anxiety; G40.909 Epilepsy, unspecified, not intractable, without status epilepticus; J45.909 Unspecified asthma, uncomplicated; J44.9 Chronic obstructive pulmonary disease, unspecified; E03.9 Hypothyroidism, unspecified; M19.90 Unspecified osteoarthritis, unspecified site; M79.7 Fibromyalgia; F41.8 Other specified anxiety disorders; Z85.41 Personal history of malignant neoplasm of cervix uteri; R01.1 Cardiac murmur, unspecified; Z72.0 Tobacco use
CPT/HCPCS: 36000; 36415; 36600; 51702; 70450; 71045; 71260; 80048; 80053; 80198; 81002; 82375; 82803; 82962; 83036; 83605; 83880; 84484; 85025; 85027; 85379; 87040; 87070; 87077; 87186; 87493; 93005; 93041; 93306; 93970; 94002; 94003; 94150; 94640; 94760; 94770; 96374; 99285; J7609; 94250; J0456; J0696; J1650; J1940; J2405; J2550; J2920; J2930; A9270-GY

== ENCOUNTER 2018-07-09 02:24 | Emergency (ER) | payer MEDICARE ==
--- NOTE | 2018-07-09 02:59 | ERPHSYRPT ---
- History of Present Illness Time Seen by Provider: 07/09/18 02:54 Source: patient, shelter records Exam Limitations: clinical condition Patient Subjective Stated Complaint: Pt arrives to ER via EMS from [facility] for c/o generalized body aches since yesterday morning. Pt also c/o cough and SOB. recently admitted for Pneumonia and c. Diff. Pt also c/o generalized weakness bilaterally. Triage Nursing Assessment: Pt A&Ox4 and constantly moaning in pain. pt cough is a loose congested non-productive cough. pt denies fever but feels warm and has 99.3F oral temp. During assessment, pt stopped moaning for a period of time. This RN assessed pain during this time, pt states she is still in pain and resumes moaning. Physician History: The patient is a 63-year-old female from a local shelter by ambulance complaining of generalized body aches since yesterday morning, cough, and shortness of breath. She was recently admitted for pneumonia and C. difficile infection. The patient states that she has pain everywhere including, head, arms, legs, chest, and abdomen. Her past medical history significant for pneumonia, COPD exacerbation, hyper both thyroidism, seizure disorder, hypertension, anxiety, fibromyalgia, diverticulitis, depression, dementia, cervical cancer, appendectomy, and cholecystectomy. Timing/Duration: yesterday Severity: moderate Associated Symptoms: cough, fever, headaches, malaise, weakness Allergies/Adverse Reactions: tramadol HCl [From Ultram] Allergy (Mild, Verified 06/10/18 14:07) Rash azithromycin Allergy (Verified 07/09/18 03:59) ciprofloxacin [From Cipro] Allergy (Verified 06/10/18 14:07) Rash ciprofloxacin HCl [From Cipro] Allergy (Verified 06/10/18 14:07) Rash metronidazole Allergy (Verified 07/09/18 03:59) penicillin V [Penicillin V] Allergy (Verified 06/10/18 14:07) Rash Quinolones Allergy (Verified 07/09/18 03:59) Sulfa (Sulfonamide Antibiotics) Allergy (Verified 07/09/18 03:59) sulfisoxazole Allergy (Verified 07/09/18 03:59) tramadol Allergy (Verified 07/09/18 03:59) Home Medications: Alendronate Sodium 70 mg [Fosamax 70 MG] 70 mg PO WEEKLY 12/19/15 [History ] Levetiracetam [Keppra] 750 mg PO BID 12/19/15 [History] Lisinopril [Zestril] 20 mg PO QAM 12/19/15 [History] Potassium Chloride 10 Meq Tab* [Klor Con 10 MEQ] 10 meq PO TID 12/19/15 [ History] Celecoxib [Celebrex] 200 mg PO DAILY 02/11/18 [History] Folic Acid 1 mg PO DAILY 02/26/18 [History] Atorvastatin Calcium 40 mg PO HS 05/15/18 [History] Metoprolol Tartrate 100 mg PO BID 05/15/18 [History] PANTOPRAZOLE 40 mg Tablet [Protonix 40MG Tablet] 40 mg PO DAILY 05/15/18 [ History] Arformoterol Tartrate [Brovana] 1 vial IH BID 06/10/18 [History] Budesonide 0.5 mg/2 ml [Pulmicort 0.5 mg/2 ml Respules] 1 vial IH BID [History] Gabapentin 300 mg PO 07/09/18 [History] Gabapentin 600 mg PO 07/09/18 [History] Nystatin 60 ml [Nystatin SUSPENSION 60 ML] 60 ml PO 07/09/18 [History] Nystatin Powder 15 gm [Nystop Powder 15 gm] 30 gm TP 07/09/18 [History] Hx Tetanus, Diphtheria Vaccination/Date Given: Yes Hx Influenza Vaccination/Date Given: Yes Hx Pneumococcal Vaccination/Date Given: Yes - Review of Systems Constitutional: Fever, Chills, Weakness Eyes: No Symptoms Ears, Nose, & Throat: No Symptoms Respiratory: Cough, Dyspnea Cardiac: Chest Pain Abdominal/Gastrointestinal: Abdominal Pain Genitourinary Symptoms: No Dysuria Musculoskeletal: Arthralgias Skin: No Rash Neurological: No Dizziness, No Focal Weakness, No Sensory Changes Psychological: No Symptoms Endocrine: No Symptoms Hematologic/Lymphatic: No Symptoms Immunological/Allergic: No Symptoms All Other Systems: Reviewed and Negative - Past Medical History Pertinent Past Medical History: Yes Neurological History: Dementia, Seizures ENT History: Cataracts Cardiac History: Other Respiratory History: Asthma, COPD, Pneumonia Endocrine Medical History: Hypothyroidism Musculoskeletal History: Arthritis, Fibromyalgia GI Medical History: Diverticulitis History: No Pertinent History Psycho-Social History: Anxiety, Depression Female Reproductive Disorders: Cervical Cancer Other Medical History: pt states she has a murmur. c. Diff - Past Surgical History Past Surgical History: Yes Neuro Surgical History: No Pertinent History Cardiac: No Pertinent History Respiratory: No Pertinent History Gastrointestinal: Appendectomy, Cholecystectomy Genitourinary: No Pertinent History Musculoskeletal: Orthopedic Surgery Female Surgical History: Hysterectomy Other Surgical History: LEFT x 4, RIGHT x 1 HIP SURGERY - Social History Smoking Status: Former smoker How long have you smoked: 40 Exposure to second hand smoke: No Drug Use: none Patient Lives Alone: No - Female History Hx Now: No - Nursing Vital Signs Nursing Vital Signs: Initial Vital Signs Temperature 99.3 F 07/09/18 02:27 Pulse Rate 80 07/09/18 02:27 Respiratory Rate 22 07/09/18 02:27 Blood Pressure 191/88 07/09/18 02:27 O2 Sat by Pulse Oximetry 97 07/09/18 02:27 Pain Scale Pain Intensity 6 - Physical Exam General Appearance: no apparent distress, alert Eye Exam: PERRL/EOMI, eyes nml inspection Ears, Nose, Throat Exam: normal ENT inspection, TMs normal, pharynx normal, moist mucous membranes Neck Exam: normal inspection, non-tender, supple, full range of motion Respiratory Exam: rhonchi, No respiratory distress Cardiovascular Exam: regular rate/rhythm, normal heart sounds, normal peripheral pulses Gastrointestinal/Abdomen Exam: soft, normal bowel sounds, No tenderness, No mass Pelvic Exam: not done Rectal Exam: not done Back Exam: normal inspection, normal range of motion, No CVA tenderness, No vertebral tenderness Extremity Exam: normal inspection, normal range of motion, pelvis stable Neurologic Exam: alert, oriented x 3, other (pt is leaning to right in bed that is chronic, skin to right neck is red and oily c/w long-term skin to skin contact.) Skin Exam: normal color, warm, dry, No rash Lymphatic Exam: No adenopathy SpO2: 97 Oxygen Delivery: Room Air - Course EKG Interpreted by Me: RATE, Sinus Rhythm, NORMAL AXIS, NORMAL INTERVALS, NORMAL QRS, NORMAL ST-T - CT Exams Chest CT Interpretation: Tele-radiologist Report (per Dr Barros), No PE Ordered Tests: Active Orders 24 hr Category Date Time Status Director Of Product Marketing STAT Care 07/09/18 03:03 Active Cath for Specimen-Straight STAT Care 07/09/18 03:03 Active EKG-ER Only STAT Care 07/09/18 03:28 Active IV Insertion STAT Care 07/09/18 03:02 Active IV Insertion-2nd Peripheral STAT Care 07/09/18 05:01 Active Oxygen-ED Only NASAL CANNULA 2 lpm Care 07/09/18 03:02 Active Pulse Oximetry (ED) STAT Care 07/09/18 03:02 Active Rectal Temperature STAT Care 07/09/18 03:02 Active CHEST 1 VIEW (PORTABLE) Stat Exams 07/09/18 03:03 Taken CHEST WITH CONTRAST [CT] Stat Exams 07/09/18 04:01 Taken BLOOD CULTURE Stat Lab 07/09/18 03:30 Received CBC W DIFF Stat Lab 07/09/18 02:50 Completed CMP Stat Lab 07/09/18 02:50 Completed CULTURE,URINE Stat Lab 07/09/18 03:30 Received D-DIMER QUANTITATION Stat Lab 07/09/18 02:50 Completed Lactic Acid Stat Lab 07/09/18 03:50 Completed Manual Differential NC Stat Lab 07/09/18 02:50 Completed NT PRO BNP Stat Lab 07/09/18 02:50 Completed TROPONIN Q3H Lab 07/09/18 02:50 Completed TROPONIN Q3H Lab 07/09/18 06:00 Received TROPONIN Q3H Lab 07/09/18 09:15 Ordered TROPONIN Q3H Lab 07/09/18 12:15 Ordered TROPONIN Q3H Lab 07/09/18 15:15 Ordered UA W/ MICROSCOPIC Stat Lab 07/09/18 03:30 Completed Medication Summary Discontinued Medications Generic Name Dose Route Start Last Admin Trade Name Freq PRN Reason Stop Dose Admin Acetaminophen 650 mg 07/09/18 03:28 07/09/18 03:33 Feverall 650 Mg W[place] 07/09/18 03:29 Not Given STAT STA Acetaminophen 975 mg 07/09/18 03:29 07/09/18 03:38 Tylenol 325 Mg PO 07/09/18 03:30 975 mg STAT ONE Administration Acetaminophen Confirm 07/09/18 03:34 Tylenol 325 Mg Administered 07/09/18 03:35 Dose 975 mg .ROUTE .STK-MED ONE Sodium Chloride 1,000 mls @ 999 mls/hr 07/09/18 03:02 07/09/18 04:43 Sodium Chloride 0.9% 1000 Ml IV 07/09/18 04:02 Infused .Q1H1M STA Infusion Sodium Chloride Confirm 07/09/18 03:22 Sodium Chloride 0.9% 1000 Ml Administered 07/09/18 03:23 Dose 1,000 mls @ ud .ROUTE .STK-MED ONE Potassium Chloride 10 meq 07/09/18 04:01 07/09/18 04:08 Klor Con 10 Meq PO 07/09/18 04:02 10 meq STAT ONE Administration Potassium Chloride Confirm 07/09/18 04:06 Klor Con 10 Meq Administered 07/09/18 04:07 Dose 10 meq PO .STK-MED ONE Lab/Rad Data: Laboratory Result Diagrams 07/09/18 02:50 07/09/18 02:50 Laboratory Results 07/09/18 07/09/18 07/09/18 Range/Units 03:50 03:30 03:30 WBC (4.0-10.5) K/mm3 RBC (4.1-5.4) M/mm3 Hgb (12.0-16.0) gm/dl Hct (35-47) % MCV (78-100) fl MCH (26-32) pg MCHC (32-36) g/dl RDW (11.5-14.0) % Plt Count (150-450) K/mm3 MPV (6-9.5) fl Absolute Granulocytes (1.4-6.9) Segmented Neutrophils (36.0-66.0) % Lymphocytes (Manual) (24-44) % Monocytes (Manual) (0.0-12.0) % Eosinophils (Manual) (0.00-3.0) % Platelet Estimate (NORMAL) RBC Morphology Anisocytosis D-Dimer (215-500) ng/mL Sodium (137-145) mmol/L Potassium (3.5-5.1) mmol/L Chloride (98-107) mmol/L Carbon Dioxide (22-30) mmol/L Anion Gap (5-15) MEQ/L BUN (7-17) mg/dL Creatinine (0.52-1.04) mg/dL Estimated GFR ML/MIN Glucose (74-106) mg/dL Lactic Acid 1.6 (0.4-2.0) Calcium (8.4-10.2) mg/dL Total Bilirubin (0.2-1.3) mg/dL AST (14-36) U/L ALT (0-35) U/L Alkaline Phosphatase (38-126) U/L Troponin I (0.000-0.034) ng/mL NT-Pro-B Natriuret Pep (0-900) pg/mL Serum Total Protein (6.3-8.2) g/dL Albumin (3.5-5.0) g/dL Ur Collection Type CATH Urine Color YELLOW (YELLOW) Urine Appearance CLEAR (CLEAR) Urine pH 7.0 (5-6) Ur Specific [place] 1.010 (1.005-1.025) Urine Protein TRACE (Negative) Urine Ketones NEGATIVE (NEGATIVE) Urine Blood TRACE NON-HEM (0-5) Velasquez/ul Urine Nitrite NEGATIVE (NEGATIVE) Urine Bilirubin NEGATIVE (NEGATIVE) Urine Urobilinogen NORMAL (0-1) mg/dL Ur Leukocyte Esterase TRACE (NEGATIVE) Urine Microscopic RBC 2-5 (0-2) /HPF Urine Microscopic WBC 2-5 (0-5) /HPF Ur Epithelial Cells FEW (FEW) /HPF Urine Bacteria RARE (NEGATIVE) /HPF Urine Culture Reflexed YES (NO) Urine Glucose NEGATIVE (NEGATIVE) mg/dL Influenza Type A Ag NEGATIVE (NEGATIVE) Influenza Type B Ag NEGATIVE (NEGATIVE) RSV (PCR) NEGATIVE (Negative) 07/09/18 07/09/18 07/09/18 Range/Units 02:50 02:50 02:50 WBC (4.0-10.5) K/mm3 RBC (4.1-5.4) M/mm3 Hgb (12.0-16.0) gm/dl Hct (35-47) % MCV (78-100) fl MCH (26-32) pg MCHC (32-36) g/dl RDW (11.5-14.0) % Plt Count (150-450) K/mm3 MPV (6-9.5) fl Absolute Granulocytes (1.4-6.9) Segmented Neutrophils (36.0-66.0) % Lymphocytes (Manual) (24-44) % Monocytes (Manual) (0.0-12.0) % Eosinophils (Manual) (0.00-3.0) % Platelet Estimate (NORMAL) RBC Morphology Anisocytosis D-Dimer 595 H* (215-500) ng/mL Sodium 108 L* (137-145) mmol/L Potassium 3.3 L (3.5-5.1) mmol/L Chloride 67 L (98-107) mmol/L Carbon Dioxide 29 (22-30) mmol/L Anion Gap 15.7 H (5-15) MEQ/L BUN 8 (7-17) mg/dL Creatinine 0.51 L (0.52-1.04) mg/dL Estimated GFR > 60.0 ML/MIN Glucose 119 H (74-106) mg/dL Lactic Acid (0.4-2.0) Calcium 8.4 (8.4-10.2) mg/dL Total Bilirubin 1.10 (0.2-1.3) mg/dL AST 20 (14-36) U/L ALT 18 (0-35) U/L Alkaline Phosphatase 110 (38-126) U/L Troponin I 0.015 (0.000-0.034) ng/mL NT-Pro-B Natriuret Pep 3040 H (0-900) pg/mL Serum Total Protein 6.7 (6.3-8.2) g/dL Albumin 3.8 (3.5-5.0) g/dL Ur Collection Type Urine Color (YELLOW) Urine Appearance (CLEAR) Urine pH (5-6) Ur Specific [place] (1.005-1.025) Urine Protein (Negative) Urine Ketones (NEGATIVE) Urine Blood (0-5) Velasquez/ul Urine Nitrite (NEGATIVE) Urine Bilirubin (NEGATIVE) Urine Urobilinogen (0-1) mg/dL Ur Leukocyte Esterase (NEGATIVE) Urine Microscopic RBC (0-2) /HPF Urine Microscopic WBC (0-5) /HPF Ur Epithelial Cells (FEW) /HPF Urine Bacteria (NEGATIVE) /HPF Urine Culture Reflexed (NO) Urine Glucose (NEGATIVE) mg/dL Influenza Type A Ag (NEGATIVE) Influenza Type B Ag (NEGATIVE) RSV (PCR) (Negative) 07/09/18 Range/Units 02:50 WBC 14.3 H (4.0-10.5) K/mm3 RBC 4.44 (4.1-5.4) M/mm3 Hgb 11.2 L (12.0-16.0) gm/dl Hct 30.9 L (35-47) % MCV 69.6 L (78-100) fl MCH 25.2 L (26-32) pg MCHC 36.2 H (32-36) g/dl RDW 18.1 H (11.5-14.0) % Plt Count 260 (150-450) K/mm3 MPV 9.5 (6-9.5) fl Absolute Granulocytes 10.21 H (1.4-6.9) Segmented Neutrophils 77 H (36.0-66.0) % Lymphocytes (Manual) 16 L (24-44) % Monocytes (Manual) 6 (0.0-12.0) % Eosinophils (Manual) 1 (0.00-3.0) % Platelet Estimate NORMAL (NORMAL) RBC Morphology ABNORMAL Anisocytosis 1+ D-Dimer (215-500) ng/mL Sodium (137-145) mmol/L Potassium (3.5-5.1) mmol/L Chloride (98-107) mmol/L Carbon Dioxide (22-30) mmol/L Anion Gap (5-15) MEQ/L BUN (7-17) mg/dL Creatinine (0.52-1.04) mg/dL Estimated GFR ML/MIN Glucose (74-106) mg/dL Lactic Acid (0.4-2.0) Calcium (8.4-10.2) mg/dL Total Bilirubin (0.2-1.3) mg/dL AST (14-36) U/L ALT (0-35) U/L Alkaline Phosphatase (38-126) U/L Troponin I (0.000-0.034) ng/mL NT-Pro-B Natriuret Pep (0-900) pg/mL Serum Total Protein (6.3-8.2) g/dL Albumin (3.5-5.0) g/dL Ur Collection Type Urine Color (YELLOW) Urine Appearance (CLEAR) Urine pH (5-6) Ur Specific [place] (1.005-1.025) Urine Protein (Negative) Urine Ketones (NEGATIVE) Urine Blood (0-5) Velasquez/ul Urine Nitrite (NEGATIVE) Urine Bilirubin (NEGATIVE) Urine Urobilinogen (0-1) mg/dL Ur Leukocyte Esterase (NEGATIVE) Urine Microscopic RBC (0-2) /HPF Urine Microscopic WBC (0-5) /HPF Ur Epithelial Cells (FEW) /HPF Urine Bacteria (NEGATIVE) /HPF Urine Culture Reflexed (NO) Urine Glucose (NEGATIVE) mg/dL Influenza Type A Ag (NEGATIVE) Influenza Type B Ag (NEGATIVE) RSV (PCR) (Negative) - Progress Discussed with : Kevin Will see patient in: hospital (full admit) Counseled pt/family regarding: lab results, diagnosis, rad results - Departure Time of Disposition: 06:34 Departure Disposition: In-patient Admission (per Dr James Nick) Clinical Impression: Hyponatremia, Hypokalemia Condition: Fair Critical Care Time: No Referrals: LOIS NICK [Primary Care Provider] -
[2018-07-09] MEDS ORDERED: Sodium Chloride 0.9% 1000 ML 1,000 ML IV STA (03:02)
[2018-07-09 03:18] LABS: Granulocyte Absolute (ANC) 10.21 (1.4-6.9); Hematocrit 30.9 % (35-47); Hemoglobin 11.2 gm/dl (12.0-16.0); Mean Cell Volume 69.6 fl (78-100); Mean Corpuscular Hemoglobin 25.2 pg (26-32); Mean Corpuscular Hgb Concent. 36.2 g/dl (32-36); Mean Platelet Volume 9.5 fl (6-9.5); Platelet Count 260 K/mm3 (150-450); Red Blood Count 4.44 M/mm3 (4.1-5.4); Red Cell Distribution Width 18.1 % (11.5-14.0); White Blood Count 14.3 K/mm3 (4.0-10.5)
[2018-07-09] MEDS ORDERED: Sodium Chloride 0.9% 1000 ML 1,000 ML ONE (03:22)
[2018-07-09] MEDS ORDERED: FEVERALL 650 MG PR STA (03:28)
[2018-07-09] MEDS ORDERED: TYLENOL 325 MG PO ONE (03:29)
[2018-07-09 03:32] LABS: ALBUMIN 3.8 g/dL (3.5-5.0); ALKALINE PHOSPHATASE 110 U/L (38-126); ANION GAP 15.7 MEQ/L (5-15); BLOOD UREA NITROGEN 8 mg/dL (7-17); CHLORIDE 67 mmol/L (98-107); Calcium 8.4 mg/dL (8.4-10.2); Carbon Dioxide 29 mmol/L (22-30); Creatinine 1 0.51 mg/dL (0.52-1.04); Glucose 119 mg/dL (74-106); NT PRO BNP 3040 pg/mL (0-900); Potassium 3.3 mmol/L (3.5-5.1); SGOT/AST 20 U/L (14-36); SGPT/ALT 18 U/L (0-35); Total Protein 6.7 g/dL (6.3-8.2)
[2018-07-09] MEDS ORDERED: TYLENOL 325 MG ONE (03:34)
[2018-07-09 03:53] LABS: SODIUM 108 mmol/L (137-145)
[2018-07-09] MEDS ORDERED: Klor Con 10 MEQ PO ONE ×2 (04:01→04:06)
[2018-07-09 04:11] LABS: Appearance CLEAR (CLEAR); Bilirubin NEGATIVE (NEGATIVE); Blood TRACE NON-HEM Ery/ul (0-5); Epithelial Cells FEW /HPF (FEW); Glucose NEGATIVE (NEGATIVE); Ketones NEGATIVE (NEGATIVE); Leukocyte Esterase TRACE (NEGATIVE); Nitrite NEGATIVE (NEGATIVE); Protein,Urine Dip TRACE (Negative); Urobilinogen NORMAL mg/dL (0-1)
[2018-07-09 04:12] LABS: Bacteria RARE /HPF (NEGATIVE)
[2018-07-09 04:18] LABS: ANISOCYTOSIS 1+; Eosinophil 1 % (0.00-3.0); Lymphocytes 16 % (24-44); Monocyte 6 % (0.0-12.0); Neutrophils 77 % (36.0-66.0); Platelet Estimate NORMAL (NORMAL); Total Cells Counted 100
[2018-07-09 04:22] LABS: INFLUENZA A NEGATIVE (NEGATIVE); INFLUENZA B NEGATIVE (NEGATIVE); RESPIRATORY SYNCTIAL VIRUS NEGATIVE (Negative)
[2018-07-09] MEDS ORDERED: HYLENEX 150 UNITS INJECTION SQ ONE (08:48)
[2018-07-09 08:53] LABS: ANION GAP 17.2 MEQ/L (5-15); BLOOD UREA NITROGEN 8 mg/dL (7-17); CHLORIDE 73 mmol/L (98-107); Calcium 7.9 mg/dL (8.4-10.2); Carbon Dioxide 25 mmol/L (22-30); Creatinine 1 0.48 mg/dL (0.52-1.04); Glucose 106 mg/dL (74-106); Potassium 3.6 mmol/L (3.5-5.1)
[2018-07-09 08:56] LABS: SODIUM 112 mmol/L (137-145)
[2018-07-09 08:59] VITALS: BP 198/86; PULSE 93; O2SAT 100
--- NOTE | 2018-07-09 09:18 | XRAY ---
Indication: Short of breath, fever, cough, elevated WBC, elevated d-dimer. Multiple contiguous axial images obtained through the chest using 80 cc Isovue 370 contrast and PE protocol. Comparison: June 10, 2018. There is good opacification of the pulmonary arteries to include the lobar and segmental branches. However there is again mild respiration artifact limiting evaluation of the more distal lobar and segmental branches. No central pulmonary embolus. Heart is not enlarged. Aorta is normal in course and caliber. No pathologic mediastinal/hilar lymphadenopathy. Stable small hiatal hernia and 1.5 cm right thyroid hypodense lesion. Lungs are inflated with minimal scattered fibrosis/scarring, bibasilar dependent atelectasis, and tiny left effusion. No suspicious pulmonary mass, infiltrate, or consolidation. Bony thorax intact again with remote T12 compression fracture. Limited upper abdomen including adrenal glands unremarkable. Impression: 1. Again pulmonary embolus evaluation limited by respiration artifact. Again no large central pulmonary embolus. 2. Tiny left effusion. No acute cardiopulmonary abnormalities. 3. Stable small hiatal hernia, right thyroid hypodense lesion, and remote T12 compression fracture. Comment: Preliminary interpretation was made by [facility]. No critical discrepancy. CTDI 25.07
--- NOTE | 2018-07-09 09:18 | XRAY ---
Indication: Fever and cough. Comparison: June 12. Portable chest is now clear. Heart and mediastinal structures within normal limits for AP portable technique. Bony thorax intact again with mild osteopenia, degenerative changes, and remote T12 compression fracture. Impression: Nonacute chest with chronic features.
--- NOTE | 2018-07-09 09:22 | XRAY ---
Indication: Contrast infiltration. Comparison: None One view right humerus demonstrates moderate sized distal subcutaneous IV contrast infiltration with adjacent angiocatheter in situ. No other bony, articular, or soft tissue abnormalities.
== END 2018-07-09 09:01 | disposition short-term general hospital (02) ==
LOC: ED 02:24 → MED SURG 08:04 → UNDOADMIN 08:04 → ED 09:01
DX: E87.1 Hypo-osmolality and hyponatremia (principal); E87.6 Hypokalemia; R06.00 Dyspnea, unspecified; R51 Headache; T80.89XA Other complications following infusion, transfusion and therapeutic injection, initial encounter; Z79.899 Other long term (current) drug therapy; I10 Essential (primary) hypertension
CPT/HCPCS: 36000; 36415; 51702; 71045; 71260; 73060; 80048; 80053; 81001; 83605; 83880; 83935; 84300; 84484; 85025; 85379; 87040; 87086; 87186; 87631; 93005; 93041; 96360; 96372; 99285; P9612; 96374; J3470; A9270-GY

== ENCOUNTER 2018-09-02 09:52 | Inpatient (IN) | payer MEDICARE ==
[2018-09-02] MEDS ORDERED: PROVENTIL 2.5 MG/3 ML NEB IH ONE ×2 (10:10→10:34)
[2018-09-02] MEDS ORDERED: Sodium Chloride 0.9% 1000 ML 1,000 ML IV SCH (10:15)
--- NOTE | 2018-09-02 10:18 | ERPHSYRPT ---
- History of Present Illness Time Seen by Provider: 09/02/18 10:07 Source: patient, detention records Exam Limitations: no limitations Patient Subjective Stated Complaint: pt here for cough and sob for a few days now with a cough, she states she was in hosptial for pneumonia and then to [facility] for rehab last week Triage Nursing Assessment: pt alert, arrived per ambulance, resp easy at rest, wheezes and crackles heard, skin w/d/p/ no edema,has congested sounding cough Physician History: 63-year-old white female with history of dementia, seizures, cataract, asthma, COPD, pneumonia, Patient arrives with complaint of shortness of breath cough, symptoms for several days at the detention. Patient denies fever no nausea no vomiting no chest pain. Patient received a DuoNeb treatment at the detention just prior to transfer. Past medical history includes dementia, seizures, cataracts, asthma, COPD, pneumonia, hypothyroidism, arthritis, fibromyalgia, diverticulitis, anxiety, depression, cervical cancer, C. difficile Past surgical history includes cataracts, appendix, cholecystectomy, hysterectomy, bilateral hip surgery Social history former smoker Timing/Duration: day(s) (2 days) Activities at Onset: none Severity of Dyspnea-Max: moderate Severity of Dyspnea-Current: moderate Possible Cause: occasional episodes (recent admission for pneumonia) Modifying Factors: Improves With: nothing Associated Symptoms: cough, wheezing, productive cough, No anxiety, No chest pain/discomfort, No edema, No fever, No insomnia, No loss of appetite, No lightheadedness, No weakness, No ankle swelling, No chills, No hemoptysis, No calf pain, No dizziness, No heaviness, No heart racing, No lightheadedness, No leg swelling, No muscle spasms feet, No muscle spasms hands, No painful breathing, No sweating International travel in last 2 weeks: No Allergies/Adverse Reactions: tramadol HCl [From Ultram] Allergy (Mild, Verified 09/02/18 10:06) Rash azithromycin Allergy (Verified 09/02/18 10:06) ciprofloxacin [From Cipro] Allergy (Verified 09/02/18 10:06) Rash ciprofloxacin HCl [From Cipro] Allergy (Verified 09/02/18 10:06) Rash metronidazole Allergy (Verified 09/02/18 10:06) penicillin V [Penicillin V] Allergy (Verified 09/02/18 10:06) Rash Quinolones Allergy (Verified 09/02/18 10:06) Sulfa (Sulfonamide Antibiotics) Allergy (Verified 09/02/18 10:06) sulfisoxazole Allergy (Verified 09/02/18 10:06) tramadol Allergy (Verified 09/02/18 10:06) Home Medications: Alendronate Sodium 70 mg [Fosamax 70 MG] 70 mg PO WEEKLY 12/19/15 [History ] Levetiracetam [Keppra] 750 mg PO BID 12/19/15 [History] Lisinopril [Zestril] 20 mg PO QAM 12/19/15 [History] Potassium Chloride 10 Meq Tab* [Klor Con 10 MEQ] 10 meq PO TID 12/19/15 [ History] Folic Acid 1 mg PO DAILY 02/26/18 [History] Atorvastatin Calcium 40 mg PO HS 05/15/18 [History] Metoprolol Tartrate 100 mg PO BID 05/15/18 [History] PANTOPRAZOLE 40 mg Tablet [Protonix 40MG Tablet] 40 mg PO DAILY 05/15/18 [ History] Arformoterol Tartrate [Brovana] 1 vial IH BID 06/10/18 [History] Budesonide 0.5 mg/2 ml [Pulmicort 0.5 mg/2 ml Respules] 1 vial IH BID [History] Gabapentin 300 mg PO DAILY 07/09/18 [History] Gabapentin 600 mg PO BID 07/09/18 [History] Hx Tetanus, Diphtheria Vaccination/Date Given: Yes Hx Influenza Vaccination/Date Given: Yes Hx Pneumococcal Vaccination/Date Given: Yes Immunizations Up to Date: Yes - Review of Systems Constitutional: No Fever, No Chills Eyes: No Symptoms Ears, Nose, & Throat: No Symptoms Respiratory: Cough (moist cough), Dyspnea, Wheezing Cardiac: No Chest Pain, No Edema, No Syncope Abdominal/Gastrointestinal: No Abdominal Pain, No Nausea, No Vomiting, No Diarrhea Genitourinary Symptoms: No Dysuria Musculoskeletal: No Back Pain, No Neck Pain Skin: No Rash Neurological: No Dizziness, No Focal Weakness, No Sensory Changes Psychological: No Symptoms Endocrine: No Symptoms All Other Systems: Reviewed and Negative - Past Medical History Pertinent Past Medical History: Yes Neurological History: Dementia, Seizures ENT History: Cataracts Cardiac History: Other Respiratory History: Asthma, COPD, Pneumonia Endocrine Medical History: Hypothyroidism Musculoskeletal History: Arthritis, Fibromyalgia GI Medical History: Diverticulitis History: No Pertinent History Psycho-Social History: Anxiety, Depression Female Reproductive Disorders: Cervical Cancer Other Medical History: pt states she has a murmur. c. Diff - Past Surgical History Past Surgical History: Yes Neuro Surgical History: No Pertinent History Cardiac: No Pertinent History Respiratory: No Pertinent History Gastrointestinal: Appendectomy, Cholecystectomy Genitourinary: No Pertinent History Musculoskeletal: Orthopedic Surgery Female Surgical History: Hysterectomy Other Surgical History: LEFT x 4, RIGHT x 1 HIP SURGERY - Social History Smoking Status: Former smoker How long have you smoked: 40 Exposure to second hand smoke: No Drug Use: none Patient Lives Alone: No - Female History Hx Last Menstrual Period: post Hx Now: No - Nursing Vital Signs Nursing Vital Signs: Initial Vital Signs Temperature 100.5 F 09/02/18 09:53 Pulse Rate 119 H 09/02/18 09:53 Respiratory Rate 22 09/02/18 09:53 Blood Pressure 137/73 09/02/18 09:53 O2 Sat by Pulse Oximetry 89 L 09/02/18 09:53 Pain Scale Pain Intensity 0 - Physical Exam General Appearance: mild distress, alert Eye Exam: PERRL/EOMI Ears, Nose, Throat Exam: hearing grossly normal Neck Exam: normal inspection, non-tender, supple, full range of motion Respiratory Exam: diminished breath sounds, rhonchi Cardiovascular/Chest Exam: regular rate/rhythm, normal peripheral pulses, tachycardia Abdominal/Gastrointestinal Exam: soft, No tenderness, No distention, No mass Peripheral Pulses Exam: dorsalis-pedis (R): 2+, dorsalis-pedis (L): 2+ Neurologic Exam: alert, oriented x 3, cooperative, production service manager II-XII nml as tested, sensation nml, No motor deficits Skin Exam: normal color, warm, No dry SpO2 Interpretation: normal (96%) SpO2: 96 Oxygen Delivery: Nasal Cannula - Course Nursing assessment & vital signs reviewed: Yes EKG Interpreted by Me: RATE (116 bpm), Sinus Tach, NORMAL AXIS, Other (EKG: Sinus tachycardia, 116 beats per minute axisQI/SIII pattern, moderate amount of artifact. ) Rhythm Strip: Rate - Radiology Exams Chest X-ray Interpretation: Discussed w/ radiologist (Chest x-ray: Impression: New subtle left base inflitrate/atelectasis with small effusion. Remaining right lung and heart unremarkable) - CT Exams Chest CT Interpretation: Discussed w/radiologist (CT chest with contrast: Impression: 1. Pulmonary embolus evaluation limited by respiration artifact. No large central pulmonary embolus. 2.new left lobe /lingula airspace disease. 3. Worsening by basilar dependent atelectasis. 3. Stable scattered fibrosis/ scarring, hiatal hernia, right thyroid hypodense lesion, fatty liver,and remote T12/L2 compression fractures) Ordered Tests: Active Orders 24 hr Category Date Time Status Furniture Sprayer STAT Care 09/02/18 10:11 Active EKG-ER Only STAT Care 09/02/18 10:10 Active IV Insertion STAT Care 09/02/18 10:10 Active Oxygen-ED Only NASAL CANNULA 2 lpm Care 09/02/18 10:10 Active CHEST 1 VIEW (PORTABLE) Stat Exams 09/02/18 10:11 Completed CHEST WITH CONTRAST [CT] Stat Exams 09/02/18 11:10 Taken BLOOD CULTURE Stat Lab 09/02/18 10:36 Received CBC W DIFF Stat Lab 09/02/18 10:30 Completed CMP Stat Lab 09/02/18 10:30 Completed CULTURE,SPUTUM Stat Lab 09/02/18 10:11 Uncollected D-DIMER QUANTITATION Stat Lab 09/02/18 10:30 Completed Manual Differential NC Stat Lab 09/02/18 10:30 Completed NT PRO BNP Stat Lab 09/02/18 10:30 Completed PROTIME WITH INR Stat Lab 09/02/18 10:30 Completed PTT Stat Lab 09/02/18 10:30 Completed TROPONIN Q3H Lab 09/02/18 10:30 Completed TROPONIN Q3H Lab 09/02/18 13:15 Ordered TROPONIN Q3H Lab 09/02/18 16:15 Ordered TROPONIN Q3H Lab 09/02/18 19:15 Ordered TROPONIN Q3H Lab 09/02/18 22:15 Ordered VENOUS BLOOD GAS Stat Lab 09/02/18 10:51 Completed Respiratory Nebulizer STAT RT 09/02/18 10:13 Active Medication Summary Generic Name Dose Route Start Last Admin Trade Name Freq PRN Reason Stop Dose Admin Sodium Chloride 1,000 mls @ 100 mls/hr 09/02/18 10:15 09/02/18 10:44 Sodium Chloride 0.9% 1000 Ml IV 10/02/18 10:14 100 mls/hr .Q10H EDMUNDO Administration Discontinued Medications Generic Name Dose Route Start Last Admin Trade Name Anaid PRN Reason Stop Dose Admin Acetaminophen 650 mg 09/02/18 11:05 09/02/18 11:10 Tylenol 325 Mg PO 09/02/18 11:06 650 mg STAT ONE Administration Acetaminophen Confirm 09/02/18 11:07 Tylenol 325 Mg Administered 09/02/18 11:08 Dose 650 mg .ROUTE .STK-MED ONE Albuterol Sulfate 2.5 mg 09/02/18 10:10 09/02/18 10:44 Proventil 2.5 Mg/3 Ml Neb IH 09/02/18 10:11 2.5 mg STAT ONE Administration Albuterol Sulfate Confirm 09/02/18 10:34 Proventil 2.5 Mg/3 Ml Neb Administered 09/02/18 10:35 Dose 2.5 mg IH .STK-MED ONE Ceftriaxone Sodium/Dextrose 1 g in 50 mls @ 100 mls/hr 09/02/18 10:59 12:16 Rocephin 1 Gm-D5w 50 Ml Bag IV 09/02/18 11:28 Infused STAT STA Infusion Ceftriaxone Sodium/Dextrose Confirm 09/02/18 11:00 Rocephin 1 Gm-D5w 50 Ml Bag Administered 09/02/18 11:01 Dose 1 g in 50 mls @ ud IV .STK-MED ONE Lab/Rad Data: Laboratory Result Diagrams 09/02/18 10:30 09/02/18 10:30 Laboratory Results 09/02/18 09/02/18 09/02/18 Range/Units 10:51 10:30 10:30 WBC (4.0-10.5) K/mm3 RBC (4.1-5.4) M/mm3 Hgb (12.0-16.0) gm/dl Hct (35-47) % MCV (78-100) fl MCH (26-32) pg MCHC (32-36) g/dl RDW (11.5-14.0) % Plt Count (150-450) K/mm3 MPV (6-9.5) fl Segmented Neutrophils (36.0-66.0) % Band Neutrophils (0.0-2.0) % Lymphocytes (Manual) (24-44) % Monocytes (Manual) (0.0-12.0) % Eosinophils (Manual) (0.00-3.0) % Toxic Granulation Platelet Estimate (NORMAL) RBC Morphology Polychromasia Anisocytosis PT (9.95-12.35) SECONDS INR (0.8-3.0) APTT (25.3-37.0) SECONDS D-Dimer (215-500) ng/mL pO2/FiO2 Ratio 32.0 % VBG pH 7.31 L (7.32-7.42) VBG pCO2 at Pat Temp 57 H (42-55) mm/Hg VBG pO2 at Pat Temp 33 (25-40) mm/Hg VBG HCO3 28.7 H (22-28) meq/L VBG O2 Sat ([place]) 64.4 L (95-100) VBG Base Excess 1.7 (-2.0-2.0) VBG Hemoglobin 9.9 VBG Carboxyhemoglobin 4.9 (0.0-6.9) % T HGB POC Potassium 5.2 H (3.5-5.1) Sodium (137-145) mmol/L Potassium (3.5-5.1) mmol/L Chloride (98-107) mmol/L Carbon Dioxide (22-30) mmol/L Anion Gap (5-15) MEQ/L BUN (7-17) mg/dL Creatinine (0.52-1.04) mg/dL Estimated GFR ML/MIN Glucose (74-106) mg/dL Calcium (8.4-10.2) mg/dL Total Bilirubin (0.2-1.3) mg/dL AST (14-36) U/L ALT (0-35) U/L Alkaline Phosphatase (38-126) U/L Troponin I < 0.012 (0.000-0.034) ng/mL NT-Pro-B Natriuret Pep (0-900) pg/mL Serum Total Protein (6.3-8.2) g/dL Albumin (3.5-5.0) g/dL Influenza Type A Ag NEGATIVE (NEGATIVE) Influenza Type B Ag NEGATIVE (NEGATIVE) RSV (PCR) NEGATIVE (Negative) 09/02/18 09/02/1818 Range/Units 10:30 10:30 10:30 WBC 22.9 H (4.0-10.5) K/mm3 RBC 3.33 L (4.1-5.4) M/mm3 Hgb 9.6 L (12.0-16.0) gm/dl Hct 31.7 L (35-47) % MCV 95.2 (78-100) fl MCH 28.8 (26-32) pg MCHC 30.3 L (32-36) g/dl RDW 18.4 H (11.5-14.0) % Plt Count 292 (150-450) K/mm3 MPV 9.8 H (6-9.5) fl Segmented Neutrophils 86 H (36.0-66.0) % Band Neutrophils 1 (0.0-2.0) % Lymphocytes (Manual) 7 L (24-44) % Monocytes (Manual) 4 (0.0-12.0) % Eosinophils (Manual) 2 (0.00-3.0) % Toxic Granulation 2+ Platelet Estimate NORMAL (NORMAL) RBC Morphology ABNORMAL Polychromasia RARE Anisocytosis 1+ PT 12.7 H (9.95-12.35) SECONDS INR 1.09 (0.8-3.0) APTT 25.8 (25.3-37.0) SECONDS D-Dimer 1225 H* (215-500) ng/mL pO2/FiO2 Ratio % VBG pH (7.32-7.42) VBG pCO2 at Pat Temp (42-55) mm/Hg VBG pO2 at Pat Temp (25-40) mm/Hg VBG HCO3 (22-28) meq/L VBG O2 Sat ([place]) (95-100) VBG Base Excess (-2.0-2.0) VBG Hemoglobin VBG Carboxyhemoglobin (0.0-6.9) % T HGB POC Potassium (3.5-5.1) Sodium 135 L (137-145) mmol/L Potassium 5.2 H (3.5-5.1) mmol/L Chloride 97 L (98-107) mmol/L Carbon Dioxide 29 (22-30) mmol/L Anion Gap 14.2 (5-15) MEQ/L BUN 17 (7-17) mg/dL Creatinine 0.99 (0.52-1.04) mg/dL Estimated GFR > 60.0 ML/MIN Glucose 108 H (74-106) mg/dL Calcium 8.9 (8.4-10.2) mg/dL Total Bilirubin 0.20 (0.2-1.3) mg/dL AST 16 (14-36) U/L ALT 11 (0-35) U/L Alkaline Phosphatase 204 H (38-126) U/L Troponin I (0.000-0.034) ng/mL NT-Pro-B Natriuret Pep 182 (0-900) pg/mL Serum Total Protein 6.9 (6.3-8.2) g/dL Albumin 3.4 L (3.5-5.0) g/dL Influenza Type A Ag (NEGATIVE) Influenza Type B Ag (NEGATIVE) RSV (PCR) (Negative) - Progress Progress: improved Air Movement: fair Progress Note: 09/02/18 12:19 63-year-old white female arrives with complaint of a productive cough shortness of breath symptoms for 2 days. Patient was noted to have elevated heart rate to 160 at the detention she was given a DuoNeb treatment prior to arrival. Patient is noted to have elevated white count here in the emergency room d- dimer was elevated as well. Patient's chest x-ray was remarkable for a subtle left base infiltrate/ atelectasis with small effusion. CT chest with contrast Limited respiratory by respiration artifact. No large central pulmonary embolus was seen. There is a new left upper lobe/lingular airspace disease and worsening bibasilar dependent atelectasis There is also stable fibrosis/scarring, hiatal hernia, right thyroid hypodense lesion, fatty liver, and remote T12/L2 compression fractures, The patient's case was discussed with Dr. Tim. Will place patient on continuing duo neb treatments, IV Solu-Medrol,. IV Rocephin,. Place patient on telemetry Diagnosis left-sided pneumonia, Shortness of breath, COPD with exacerbation. - Departure Time of Disposition: 12:24 Departure Disposition: Observation Clinical Impression: Shortness of breath, COPD exacerbation Pneumonia Qualifiers: Pneumonia type: due to unspecified organism Laterality: left Lung location: unspecified part of lung Qualified Code(s): J18.9 - Pneumonia, unspecified organism Condition: Fair Critical Care Time: No Referrals: LINDA HAILE [Primary Care Provider] - Instructions: Chronic Obstructive Pulmonary Disease
[2018-09-02] MEDS ORDERED: Sodium Chloride 0.9% 1000 ML 1,000 ML ONE (10:34)
--- NOTE | 2018-09-02 10:35 | XRAY ---
Indication: Cough and short of breath. Comparison: July 09, 2018. Portable chest demonstrates new subtle left base infiltrate/atelectasis with small effusion. Remaining right lung and heart unremarkable.
[2018-09-02 10:43] LABS: Hematocrit 31.7 % (35-47); Hemoglobin 9.6 gm/dl (12.0-16.0); Mean Cell Volume 95.2 fl (78-100); Mean Corpuscular Hemoglobin 28.8 pg (26-32); Mean Corpuscular Hgb Concent. 30.3 g/dl (32-36); Mean Platelet Volume 9.8 fl (6-9.5); Platelet Count 292 K/mm3 (150-450); Red Blood Count 3.33 M/mm3 (4.1-5.4); Red Cell Distribution Width 18.4 % (11.5-14.0); White Blood Count 22.9 K/mm3 (4.0-10.5)
[2018-09-02 10:55] LABS: VBG BASE EXCESS 1.7 (-2.0-2.0); VBG CARBOXYHEMOGLOBIN 4.9 % T HGB (0.0-6.9); VBG HCO3- 28.7 meq/L (22-28); VBG HEMOGLOBIN 9.9; VBG O2 SATURATION 64.4 (95-100); VBG POTASSIUM 5.2 (3.5-5.1); VBG pH 7.31 (7.32-7.42)
[2018-09-02 10:59] LABS: INR 1.09 (0.8-3.0)
[2018-09-02] MEDS ORDERED: ROCEPHIN 1 Gm-D5w 50 ml Bag** 1 G/50 ML IVPB IV STA (10:59)
[2018-09-02] MEDS ORDERED: ROCEPHIN 1 Gm-D5w 50 ml Bag** 1 G/50 ML IVPB IV ONE (11:00)
[2018-09-02 11:02] LABS: PTT 25.8 SECONDS (25.3-37.0)
[2018-09-02 11:03] LABS: ALBUMIN 3.4 g/dL (3.5-5.0); ALKALINE PHOSPHATASE 204 U/L (38-126); ANION GAP 14.2 MEQ/L (5-15); BLOOD UREA NITROGEN 17 mg/dL (7-17); CHLORIDE 97 mmol/L (98-107); Calcium 8.9 mg/dL (8.4-10.2); Carbon Dioxide 29 mmol/L (22-30); Creatinine 1 0.99 mg/dL (0.52-1.04); Glucose 108 mg/dL (74-106); NT PRO BNP 182 pg/mL (0-900); Potassium 5.2 mmol/L (3.5-5.1); SGOT/AST 16 U/L (14-36); SGPT/ALT 11 U/L (0-35); SODIUM 135 mmol/L (137-145); Total Protein 6.9 g/dL (6.3-8.2)
[2018-09-02] MEDS ORDERED: TYLENOL 325 MG PO ONE (11:05)
[2018-09-02] MEDS ORDERED: TYLENOL 325 MG ONE (11:07)
[2018-09-02 11:17] LABS: INFLUENZA A NEGATIVE (NEGATIVE); INFLUENZA B NEGATIVE (NEGATIVE); RESPIRATORY SYNCTIAL VIRUS NEGATIVE (Negative)
[2018-09-02 11:41] LABS: BAND 1 % (0.0-2.0); Eosinophil 2 % (0.00-3.0); Lymphocytes 7 % (24-44); Monocyte 4 % (0.0-12.0); Neutrophils 86 % (36.0-66.0); Total Cells Counted 100
[2018-09-02 11:42] LABS: ANISOCYTOSIS 1+; Platelet Estimate NORMAL (NORMAL); Polychromasia RARE; Toxic Granulation 2+
--- NOTE | 2018-09-02 12:21 | XRAY ---
Indication: Cough, congestion, short of breath, and elevated d-dimer. Multiple contiguous axial images obtained through the chest using 80 cc Isovue 370 contrast and PE protocol. Comparison: February 26, June 10, and July 09, 2018. There is satisfactory opacification of the pulmonary arteries. However there is again respiration artifact limiting evaluation the more distal lobar and segmental branches. Again no central pulmonary embolus. Heart is not enlarged. Aorta remains mildly atherosclerotic without aneurysm/dissection. Stable subcentimeter/centimeter mediastinal lymph nodes. No pathologic mediastinal/hilar lymphadenopathy. Stable small hiatal hernia and 1.5 cm right thyroid hypodense lesion. Examination of the lung parenchyma again demonstrates scattered fibrosis/scarring with interval worsening bibasilar dependent atelectasis. New left upper lobe/lingula patchy airspace disease without consolidation or large effusion. Bony thorax intact again with remote T12 and L2 compression fractures. Limited upper abdomen again demonstrates fatty liver. Impression: 1. Again pulmonary embolus evaluation limited by respiration artifact. Again no large central pulmonary embolus. 2. New left upper lobe/lingula airspace disease. 3. Worsening bibasilar dependent atelectasis. 4. Stable scattered fibrosis/scarring, hiatal hernia, right thyroid hypodense lesion, fatty liver, and remote T12/L2 compression fractures. CT DI 27.39
[2018-09-02] MEDS ORDERED: solu-MEDROL 125 MG IV ONE (12:25)
[2018-09-02] MEDS ORDERED: ULTRAM 50 MG ONE (12:35)
[2018-09-02] MEDS ORDERED: solu-MEDROL 125 MG ONE (12:35)
[2018-09-02] MEDS ORDERED: TYLENOL 325 MG PO PRN (13:21)
[2018-09-02] MEDS: DUONEB 0.5-3 MG/3 ml Neb IH PRN (14:08)
[2018-09-02] MEDS ORDERED: ULTRAM 50 MG PO PRN (16:29)
[2018-09-02] MEDS: solu-MEDROL 125 MG IV SCH (18:03)
[2018-09-02] MEDS ORDERED: ENOXAPARIN SODIUM SQ ONE (18:19)
--- NOTE | 2018-09-02 18:27 | PCM.HP ---
History of Present Illness - Chief Complaint Chief Complaint: Shortness of Breath Date: 09/02/18 History of Present Illness: is a 63 year old female. who has been living in the alf for several months with recurrent infections, copd exacerbations, uti's and c. diff recently as well currently was in remission. She was doing better last week and then yesterday became more fatigued. She suddenly became more short of breath this am and was weak and confused. Her heart rate at [facility] was in the 160's and she was sent to the ED. She was found to be septic with upper lobe pnuemonia and febrile with an elevated wbc. She is currently feeling better resting, tired and denies shortness of breath currently. - Review of Systems Constitutional: Chills, Fatigue, No Fever Eyes: No Symptoms Ears, Nose, & Throat: No Symptoms Respiratory: Cough, Short Of Breath Cardiac: No Chest Pain, No Edema, No Syncope Abdominal/Gastrointestinal: No Abdominal Pain, No Nausea, No Vomiting, No Diarrhea Genitourinary Symptoms: No Dysuria Musculoskeletal: No Back Pain, No Neck Pain Skin: No Rash Neurological: No Dizziness, No Focal Weakness, No Sensory Changes Psychological: No Symptoms Endocrine: No Symptoms Hematologic/Lymphatic: No Symptoms Immunological/Allergic: No Symptoms Medications & Allergies Home Medications: Home Medication List Alendronate Sodium 70 mg [Fosamax 70 MG] 70 mg PO WEEKLY 12/19/15 [ History Confirmed 09/02/18] Levetiracetam [Keppra] 750 mg PO BID 12/19/15 [History Confirmed 09/02/18] Lisinopril [Zestril] 20 mg PO QAM 12/19/15 [History Confirmed 09/02/18] Potassium Chloride 10 Meq Tab* [Klor Con 10 MEQ] 10 meq PO TID 12/19/15 [ History Confirmed 09/02/18] Folic Acid 1 mg PO DAILY 02/26/18 [History Confirmed 09/02/18] Atorvastatin Calcium 40 mg PO HS 05/15/18 [History Confirmed 09/02/18] Metoprolol Tartrate 100 mg PO BID 05/15/18 [History Confirmed 09/02/18] PANTOPRAZOLE 40 mg Tablet [Protonix 40MG Tablet] 40 mg PO DAILY 05/15/18 [ History Confirmed 09/02/18] Arformoterol Tartrate [Brovana] 1 vial IH BID 06/10/18 [History Confirmed ] Budesonide 0.5 mg/2 ml [Pulmicort 0.5 mg/2 ml Respules] 1 vial IH BID [History Confirmed 09/02/18] Acetaminophen 325 mg [Tylenol 325 mg] 650 mg PO Q4H PRN PRN tablet [Rx Confirmed 09/02/18] Guaifenesin 600 mg ER [Mucinex 600MG ER Tabs] 600 mg PO BID 7 Days tablet 06/18/18 [Rx Confirmed 09/02/18] Gabapentin 300 mg PO DAILY 07/09/18 [History Confirmed 09/02/18] Gabapentin 600 mg PO HS 07/09/18 [History Confirmed 09/02/18] Albuterol/Ipratropium 3ml Neb* [DUONEB 0.5-3 MG/3 ml Neb] 3 ml IH Q2H/PRN PRN 09/02/18 [History Confirmed 09/02/18] Alprazolam 0.25 mg [xanAX 0.25 MG] 0.25 mg PO TID 09/02/18 [History Confirmed 09/02/18] Aspirin [Aspirin EC] 81 mg PO DAILY 09/02/18 [History Confirmed 09/02/18] Duloxetine HCl [Cymbalta] 60 mg PO DAILY 09/02/18 [History Confirmed 09/02/18] Ipratropium/Albuterol Sulfate [Iprat-Albut 0.5-3(2.5) mg/3 ml] 3 ml IH Q6H 09/02 [History Confirmed 09/02/18] Mineral Oil/Petrolatum,White [Eucerin Creme] 120 gm TP BID 09/02/18 [History Confirmed 09/02/18] Montelukast Sodium 10 mg [Singulair 10 MG] 10 mg PO DAILY 09/02/18 [History Confirmed 09/02/18] Ondansetron ODT 4 MG [Zofran Odt 4 mg] 4 mg PO Q6H PRN 09/02/18 [History Confirmed 09/02/18] Ranitidine HCl 150 mg PO DAILY PRN 09/02/18 [History Confirmed 09/02/18] Risperidone [Risperdal] 2 mg PO TID 09/02/18 [History Confirmed 09/02/18] Ropinirole HCl 0.5 mg [Requip 0.5 MG] 0.5 mg PO HS 09/02/18 [History Confirmed 09/02/18] Tramadol HCl 50 mg [Ultram 50 mg] 50 mg PO Q8H PRN 09/02/18 [History Confirmed 09/02/18] Allergies/Adverse Reactions: Allergies Allergy/AdvReac Type Severity Reaction Status Date / Time tramadol HCl [From Ultram] Allergy Mild Rash Verified 09/02/18 10:06 azithromycin Allergy Verified 09/02/18 10:06 ciprofloxacin [From Cipro] Allergy Rash Verified 09/02/18 10:06 ciprofloxacin HCl Allergy Rash Verified 09/02/18 10:06 [From Cipro] metronidazole Allergy Verified 09/02/18 10:06 penicillin V [Penicillin V] Allergy Rash Verified 09/02/18 10:06 Quinolones Allergy Verified 09/02/18 10:06 Sulfa (Sulfonamide Allergy Verified 09/02/18 10:06 Antibiotics) sulfisoxazole Allergy Verified 09/02/18 10:06 tramadol Allergy Verified 09/02/18 10:06 - Past Medical History Past Medical History: Yes Neurological History: Dementia, Seizures ENT History: Cataracts Cardiac History: Other Respiratory History: Asthma, COPD, Pneumonia Endocrine Medical History: Hypothyroidism Musculoskelatal History: Arthritis, Fibromyalgia GI Medical History: Diverticulitis History: No Pertinent History Pyscho-Social History: Anxiety, Depression Reproductive Disorders: Cervical Cancer Comment: pt states she has a murmur. c. Diff - Female History Hx Last Menstrual Period: post Are you now?: No - Past Surgical History Past Surgical History: Yes Neuro Surgical History: No Pertinent History Cardiac History: No Pertinent History Respiratory Surgery: No Pertinent History GI Surgical History: Appendectomy, Cholecystectomy Genitourinary Surgical Hx: No Pertinent History Musculskeletal Surgical Hx: Orthopedic Surgery Female Surgical History: Hysterectomy Other Surgical History: LEFT x 4, RIGHT x 1 HIP SURGERY - Social History Smoking Status: Former smoker How long have you smoked: 40 Exposure to second hand smoke: No Alcohol: None Drug Use: none - Physical Exam Vital Signs: Vital Signs - 24 hr Temp Pulse Resp BP Pulse Ox 09/02/18 16:00 97.6 F 85 18 103/52 93 L 09/02/18 13:44 104 H 22 97 09/02/18 13:27 98.8 F 108 H 18 146/68 96 09/02/18 13:21 108 H 18 96 09/02/18 12:53 100.5 F 107 H 113/72 97 09/02/18 12:35 100.5 F 107 H 113/72 97 09/02/18 12:24 96 09/02/18 11:11 100.5 F 111 H 18 125/70 98 09/02/18 10:49 108 H 18 96 09/02/18 10:04 18 96 09/02/18 09:53 100.5 F 119 H 22 137/73 89 L Oxygen-Last 24 hours O2 Percentage 3 Liters = 32% O2 Percentage 3 Liters = 32% O2 Percentage 2 Liters = 28% General Appearance: no apparent distress, alert, other (chronic torticolis) Neurologic Exam: cooperative, other (Drowsy currently arouses to voice is oriented to person recognizes and knows my name does not know the date or time.) Eye Exam: PERRL/EOMI, eyes nml inspection Ears, Nose, Throat Exam: normal ENT inspection, pharynx normal, moist mucous membranes Neck Exam: normal inspection, non-tender, supple, other (chronic torticollis) Respiratory Exam: prolonged expirations, rhonchi, wheezing, No respiratory distress Cardiovascular Exam: regular rate/rhythm, normal heart sounds, normal peripheral pulses Gastrointestinal/Abdomen Exam: soft, normal bowel sounds, No tenderness, No mass Back Exam: normal inspection, normal range of motion, No CVA tenderness, No vertebral tenderness Extremity Exam: normal inspection, normal range of motion, pelvis stable Skin Exam: normal color, warm, dry, No rash Lymphatic Exam: No adenopathy Results - Labs Lab/Micro Results: Accuchecks Date 09/02/18 Time 16:30 Accucheck Value: 123 Lab Results-Last 24 Hours 09/02/18 09/02/18 09/02/18 Range/Units 10:30 10:30 10:30 WBC 22.9 H (4.0-10.5) K/mm3 RBC 3.33 L (4.1-5.4) M/mm3 Hgb 9.6 L (12.0-16.0) gm/dl Hct 31.7 L (35-47) % MCV 95.2 (78-100) fl MCH 28.8 (26-32) pg MCHC 30.3 L (32-36) g/dl RDW 18.4 H (11.5-14.0) % Plt Count 292 (150-450) K/mm3 MPV 9.8 H (6-9.5) fl Segmented Neutrophils 86 H (36.0-66.0) % Band Neutrophils 1 (0.0-2.0) % Lymphocytes (Manual) 7 L (24-44) % Monocytes (Manual) 4 (0.0-12.0) % Eosinophils (Manual) 2 (0.00-3.0) % Toxic Granulation 2+ Platelet Estimate NORMAL (NORMAL) RBC Morphology ABNORMAL Polychromasia RARE Anisocytosis 1+ PT 12.7 H (9.95-12.35) SECONDS INR 1.09 (0.8-3.0) APTT 25.8 (25.3-37.0) SECONDS D-Dimer 1225 H* (215-500) ng/mL pO2/FiO2 Ratio % VBG pH (7.32-7.42) VBG pCO2 at Pat Temp (42-55) mm/Hg VBG pO2 at Pat Temp (25-40) mm/Hg VBG HCO3 (22-28) meq/L VBG O2 Sat ([place]) (95-100) VBG Base Excess (-2.0-2.0) VBG Hemoglobin VBG Carboxyhemoglobin (0.0-6.9) % T HGB POC Potassium (3.5-5.1) Sodium 135 L (137-145) mmol/L Potassium 5.2 H (3.5-5.1) mmol/L Chloride 97 L (98-107) mmol/L Carbon Dioxide 29 (22-30) mmol/L Anion Gap 14.2 (5-15) MEQ/L BUN 17 (7-17) mg/dL Creatinine 0.99 (0.52-1.04) mg/dL Estimated GFR > 60.0 ML/MIN Glucose 108 H (74-106) mg/dL Calcium 8.9 (8.4-10.2) mg/dL Total Bilirubin 0.20 (0.2-1.3) mg/dL AST 16 (14-36) U/L ALT 11 (0-35) U/L Alkaline Phosphatase 204 H (38-126) U/L Troponin I (0.000-0.034) ng/mL NT-Pro-B Natriuret Pep 182 (0-900) pg/mL Serum Total Protein 6.9 (6.3-8.2) g/dL Albumin 3.4 L (3.5-5.0) g/dL Influenza Type A Ag (NEGATIVE) Influenza Type B Ag (NEGATIVE) RSV (PCR) (Negative) 09/02/18 09/02/18 09/02/18 Range/Units 10:30 10:30 10:51 WBC (4.0-10.5) K/mm3 RBC (4.1-5.4) M/mm3 Hgb (12.0-16.0) gm/dl Hct (35-47) % MCV (78-100) fl MCH (26-32) pg MCHC (32-36) g/dl RDW (11.5-14.0) % Plt Count (150-450) K/mm3 MPV (6-9.5) fl Segmented Neutrophils (36.0-66.0) % Band Neutrophils (0.0-2.0) % Lymphocytes (Manual) (24-44) % Monocytes (Manual) (0.0-12.0) % Eosinophils (Manual) (0.00-3.0) % Toxic Granulation Platelet Estimate (NORMAL) RBC Morphology Polychromasia Anisocytosis PT (9.95-12.35) SECONDS INR (0.8-3.0) APTT (25.3-37.0) SECONDS D-Dimer (215-500) ng/mL pO2/FiO2 Ratio 32.0 % VBG pH 7.31 L (7.32-7.42) VBG pCO2 at Pat Temp 57 H (42-55) mm/Hg VBG pO2 at Pat Temp 33 (25-40) mm/Hg VBG HCO3 28.7 H (22-28) meq/L VBG O2 Sat ([place]) 64.4 L (95-100) VBG Base Excess 1.7 (-2.0-2.0) VBG Hemoglobin 9.9 VBG Carboxyhemoglobin 4.9 (0.0-6.9) % T HGB POC Potassium 5.2 H (3.5-5.1) Sodium (137-145) mmol/L Potassium (3.5-5.1) mmol/L Chloride (98-107) mmol/L Carbon Dioxide (22-30) mmol/L Anion Gap (5-15) MEQ/L BUN (7-17) mg/dL Creatinine (0.52-1.04) mg/dL Estimated GFR ML/MIN Glucose (74-106) mg/dL Calcium (8.4-10.2) mg/dL Total Bilirubin (0.2-1.3) mg/dL AST (14-36) U/L ALT (0-35) U/L Alkaline Phosphatase (38-126) U/L Troponin I < 0.012 (0.000-0.034) ng/mL NT-Pro-B Natriuret Pep (0-900) pg/mL Serum Total Protein (6.3-8.2) g/dL Albumin (3.5-5.0) g/dL Influenza Type A Ag NEGATIVE (NEGATIVE) Influenza Type B Ag NEGATIVE (NEGATIVE) RSV (PCR) NEGATIVE (Negative) 09/02/18 09/02/18 Range/Units 13:15 16:20 WBC (4.0-10.5) K/mm3 RBC (4.1-5.4) M/mm3 Hgb (12.0-16.0) gm/dl Hct (35-47) % MCV (78-100) fl MCH (26-32) pg MCHC (32-36) g/dl RDW (11.5-14.0) % Plt Count (150-450) K/mm3 MPV (6-9.5) fl Segmented Neutrophils (36.0-66.0) % Band Neutrophils (0.0-2.0) % Lymphocytes (Manual) (24-44) % Monocytes (Manual) (0.0-12.0) % Eosinophils (Manual) (0.00-3.0) % Toxic Granulation Platelet Estimate (NORMAL) RBC Morphology Polychromasia Anisocytosis PT (9.95-12.35) SECONDS INR (0.8-3.0) APTT (25.3-37.0) SECONDS D-Dimer (215-500) ng/mL pO2/FiO2 Ratio % VBG pH (7.32-7.42) VBG pCO2 at Pat Temp (42-55) mm/Hg VBG pO2 at Pat Temp (25-40) mm/Hg VBG HCO3 (22-28) meq/L VBG O2 Sat ([place]) (95-100) VBG Base Excess (-2.0-2.0) VBG Hemoglobin VBG Carboxyhemoglobin (0.0-6.9) % T HGB POC Potassium (3.5-5.1) Sodium (137-145) mmol/L Potassium (3.5-5.1) mmol/L Chloride (98-107) mmol/L Carbon Dioxide (22-30) mmol/L Anion Gap (5-15) MEQ/L BUN (7-17) mg/dL Creatinine (0.52-1.04) mg/dL Estimated GFR ML/MIN Glucose (74-106) mg/dL Calcium (8.4-10.2) mg/dL Total Bilirubin (0.2-1.3) mg/dL AST (14-36) U/L ALT (0-35) U/L Alkaline Phosphatase (38-126) U/L Troponin I 0.018 < 0.012 (0.000-0.034) ng/mL NT-Pro-B Natriuret Pep (0-900) pg/mL Serum Total Protein (6.3-8.2) g/dL Albumin (3.5-5.0) g/dL Influenza Type A Ag (NEGATIVE) Influenza Type B Ag (NEGATIVE) RSV (PCR) (Negative) Accuchecks Date 09/02/18 Time 16:30 Accucheck Value: 123 - Radiology Impressions Radiology Exams & Impressions: Radiology Procedures Category Date Time Status CHEST 1 VIEW (PORTABLE) Stat Exams 09/02/18 10:11 Completed CHEST WITH CONTRAST [CT] Stat Exams 09/02/18 11:10 Completed - Other Procedures and Tests Respiratory Therapy 09/02/18 13:21 Oxygen NASAL CANNULA 2 lpm 09/02/18 13:44 Respiratory Therapy Assessment DAILY 09/02/18 14:13 Peak Expiratory Flow Rate ONCE Assessment/Plan (1) Sepsis Current Visit: Yes Status: Acute Assessment & Plan: with health care associated pneumonia and sepsis and all her allergies will change to meropenem for broader coverage. she is currently already showing apparent improvement with the initial measures in the ED so will hold off on the vancomycin for the time being she appears clinically well perfused continue iv fluids with NS at 125 mL/h tonight and decrease as tolerated. Her HR is already doing better as well with fever control on tele in the 's use lovenox for ppx (2) Pneumonia Current Visit: Yes Status: Acute Onset Date: ~06/11/18 Qualifiers: Pneumonia type: due to unspecified organism Laterality: left Lung location: upper lobe of lung Qualified Code(s): J18.1 - Lobar pneumonia, unspecified organism Code(s): J18.9 - PNEUMONIA, UNSPECIFIED ORGANISM (3) Acute metabolic encephalopathy Current Visit: Yes Status: Acute Code(s): G93.41 - METABOLIC ENCEPHALOPATHY (4) Acute exacerbation of COPD with asthma Current Visit: Yes Status: Acute Code(s): J44.1 - CHRONIC OBSTRUCTIVE PULMONARY DISEASE W (ACUTE) EXACERBATION; J45.901 - UNSPECIFIED ASTHMA WITH ( ACUTE) EXACERBATION (5) Acute and chronic respiratory failure with hypoxia Current Visit: Yes Status: Acute Onset Date: ~06/10/18 Code(s): J96.21 - ACUTE AND CHRONIC RESPIRATORY FAILURE WITH HYPOXIA (6) Anemia Current Visit: Yes Status: Acute Qualifiers: Anemia type: unspecified type Qualified Code(s): D64.9 - Anemia, unspecified Code(s): D64.9 - ANEMIA, UNSPECIFIED (7) Hypothyroidism Current Visit: Yes Status: Chronic Code(s): E03.9 - HYPOTHYROIDISM, UNSPECIFIED (8) Seizure disorder Current Visit: Yes Status: Chronic Code(s): G40.909 - EPILEPSY, UNSP, NOT INTRACTABLE, WITHOUT STATUS EPILEPTICUS (9) Essential hypertension Current Visit: Yes Status: Chronic Code(s): I10 - ESSENTIAL (PRIMARY) HYPERTENSION (10) Bipolar disorder Current Visit: Yes Status: Chronic Qualifiers: Active/Remission status: currently active Current bipolar episode type: depressed Current episode severity: severe Psychotic features: with psychotic features Qualified Code(s): F31.5 - Bipolar disorder, current episode depressed, severe, with psychotic features
[2018-09-02] MEDS: DUONEB 0.5-3 MG/3 ml Neb IH SCH (19:54)
[2018-09-02] MEDS: PULMICORT 0.5 MG/2 ML RESPULES IH SCH (19:54)
[2018-09-02] MEDS: Sodium Chloride 0.9% 1000 ML 1,000 ML IV SCH (20:53)
[2018-09-02] MEDS ORDERED: NON-FORMULARY ITEM (Risperidone [Risperdal] 2 MG) PO SCH (22:00)
[2018-09-02] MEDS ORDERED: LIPITOR 40MG PO SCH (22:00)
[2018-09-02] MEDS ORDERED: NON-FORMULARY ITEM (Levetiracetam [Keppra] 750 MG) PO SCH (22:00)
[2018-09-02] MEDS ORDERED: Requip 0.5 MG PO SCH (22:00)
[2018-09-02] MEDS ORDERED: ZOCOR 20MG PO SCH (22:00)
[2018-09-02] MEDS ORDERED: NEURONTIN 300 MG PO SCH (22:00)
[2018-09-02] MEDS ORDERED: NON-FORMULARY ITEM (Metoprolol Tartrate [Metoprolol Tartrate] 100 MG) PO SCH (22:00)
[2018-09-02] MEDS ORDERED: ZOCOR 20MG ONE (23:06)
[2018-09-02] MEDS: Keppra 250 MG PO SCH (23:33)
[2018-09-02] MEDS: Risperdal 1 MG PO SCH (23:34)
[2018-09-02] MEDS: Lopressor 50 MG PO SCH (23:34)
[2018-09-02] MEDS: ZOCOR 20MG PO SCH (23:34)
[2018-09-02] MEDS: xanAX 0.25 MG PO SCH (23:34)
[2018-09-02] MEDS ORDERED: Sodium Chloride 0.9% 100 ML IVPB 100 ML IV ONE (23:38)
[2018-09-02] MEDS ORDERED: Merrem 1 GM IV ONE (23:38)
[2018-09-02] MEDS: LIPITOR 40MG PO SCH (23:48)
[2018-09-02] MEDS: Merrem 1 GM 1 G in Sodium Chloride 100ML MINI-BAG PLUS 100 ML IV SCH (23:48)
[2018-09-03] MEDS: DUONEB 0.5-3 MG/3 ml Neb IH SCH ×4 (00:47→19:17)
[2018-09-03] MEDS: solu-MEDROL 125 MG IV SCH ×5 (00:50→23:15)
[2018-09-03] MEDS: NovoLOG Insulin SQ PRN ×2 (01:21→11:16)
[2018-09-03] MEDS: ZOCOR 20MG PO SCH (01:57)
[2018-09-03] MEDS ORDERED: Merrem 1 GM IV ONE (05:36)
[2018-09-03] MEDS ORDERED: Sodium Chloride 0.9% 100 ML IVPB 100 ML IV ONE (05:37)
[2018-09-03] MEDS: Merrem 1 GM 1 G in Sodium Chloride 100ML MINI-BAG PLUS 100 ML IV SCH ×3 (05:38→21:32)
[2018-09-03 05:54] LABS: Hematocrit 32.4 % (35-47); Hemoglobin 9.5 gm/dl (12.0-16.0); Mean Cell Volume 96.4 fl (78-100); Mean Corpuscular Hgb Concent. 29.3 g/dl (32-36); Platelet Count 287 K/mm3 (150-450); Red Blood Count 3.36 M/mm3 (4.1-5.4)
[2018-09-03 06:00] LABS: Mean Corpuscular Hemoglobin 28.2 pg (26-32); White Blood Count 25.4 K/mm3 (4.0-10.5)
[2018-09-03 06:17] LABS: ALBUMIN 3.2 g/dL (3.5-5.0); ALKALINE PHOSPHATASE 136 U/L (38-126); ANION GAP 11.8 MEQ/L (5-15); BLOOD UREA NITROGEN 18 mg/dL (7-17); CHLORIDE 104 mmol/L (98-107); Calcium 8.1 mg/dL (8.4-10.2); Carbon Dioxide 27 mmol/L (22-30); Creatinine 1 0.72 mg/dL (0.52-1.04); Glucose 105 mg/dL (74-106); Potassium 4.8 mmol/L (3.5-5.1); SGOT/AST 10 U/L (14-36); SGPT/ALT 11 U/L (0-35); SODIUM 138 mmol/L (137-145); Total Protein 6.8 g/dL (6.3-8.2)
[2018-09-03] MEDS: PULMICORT 0.5 MG/2 ML RESPULES IH SCH ×2 (07:24→19:18)
[2018-09-03 07:45] LABS: Lymphocytes 4 % (24-44); Monocyte 1 % (0.0-12.0); Neutrophils 95 % (36.0-66.0); Total Cells Counted 100
[2018-09-03 07:47] LABS: ANISOCYTOSIS 1+; Platelet Estimate NORMAL (NORMAL); Poikilocytosis 1+; Polychromasia 1+
--- NOTE | 2018-09-03 08:35 | PCM.NOTE ---
Date and Time: 09/03/18834 Subjective Assessment: trying to eat this am. still fatigued and short of breath. she denies chest pain , abdominal pain or nausea. She has had 1 loose bowel movement. she continues to have periods of confusion. Objective Exam General Appearance: mild distress Neurologic Exam: disoriented, confusion, No motor deficits Skin Exam: normal color, warm, dry, pale, No jaundice, No ecchymosis Eye Exam: PERRL, EOMI, eyes nml inspection, pale conjunctivae, No scleral icterus Ears, Nose, Throat Exam: normal ENT inspection, pharynx normal, moist mucous membranes Neck Exam: normal inspection, non-tender, supple, full range of motion Respiratory Exam: crackles/rales, rhonchi, wheezing Cardiovascular Exam: regular rate/rhythm, normal heart sounds Gastrointestinal/Abdomen Exam: soft, normal bowel sounds, No tenderness, No distention, No mass, No guarding Extremity Exam: No calf tenderness, No pedal edema Pelvic Exam: deferred Rectal Exam: deferred OBJECTIVE DATA Vital Signs: Vital Signs - 24 hr Temp Pulse Resp BP Pulse Ox 09/03/18 07:33 90 24 97 09/03/18 07:12 97.8 F 81 20 123/58 94 L 09/03/18 04:00 97.3 F 89 18 119/67 94 L 09/03/18 00:50 93 H 20 96 09/03/18 00:00 97.9 F 91 H 22 101/52 96 09/02/18 20:00 97.7 F 95 H 21 129/60 94 L 09/02/18 19:54 101 H 18 93 L 09/02/18 16:00 97.6 F 85 18 103/52 93 L 09/02/18 13:44 104 H 22 97 09/02/18 13:27 98.8 F 108 H 18 146/68 96 09/02/18 13:21 108 H 18 96 09/02/18 12:53 100.5 F 107 H 113/72 97 09/02/18 12:35 100.5 F 107 H 113/72 97 09/02/18 12:24 96 09/02/18 11:11 100.5 F 111 H 18 125/70 98 09/02/18 10:49 108 H 18 96 09/02/18 10:04 18 96 09/02/18 09:53 100.5 F 119 H 22 137/73 89 L Oxygen-Last 24 hours O2 Percentage 3 Liters = 32% O2 Percentage 3 Liters = 32% O2 Percentage 3 Liters = 32% O2 Percentage 3 Liters = 32% O2 Percentage 3 Liters = 32% O2 Percentage 3 Liters = 32% O2 Percentage 2 Liters = 28% Pain Assessment - Last Documented Pain Intensity 0 Pain Scale Used 0-10 Pain Scale Intake and Output: Intake & Output 08/31/18 09/01/18 09/02/18 09/03/18 11:59 11:59 11:59 11:59 Intake Total 2289 Balance 2289 Weight 61.235 kg 68.4 kg Lab Results: Accuchecks Date 09/03/18 Date 09/02/18 Date 09/02/18 Time 07:30 Time 22:00 Time 16:30 Accucheck Value: 112 Accucheck Value: 345 Accucheck Value: 123 Lab Results-Last 24 Hours 09/02/18 09/02/18 09/02/18 Range/Units 10:30 10:30 10:30 WBC 22.9 H (4.0-10.5) K/mm3 RBC 3.33 L (4.1-5.4) M/mm3 Hgb 9.6 L (12.0-16.0) gm/dl Hct 31.7 L (35-47) % MCV 95.2 (78-100) fl MCH 28.8 (26-32) pg MCHC 30.3 L (32-36) g/dl RDW 18.4 H (11.5-14.0) % Plt Count 292 (150-450) K/mm3 MPV 9.8 H (6-9.5) fl Segmented Neutrophils 86 H (36.0-66.0) % Band Neutrophils 1 (0.0-2.0) % Lymphocytes (Manual) 7 L (24-44) % Monocytes (Manual) 4 (0.0-12.0) % Eosinophils (Manual) 2 (0.00-3.0) % Toxic Granulation 2+ Platelet Estimate NORMAL (NORMAL) RBC Morphology ABNORMAL Polychromasia RARE Poikilocytosis Anisocytosis 1+ PT 12.7 H (9.95-12.35) SECONDS INR 1.09 (0.8-3.0) APTT 25.8 (25.3-37.0) SECONDS D-Dimer 1225 H* (215-500) ng/mL pO2/FiO2 Ratio % VBG pH (7.32-7.42) VBG pCO2 at Pat Temp (42-55) mm/Hg VBG pO2 at Pat Temp (25-40) mm/Hg VBG HCO3 (22-28) meq/L VBG O2 Sat ([place]) (95-100) VBG Base Excess (-2.0-2.0) VBG Hemoglobin VBG Carboxyhemoglobin (0.0-6.9) % T HGB POC Potassium (3.5-5.1) Sodium 135 L (137-145) mmol/L Potassium 5.2 H (3.5-5.1) mmol/L Chloride 97 L (98-107) mmol/L Carbon Dioxide 29 (22-30) mmol/L Anion Gap 14.2 (5-15) MEQ/L BUN 17 (7-17) mg/dL Creatinine 0.99 (0.52-1.04) mg/dL Estimated GFR > 60.0 ML/MIN Glucose 108 H (74-106) mg/dL Lactic Acid (0.4-2.0) Calcium 8.9 (8.4-10.2) mg/dL Total Bilirubin 0.20 (0.2-1.3) mg/dL AST 16 (14-36) U/L ALT 11 (0-35) U/L Alkaline Phosphatase 204 H (38-126) U/L Troponin I (0.000-0.034) ng/mL NT-Pro-B Natriuret Pep 182 (0-900) pg/mL Serum Total Protein 6.9 (6.3-8.2) g/dL Albumin 3.4 L (3.5-5.0) g/dL Influenza Type A Ag (NEGATIVE) Influenza Type B Ag (NEGATIVE) RSV (PCR) (Negative) 09/02/18 09/02/18 09/02/18 Range/Units 10:30 10:30 10:51 WBC (4.0-10.5) K/mm3 RBC (4.1-5.4) M/mm3 Hgb (12.0-16.0) gm/dl Hct (35-47) % MCV (78-100) fl MCH (26-32) pg MCHC (32-36) g/dl RDW (11.5-14.0) % Plt Count (150-450) K/mm3 MPV (6-9.5) fl Segmented Neutrophils (36.0-66.0) % Band Neutrophils (0.0-2.0) % Lymphocytes (Manual) (24-44) % Monocytes (Manual) (0.0-12.0) % Eosinophils (Manual) (0.00-3.0) % Toxic Granulation Platelet Estimate (NORMAL) RBC Morphology Polychromasia Poikilocytosis Anisocytosis PT (9.95-12.35) SECONDS INR (0.8-3.0) APTT (25.3-37.0) SECONDS D-Dimer (215-500) ng/mL pO2/FiO2 Ratio 32.0 % VBG pH 7.31 L (7.32-7.42) VBG pCO2 at Pat Temp 57 H (42-55) mm/Hg VBG pO2 at Pat Temp 33 (25-40) mm/Hg VBG HCO3 28.7 H (22-28) meq/L VBG O2 Sat ([place]) 64.4 L (95-100) VBG Base Excess 1.7 (-2.0-2.0) VBG Hemoglobin 9.9 VBG Carboxyhemoglobin 4.9 (0.0-6.9) % T HGB POC Potassium 5.2 H (3.5-5.1) Sodium (137-145) mmol/L Potassium (3.5-5.1) mmol/L Chloride (98-107) mmol/L Carbon Dioxide (22-30) mmol/L Anion Gap (5-15) MEQ/L BUN (7-17) mg/dL Creatinine (0.52-1.04) mg/dL Estimated GFR ML/MIN Glucose (74-106) mg/dL Lactic Acid (0.4-2.0) Calcium (8.4-10.2) mg/dL Total Bilirubin (0.2-1.3) mg/dL AST (14-36) U/L ALT (0-35) U/L Alkaline Phosphatase (38-126) U/L Troponin I < 0.012 (0.000-0.034) ng/mL NT-Pro-B Natriuret Pep (0-900) pg/mL Serum Total Protein (6.3-8.2) g/dL Albumin (3.5-5.0) g/dL Influenza Type A Ag NEGATIVE (NEGATIVE) Influenza Type B Ag NEGATIVE (NEGATIVE) RSV (PCR) NEGATIVE (Negative) 09/02/18 09/02/18 09/02/18 Range/Units 10:51 13:15 16:20 WBC (4.0-10.5) K/mm3 RBC (4.1-5.4) M/mm3 Hgb (12.0-16.0) gm/dl Hct (35-47) % MCV (78-100) fl MCH (26-32) pg MCHC (32-36) g/dl RDW (11.5-14.0) % Plt Count (150-450) K/mm3 MPV (6-9.5) fl Segmented Neutrophils (36.0-66.0) % Band Neutrophils (0.0-2.0) % Lymphocytes (Manual) (24-44) % Monocytes (Manual) (0.0-12.0) % Eosinophils (Manual) (0.00-3.0) % Toxic Granulation Platelet Estimate (NORMAL) RBC Morphology Polychromasia Poikilocytosis Anisocytosis PT (9.95-12.35) SECONDS INR (0.8-3.0) APTT (25.3-37.0) SECONDS D-Dimer (215-500) ng/mL pO2/FiO2 Ratio % VBG pH (7.32-7.42) VBG pCO2 at Pat Temp (42-55) mm/Hg VBG pO2 at Pat Temp (25-40) mm/Hg VBG HCO3 (22-28) meq/L VBG O2 Sat ([place]) (95-100) VBG Base Excess (-2.0-2.0) VBG Hemoglobin VBG Carboxyhemoglobin (0.0-6.9) % T HGB POC Potassium (3.5-5.1) Sodium (137-145) mmol/L Potassium (3.5-5.1) mmol/L Chloride (98-107) mmol/L Carbon Dioxide (22-30) mmol/L Anion Gap (5-15) MEQ/L BUN (7-17) mg/dL Creatinine (0.52-1.04) mg/dL Estimated GFR ML/MIN Glucose (74-106) mg/dL Lactic Acid 1.3 (0.4-2.0) Calcium (8.4-10.2) mg/dL Total Bilirubin (0.2-1.3) mg/dL AST (14-36) U/L ALT (0-35) U/L Alkaline Phosphatase (38-126) U/L Troponin I 0.018 < 0.012 (0.000-0.034) ng/mL NT-Pro-B Natriuret Pep (0-900) pg/mL Serum Total Protein (6.3-8.2) g/dL Albumin (3.5-5.0) g/dL Influenza Type A Ag (NEGATIVE) Influenza Type B Ag (NEGATIVE) RSV (PCR) (Negative) 09/02/18 09/02/18 09/03/18 Range/Units 19:25 22:22 05:28 WBC 25.4 H* (4.0-10.5) K/mm3 RBC 3.36 L (4.1-5.4) M/mm3 Hgb 9.5 L (12.0-16.0) gm/dl Hct 32.4 L (35-47) % MCV 96.4 (78-100) fl MCH 28.2 (26-32) pg MCHC 29.3 L D (32-36) g/dl RDW 18.0 H (11.5-14.0) % Plt Count 287 (150-450) K/mm3 MPV 10.0 H (6-9.5) fl Segmented Neutrophils 95 H (36.0-66.0) % Band Neutrophils (0.0-2.0) % Lymphocytes (Manual) 4 L (24-44) % Monocytes (Manual) 1 (0.0-12.0) % Eosinophils (Manual) (0.00-3.0) % Toxic Granulation Platelet Estimate NORMAL (NORMAL) RBC Morphology ABNORMAL Polychromasia 1+ Poikilocytosis 1+ Anisocytosis 1+ PT (9.95-12.35) SECONDS INR (0.8-3.0) APTT (25.3-37.0) SECONDS D-Dimer (215-500) ng/mL pO2/FiO2 Ratio % VBG pH (7.32-7.42) VBG pCO2 at Pat Temp (42-55) mm/Hg VBG pO2 at Pat Temp (25-40) mm/Hg VBG HCO3 (22-28) meq/L VBG O2 Sat ([place]) (95-100) VBG Base Excess (-2.0-2.0) VBG Hemoglobin VBG Carboxyhemoglobin (0.0-6.9) % T HGB POC Potassium (3.5-5.1) Sodium (137-145) mmol/L Potassium (3.5-5.1) mmol/L Chloride (98-107) mmol/L Carbon Dioxide (22-30) mmol/L Anion Gap (5-15) MEQ/L BUN (7-17) mg/dL Creatinine (0.52-1.04) mg/dL Estimated GFR ML/MIN Glucose (74-106) mg/dL Lactic Acid (0.4-2.0) Calcium (8.4-10.2) mg/dL Total Bilirubin (0.2-1.3) mg/dL AST (14-36) U/L ALT (0-35) U/L Alkaline Phosphatase (38-126) U/L Troponin I < 0.012 < 0.012 (0.000-0.034) ng/mL NT-Pro-B Natriuret Pep (0-900) pg/mL Serum Total Protein (6.3-8.2) g/dL Albumin (3.5-5.0) g/dL Influenza Type A Ag (NEGATIVE) Influenza Type B Ag (NEGATIVE) RSV (PCR) (Negative) 09/03/18 Range/Units 05:28 WBC (4.0-10.5) K/mm3 RBC (4.1-5.4) M/mm3 Hgb (12.0-16.0) gm/dl Hct (35-47) % MCV (78-100) fl MCH (26-32) pg MCHC (32-36) g/dl RDW (11.5-14.0) % Plt Count (150-450) K/mm3 MPV (6-9.5) fl Segmented Neutrophils (36.0-66.0) % Band Neutrophils (0.0-2.0) % Lymphocytes (Manual) (24-44) % Monocytes (Manual) (0.0-12.0) % Eosinophils (Manual) (0.00-3.0) % Toxic Granulation Platelet Estimate (NORMAL) RBC Morphology Polychromasia Poikilocytosis Anisocytosis PT (9.95-12.35) SECONDS INR (0.8-3.0) APTT (25.3-37.0) SECONDS D-Dimer (215-500) ng/mL pO2/FiO2 Ratio % VBG pH (7.32-7.42) VBG pCO2 at Pat Temp (42-55) mm/Hg VBG pO2 at Pat Temp (25-40) mm/Hg VBG HCO3 (22-28) meq/L VBG O2 Sat ([place]) (95-100) VBG Base Excess (-2.0-2.0) VBG Hemoglobin VBG Carboxyhemoglobin (0.0-6.9) % T HGB POC Potassium (3.5-5.1) Sodium 138 (137-145) mmol/L Potassium 4.8 (3.5-5.1) mmol/L Chloride 104 (98-107) mmol/L Carbon Dioxide 27 (22-30) mmol/L Anion Gap 11.8 (5-15) MEQ/L BUN 18 H (7-17) mg/dL Creatinine 0.72 (0.52-1.04) mg/dL Estimated GFR > 60.0 ML/MIN Glucose 105 (74-106) mg/dL Lactic Acid (0.4-2.0) Calcium 8.1 L (8.4-10.2) mg/dL Total Bilirubin 0.10 L (0.2-1.3) mg/dL AST 10 L (14-36) U/L ALT 11 (0-35) U/L Alkaline Phosphatase 136 H (38-126) U/L Troponin I (0.000-0.034) ng/mL NT-Pro-B Natriuret Pep (0-900) pg/mL Serum Total Protein 6.8 (6.3-8.2) g/dL Albumin 3.2 L (3.5-5.0) g/dL Influenza Type A Ag (NEGATIVE) Influenza Type B Ag (NEGATIVE) RSV (PCR) (Negative) Radiology Exams: Radiology Procedures Category Date Time Status CHEST 1 VIEW (PORTABLE) Stat Exams 09/02/18 10:11 Completed CHEST WITH CONTRAST [CT] Stat Exams 09/02/18 11:10 Completed Multi-Disciplinary Progress Notes: Multi-Disciplinary Progress Notes 09/03/18 00:57 Respiratory Note by eNlson Ramon CHECKED W/ NURSING AFTER 0700 TX PT APPEARED TO BE MOVING SLOWLY AND UNABLE AFTER 3 TIMES TO DO PEAK FLOW. PT APPEARED TO BE UNDERSTANDING WHAT I WAS ASKING OF HER AND ATTEMPTING IT BUT SIMPLY COULDN'T DO PEAK FLOW. NURSING AND STOCK CLIPPER STATED THAT PT HAD BEEN LIKE THAT AND THAT THIS WASN'T "NEW". Initialized on 09/03/18 00:57 - END OF NOTE Assessment/Plan (1) Sepsis Current Visit: Yes Status: Acute Assessment & Plan: due to health care associated pneumonia. copd exacerbation she was changed to meropenem last night add vanc if worsening clinical condition or new fevers or culture dictates afebrile monitor mental status she is on steroids the wbc did go up intially has a history of c. diff diarrhea monitor for development. will try small decrease in iv steroid from 80 q6h to 60 mg q6h continue nebs (2) Pneumonia Current Visit: Yes Status: Acute Onset Date: ~06/11/18 Qualifiers: Pneumonia type: due to unspecified organism Laterality: left Lung location: upper lobe of lung Qualified Code(s): J18.1 - Lobar pneumonia, unspecified organism Code(s): J18.9 - PNEUMONIA, UNSPECIFIED ORGANISM (3) Acute metabolic encephalopathy Current Visit: Yes Status: Acute Code(s): G93.41 - METABOLIC ENCEPHALOPATHY (4) Acute exacerbation of COPD with asthma Current Visit: Yes Status: Acute Code(s): J44.1 - CHRONIC OBSTRUCTIVE PULMONARY DISEASE W (ACUTE) EXACERBATION; J45.901 - UNSPECIFIED ASTHMA WITH ( ACUTE) EXACERBATION (5) Acute and chronic respiratory failure with hypoxia Current Visit: Yes Status: Acute Onset Date: ~06/10/18 Code(s): J96.21 - ACUTE AND CHRONIC RESPIRATORY FAILURE WITH HYPOXIA (6) Anemia Current Visit: Yes Status: Acute Qualifiers: Anemia type: unspecified type Qualified Code(s): D64.9 - Anemia, unspecified Code(s): D64.9 - ANEMIA, UNSPECIFIED (7) Hypothyroidism Current Visit: Yes Status: Chronic Code(s): E03.9 - HYPOTHYROIDISM, UNSPECIFIED (8) Seizure disorder Current Visit: Yes Status: Chronic Code(s): G40.909 - EPILEPSY, UNSP, NOT INTRACTABLE, WITHOUT STATUS EPILEPTICUS (9) Essential hypertension Current Visit: Yes Status: Chronic Code(s): I10 - ESSENTIAL (PRIMARY) HYPERTENSION (10) Bipolar disorder Current Visit: Yes Status: Chronic Qualifiers: Active/Remission status: currently active Current bipolar episode type: depressed Current episode severity: severe Psychotic features: with psychotic features Qualified Code(s): F31.5 - Bipolar disorder, current episode depressed, severe, with psychotic features
[2018-09-03] MEDS: FOLATE 1 MG PO SCH (09:20)
[2018-09-03] MEDS: Zestril 20 MG PO SCH (09:20)
[2018-09-03] MEDS: Protonix 40MG Tablet PO SCH (09:21)
[2018-09-03] MEDS: ECOTRIN 81 MG PO SCH (09:21)
[2018-09-03] MEDS: xanAX 0.25 MG PO SCH ×3 (09:21→21:32)
[2018-09-03] MEDS: Risperdal 1 MG PO SCH ×3 (09:21→21:33)
[2018-09-03] MEDS: Cymbalta 30 MG Capsule PO SCH (09:21)
[2018-09-03] MEDS: Keppra 250 MG PO SCH ×2 (09:21→21:33)
[2018-09-03] MEDS: Lopressor 50 MG PO SCH ×2 (09:21→21:33)
[2018-09-03] MEDS: Singulair 10 MG PO SCH (09:21)
[2018-09-03] MEDS: ENOXAPARIN SODIUM SQ SCH (09:22)
[2018-09-03] MEDS ORDERED: NON-FORMULARY ITEM (Duloxetine Hcl [Cymbalta] 60 MG) PO SCH (10:00)
[2018-09-03] MEDS ORDERED: NEURONTIN 300 MG PO SCH ×2 (10:00→13:50)
[2018-09-03] MEDS ORDERED: ROCEPHIN 1 Gm-D5w 50 ml Bag** 1 G/50 ML IVPB IV SCH (10:00)
[2018-09-03] MEDS: Sodium Chloride 0.9% 1000 ML 1,000 ML IV SCH (16:45)
[2018-09-03] MEDS: LIPITOR 40MG PO SCH (21:32)
[2018-09-04] MEDS: DUONEB 0.5-3 MG/3 ml Neb IH SCH ×4 (00:27→19:07)
[2018-09-04 03:38] LABS: 027 TOX PROD PRESUMPTIVE NEGATIVE (NEGATIVE); TOXIGENIC C. DIFF ORG NEGATIVE (NEGATIVE)
[2018-09-04 05:49] LABS: Hematocrit 33.3 % (35-47); Hemoglobin 9.8 gm/dl (12.0-16.0); Mean Cell Volume 96.8 fl (78-100); Mean Corpuscular Hgb Concent. 29.4 g/dl (32-36); Platelet Count 306 K/mm3 (150-450); Red Blood Count 3.44 M/mm3 (4.1-5.4); Red Cell Distribution Width 18.2 % (11.5-14.0)
[2018-09-04] MEDS: Merrem 1 GM 1 G in Sodium Chloride 100ML MINI-BAG PLUS 100 ML IV SCH ×3 (05:50→22:38)
[2018-09-04 05:56] LABS: Mean Corpuscular Hemoglobin 28.4 pg (26-32); White Blood Count 26.5 K/mm3 (4.0-10.5)
[2018-09-04 06:11] LABS: ANION GAP 9.2 MEQ/L (5-15); BLOOD UREA NITROGEN 18 mg/dL (7-17); CHLORIDE 108 mmol/L (98-107); Calcium 8.1 mg/dL (8.4-10.2); Carbon Dioxide 27 mmol/L (22-30); Creatinine 1 0.69 mg/dL (0.52-1.04); Glucose 164 mg/dL (74-106); Potassium 4.4 mmol/L (3.5-5.1); SODIUM 140 mmol/L (137-145)
[2018-09-04] MEDS: solu-MEDROL 125 MG IV SCH (06:40)
[2018-09-04] MEDS: PULMICORT 0.5 MG/2 ML RESPULES IH SCH ×2 (06:53→19:08)
[2018-09-04 07:30] LABS: Lymphocytes 8 % (24-44); Monocyte 2 % (0.0-12.0); Neutrophils 90 % (36.0-66.0); Total Cells Counted 100
[2018-09-04 07:31] LABS: ANISOCYTOSIS 1+; Platelet Estimate NORMAL (NORMAL); Poikilocytosis 1+; Toxic Granulation 1+
[2018-09-04] MEDS ORDERED: Zofran 4 MG/2 ML VIAL IV PRN (08:16)
[2018-09-04] MEDS ORDERED: PHARMACY DOSING REQUIRED: VANCOMYCIN IV ONE (08:16)
--- NOTE | 2018-09-04 08:20 | PCM.NOTE ---
Date and Time: 09/04/18816 Subjective Assessment: she has not shown much improvement still fatigued with increased difficulty breathing and coughing with wheezing and rhonci Objective Exam General Appearance: no apparent distress, alert Neurologic Exam: alert, oriented x 3, No motor deficits Skin Exam: normal color, warm, dry Eye Exam: PERRL, EOMI Ears, Nose, Throat Exam: normal ENT inspection, dry mucous membranes Neck Exam: normal inspection, non-tender, supple Respiratory Exam: crackles/rales, rhonchi, wheezing Cardiovascular Exam: tachycardia, edema Gastrointestinal/Abdomen Exam: soft, No tenderness, No mass Extremity Exam: normal inspection, normal range of motion Back Exam: normal inspection, normal range of motion, No CVA tenderness, No vertebral tenderness Pelvic Exam: deferred Rectal Exam: deferred OBJECTIVE DATA Vital Signs: Vital Signs - 24 hr Temp Pulse Resp BP Pulse Ox 09/04/18 08:00 20 09/04/18 07:16 98.2 F 96 H 18 176/79 100 09/04/18 06:58 99 H 24 96 09/04/18 04:00 98.3 F 96 H 30 H 145/68 95 09/04/18 00:43 91 H 21 97 09/04/18 00:00 97.0 F 86 22 109/56 93 L 09/03/18 20:33 100 H 28 H 97 09/03/18 20:00 98.3 F 104 H 25 H 136/62 96 09/03/18 16:06 97.4 F 92 H 20 130/69 95 09/03/18 13:03 91 H 20 93 L 09/03/18 12:13 97.8 F 101 H 20 122/59 95 Oxygen-Last 24 hours O2 Percentage 3 Liters = 32% O2 Percentage 2 Liters = 28% O2 Percentage 3 Liters = 32% O2 Percentage 3 Liters = 32% O2 Percentage 3 Liters = 32% O2 Percentage 3 Liters = 32% Pain Assessment - Last Documented Pain Intensity 0 Pain Scale Used 0-10 Pain Scale Intake and Output: Intake & Output 09/01/18 09/02/18 09/03/18 09/04/18 11:59 11:59 11:59 11:59 Intake Total 2529 3002 Balance 2529 3002 Weight 61.235 kg 68.4 kg 28.6 kg Lab Results: Accuchecks Date 09/04/18 Date 09/03/18 Date 09/03/18 Date 09/03/18 Time 07:30 Time 21:40 Time 16:30 Time 11:18 Accucheck Value: 164 Accucheck Value: 173 Accucheck Value: 145 Accucheck Value: 250 Lab Results-Last 24 Hours 09/04/18 09/04/18 09/04/18 Range/Units 02:33 05:46 05:46 WBC 26.5 H* (4.0-10.5) K/mm3 RBC 3.44 L (4.1-5.4) M/mm3 Hgb 9.8 L (12.0-16.0) gm/dl Hct 33.3 L (35-47) % MCV 96.8 (78-100) fl MCH 28.4 (26-32) pg MCHC 29.4 L (32-36) g/dl RDW 18.2 H (11.5-14.0) % Plt Count 306 (150-450) K/mm3 MPV 10.0 H (6-9.5) fl Absolute Granulocytes 23.30 H (1.4-6.9) Segmented Neutrophils 90 H (36.0-66.0) % Lymphocytes (Manual) 8 L (24-44) % Monocytes (Manual) 2 (0.0-12.0) % Toxic Granulation 1+ Platelet Estimate NORMAL (NORMAL) RBC Morphology ABNORMAL Poikilocytosis 1+ Anisocytosis 1+ Sodium 140 (137-145) mmol/L Potassium 4.4 (3.5-5.1) mmol/L Chloride 108 H (98-107) mmol/L Carbon Dioxide 27 (22-30) mmol/L Anion Gap 9.2 (5-15) MEQ/L BUN 18 H (7-17) mg/dL Creatinine 0.69 (0.52-1.04) mg/dL Estimated GFR > 60.0 ML/MIN Glucose 164 H (74-106) mg/dL Calcium 8.1 L (8.4-10.2) mg/dL Stl C. diff Tox B Gene NEGATIVE (NEGATIVE) C.difficile [id number] PRESUMPTIVE NEGATIVE (NEGATIVE) Radiology Exams: Radiology Procedures Category Date Time Status CHEST 1 VIEW (PORTABLE) Stat Exams 09/02/18 10:11 Completed CHEST WITH CONTRAST [CT] Stat Exams 09/02/18 11:10 Completed Multi-Disciplinary Progress Notes: Multi-Disciplinary Progress Notes 09/03/18 10:05 (created 09/03/18 16:51) Case Management Note by Isatu Triplett PT'S SIG OTHER, JOSH, CONTINUES TO PLAN FOR PT TO RETURN TO [facility] ON DISCHARGE. NO ADDNL DC NEEDS IDENTIFIED. Initialized on 09/03/18 16:51 - END OF NOTE Assessment/Plan (1) Sepsis Current Visit: Yes Status: Acute Assessment & Plan: add vancomycin continue meropenem continue prednisone monitor fluid status will continue gentle iv fluids with her decreased po intake on lovenox for ppx (2) Pneumonia Current Visit: Yes Status: Acute Onset Date: ~06/11/18 Qualifiers: Pneumonia type: due to unspecified organism Laterality: left Lung location: upper lobe of lung Qualified Code(s): J18.1 - Lobar pneumonia, unspecified organism Code(s): J18.9 - PNEUMONIA, UNSPECIFIED ORGANISM (3) Acute metabolic encephalopathy Current Visit: Yes Status: Acute Code(s): G93.41 - METABOLIC ENCEPHALOPATHY (4) Acute exacerbation of COPD with asthma Current Visit: Yes Status: Acute Code(s): J44.1 - CHRONIC OBSTRUCTIVE PULMONARY DISEASE W (ACUTE) EXACERBATION; J45.901 - UNSPECIFIED ASTHMA WITH ( ACUTE) EXACERBATION (5) Acute and chronic respiratory failure with hypoxia Current Visit: Yes Status: Acute Onset Date: ~06/10/18 Code(s): J96.21 - ACUTE AND CHRONIC RESPIRATORY FAILURE WITH HYPOXIA (6) Anemia Current Visit: Yes Status: Acute Qualifiers: Anemia type: unspecified type Qualified Code(s): D64.9 - Anemia, unspecified Code(s): D64.9 - ANEMIA, UNSPECIFIED (7) Hypothyroidism Current Visit: Yes Status: Chronic Code(s): E03.9 - HYPOTHYROIDISM, UNSPECIFIED (8) Seizure disorder Current Visit: Yes Status: Chronic Code(s): G40.909 - EPILEPSY, UNSP, NOT INTRACTABLE, WITHOUT STATUS EPILEPTICUS (9) Essential hypertension Current Visit: Yes Status: Chronic Code(s): I10 - ESSENTIAL (PRIMARY) HYPERTENSION (10) Bipolar disorder Current Visit: Yes Status: Chronic Qualifiers: Active/Remission status: currently active Current bipolar episode type: depressed Current episode severity: severe Psychotic features: with psychotic features Qualified Code(s): F31.5 - Bipolar disorder, current episode depressed, severe, with psychotic features
[2018-09-04] MEDS ORDERED: DIFLUCAN PO ONE (09:00)
[2018-09-04] MEDS: Lopressor 50 MG PO SCH ×2 (09:06→21:29)
[2018-09-04] MEDS: ENOXAPARIN SODIUM SQ SCH (09:06)
[2018-09-04] MEDS: xanAX 0.25 MG PO SCH ×3 (09:06→21:30)
[2018-09-04] MEDS: ECOTRIN 81 MG PO SCH (09:07)
[2018-09-04] MEDS: DELTASONE 20 MG PO SCH (09:07)
[2018-09-04] MEDS: Zestril 20 MG PO SCH (09:07)
[2018-09-04] MEDS: Cymbalta 30 MG Capsule PO SCH (09:07)
[2018-09-04] MEDS: Risperdal 1 MG PO SCH ×3 (09:08→21:29)
[2018-09-04] MEDS: Protonix 40MG Tablet PO SCH (09:08)
[2018-09-04] MEDS: Singulair 10 MG PO SCH (09:08)
[2018-09-04] MEDS: Keppra 250 MG PO SCH ×2 (09:08→21:29)
[2018-09-04] MEDS: FOLATE 1 MG PO SCH (09:09)
[2018-09-04] MEDS ORDERED: VANCOCIN 1 GM VIAL*** 1 GM in Sodium Chloride 0.9% 250 ML 250 ML IV SCH (10:00)
[2018-09-04] MEDS: VANCOCIN 500 MG VIAL*** 500 MG in Sodium Chloride 100ML MINI-BAG PLUS 100 ML IV SCH (21:25)
[2018-09-04] MEDS: LIPITOR 40MG PO SCH (21:29)
[2018-09-05] MEDS: DUONEB 0.5-3 MG/3 ml Neb IH SCH ×4 (02:05→19:08)
[2018-09-05] MEDS: TYLENOL 325 MG PO PRN ×2 (02:16→11:11)
[2018-09-05 05:54] LABS: Hematocrit 32.7 % (35-47); Hemoglobin 9.6 gm/dl (12.0-16.0); Mean Cell Volume 96.5 fl (78-100); Mean Corpuscular Hemoglobin 28.3 pg (26-32); Mean Corpuscular Hgb Concent. 29.4 g/dl (32-36); Mean Platelet Volume 9.9 fl (6-9.5); Platelet Count 309 K/mm3 (150-450); Red Blood Count 3.39 M/mm3 (4.1-5.4); Red Cell Distribution Width 18.1 % (11.5-14.0); White Blood Count 18.7 K/mm3 (4.0-10.5)
[2018-09-05] MEDS: Merrem 1 GM 1 G in Sodium Chloride 100ML MINI-BAG PLUS 100 ML IV SCH ×3 (06:04→21:07)
[2018-09-05 06:13] LABS: ALBUMIN 3.1 g/dL (3.5-5.0); ALKALINE PHOSPHATASE 129 U/L (38-126); ANION GAP 9.4 MEQ/L (5-15); BLOOD UREA NITROGEN 18 mg/dL (7-17); CHLORIDE 109 mmol/L (98-107); Carbon Dioxide 27 mmol/L (22-30); Creatinine 1 0.75 mg/dL (0.52-1.04); Glucose 108 mg/dL (74-106); Potassium 4.3 mmol/L (3.5-5.1); SGOT/AST 12 U/L (14-36); SGPT/ALT 11 U/L (0-35); SODIUM 140 mmol/L (137-145); Total Protein 6.4 g/dL (6.3-8.2)
[2018-09-05 06:45] LABS: ANISOCYTOSIS 1+; Lymphocytes 15 % (24-44); Monocyte 2 % (0.0-12.0); Neutrophils 83 % (36.0-66.0); Ovalocytes 1+; Poikilocytosis 1+; Total Cells Counted 100
[2018-09-05 06:46] LABS: Tear Drop Cells 1+
[2018-09-05 06:47] LABS: Platelet Estimate NORMAL (NORMAL)
[2018-09-05] MEDS: PULMICORT 0.5 MG/2 ML RESPULES IH SCH ×2 (07:11→19:08)
[2018-09-05] MEDS: DUONEB 0.5-3 MG/3 ml Neb IH PRN (07:14)
[2018-09-05] MEDS ORDERED: Lasix 40 MG/4 ML IV ONE (09:29)
--- NOTE | 2018-09-05 09:32 | PCM.NOTE ---
Date and Time: 09/05/18930 Subjective Assessment: she seems to be doing worse today has been moaning during the morning but when asked what she wants she will say "nothing" or deny any pain or difficulty. She has only eaten 1 bite of breakfast. Her respiratory rate has increased this am. She denies chest pain or pain in general and denies nausea or abdominal pain. no diarrhea. Objective Exam General Appearance: mild distress, alert Neurologic Exam: alert, oriented x 3, cooperative Skin Exam: normal color, warm, dry Eye Exam: PERRL, EOMI, eyes nml inspection Ears, Nose, Throat Exam: normal ENT inspection, pharynx normal, moist mucous membranes Neck Exam: normal inspection, non-tender, supple, full range of motion, JVD ( about 5cm jvd), other (chronic torticollis) Respiratory Exam: crackles/rales (wet rales worse at bases), rhonchi Cardiovascular Exam: tachycardia, edema Gastrointestinal/Abdomen Exam: soft, No tenderness, No mass Extremity Exam: normal inspection, normal range of motion Back Exam: normal inspection, normal range of motion, No CVA tenderness, No vertebral tenderness Pelvic Exam: deferred Rectal Exam: deferred OBJECTIVE DATA Vital Signs: Vital Signs - 24 hr Temp Pulse Resp BP Pulse Ox 09/05/18 08:00 24 09/05/18 07:37 98.6 F 100 H 24 182/84 95 09/05/18 07:00 110 H 26 H 96 09/05/18 03:58 98.1 F 99 H 32 H 152/78 96 09/05/18 02:20 98 H 37 H 96 09/05/18 00:00 99.0 F 94 H 34 H 145/69 98 09/04/18 19:30 97.9 F 108 H 30 H 158/72 96 09/04/18 19:11 108 H 38 H 97 09/04/18 16:00 97.2 F 102 H 22 163/74 97 09/04/18 13:37 90 20 96 09/04/18 12:00 98.2 F 96 H 20 176/79 Oxygen-Last 24 hours O2 Percentage 3 Liters = 32% O2 Percentage 3 Liters = 32% O2 Percentage 3 Liters = 32% O2 Percentage 3 Liters = 32% Pain Assessment - Last Documented Pain Intensity 0 Pain Scale Used 0-10 Pain Scale Intake and Output: Intake & Output 09/02/18 09/03/18 09/04/18 09/05/18 11:59 11:59 11:59 11:59 Intake Total 4828 3429 4599 Balance 7473 2579 3330 Weight 61.235 kg 68.4 kg 70.6 kg 71.7 kg Lab Results: Accuchecks Date 09/05/18 Date 09/04/18 Date 09/04/18 Time 07:30 Time 16:30 Time 11:30 Accucheck Value: 108 Accucheck Value: 151 Accucheck Value: 154 Accucheck Value: 143 Lab Results-Last 24 Hours 09/05/18 09/05/18 Range/Units 05:25 05:25 WBC 18.7 H (4.0-10.5) K/mm3 RBC 3.39 L (4.1-5.4) M/mm3 Hgb 9.6 L (12.0-16.0) gm/dl Hct 32.7 L (35-47) % MCV 96.5 (78-100) fl MCH 28.3 (26-32) pg MCHC 29.4 L (32-36) g/dl RDW 18.1 H (11.5-14.0) % Plt Count 309 (150-450) K/mm3 MPV 9.9 H (6-9.5) fl Segmented Neutrophils 83 H (36.0-66.0) % Lymphocytes (Manual) 15 L (24-44) % Monocytes (Manual) 2 (0.0-12.0) % Platelet Estimate NORMAL (NORMAL) RBC Morphology ABNORMAL Poikilocytosis 1+ Anisocytosis 1+ Tear Drop Cells 1+ Ovalocytes 1+ Sodium 140 (137-145) mmol/L Potassium 4.3 (3.5-5.1) mmol/L Chloride 109 H (98-107) mmol/L Carbon Dioxide 27 (22-30) mmol/L Anion Gap 9.4 (5-15) MEQ/L BUN 18 H (7-17) mg/dL Creatinine 0.75 (0.52-1.04) mg/dL Estimated GFR > 60.0 ML/MIN Glucose 108 H (74-106) mg/dL Calcium 8.0 L (8.4-10.2) mg/dL Total Bilirubin 0.10 L (0.2-1.3) mg/dL AST 12 L (14-36) U/L ALT 11 (0-35) U/L Alkaline Phosphatase 129 H (38-126) U/L Serum Total Protein 6.4 (6.3-8.2) g/dL Albumin 3.1 L (3.5-5.0) g/dL Radiology Exams: Radiology Procedures Category Date Time Status CHEST 1 VIEW (PORTABLE) Stat Exams 09/05/18 09:30 Ordered Multi-Disciplinary Progress Notes: Multi-Disciplinary Progress Notes 09/04/18 11:15 Case Management Note by Isatu Triplett ATTEMPTED TO REACH HARINI MORENO'S POA, VIA PHONE TO UPDATE ON PT STATUS. NO ANSWER , . Initialized on 09/04/18 11:15 - END OF NOTE Assessment/Plan (1) Sepsis Current Visit: Yes Status: Acute Assessment & Plan: due to health care associated pneumonia on meropenem and vancomycin repeat xray with increased respiratory distress tihs am stop iv fluids give 40 mg iv lasix continue prednisone and nebs decrease risperidone due to fatigue monitor for increase in psychiatric symptoms (2) Pneumonia Current Visit: Yes Status: Acute Onset Date: ~06/11/18 Qualifiers: Pneumonia type: due to unspecified organism Laterality: left Lung location: upper lobe of lung Qualified Code(s): J18.1 - Lobar pneumonia, unspecified organism Code(s): J18.9 - PNEUMONIA, UNSPECIFIED ORGANISM (3) Acute metabolic encephalopathy Current Visit: Yes Status: Acute Code(s): G93.41 - METABOLIC ENCEPHALOPATHY (4) Acute exacerbation of COPD with asthma Current Visit: Yes Status: Acute Code(s): J44.1 - CHRONIC OBSTRUCTIVE PULMONARY DISEASE W (ACUTE) EXACERBATION; J45.901 - UNSPECIFIED ASTHMA WITH ( ACUTE) EXACERBATION (5) Acute and chronic respiratory failure with hypoxia Current Visit: Yes Status: Acute Onset Date: ~06/10/18 Code(s): J96.21 - ACUTE AND CHRONIC RESPIRATORY FAILURE WITH HYPOXIA (6) Anemia Current Visit: Yes Status: Acute Qualifiers: Anemia type: unspecified type Qualified Code(s): D64.9 - Anemia, unspecified Code(s): D64.9 - ANEMIA, UNSPECIFIED (7) Hypothyroidism Current Visit: Yes Status: Chronic Code(s): E03.9 - HYPOTHYROIDISM, UNSPECIFIED (8) Seizure disorder Current Visit: Yes Status: Chronic Code(s): G40.909 - EPILEPSY, UNSP, NOT INTRACTABLE, WITHOUT STATUS EPILEPTICUS (9) Essential hypertension Current Visit: Yes Status: Chronic Code(s): I10 - ESSENTIAL (PRIMARY) HYPERTENSION (10) Bipolar disorder Current Visit: Yes Status: Chronic Qualifiers: Active/Remission status: currently active Current bipolar episode type: depressed Current episode severity: severe Psychotic features: with psychotic features Qualified Code(s): F31.5 - Bipolar disorder, current episode depressed, severe, with psychotic features
[2018-09-05] MEDS: DELTASONE 20 MG PO SCH (09:40)
[2018-09-05] MEDS: VANCOCIN 500 MG VIAL*** 500 MG in Sodium Chloride 100ML MINI-BAG PLUS 100 ML IV SCH ×2 (09:40→21:41)
[2018-09-05] MEDS: Risperdal 1 MG PO SCH ×3 (09:40→21:15)
[2018-09-05] MEDS: Zestril 20 MG PO SCH (09:41)
[2018-09-05] MEDS: Singulair 10 MG PO SCH (09:41)
[2018-09-05] MEDS: Keppra 250 MG PO SCH ×2 (09:41→21:14)
[2018-09-05] MEDS: FOLATE 1 MG PO SCH (09:41)
[2018-09-05] MEDS: Protonix 40MG Tablet PO SCH (09:41)
[2018-09-05] MEDS: xanAX 0.25 MG PO SCH ×3 (09:41→21:15)
[2018-09-05] MEDS: Lopressor 50 MG PO SCH ×2 (09:41→21:14)
[2018-09-05] MEDS: ECOTRIN 81 MG PO SCH (09:41)
[2018-09-05] MEDS: Cymbalta 30 MG Capsule PO SCH (09:41)
[2018-09-05] MEDS: ENOXAPARIN SODIUM SQ SCH (09:42)
[2018-09-05 12:36] LABS: A-aADO2 45; ABG HEMOGLOBIN 11.7; ABG POTASSIUM 3.9 (3.5-5.1); ARTERIAL BLD GAS O2 SATURATION 98.9 % (95-100); ARTERIAL BLOOD GAS BASE EXCESS 0.8 (-2.0-2.0); ARTERIAL BLOOD GAS FIO2 32 %; ARTERIAL BLOOD GAS PO2 102 mmHg (75-100); ARTERIAL BLOOD GAS pH 7.26 (7.35-7.45); CARBOXYHEMOGLOBIN 1.8 % THgb (0.0-6.9); HCO3- 29.2 (22-28); HGB O2 SAT 96.2 g/dF (94-100); Methhemoglobin 0.9 % (1.4-1.5); paO2 pAO1 0.69
[2018-09-05 12:37] LABS: ABG SITE RIGHT RADIAL; ALLEN TEST OK? YES; ARTERIAL BLOOD GAS PCO2 65 mmHg (35-45)
[2018-09-05] MEDS ORDERED: Lasix 20 MG/2 ML ONE (16:09)
[2018-09-05] MEDS: Lasix 20 MG/2 ML IV ONE (16:18)
[2018-09-05 16:44] LABS: A-aADO2 110; ABG HEMOGLOBIN 11.6; ABG POTASSIUM 3.8 (3.5-5.1); ARTERIAL BLD GAS O2 SATURATION 99.7 % (95-100); ARTERIAL BLOOD GAS BASE EXCESS 4.8 (-2.0-2.0); ARTERIAL BLOOD GAS FIO2 45 %; ARTERIAL BLOOD GAS PO2 125 mmHg (75-100); ARTERIAL BLOOD GAS VENT MODE BiPAP; ARTERIAL BLOOD GAS pH 7.29 (7.35-7.45); CARBOXYHEMOGLOBIN 1.8 % THgb (0.0-6.9); HCO3- 33.2 (22-28); HGB O2 SAT 96.6 g/dF (94-100); Methhemoglobin 1.3 % (1.4-1.5); paO2 pAO1 0.53
[2018-09-05 16:45] LABS: ARTERIAL BLOOD GAS PCO2 69 mmHg (35-45)
[2018-09-05 16:46] LABS: ABG SITE RIGHT RADIAL; ALLEN TEST OK? YES
--- NOTE | 2018-09-05 18:14 | XRAY ---
Indication: Respiratory distress. Comparison: September 02, 2018. Portable chest less inflated with slight worsening left base infiltrate/atelectasis/effusion. Remaining right lung and heart unremarkable.
[2018-09-05] MEDS: TYLENOL 325 MG PO SCH (18:42)
[2018-09-05] MEDS: LIPITOR 40MG PO SCH (21:14)
[2018-09-05] MEDS ORDERED: hydroDIURIL 25 MG PO SCH (22:00)
[2018-09-06] MEDS: TYLENOL 325 MG PO SCH ×4 (00:59→17:57)
[2018-09-06] MEDS: DUONEB 0.5-3 MG/3 ml Neb IH SCH ×4 (00:59→18:44)
[2018-09-06 03:29] LABS: A-aADO2 106; ABG HEMOGLOBIN 10.7; ABG POTASSIUM 3.7 (3.5-5.1); ABG SITE RIGHT BRACHIAL; ARTERIAL BLD GAS O2 SATURATION 99.4 % (95-100); ARTERIAL BLOOD GAS FIO2 40 %; ARTERIAL BLOOD GAS PCO2 44 mmHg (35-45); ARTERIAL BLOOD GAS PO2 124 mmHg (75-100); HCO3- 34.3 (22-28); HGB O2 SAT 95.3 g/dF (94-100); Methhemoglobin 1.2 % (1.4-1.5); paO2 pAO1 0.54
[2018-09-06 03:29] LABS: BASOPHIL % 0.2 % (0.0-0.4); Basophil (Absolute #) 0.03 (0-0.4); Eosinophil % 2.4 % (0.00-5.0); Eosinophil (Absolute #) 0.35 (0-0.5); Granulocytes % 59.1 % (36.0-66.0); Hematocrit 34.6 % (35-47); Hemoglobin 10.3 gm/dl (12.0-16.0); Lymphocyte (Absolute #) 3.48 (1.0-4.6); Lymphocytes % 23.6 % (24.0-44.0); Mean Cell Volume 95.1 fl (78-100); Mean Corpuscular Hgb Concent. 29.8 g/dl (32-36); Mean Platelet Volume 10.4 fl (6-9.5); Monocyte (Absolute #) 2.17 (0.0-1.3); Monocytes % 14.7 % (0.0-12.0); Platelet Count 327 K/mm3 (150-450); Red Blood Count 3.64 M/mm3 (4.1-5.4); Red Cell Distribution Width 18.1 % (11.5-14.0); White Blood Count 14.7 K/mm3 (4.0-10.5)
[2018-09-06 03:33] LABS: Mean Corpuscular Hemoglobin 28.2 pg (26-32)
[2018-09-06 03:46] LABS: ALBUMIN 3.2 g/dL (3.5-5.0); ALKALINE PHOSPHATASE 124 U/L (38-126); ANION GAP 7.5 MEQ/L (5-15); BLOOD UREA NITROGEN 17 mg/dL (7-17); CHLORIDE 103 mmol/L (98-107); Calcium 8.4 mg/dL (8.4-10.2); Carbon Dioxide 34 mmol/L (22-30); Creatinine 1 0.67 mg/dL (0.52-1.04); Glucose 103 mg/dL (74-106); Potassium 3.7 mmol/L (3.5-5.1); SGOT/AST 13 U/L (14-36); SGPT/ALT 13 U/L (0-35); SODIUM 141 mmol/L (137-145); Total Protein 6.7 g/dL (6.3-8.2)
[2018-09-06] MEDS ORDERED: Ativan 2 MG/1 ML VIAL IV ONE (04:07)
[2018-09-06] MEDS ORDERED: APRESOLINE 20 MG/ML INJ IV ONE (04:08)
[2018-09-06] MEDS ORDERED: solu-MEDROL 125 MG IV ONE (04:53)
[2018-09-06] MEDS ORDERED: Lasix 20 MG/2 ML IV ONE ×2 (05:00→16:03)
[2018-09-06] MEDS: NITRO-BID 2% UD PACKETS TOP SCH ×2 (05:06→14:49)
[2018-09-06] MEDS: Lasix 20 MG/2 ML IV ONE (05:07)
[2018-09-06] MEDS ORDERED: TRANDATE 20 MG/5 ML SYRINGE IV ONE (05:32)
[2018-09-06 05:58] LABS: ANISOCYTOSIS 1+; Lymphocytes 33 % (24-44); Monocyte 10 % (0.0-12.0); Neutrophils 57 % (36.0-66.0); Platelet Estimate NORMAL (NORMAL); Poikilocytosis 1+; Total Cells Counted 100
[2018-09-06 05:59] LABS: Ovalocytes 1+; Targert Cells RARE; Tear Drop Cells 1+
[2018-09-06] MEDS: Merrem 1 GM 1 G in Sodium Chloride 100ML MINI-BAG PLUS 100 ML IV SCH ×3 (05:59→21:43)
--- NOTE | 2018-09-06 06:26 | PCM.NOTE ---
Date and Time: 09/06/18 0618 Subjective Assessment: Barbara was having increased respiratory difficulty yesterday and elevated blood pressure with evidence of fluid overload. Her fluids were stopped in the am and 40 mg of iv lasix was given. She was incontinent of urine and still having difficulty. 20 mg of additional iv lasix was given and again good response. She was moved across from the nurses station and Hinojosa was placed for accurate I/O. Her blood pressure remained high. An abg showed respiratory acidosis and bipap was used. Her respiratory rate remained high on the bipap. She was tolerating an FiO2 of 40% with pulse ox consistently in the upper 90's. By 3 am her abg had overcorrected to alkalosis with the doses of lasix. She began having increasing heart rate as well. She was unable to take her pm oral pills due to her altered mental status. Her blood pressure remained high and her breathing continued to appear labored. SHe was given 125 mg iv solumedrol, Nitorpaste 0.5 in was applied and 10 mg of hydralazine. Her HR was then in the 160 and 20 mg of labetolol iv was given. I evaluated her at 5:30 at bedside she was on the bipap with rapid breathing. CXR showed some clearing it appears of the left pleural effusion the official read is pending. We took her off the bipap on 3L nc O2 she was able to communicate at that point but would have repatitive speech at times. she tracked well and is moving all extremities. She continues to have the shallow respirations. A rectal temp shows 100.9 currently. She denies pain. She denies needing to have a bowel movement. She does says she doesn't feel well. She denies needing to have a bowel movement. Shew as able to take some sips from the straw of water for me with no choking or evidence of aspiration. Objective Exam General Appearance: moderate distress, alert Neurologic Exam: alert Skin Exam: normal color, warm, dry, other (mild diaphoresis warm skin throughout ) Eye Exam: PERRL, EOMI, eyes nml inspection, No scleral icterus, No pale conjunctivae Ears, Nose, Throat Exam: normal ENT inspection, pharynx normal, moist mucous membranes Neck Exam: normal inspection, non-tender, supple, full range of motion Respiratory Exam: respiratory distress (tachypnea 40 when calm shallow breathing is able to talk in short repatitive phrases), diminished breath sounds , crackles/rales, wheezing Cardiovascular Exam: tachycardia, No edema Gastrointestinal/Abdomen Exam: soft, other (Hinojosa in place with clear yellow urin), No tenderness, No mass Extremity Exam: normal inspection, normal range of motion Back Exam: normal inspection, normal range of motion, No CVA tenderness, No vertebral tenderness Pelvic Exam: deferred Rectal Exam: deferred OBJECTIVE DATA Vital Signs: Vital Signs - 24 hr Temp Pulse Resp BP Pulse Ox 09/06/18 04:00 99.2 F 120 H 30 H 169/80 97 09/06/18 00:59 113 H 38 H 98 09/06/18 00:00 97.9 F 113 H 31 H 181/82 97 09/05/18 22:57 32 H 09/05/18 20:00 35 H 09/05/18 19:56 98.9 F 105 H 35 H 171/77 98 09/05/18 19:08 106 H 34 H 98 09/05/18 16:37 99.1 F 104 H 25 H 177/85 97 09/05/18 12:02 99 F 94 H 39 H 165/82 98 09/05/18 12:00 39 H 09/05/18 09:32 99.2 F 109 H 42 H 192/85 97 09/05/18 08:00 24 09/05/18 07:37 98.6 F 100 H 24 182/84 95 09/05/18 07:00 110 H 26 H 96 Oxygen-Last 24 hours O2 Percentage 40% O2 Percentage 3 Liters = 32% O2 Percentage 3 Liters = 32% O2 Percentage 3 Liters = 32% Pain Assessment - Last Documented Pain Intensity 8 Pain Scale Used [facility] Intake and Output: Intake & Output 09/03/18 09/04/18 09/05/18 09/06/18 11:59 11:59 11:59 11:59 Intake Total 9990 3423 2572 739 Output Total 8294 Balance 8961 8282 3627 -7 Weight 68.4 kg 70.6 kg 71.7 kg Lab Results: Accuchecks Date 09/05/18 Date 09/05/18 Date 09/05/18 Date 09/05/18 Time 21:00 Time 16:30 Time 11:30 Time 07:30 Accucheck Value: 127 Accucheck Value: 155 Accucheck Value: 113 Accucheck Value: 108 Lab Results-Last 24 Hours 09/05/18 09/05/18 09/05/18 Range/Units 05:25 12:30 16:35 WBC (4.0-10.5) K/mm3 RBC (4.1-5.4) M/mm3 Hgb (12.0-16.0) gm/dl Hct (35-47) % MCV (78-100) fl MCH (26-32) pg MCHC (32-36) g/dl RDW (11.5-14.0) % Plt Count (150-450) K/mm3 MPV (6-9.5) fl Gran % (36.0-66.0) % Eos # (Auto) (0-0.5) Absolute Lymphs (auto) (1.0-4.6) Absolute Monos (auto) (0.0-1.3) Lymphocytes % (24.0-44.0) % Monocytes % (0.0-12.0) % Eosinophils % (0.00-5.0) % Basophils % (0.0-0.4) % Absolute Granulocytes (1.4-6.9) Segmented Neutrophils 83 H (36.0-66.0) % Lymphocytes (Manual) 15 L (24-44) % Monocytes (Manual) 2 (0.0-12.0) % Basophils # (0-0.4) Platelet Estimate NORMAL (NORMAL) RBC Morphology ABNORMAL Poikilocytosis 1+ Anisocytosis 1+ Target Cells Tear Drop Cells 1+ Ovalocytes 1+ Puncture Site RIGHT RADIAL RIGHT RADIAL pCO2 65 H* 69 H* (35-45) mmHg pO2 102 H 125 H* (75-100) mmHg Base Excess 0.8 4.8 H (-2.0-2.0) O2 Saturation 96.2 96.6 (94-100) g/dF ABG pH 7.26 L 7.29 L (7.35-7.45) ABG HCO3 29.2 H* 33.2 H* (22-28) ABG O2 Sat (Measured) 98.9 99.7 (95-100) % Tyson Test YES YES A-a Gradient 45 110 a/A Ratio 0.69 0.53 Hemoglobin 11.7 11.6 Carboxyhemoglobin 1.8 1.8 (0.0-6.9) % THgb Methemoglobin 0.9 L 1.3 L (1.4-1.5) % Potassium 3.9 3.8 (3.5-5.1) Temperature 37.0 37.0 C POC O2 Flow Rate 32 45 % Vent Mode BiPAP Inspiratory BiPAP Expiratory BiPAP Sodium (137-145) mmol/L Chloride (98-107) mmol/L Carbon Dioxide (22-30) mmol/L Anion Gap (5-15) MEQ/L BUN (7-17) mg/dL Creatinine (0.52-1.04) mg/dL Estimated GFR ML/MIN Glucose (74-106) mg/dL Calcium (8.4-10.2) mg/dL Total Bilirubin (0.2-1.3) mg/dL AST (14-36) U/L ALT (0-35) U/L Alkaline Phosphatase (38-126) U/L Troponin I (0.000-0.034) ng/mL Serum Total Protein (6.3-8.2) g/dL Albumin (3.5-5.0) g/dL 09/06/18 09/06/18 09/06/18 Range/Units 03:20 03:22 04:00 WBC 14.7 H (4.0-10.5) K/mm3 RBC 3.64 L (4.1-5.4) M/mm3 Hgb 10.3 L (12.0-16.0) gm/dl Hct 34.6 L (35-47) % MCV 95.1 (78-100) fl MCH 28.2 (26-32) pg MCHC 29.8 L D (32-36) g/dl RDW 18.1 H (11.5-14.0) % Plt Count 327 (150-450) K/mm3 MPV 10.4 H (6-9.5) fl Gran % 59.1 (36.0-66.0) % Eos # (Auto) 0.35 (0-0.5) Absolute Lymphs (auto) 3.48 (1.0-4.6) Absolute Monos (auto) 2.17 H (0.0-1.3) Lymphocytes % 23.6 L (24.0-44.0) % Monocytes % 14.7 H (0.0-12.0) % Eosinophils % 2.4 (0.00-5.0) % Basophils % 0.2 (0.0-0.4) % Absolute Granulocytes 8.70 H (1.4-6.9) Segmented Neutrophils 57 (36.0-66.0) % Lymphocytes (Manual) 33 (24-44) % Monocytes (Manual) 10 (0.0-12.0) % Basophils # 0.03 (0-0.4) Platelet Estimate NORMAL (NORMAL) RBC Morphology ABNORMAL Poikilocytosis 1+ Anisocytosis 1+ Target Cells RARE Tear Drop Cells 1+ Ovalocytes 1+ Puncture Site RIGHT BRACHIAL pCO2 44 (35-45) mmHg pO2 124 H* (75-100) mmHg Base Excess 10.0 H (-2.0-2.0) O2 Saturation 95.3 (94-100) g/dF ABG pH 7.50 H (7.35-7.45) ABG HCO3 34.3 H* (22-28) ABG O2 Sat (Measured) 99.4 (95-100) % Tyson Test NOT APPLICABLE A-a Gradient 106 a/A Ratio 0.54 Hemoglobin 10.7 Carboxyhemoglobin 3.0 (0.0-6.9) % THgb Methemoglobin 1.2 L (1.4-1.5) % Potassium 3.7 3.7 (3.5-5.1) Temperature 37.0 C POC O2 Flow Rate 40 % Vent Mode Inspiratory BiPAP 14 Expiratory BiPAP 8 Sodium 141 (137-145) mmol/L Chloride 103 (98-107) mmol/L Carbon Dioxide 34 H (22-30) mmol/L Anion Gap 7.5 (5-15) MEQ/L BUN 17 (7-17) mg/dL Creatinine 0.67 (0.52-1.04) mg/dL Estimated GFR > 60.0 ML/MIN Glucose 103 (74-106) mg/dL Calcium 8.4 (8.4-10.2) mg/dL Total Bilirubin 0.20 (0.2-1.3) mg/dL AST 13 L (14-36) U/L ALT 13 (0-35) U/L Alkaline Phosphatase 124 (38-126) U/L Troponin I (0.000-0.034) ng/mL Serum Total Protein 6.7 (6.3-8.2) g/dL Albumin 3.2 L (3.5-5.0) g/dL 09/06/18 Range/Units 05:06 WBC (4.0-10.5) K/mm3 RBC (4.1-5.4) M/mm3 Hgb (12.0-16.0) gm/dl Hct (35-47) % MCV (78-100) fl MCH (26-32) pg MCHC (32-36) g/dl RDW (11.5-14.0) % Plt Count (150-450) K/mm3 MPV (6-9.5) fl Gran % (36.0-66.0) % Eos # (Auto) (0-0.5) Absolute Lymphs (auto) (1.0-4.6) Absolute Monos (auto) (0.0-1.3) Lymphocytes % (24.0-44.0) % Monocytes % (0.0-12.0) % Eosinophils % (0.00-5.0) % Basophils % (0.0-0.4) % Absolute Granulocytes (1.4-6.9) Segmented Neutrophils (36.0-66.0) % Lymphocytes (Manual) (24-44) % Monocytes (Manual) (0.0-12.0) % Basophils # (0-0.4) Platelet Estimate (NORMAL) RBC Morphology Poikilocytosis Anisocytosis Target Cells Tear Drop Cells Ovalocytes Puncture Site pCO2 (35-45) mmHg pO2 (75-100) mmHg Base Excess (-2.0-2.0) O2 Saturation (94-100) g/dF ABG pH (7.35-7.45) ABG HCO3 (22-28) ABG O2 Sat (Measured) (95-100) % Tyson Test A-a Gradient a/A Ratio Hemoglobin Carboxyhemoglobin (0.0-6.9) % THgb Methemoglobin (1.4-1.5) % Potassium (3.5-5.1) Temperature C POC O2 Flow Rate % Vent Mode Inspiratory BiPAP Expiratory BiPAP Sodium (137-145) mmol/L Chloride (98-107) mmol/L Carbon Dioxide (22-30) mmol/L Anion Gap (5-15) MEQ/L BUN (7-17) mg/dL Creatinine (0.52-1.04) mg/dL Estimated GFR ML/MIN Glucose (74-106) mg/dL Calcium (8.4-10.2) mg/dL Total Bilirubin (0.2-1.3) mg/dL AST (14-36) U/L ALT (0-35) U/L Alkaline Phosphatase (38-126) U/L Troponin I < 0.012 (0.000-0.034) ng/mL Serum Total Protein (6.3-8.2) g/dL Albumin (3.5-5.0) g/dL Radiology Exams: Radiology Procedures Category Date Time Status CHEST 1 VIEW (PORTABLE) Stat Exams 09/05/18 09:30 Completed CHEST 1 VIEW (PORTABLE) Stat Exams 09/06/18 06:02 Taken Assessment/Plan (1) Sepsis Current Visit: Yes Status: Acute Assessment & Plan: on meropenem and vancomycin, improved wbc cxr this am looks improved from yesterday current sinus tachycardia with fever will try 1 time dose of toradol 15 mg iv for the fever to see if this improves her mental status and respiratory high demand. Will give her protonix dose iv today to ensure she gets it with the toradol/solumedrol/aspirin/lovenox. her fluid status is improved currently after the lasix and the nitro paste. HR still sinus tachycardia at 120 to treat he fever first and add labetolol as needed in place of her po chronic metoprolol currently she appears to be breathing the same on 3L nc or more comfortable then she was on the bipap will monitor on the nc oxygen for now and monitor for worsening hypercapnea. (2) Pneumonia Current Visit: Yes Status: Acute Onset Date: ~06/11/18 Qualifiers: Pneumonia type: due to unspecified organism Laterality: left Lung location: upper lobe of lung Qualified Code(s): J18.1 - Lobar pneumonia, unspecified organism Code(s): J18.9 - PNEUMONIA, UNSPECIFIED ORGANISM (3) Acute metabolic encephalopathy Current Visit: Yes Status: Acute Code(s): G93.41 - METABOLIC ENCEPHALOPATHY (4) Acute exacerbation of COPD with asthma Current Visit: Yes Status: Acute Code(s): J44.1 - CHRONIC OBSTRUCTIVE PULMONARY DISEASE W (ACUTE) EXACERBATION; J45.901 - UNSPECIFIED ASTHMA WITH ( ACUTE) EXACERBATION (5) Acute and chronic respiratory failure with hypoxia Current Visit: Yes Status: Acute Onset Date: ~06/10/18 Code(s): J96.21 - ACUTE AND CHRONIC RESPIRATORY FAILURE WITH HYPOXIA (6) Anemia Current Visit: Yes Status: Acute Qualifiers: Anemia type: unspecified type Qualified Code(s): D64.9 - Anemia, unspecified Code(s): D64.9 - ANEMIA, UNSPECIFIED (7) Hypothyroidism Current Visit: Yes Status: Chronic Code(s): E03.9 - HYPOTHYROIDISM, UNSPECIFIED (8) Seizure disorder Current Visit: Yes Status: Chronic Code(s): G40.909 - EPILEPSY, UNSP, NOT INTRACTABLE, WITHOUT STATUS EPILEPTICUS (9) Essential hypertension Current Visit: Yes Status: Chronic Code(s): I10 - ESSENTIAL (PRIMARY) HYPERTENSION (10) Bipolar disorder Current Visit: Yes Status: Chronic Qualifiers: Active/Remission status: currently active Current bipolar episode type: depressed Current episode severity: severe Psychotic features: with psychotic features Qualified Code(s): F31.5 - Bipolar disorder, current episode depressed, severe, with psychotic features
[2018-09-06] MEDS ORDERED: TORAdol 30 mg Injection IV ONE (06:27)
[2018-09-06] MEDS: PROTONIX 40 MG IV IV SCH (06:40)
[2018-09-06] MEDS: PULMICORT 0.5 MG/2 ML RESPULES IH SCH ×2 (06:52→18:45)
--- NOTE | 2018-09-06 08:04 | XRAY ---
Indication: Respiratory distress. Comparison: One day earlier. Portable chest remains slightly underinflated with clearing of the previous left base infiltrate/atelectasis/effusion. Remaining heart and lungs unremarkable.
[2018-09-06] MEDS: Lopressor 50 MG PO SCH ×2 (08:46→21:27)
[2018-09-06] MEDS: Zestril 20 MG PO SCH (08:46)
[2018-09-06] MEDS: Keppra 250 MG PO SCH ×2 (08:46→21:27)
[2018-09-06] MEDS: DELTASONE 20 MG PO SCH (08:46)
[2018-09-06] MEDS: xanAX 0.25 MG PO SCH ×3 (08:47→21:27)
[2018-09-06] MEDS: Risperdal 1 MG PO SCH ×3 (08:47→21:26)
[2018-09-06] MEDS: Singulair 10 MG PO SCH (08:48)
[2018-09-06] MEDS: FOLATE 1 MG PO SCH (08:48)
[2018-09-06] MEDS: ECOTRIN 81 MG PO SCH (08:48)
[2018-09-06] MEDS: ENOXAPARIN SODIUM SQ SCH ×2 (08:48→21:43)
[2018-09-06] MEDS ORDERED: TROUGH DRUG LEVELS IJ ONE (09:30)
[2018-09-06] MEDS: VANCOCIN 500 MG VIAL*** 500 MG in Sodium Chloride 100ML MINI-BAG PLUS 100 ML IV SCH ×2 (10:27→22:20)
[2018-09-06 11:17] LABS: A-aADO2 58; ABG POTASSIUM 3.5 (3.5-5.1); ABG SITE RIGHT RADIAL; ALLEN TEST OK? YES; ARTERIAL BLD GAS O2 SATURATION 99.2 % (95-100); ARTERIAL BLOOD GAS BASE EXCESS 15.7 (-2.0-2.0); ARTERIAL BLOOD GAS FIO2 32 %; ARTERIAL BLOOD GAS PCO2 59 mmHg (35-45); ARTERIAL BLOOD GAS PO2 96 mmHg (75-100); ARTERIAL BLOOD GAS pH 7.46 (7.35-7.45); Methhemoglobin 1.2 % (1.4-1.5); paO2 pAO1 0.62
[2018-09-06] MEDS ORDERED: hydroDIURIL 25 MG PO ONE (12:12)
[2018-09-06] MEDS ORDERED: APRESOLINE 20 MG/ML INJ IV PRN (12:13)
[2018-09-06] MEDS ORDERED: Cardizem 30 MG PO SCH (15:19)
[2018-09-06] MEDS ORDERED: CARDIZEM DRIP 100 MG/100 ML D5W 100 ML IV PRN (15:59)
[2018-09-06] MEDS ORDERED: Cardizem IV 50 MG/10 ML IV ONE (16:00)
--- NOTE | 2018-09-06 16:12 | PCM.NOTE ---
Date and Time: 09/06/18 1605 Subjective Assessment: at 1445 she spontaneously converted to afib with rvr with rates in the 160 to 200 range. She was relatively asymptomatic with this but does appear to have a slight increased in shortness of breath that had originally been doing well throughout most of the day. From this morning she had been doing well on 3L nc O2 eating some and interacting with her male catering operations manager Stevie and the nursing staff appropriately. Her oxygenation was doing well on this and her heart rate had been in the 90's after her am meds up to this point. She did have a breathing treatment just prior to developement of the afib with rvr. She currently denies any chest pain or nausea and denies palpitations. She has just broken out in a sweat as I walked in the rooma at 15:45. She was given a po cardizem with no improvement at around 1500 Objective Exam General Appearance: mild distress, alert, other (diaphrotic and febrile currently) Neurologic Exam: alert, oriented x 3, cooperative, other (blunted affect) Skin Exam: warm, pale Eye Exam: PERRL, EOMI, No scleral icterus, No pale conjunctivae Ears, Nose, Throat Exam: pharynx normal, moist mucous membranes Neck Exam: normal inspection, non-tender, supple, full range of motion Respiratory Exam: crackles/rales (fine throuhgout) Cardiovascular Exam: tachycardia (rate 160) Gastrointestinal/Abdomen Exam: soft, normal bowel sounds, other (Hinojosa with clear yellow urine), No tenderness, No distention, No mass, No guarding, No rebound Extremity Exam: normal inspection, normal range of motion, No calf tenderness, No pedal edema Back Exam: normal inspection, normal range of motion, No CVA tenderness, No vertebral tenderness Pelvic Exam: deferred Rectal Exam: deferred OBJECTIVE DATA Vital Signs: Vital Signs - 24 hr Temp Pulse Resp BP Pulse Ox 09/06/18 14:26 94 H 24 96 09/06/18 12:00 99.3 F 94 H 26 H 187/84 96 09/06/18 08:11 101.1 F 09/06/18 07:40 100.9 F 124 H 49 H 181/86 95 09/06/18 06:57 127 H 56 H 93 L 09/06/18 04:00 99.2 F 120 H 30 H 169/80 97 09/06/18 00:59 113 H 38 H 98 09/06/18 00:00 97.9 F 113 H 31 H 181/82 97 09/05/18 22:57 32 H 09/05/18 20:00 35 H 09/05/18 19:56 98.9 F 105 H 35 H 171/77 98 09/05/18 19:08 106 H 34 H 98 09/05/18 16:37 99.1 F 104 H 25 H 177/85 97 Oxygen-Last 24 hours O2 Percentage 3 Liters = 32% O2 Percentage 3 Liters = 32% O2 Percentage 40% Pain Assessment - Last Documented Pain Intensity 0 Pain Scale Used 0-10 Pain Scale Intake and Output: Intake & Output 09/04/18 09/05/18 09/06/18 09/07/18 11:59 11:59 11:59 11:59 Intake Total 3422 2571 730 Output Total 2775 Balance 3422 2571 -2043 Weight 70.6 kg 71.7 kg 70.5 kg Lab Results: Accuchecks Date 09/05/18 Date 09/05/18 Time 21:00 Time 16:30 Accucheck Value: 168 Accucheck Value: 117 Accucheck Value: 127 Accucheck Value: 155 Lab Results-Last 24 Hours 09/05/18 09/06/18 09/06/18 Range/Units 16:35 03:20 03:22 WBC 14.7 H (4.0-10.5) K/mm3 RBC 3.64 L (4.1-5.4) M/mm3 Hgb 10.3 L (12.0-16.0) gm/dl Hct 34.6 L (35-47) % MCV 95.1 (78-100) fl MCH 28.2 (26-32) pg MCHC 29.8 L D (32-36) g/dl RDW 18.1 H (11.5-14.0) % Plt Count 327 (150-450) K/mm3 MPV 10.4 H (6-9.5) fl Gran % 59.1 (36.0-66.0) % Eos # (Auto) 0.35 (0-0.5) Absolute Lymphs (auto) 3.48 (1.0-4.6) Absolute Monos (auto) 2.17 H (0.0-1.3) Lymphocytes % 23.6 L (24.0-44.0) % Monocytes % 14.7 H (0.0-12.0) % Eosinophils % 2.4 (0.00-5.0) % Basophils % 0.2 (0.0-0.4) % Absolute Granulocytes 8.70 H (1.4-6.9) Segmented Neutrophils 57 (36.0-66.0) % Lymphocytes (Manual) 33 (24-44) % Monocytes (Manual) 10 (0.0-12.0) % Basophils # 0.03 (0-0.4) Platelet Estimate NORMAL (NORMAL) RBC Morphology ABNORMAL Poikilocytosis 1+ Anisocytosis 1+ Target Cells RARE Tear Drop Cells 1+ Ovalocytes 1+ Puncture Site RIGHT RADIAL RIGHT BRACHIAL pCO2 69 H* 44 (35-45) mmHg pO2 125 H* 124 H* (75-100) mmHg Base Excess 4.8 H 10.0 H (-2.0-2.0) O2 Saturation 96.6 95.3 (94-100) g/dF ABG pH 7.29 L 7.50 H (7.35-7.45) ABG HCO3 33.2 H* 34.3 H* (22-28) ABG O2 Sat (Measured) 99.7 99.4 (95-100) % Tyson Test YES NOT APPLICABLE A-a Gradient 110 106 a/A Ratio 0.53 0.54 Hemoglobin 11.6 10.7 Carboxyhemoglobin 1.8 3.0 (0.0-6.9) % THgb Methemoglobin 1.3 L 1.2 L (1.4-1.5) % Potassium 3.8 3.7 (3.5-5.1) Temperature 37.0 37.0 C POC O2 Flow Rate 45 40 % Vent Mode BiPAP Inspiratory BiPAP 14 Expiratory BiPAP 8 Sodium (137-145) mmol/L Chloride (98-107) mmol/L Carbon Dioxide (22-30) mmol/L Anion Gap (5-15) MEQ/L BUN (7-17) mg/dL Creatinine (0.52-1.04) mg/dL Estimated GFR ML/MIN Glucose (74-106) mg/dL Calcium (8.4-10.2) mg/dL Total Bilirubin (0.2-1.3) mg/dL AST (14-36) U/L ALT (0-35) U/L Alkaline Phosphatase (38-126) U/L Troponin I (0.000-0.034) ng/mL Serum Total Protein (6.3-8.2) g/dL Albumin (3.5-5.0) g/dL Vancomycin Trough (10-20) ug/mL 09/06/18 09/06/18 09/06/18 Range/Units 04:00 05:06 09:33 WBC (4.0-10.5) K/mm3 RBC (4.1-5.4) M/mm3 Hgb (12.0-16.0) gm/dl Hct (35-47) % MCV (78-100) fl MCH (26-32) pg MCHC (32-36) g/dl RDW (11.5-14.0) % Plt Count (150-450) K/mm3 MPV (6-9.5) fl Gran % (36.0-66.0) % Eos # (Auto) (0-0.5) Absolute Lymphs (auto) (1.0-4.6) Absolute Monos (auto) (0.0-1.3) Lymphocytes % (24.0-44.0) % Monocytes % (0.0-12.0) % Eosinophils % (0.00-5.0) % Basophils % (0.0-0.4) % Absolute Granulocytes (1.4-6.9) Segmented Neutrophils (36.0-66.0) % Lymphocytes (Manual) (24-44) % Monocytes (Manual) (0.0-12.0) % Basophils # (0-0.4) Platelet Estimate (NORMAL) RBC Morphology Poikilocytosis Anisocytosis Target Cells Tear Drop Cells Ovalocytes Puncture Site pCO2 (35-45) mmHg pO2 (75-100) mmHg Base Excess (-2.0-2.0) O2 Saturation (94-100) g/dF ABG pH (7.35-7.45) ABG HCO3 (22-28) ABG O2 Sat (Measured) (95-100) % Tyson Test A-a Gradient a/A Ratio Hemoglobin Carboxyhemoglobin (0.0-6.9) % THgb Methemoglobin (1.4-1.5) % Potassium 3.7 (3.5-5.1) Temperature C POC O2 Flow Rate % Vent Mode Inspiratory BiPAP Expiratory BiPAP Sodium 141 (137-145) mmol/L Chloride 103 (98-107) mmol/L Carbon Dioxide 34 H (22-30) mmol/L Anion Gap 7.5 (5-15) MEQ/L BUN 17 (7-17) mg/dL Creatinine 0.67 (0.52-1.04) mg/dL Estimated GFR > 60.0 ML/MIN Glucose 103 (74-106) mg/dL Calcium 8.4 (8.4-10.2) mg/dL Total Bilirubin 0.20 (0.2-1.3) mg/dL AST 13 L (14-36) U/L ALT 13 (0-35) U/L Alkaline Phosphatase 124 (38-126) U/L Troponin I < 0.012 (0.000-0.034) ng/mL Serum Total Protein 6.7 (6.3-8.2) g/dL Albumin 3.2 L (3.5-5.0) g/dL Vancomycin Trough 14.39 (10-20) ug/mL 09/06/ Range/Units 11:15 WBC (4.0-10.5) K/mm3 RBC (4.1-5.4) M/mm3 Hgb (12.0-16.0) gm/dl Hct (35-47) % MCV (78-100) fl MCH (26-32) pg MCHC (32-36) g/dl RDW (11.5-14.0) % Plt Count (150-450) K/mm3 MPV (6-9.5) fl Gran % (36.0-66.0) % Eos # (Auto) (0-0.5) Absolute Lymphs (auto) (1.0-4.6) Absolute Monos (auto) (0.0-1.3) Lymphocytes % (24.0-44.0) % Monocytes % (0.0-12.0) % Eosinophils % (0.00-5.0) % Basophils % (0.0-0.4) % Absolute Granulocytes (1.4-6.9) Segmented Neutrophils (36.0-66.0) % Lymphocytes (Manual) (24-44) % Monocytes (Manual) (0.0-12.0) % Basophils # (0-0.4) Platelet Estimate (NORMAL) RBC Morphology Poikilocytosis Anisocytosis Target Cells Tear Drop Cells Ovalocytes Puncture Site RIGHT RADIAL pCO2 59 H (35-45) mmHg pO2 96 (75-100) mmHg Base Excess 15.7 H (-2.0-2.0) O2 Saturation 96.0 (94-100) g/dF ABG pH 7.46 H (7.35-7.45) ABG HCO3 42.0 H* (22-28) ABG O2 Sat (Measured) 99.2 (95-100) % Tyson Test YES A-a Gradient 58 a/A Ratio 0.62 Hemoglobin 11.0 Carboxyhemoglobin 2.0 (0.0-6.9) % THgb Methemoglobin 1.2 L (1.4-1.5) % Potassium 3.5 (3.5-5.1) Temperature 37.0 C POC O2 Flow Rate 32 % Vent Mode Inspiratory BiPAP Expiratory BiPAP Sodium (137-145) mmol/L Chloride (98-107) mmol/L Carbon Dioxide (22-30) mmol/L Anion Gap (5-15) MEQ/L BUN (7-17) mg/dL Creatinine (0.52-1.04) mg/dL Estimated GFR ML/MIN Glucose (74-106) mg/dL Calcium (8.4-10.2) mg/dL Total Bilirubin (0.2-1.3) mg/dL AST (14-36) U/L ALT (0-35) U/L Alkaline Phosphatase (38-126) U/L Troponin I (0.000-0.034) ng/mL Serum Total Protein (6.3-8.2) g/dL Albumin (3.5-5.0) g/dL Vancomycin Trough (10-20) ug/mL Radiology Exams: Radiology Procedures Category Date Time Status CHEST 1 VIEW (PORTABLE) Stat Exams 09/05/18 09:30 Completed CHEST 1 VIEW (PORTABLE) Stat Exams 09/06/18 06:02 Completed Multi-Disciplinary Progress Notes: Multi-Disciplinary Progress Notes 09/06/18 12:12 Case Management Note by Krystina Holder IMPORTANT PAPERS FROM MEDICARE EXPLAINED, SIGNED, AND COPY GIVEN TO THE SON, ORIGINAL PLACED IN CHART BY SRIRAM GARCIA. Initialized on 09/06/18 12:12 - END OF NOTE Assessment/Plan (1) Atrial fibrillation with RVR Current Visit: Yes Status: Acute Assessment & Plan: will move to ICU ekg preformed with afib rvr troponin was negative already on metoprolol 100 mg po bid and will add cardizem 10 mg iv bolus and start gtt at 10mg/h IV bp lower now will stop the nitro paste that was placed early this am with her pulmonary edema that has resolved updated nano and her male catering operations manager Stevie at the bedside will also change the prophylactic lovenox to therapeutic lovenox for anticoagulation and get stat cbc, cmp, mag, tsh as well Code(s): I48.91 - UNSPECIFIED ATRIAL FIBRILLATION (2) Sepsis Current Visit: Yes Status: Acute Onset Date: ~09/04/18 (3) Pneumonia Current Visit: Yes Status: Acute Onset Date: ~06/11/18 Qualifiers: Pneumonia type: due to unspecified organism Laterality: left Lung location: upper lobe of lung Qualified Code(s): J18.1 - Lobar pneumonia, unspecified organism Code(s): J18.9 - PNEUMONIA, UNSPECIFIED ORGANISM (4) Acute metabolic encephalopathy Current Visit: Yes Status: Acute Onset Date: ~09/04/18 Code(s): G93.41 - METABOLIC ENCEPHALOPATHY (5) Acute exacerbation of COPD with asthma Current Visit: Yes Status: Acute Onset Date: ~09/04/18 Code(s): J44.1 - CHRONIC OBSTRUCTIVE PULMONARY DISEASE W (ACUTE) EXACERBATION; J45.901 - UNSPECIFIED ASTHMA WITH (ACUTE) EXACERBATION (6) Acute and chronic respiratory failure with hypoxia Current Visit: Yes Status: Acute Onset Date: ~09/06/18 Code(s): J96.21 - ACUTE AND CHRONIC RESPIRATORY FAILURE WITH HYPOXIA (7) Anemia Current Visit: Yes Status: Acute Onset Date: ~09/02/18 Qualifiers: Anemia type: unspecified type Qualified Code(s): D64.9 - Anemia, unspecified Code(s): D64.9 - ANEMIA, UNSPECIFIED (8) Hypothyroidism Current Visit: Yes Status: Chronic Code(s): E03.9 - HYPOTHYROIDISM, UNSPECIFIED (9) Seizure disorder Current Visit: Yes Status: Chronic Code(s): G40.909 - EPILEPSY, UNSP, NOT INTRACTABLE, WITHOUT STATUS EPILEPTICUS (10) Essential hypertension Current Visit: Yes Status: Chronic Code(s): I10 - ESSENTIAL (PRIMARY) HYPERTENSION (11) Bipolar disorder Current Visit: Yes Status: Chronic Qualifiers: Active/Remission status: currently active Current bipolar episode type: depressed Current episode severity: severe Psychotic features: with psychotic features Qualified Code(s): F31.5 - Bipolar disorder, current episode depressed, severe, with psychotic features
[2018-09-06] MEDS ORDERED: MORPHINE SULFATE 2 MG INJ IV PRN (16:14)
[2018-09-06 16:20] LABS: Hematocrit 36.5 % (35-47); Mean Cell Volume 93.8 fl (78-100); Mean Corpuscular Hgb Concent. 30.1 g/dl (32-36); Mean Platelet Volume 9.7 fl (6-9.5); Platelet Count 338 K/mm3 (150-450); Red Blood Count 3.89 M/mm3 (4.1-5.4); Red Cell Distribution Width 17.9 % (11.5-14.0); White Blood Count 13.2 K/mm3 (4.0-10.5)
[2018-09-06 16:23] LABS: Mean Corpuscular Hemoglobin 28.2 pg (26-32)
[2018-09-06] MEDS ORDERED: Sodium Chloride 0.9% 500 ML 500 ML IV SCH (16:30)
[2018-09-06 16:39] LABS: ANION GAP 9.5 MEQ/L (5-15); BLOOD UREA NITROGEN 19 mg/dL (7-17); CHLORIDE 98 mmol/L (98-107); Carbon Dioxide 38 mmol/L (22-30); Creatinine 1 0.67 mg/dL (0.52-1.04); Glucose 194 mg/dL (74-106); Potassium 3.4 mmol/L (3.5-5.1); SODIUM 142 mmol/L (137-145)
[2018-09-06] MEDS ORDERED: POTASSIUM CHLORIDE 20 mEq IN WATER 100ML 20 MEQ/100 ML BAG IV ONE (17:00)
[2018-09-06] MEDS: Sodium Chloride 0.9% 1000 ML 1,000 ML IV SCH ×2 (20:19→20:49)
[2018-09-06] MEDS: LIPITOR 40MG PO SCH (21:27)
[2018-09-07] MEDS: TYLENOL 325 MG PO SCH ×4 (00:57→17:31)
[2018-09-07] MEDS: DUONEB 0.5-3 MG/3 ml Neb IH SCH ×4 (01:08→19:00)
[2018-09-07] MEDS: PROTONIX 40 MG IV IV SCH (05:39)
[2018-09-07] MEDS: Merrem 1 GM 1 G in Sodium Chloride 100ML MINI-BAG PLUS 100 ML IV SCH ×3 (05:39→21:05)
[2018-09-07 05:56] LABS: Hematocrit 32.4 % (35-47); Hemoglobin 9.7 gm/dl (12.0-16.0); Mean Cell Volume 94.5 fl (78-100); Mean Corpuscular Hgb Concent. 29.9 g/dl (32-36); Mean Platelet Volume 10.2 fl (6-9.5); Platelet Count 352 K/mm3 (150-450); Red Blood Count 3.43 M/mm3 (4.1-5.4); Red Cell Distribution Width 17.8 % (11.5-14.0); White Blood Count 18.3 K/mm3 (4.0-10.5)
[2018-09-07 05:59] LABS: BLOOD UREA NITROGEN 18 mg/dL (7-17); CHLORIDE 96 mmol/L (98-107); Creatinine 1 0.61 mg/dL (0.52-1.04); Glucose 121 mg/dL (74-106); Potassium 3.4 mmol/L (3.5-5.1); SODIUM 140 mmol/L (137-145)
[2018-09-07 06:05] LABS: Carbon Dioxide 40 mmol/L (22-30)
[2018-09-07 06:16] LABS: Mean Corpuscular Hemoglobin 28.2 pg (26-32)
[2018-09-07 06:26] LABS: ANION GAP 7.4 MEQ/L (5-15)
[2018-09-07 07:28] LABS: BAND 1 % (0.0-2.0); Lymphocytes 22 % (24-44); Monocyte 7 % (0.0-12.0); Neutrophils 70 % (36.0-66.0); Total Cells Counted 100
[2018-09-07 07:35] LABS: Platelet Estimate NORMAL (NORMAL)
[2018-09-07 07:36] LABS: Polychromasia 1+
[2018-09-07] MEDS: PULMICORT 0.5 MG/2 ML RESPULES IH SCH ×2 (07:38→19:00)
[2018-09-07] MEDS: SODIUM CHLORIDE 0.45% W/ 20 mEq KCL 1,000 ML IV SCH (09:21)
[2018-09-07] MEDS: xanAX 0.25 MG PO SCH ×3 (09:21→21:05)
[2018-09-07] MEDS: FOLATE 1 MG PO SCH (09:22)
[2018-09-07] MEDS: DELTASONE 20 MG PO SCH (09:22)
[2018-09-07] MEDS: Zestril 20 MG PO SCH (09:22)
[2018-09-07] MEDS: Risperdal 1 MG PO SCH ×3 (09:22→21:05)
[2018-09-07] MEDS: Lopressor 50 MG PO SCH ×2 (09:22→21:05)
[2018-09-07] MEDS: Singulair 10 MG PO SCH (09:22)
[2018-09-07] MEDS: ECOTRIN 81 MG PO SCH (09:22)
[2018-09-07] MEDS: Cardizem 30 MG PO SCH ×2 (09:24→17:31)
[2018-09-07] MEDS: ENOXAPARIN SODIUM SQ SCH ×2 (09:25→21:05)
[2018-09-07] MEDS: Keppra 250 MG PO SCH ×2 (09:26→21:05)
[2018-09-07] MEDS: VANCOCIN 500 MG VIAL*** 500 MG in Sodium Chloride 100ML MINI-BAG PLUS 100 ML IV SCH ×2 (09:40→22:19)
[2018-09-07] MEDS: LIPITOR 40MG PO SCH (21:06)
[2018-09-08] MEDS: TYLENOL 325 MG PO SCH ×5 (00:19→23:47)
[2018-09-08] MEDS: DUONEB 0.5-3 MG/3 ml Neb IH SCH ×4 (01:21→18:40)
[2018-09-08] MEDS: Cardizem 30 MG PO SCH ×3 (01:57→17:46)
[2018-09-08] MEDS: Merrem 1 GM 1 G in Sodium Chloride 100ML MINI-BAG PLUS 100 ML IV SCH ×3 (05:08→22:05)
[2018-09-08 05:37] LABS: Hematocrit 33.1 % (35-47); Mean Cell Volume 93.8 fl (78-100); Mean Corpuscular Hemoglobin 28.3 pg (26-32); Mean Corpuscular Hgb Concent. 30.2 g/dl (32-36); Platelet Count 343 K/mm3 (150-450); Red Blood Count 3.53 M/mm3 (4.1-5.4); Red Cell Distribution Width 17.3 % (11.5-14.0); White Blood Count 14.2 K/mm3 (4.0-10.5)
[2018-09-08 05:44] LABS: ALBUMIN 2.9 g/dL (3.5-5.0); ALKALINE PHOSPHATASE 99 U/L (38-126); BLOOD UREA NITROGEN 12 mg/dL (7-17); CHLORIDE 95 mmol/L (98-107); Calcium 8.9 mg/dL (8.4-10.2); Creatinine 1 0.59 mg/dL (0.52-1.04); Glucose 98 mg/dL (74-106); Potassium 3.2 mmol/L (3.5-5.1); SGOT/AST 19 U/L (14-36); SGPT/ALT 13 U/L (0-35); SODIUM 139 mmol/L (137-145); Total Protein 6.2 g/dL (6.3-8.2)
[2018-09-08 05:50] LABS: Carbon Dioxide 40 mmol/L (22-30)
[2018-09-08] MEDS: PROTONIX 40 MG IV IV SCH (05:57)
[2018-09-08 06:13] LABS: ANION GAP 7.2 MEQ/L (5-15)
[2018-09-08] MEDS: PULMICORT 0.5 MG/2 ML RESPULES IH SCH ×2 (06:17→18:38)
[2018-09-08 08:05] LABS: ANISOCYTOSIS 1+; Lymphocytes 27 % (24-44); Monocyte 5 % (0.0-12.0); Neutrophils 68 % (36.0-66.0); Platelet Estimate NORMAL (NORMAL); Polychromasia 2+; Total Cells Counted 100
[2018-09-08] MEDS: SODIUM CHLORIDE 0.45% W/ 20 mEq KCL 1,000 ML IV SCH (08:15)
[2018-09-08] MEDS: Singulair 10 MG PO SCH (09:00)
[2018-09-08] MEDS: Lopressor 50 MG PO SCH ×2 (09:00→22:06)
[2018-09-08] MEDS: ECOTRIN 81 MG PO SCH (09:00)
[2018-09-08] MEDS: Risperdal 1 MG PO SCH ×3 (09:00→22:07)
[2018-09-08] MEDS: VANCOCIN 500 MG VIAL*** 500 MG in Sodium Chloride 100ML MINI-BAG PLUS 100 ML IV SCH ×2 (09:00→22:05)
[2018-09-08] MEDS: DELTASONE 20 MG PO SCH (09:00)
[2018-09-08] MEDS: Keppra 250 MG PO SCH ×2 (09:00→22:06)
[2018-09-08] MEDS: Zestril 20 MG PO SCH (09:00)
[2018-09-08] MEDS: FOLATE 1 MG PO SCH (09:00)
[2018-09-08] MEDS: xanAX 0.25 MG PO SCH ×3 (09:00→22:06)
[2018-09-08] MEDS: ENOXAPARIN SODIUM SQ SCH (09:01)
[2018-09-08] MEDS ORDERED: Sodium Chloride 0.9% 10 ML FLUSH Syringe IV PRN (10:57)
[2018-09-08] MEDS: Klor Con 10 MEQ PO SCH ×3 (11:08→22:06)
[2018-09-08] MEDS: Sodium Chloride 0.9% 10 ML FLUSH Syringe IV SCH ×2 (14:42→22:06)
[2018-09-08] MEDS: LIPITOR 40MG PO SCH (22:07)
[2018-09-09] MEDS: DUONEB 0.5-3 MG/3 ml Neb IH SCH ×3 (00:43→13:00)
[2018-09-09] MEDS: Cardizem 30 MG PO SCH ×2 (03:28→10:16)
[2018-09-09 06:03] LABS: Hematocrit 34.6 % (35-47); Hemoglobin 10.3 gm/dl (12.0-16.0); Mean Cell Volume 94.3 fl (78-100); Mean Corpuscular Hgb Concent. 29.8 g/dl (32-36); Mean Platelet Volume 9.8 fl (6-9.5); Platelet Count 333 K/mm3 (150-450); Red Blood Count 3.67 M/mm3 (4.1-5.4); Red Cell Distribution Width 17.3 % (11.5-14.0); White Blood Count 12.8 K/mm3 (4.0-10.5)
[2018-09-09] MEDS: VANCOCIN 500 MG VIAL*** 500 MG in Sodium Chloride 100ML MINI-BAG PLUS 100 ML IV SCH (06:14)
[2018-09-09] MEDS: Merrem 1 GM 1 G in Sodium Chloride 100ML MINI-BAG PLUS 100 ML IV SCH ×2 (06:14→13:38)
[2018-09-09] MEDS: TYLENOL 325 MG PO SCH ×2 (06:23→12:53)
[2018-09-09] MEDS: Sodium Chloride 0.9% 10 ML FLUSH Syringe IV SCH ×2 (06:23→13:38)
[2018-09-09 06:27] LABS: BLOOD UREA NITROGEN 10 mg/dL (7-17); CHLORIDE 96 mmol/L (98-107); Calcium 8.8 mg/dL (8.4-10.2); Creatinine 1 0.57 mg/dL (0.52-1.04); Glucose 96 mg/dL (74-106); Potassium 3.4 mmol/L (3.5-5.1); SODIUM 139 mmol/L (137-145)
[2018-09-09 06:34] LABS: Carbon Dioxide 39 mmol/L (22-30)
[2018-09-09 06:38] LABS: ANION GAP 7.4 MEQ/L (5-15)
[2018-09-09] MEDS: PROTONIX 40 MG IV IV SCH (07:12)
--- NOTE | 2018-09-09 08:13 | PCM.DCORD ---
- Discharge Discharge Date: 09/09/18 Disposition: DC TO [facility] Condition: Fair Prescriptions: New Diltiazem HCl 300 mg [Cardizem CD 300 MG] 300 mg PO DAILY #30 cap Prednisone 20 mg [Deltasone 20 mg] 20 mg PO DAILY 7 Days #7 tablet Meropenem [Merrem 1 GM] 1 g IV Q8HT 3 Days vial Vancomycin/0.9 % Sod Chloride [Vancomycin 1 G/100Ml-0.9% NaCl] 500 mg IV Q12H 3 Days plast..bag Continue Lisinopril [Zestril] 20 mg PO QAM Levetiracetam [Keppra] 750 mg PO BID Potassium Chloride 10 Meq Tab* [Klor Con 10 MEQ] 10 meq PO TID Alendronate Sodium 70 mg [Fosamax 70 MG] 70 mg PO WEEKLY Folic Acid 1 mg PO DAILY PANTOPRAZOLE 40 mg Tablet [Protonix 40MG Tablet] 40 mg PO DAILY Atorvastatin Calcium 40 mg PO HS Metoprolol Tartrate 100 mg PO BID Arformoterol Tartrate [Brovana] 1 vial IH BID Budesonide 0.5 mg/2 ml [Pulmicort 0.5 mg/2 ml Respules] 1 vial IH BID Acetaminophen 325 mg [Tylenol 325 mg] 650 mg PO Q4H PRN PRN tablet PRN Reason: Pain And/Or Fever Montelukast Sodium 10 mg [Singulair 10 MG] 10 mg PO DAILY Risperidone [Risperdal] 2 mg PO TID Ondansetron ODT 4 MG [Zofran Odt 4 mg] 4 mg PO Q6H PRN PRN Reason: Nausea Ipratropium/Albuterol Sulfate [Iprat-Albut 0.5-3(2.5) mg/3 ml] 3 ml IH Q6H Mineral Oil/Petrolatum,White [Eucerin Creme] 120 gm TP BID Aspirin [Aspirin EC] 81 mg PO DAILY Alprazolam 0.25 mg [xanAX 0.25 MG] 0.25 mg PO TID Albuterol/Ipratropium 3ml Neb* [DUONEB 0.5-3 MG/3 ml Neb] 3 ml IH Q2H/PRN PRN PRN Reason: breathing Discontinued Guaifenesin 600 mg ER [Mucinex 600MG ER Tabs] 600 mg PO BID 7 Days tablet Gabapentin 300 mg PO DAILY Gabapentin 600 mg PO HS Ropinirole HCl 0.5 mg [Requip 0.5 MG] 0.5 mg PO HS Ranitidine HCl 150 mg PO DAILY PRN PRN Reason: Belching Duloxetine HCl [Cymbalta] 60 mg PO DAILY Tramadol HCl 50 mg [Ultram 50 mg] 50 mg PO Q8H PRN PRN Reason: Pain Additional Instructions: cbc, cmp in 1 week Follow up with: LINDA HAILE [Primary Care Provider] - 1 Week
[2018-09-09] MEDS ORDERED: Lasix 20 MG/2 ML IV ONE (08:30)
[2018-09-09] MEDS ORDERED: Sodium Chloride 0.9% 1000 ML 1,000 ML IV SCH (09:00)
[2018-09-09] MEDS: POTASSIUM CHLORIDE 20 mEq IN WATER 100ML 20 MEQ/100 ML BAG IV SCH ×2 (09:27→11:18)
[2018-09-09] MEDS ORDERED: ENOXAPARIN SODIUM SQ SCH (10:00)
[2018-09-09] MEDS: FOLATE 1 MG PO SCH (10:10)
[2018-09-09] MEDS: Zestril 20 MG PO SCH (10:10)
[2018-09-09] MEDS: Risperdal 1 MG PO SCH ×2 (10:10→15:07)
[2018-09-09] MEDS: ECOTRIN 81 MG PO SCH (10:10)
[2018-09-09] MEDS: Keppra 250 MG PO SCH (10:11)
[2018-09-09] MEDS: Lopressor 50 MG PO SCH (10:11)
[2018-09-09] MEDS: Klor Con 10 MEQ PO SCH ×2 (10:11→15:07)
[2018-09-09] MEDS: xanAX 0.25 MG PO SCH ×2 (10:11→15:07)
[2018-09-09] MEDS: Singulair 10 MG PO SCH (10:11)
[2018-09-09] MEDS: DELTASONE 20 MG PO SCH (10:11)
[2018-09-09] MEDS: PULMICORT 0.5 MG/2 ML RESPULES IH SCH (13:00)
[2018-09-09] MEDS ORDERED: PULMICORT 0.5 MG/2 ML RESPULES IH ONE (13:11)
[2018-09-09 14:13] LABS: ANISOCYTOSIS 1+; Eosinophil 3 % (0.00-3.0); Lymphocytes 35 % (24-44); Monocyte 11 % (0.0-12.0); Neutrophils 51 % (36.0-66.0); Platelet Estimate NORMAL (NORMAL); Total Cells Counted 100
[2018-09-09 16:19] VITALS: BP 172/83; PULSE 82; O2SAT 100
--- NOTE | 2018-09-09 20:32 | PCM.HP ---
History of Present Illness - Chief Complaint Chief Complaint: pneumonia Date: 09/09/18 History of Present Illness: is a 63 year old female. she presented with health care associated pneumonia initially treated with meropenem but was showing slow improvement and on hospital day 2 vancomycin was added as well and she began to show improvement however became fluid overloaded and had pulmonary edema that improved with iv lasix and bipap as well as imdur. She was slowly improving but still intermittently febrile. Her sedating medications were stopped including her gabapentin and requip and tramadol the risperidal and alprazolam were continued. OVer concern of possible drug reaction the risperdal was decreased to 1mg tid but this caused significant deline in her mental status and it was increased and cymbalta was stopped. This appeared to improve her mental status. She did develop briefly afib with rvr when the K was on the lower side at 3.4. She was treated with cardizem gtt and converted back to sinus rhythm were she stayed she was in afib for about 3 hours and her anticoagulation was decreased to prophylactic levels prior to discharge. Her K was low on 09/09 and she appeared to be getting back some fine rales. she was treated with 20 mg of iv lasix and a 40 mEq rider and her K returned to 4.0 and her breathing was much less labored compared to her initial assessment. Heart rate remained sinus and controlled. Her mental status was improved however she was still slow on her reaction time and very weak. She was still requiring assistance with feeding. She will continue an additional 3 days of meropenem and vancomycin at [facility] and begin working with therapy on strengthening. She has moderate aortic regurgitation already known and will need to have continued cardiology outpatient f/u. Medications & Allergies Home Medications: Home Medication List Alendronate Sodium 70 mg [Fosamax 70 MG] 70 mg PO WEEKLY 12/19/15 [ History Confirmed 09/02/18] Levetiracetam [Keppra] 750 mg PO BID 12/19/15 [History Confirmed 09/02/18] Lisinopril [Zestril] 20 mg PO QAM 12/19/15 [History Confirmed 09/02/18] Potassium Chloride 10 Meq Tab* [Klor Con 10 MEQ] 10 meq PO TID 12/19/15 [ History Confirmed 09/02/18] Folic Acid 1 mg PO DAILY 02/26/18 [History Confirmed 09/02/18] Atorvastatin Calcium 40 mg PO HS 05/15/18 [History Confirmed 09/02/18] Metoprolol Tartrate 100 mg PO BID 05/15/18 [History Confirmed 09/02/18] PANTOPRAZOLE 40 mg Tablet [Protonix 40MG Tablet] 40 mg PO DAILY 05/15/18 [ History Confirmed 09/02/18] Arformoterol Tartrate [Brovana] 1 vial IH BID 06/10/18 [History Confirmed ] Budesonide 0.5 mg/2 ml [Pulmicort 0.5 mg/2 ml Respules] 1 vial IH BID [History Confirmed 09/02/18] Acetaminophen 325 mg [Tylenol 325 mg] 650 mg PO Q4H PRN PRN tablet [Rx Confirmed 09/02/18] Albuterol/Ipratropium 3ml Neb* [DUONEB 0.5-3 MG/3 ml Neb] 3 ml IH Q2H/PRN PRN 09/02/18 [History Confirmed 09/02/18] Alprazolam 0.25 mg [xanAX 0.25 MG] 0.25 mg PO TID 09/02/18 [History Confirmed 09/02/18] Aspirin [Aspirin EC] 81 mg PO DAILY 09/02/18 [History Confirmed 09/02/18] Ipratropium/Albuterol Sulfate [Iprat-Albut 0.5-3(2.5) mg/3 ml] 3 ml IH Q6H 09/02 [History Confirmed 09/02/18] Mineral Oil/Petrolatum,White [Eucerin Creme] 120 gm TP BID 09/02/18 [History Confirmed 09/02/18] Montelukast Sodium 10 mg [Singulair 10 MG] 10 mg PO DAILY 09/02/18 [History Confirmed 09/02/18] Ondansetron ODT 4 MG [Zofran Odt 4 mg] 4 mg PO Q6H PRN 09/02/18 [History Confirmed 09/02/18] Risperidone [Risperdal] 2 mg PO TID 09/02/18 [History Confirmed 09/02/18] Diltiazem HCl 300 mg [Cardizem CD 300 MG] 300 mg PO DAILY #30 cap [Rx] Meropenem [Merrem 1 GM] 1 g IV Q8HT 3 Days vial 09/09/18 [Rx] Prednisone 20 mg [Deltasone 20 mg] 20 mg PO DAILY 7 Days #7 tablet [Rx] Vancomycin/0.9 % Sod Chloride [Vancomycin 1 G/100Ml-0.9% NaCl] 500 mg IV Q12H 3 Days plast..bag 09/09/18 [Rx] Allergies/Adverse Reactions: Allergies Allergy/AdvReac Type Severity Reaction Status Date / Time tramadol HCl [From Ultram] Allergy Mild Rash Verified 09/02/18 10:06 azithromycin Allergy Verified 09/02/18 10:06 ciprofloxacin [From Cipro] Allergy Rash Verified 09/02/18 10:06 ciprofloxacin HCl Allergy Rash Verified 09/02/18 10:06 [From Cipro] metronidazole Allergy Verified 09/02/18 10:06 penicillin V [Penicillin V] Allergy Rash Verified 09/02/18 10:06 Quinolones Allergy Verified 09/02/18 10:06 Sulfa (Sulfonamide Allergy Verified 09/02/18 10:06 Antibiotics) sulfisoxazole Allergy Verified 09/02/18 10:06 tramadol Allergy Verified 09/02/18 10:06 - Past Medical History Past Medical History: Yes Neurological History: Dementia, Seizures ENT History: Cataracts Cardiac History: Other Respiratory History: Asthma, COPD, Pneumonia Endocrine Medical History: Hypothyroidism Musculoskelatal History: Arthritis, Fibromyalgia GI Medical History: Diverticulitis History: No Pertinent History Pyscho-Social History: Anxiety, Depression Reproductive Disorders: Cervical Cancer Comment: pt states she has a murmur. c. Diff - Female History Hx Last Menstrual Period: post Are you now?: No - Past Surgical History Past Surgical History: Yes Neuro Surgical History: No Pertinent History Cardiac History: No Pertinent History Respiratory Surgery: No Pertinent History GI Surgical History: Appendectomy, Cholecystectomy Genitourinary Surgical Hx: No Pertinent History Musculskeletal Surgical Hx: Orthopedic Surgery Female Surgical History: Hysterectomy Other Surgical History: LEFT x 4, RIGHT x 1 HIP SURGERY - Social History Smoking Status: Former smoker How long have you smoked: 40 Exposure to second hand smoke: No Alcohol: None Drug Use: none - Physical Exam Vital Signs: Vital Signs - 24 hr Temp Pulse Resp BP Pulse Ox 09/09/18 16:00 97.8 F 82 18 172/83 100 09/09/18 13:15 75 28 H 98 09/09/18 12:00 98.6 F 76 26 H 178/74 96 09/09/18 07:39 98.6 F 78 30 H 180/74 93 L 09/09/18 06:30 78 30 H 94 L 09/09/18 06:00 93 L 09/09/18 03:48 98.4 F 82 32 H 135/75 96 09/09/18 01:04 57 L 20 96 09/09/18 00:00 98.1 F 59 L 30 H 155/65 100 Oxygen-Last 24 hours O2 Percentage 3 Liters = 32% O2 Percentage 3 Liters = 32% O2 Percentage 3 Liters = 32% O2 Percentage 5 Liters = 40% O2 Percentage 5 Liters = 40% Oxygen Flowrate (L/min)-RT 5 Oxygen Flowrate (L/min)-RT 5 Results - Labs Lab/Micro Results: Accuchecks Date 09/09/18 Date 09/09/18 Date 09/09/18 Date 09/09/18 Date 09/08/18 Time 16:30 Time 11:30 Time 11:30 Time 07:30 Time 22:00 Accucheck Value: 120 Accucheck Value: 141 Accucheck Value: 141 Accucheck Value: 142 Accucheck Value: 92 Lab Results-Last 24 Hours 09/09/18 09/09/18 09/09/18 Range/Units 05:28 05:28 15:44 WBC 12.8 H (4.0-10.5) K/mm3 RBC 3.67 L (4.1-5.4) M/mm3 Hgb 10.3 L (12.0-16.0) gm/dl Hct 34.6 L (35-47) % MCV 94.3 (78-100) fl MCH 28.0 (26-32) pg MCHC 29.8 L D (32-36) g/dl RDW 17.3 H (11.5-14.0) % Plt Count 333 (150-450) K/mm3 MPV 9.8 H (6-9.5) fl Segmented Neutrophils 51 (36.0-66.0) % Lymphocytes (Manual) 35 (24-44) % Monocytes (Manual) 11 (0.0-12.0) % Eosinophils (Manual) 3 (0.00-3.0) % Platelet Estimate NORMAL (NORMAL) RBC Morphology ABNORMAL Anisocytosis 1+ Sodium 139 (137-145) mmol/L Potassium 3.4 L 4.0 (3.5-5.1) mmol/L Chloride 96 L (98-107) mmol/L Carbon Dioxide 39 H (22-30) mmol/L Anion Gap 7.4 (5-15) MEQ/L BUN 10 (7-17) mg/dL Creatinine 0.57 (0.52-1.04) mg/dL Estimated GFR > 60.0 ML/MIN Glucose 96 (74-106) mg/dL Calcium 8.8 (8.4-10.2) mg/dL Microbiology 09/06/18 08:17 Urine Culture - Final Urine, Indwelling Catheter <10K NORMAL SKIN MATT PROBABLE SKIN CONTAMINANT 09/02/18 10:36 Blood Culture Gram Stain - Final Blood Not Reportable Blood Culture - Final NO GROWTH 09/02/18 10:30 Blood Culture Gram Stain - Final Blood Not Reportable Blood Culture - Final NO GROWTH Accuchecks Date 09/09/18 Date 09/09/18 Date 09/09/18 Date 09/09/18 Date 09/08/18 Time 16:30 Time 11:30 Time 11:30 Time 07:30 Time 22:00 Accucheck Value: 120 Accucheck Value: 141 Accucheck Value: 141 Accucheck Value: 142 Accucheck Value: 92 Assessment/Plan (1) Atrial fibrillation with RVR Status: Acute Code(s): I48.91 - UNSPECIFIED ATRIAL FIBRILLATION (2) Sepsis Status: Acute Onset Date: ~09/04/18 (3) Pneumonia Status: Acute Onset Date: ~06/11/18 Qualifiers: Pneumonia type: due to unspecified organism Laterality: left Lung location: upper lobe of lung Qualified Code(s): J18.1 - Lobar pneumonia, unspecified organism Code(s): J18.9 - PNEUMONIA, UNSPECIFIED ORGANISM (4) Acute metabolic encephalopathy Status: Acute Onset Date: ~09/04/18 Code(s): G93.41 - METABOLIC ENCEPHALOPATHY (5) Acute exacerbation of COPD with asthma Status: Acute Onset Date: ~09/04/18 Code(s): J44.1 - CHRONIC OBSTRUCTIVE PULMONARY DISEASE W (ACUTE) EXACERBATION; J45.901 - UNSPECIFIED ASTHMA WITH ( ACUTE) EXACERBATION (6) Acute and chronic respiratory failure with hypoxia Status: Acute Onset Date: ~09/06/18 Code(s): J96.21 - ACUTE AND CHRONIC RESPIRATORY FAILURE WITH HYPOXIA (7) Anemia Status: Acute Onset Date: ~09/02/18 Qualifiers: Anemia type: unspecified type Qualified Code(s): D64.9 - Anemia, unspecified Code(s): D64.9 - ANEMIA, UNSPECIFIED (8) Hypothyroidism Status: Chronic Code(s): E03.9 - HYPOTHYROIDISM, UNSPECIFIED (9) Seizure disorder Status: Chronic Code(s): G40.909 - EPILEPSY, UNSP, NOT INTRACTABLE, WITHOUT STATUS EPILEPTICUS (10) Essential hypertension Status: Chronic Code(s): I10 - ESSENTIAL (PRIMARY) HYPERTENSION (11) Bipolar disorder Status: Chronic Qualifiers: Active/Remission status: currently active Current bipolar episode type: depressed Current episode severity: severe Psychotic features: with psychotic features Qualified Code(s): F31.5 - Bipolar disorder, current episode depressed, severe, with psychotic features
--- NOTE | 2018-09-09 20:40 | PCM.DS ---
Discharge Summary Date of Admission: 09/04/18 08:16 Date of Discharge: 09/09/18 Admitting Physician: LOIS NICK Primary Care Provider: LINDA HAILE Allergies Allergies tramadol HCl [From Ultram] Allergy (Mild, Verified 09/02/18 10:06) Rash azithromycin Allergy (Verified 09/02/18 10:06) ciprofloxacin [From Cipro] Allergy (Verified 09/02/18 10:06) Rash ciprofloxacin HCl [From Cipro] Allergy (Verified 09/02/18 10:06) Rash metronidazole Allergy (Verified 09/02/18 10:06) penicillin V [Penicillin V] Allergy (Verified 09/02/18 10:06) Rash Quinolones Allergy (Verified 09/02/18 10:06) Sulfa (Sulfonamide Antibiotics) Allergy (Verified 09/02/18 10:06) sulfisoxazole Allergy (Verified 09/02/18 10:06) tramadol Allergy (Verified 09/02/18 10:06) Hospital Summary - Hospital Course Hospital Course: She presented septic with health care associated pneumonia and was treated with meropenem after initial treatment in ED with less broad spectrum coverage and after 2 days infection appeared to not be improving much. Vancomycin was added. She was also treated with iv steroids with her copd and scheduled nebs. Gentle hydration was preformed at first and her mental status was reduced not eating or drinking much. She began improving slowly from an infection standpoint but she became fluid overloaded and she was treated with lasix, imdur and bipap. This improved but her K got a little low at 3.4 and she flipped into afib with rvr on her 200 mg of metoprolol daily she was transferred to icu with asymptomatic rates in the 160 to 190 she was started on cardizem bolus and drip and converted after about 3 hours in afib. She was anticoagualted initially. Her K was replaced and no further afib was detected on monitoring. She continued to show slow improvement. After afib with rvr she was hydrated gently over the weekend and on 09/09 am she was off her iv fluids but she had some rales again on exam. Her K was a little low again at 3.4. She was thus given 20 mg iv lasix for the rales and 40 mEq K rider and this improved her breathing and her K was up to 4.0. She was breathing easier on her chronic oxygen therapy. she continued to have intermittent wheezing as well. Her steroids had slowly been weakened from iv steroid high dose to po prednisone and she did require 1 additional 125 mg dose on the night of her respiratory decompensation from the volume overload. She continued to have slowed reaction times and responses and was requiring assistance with all tasks including was still needing assistance eating. She wanted to go home but she eventually agreed with me that going to [facility] would be more reasonable and she was discharged on 09/09 to continue 3 more days of meropennem and vancomycin as well as the steroid and repeat labs in 1 week. During the stay some of her sedating medications were taken away slowly at first her gabapentin, requip and tramadol were stopped. Attempt to decrease her rispiridal was unsuccessful as going to 1mg tid caused severe worsening of her mood and severe paranoia. It was increased back to 2mg tid and her cymbalta was stopped and she appeared to tolerate this well. Her alprazolam was continued throughout the stay. Will continue with these changes at discharge. - Vitals & Intake/Output Vital Signs: Vital Signs Temperature 97.8 F 09/09/18 16:00 Pulse Rate 82 09/09/18 16:00 Respiratory Rate 18 09/09/18 16:00 Blood Pressure 172/83 09/09/18 16:00 O2 Sat by Pulse Oximetry 100 09/09/18 16:00 Oxygen-Last Documented O2 Percentage 3 Liters = 32% Intake & Output: Intake & Output 09/07/18 09/08/18 09/09/18 09/10/18 11:59 11:59 11:59 11:59 Intake Total 801 2103 1292 982 Output Total 1700 400 300 250 Balance -899 1703 992 732 Weight 73.5 kg 73.8 kg 68.7 kg - Lab Result Diagrams: 09/09/18 05:28 09/09/18 15:44 Lab Results-Last 24 Hrs: Accuchecks Date 09/09/18 Date 09/09/18 Date 09/09/18 Date 09/09/18 Date 09/08/18 Time 16:30 Time 11:30 Time 11:30 Time 07:30 Time 22:00 Accucheck Value: 120 Accucheck Value: 141 Accucheck Value: 141 Accucheck Value: 142 Accucheck Value: 92 Lab Results-Last 24 Hours 09/09/18 09/09/18 09/09/18 Range/Units 05:28 05:28 15:44 WBC 12.8 H (4.0-10.5) K/mm3 RBC 3.67 L (4.1-5.4) M/mm3 Hgb 10.3 L (12.0-16.0) gm/dl Hct 34.6 L (35-47) % MCV 94.3 (78-100) fl MCH 28.0 (26-32) pg MCHC 29.8 L D (32-36) g/dl RDW 17.3 H (11.5-14.0) % Plt Count 333 (150-450) K/mm3 MPV 9.8 H (6-9.5) fl Segmented Neutrophils 51 (36.0-66.0) % Lymphocytes (Manual) 35 (24-44) % Monocytes (Manual) 11 (0.0-12.0) % Eosinophils (Manual) 3 (0.00-3.0) % Platelet Estimate NORMAL (NORMAL) RBC Morphology ABNORMAL Anisocytosis 1+ Sodium 139 (137-145) mmol/L Potassium 3.4 L 4.0 (3.5-5.1) mmol/L Chloride 96 L (98-107) mmol/L Carbon Dioxide 39 H (22-30) mmol/L Anion Gap 7.4 (5-15) MEQ/L BUN 10 (7-17) mg/dL Creatinine 0.57 (0.52-1.04) mg/dL Estimated GFR > 60.0 ML/MIN Glucose 96 (74-106) mg/dL Calcium 8.8 (8.4-10.2) mg/dL Micro Results-Entire Visit: Microbiology 09/06/18 08:17 Urine Culture - Final Urine, Indwelling Catheter <10K NORMAL SKIN MATT PROBABLE SKIN CONTAMINANT 09/02/18 10:36 Blood Culture Gram Stain - Final Blood Not Reportable Blood Culture - Final NO GROWTH 09/02/18 10:30 Blood Culture Gram Stain - Final Blood Not Reportable Blood Culture - Final NO GROWTH Accuchecks Date 09/09/18 Date 09/09/18 Date 09/09/18 Date 09/09/18 Date 09/08/18 Time 16:30 Time 11:30 Time 11:30 Time 07:30 Time 22:00 Accucheck Value: 120 Accucheck Value: 141 Accucheck Value: 141 Accucheck Value: 142 Accucheck Value: 92 - Procedures and Test Procedures and Tests throughout Hospitalization: Therapy Orders & Screens 09/02/18 10:13 Respiratory Nebulizer STAT Comment: Diagnosis: Shortness of Breath 09/02/18 13:21 Oxygen NASAL CANNULA 2 lpm Comment: Diagnosis: Shortness of Breath Respiratory Therapy Consult ROUTINE Comment: Reason For Exam: Diagnosis: Shortness of Breath 09/02/18 13:44 Respiratory Therapy Assessment DAILY Comment: Diagnosis: Shortness of Breath 09/02/18 14:13 Peak Expiratory Flow Rate ONCE Comment: Reason For Exam: Diagnosis: Shortness of Breath 09/05/18 15:34 BiPap/CPAP ROUTINE Comment: Diagnosis: pneumonia 09/06/18 04:54 EKG STAT Comment: Diagnosis: pneumonia 09/06/18 11:19 BiPap/CPAP ROUTINE Comment: to wear at bedtime Diagnosis: pneumonia 09/06/18 15:08 EKG STAT Comment: Diagnosis: pneumonia 09/06/18 17:48 EKG ROUTINE Comment: Diagnosis: pneumonia Discharge Exam General Appearance: no apparent distress, alert Neurologic Exam: alert, oriented x 3, cooperative, nml cerebellar function, sensation nml, No normal mood/affect (blunted affect), No motor deficits Skin Exam: normal color, warm, dry Eye Exam: PERRL, EOMI, eyes nml inspection Ears, Nose, Throat Exam: normal ENT inspection, pharynx normal, moist mucous membranes Neck Exam: normal inspection, non-tender, supple, full range of motion Respiratory Exam: crackles/rales, rhonchi, wheezing Cardiovascular Exam: murmur Gastrointestinal/Abdomen Exam: soft, No tenderness, No mass Extremity Exam: normal inspection, normal range of motion Back Exam: normal inspection, normal range of motion, No CVA tenderness, No vertebral tenderness Pelvic Exam: deferred Rectal Exam: deferred Final Diagnosis/Problem List - Final Discharge Diagnosis/Problem (1) Sepsis Status: Acute Onset Date: ~09/04/18 (2) Pneumonia Status: Acute Onset Date: ~06/11/18 (3) Acute metabolic encephalopathy Status: Acute Onset Date: ~09/04/18 (4) Acute exacerbation of COPD with asthma Status: Acute Onset Date: ~09/04/18 (5) Acute and chronic respiratory failure with hypoxia Status: Acute Onset Date: ~09/06/18 (6) Anemia Status: Acute Onset Date: ~09/02/18 (7) Hypothyroidism Status: Chronic (8) Seizure disorder Status: Chronic (9) Essential hypertension Status: Chronic (10) Bipolar disorder Status: Chronic (11) Atrial fibrillation with RVR Status: Resolved - Discharge Discharge Date: 09/09/18 Disposition: DC TO [facility] Condition: Fair Prescriptions: New Diltiazem HCl 300 mg [Cardizem CD 300 MG] 300 mg PO DAILY #30 cap Prednisone 20 mg [Deltasone 20 mg] 20 mg PO DAILY 7 Days #7 tablet Meropenem [Merrem 1 GM] 1 g IV Q8HT 3 Days vial Vancomycin/0.9 % Sod Chloride [Vancomycin 1 G/100Ml-0.9% NaCl] 500 mg IV Q12H 3 Days plast..bag Continue Lisinopril [Zestril] 20 mg PO QAM Levetiracetam [Keppra] 750 mg PO BID Potassium Chloride 10 Meq Tab* [Klor Con 10 MEQ] 10 meq PO TID Alendronate Sodium 70 mg [Fosamax 70 MG] 70 mg PO WEEKLY Folic Acid 1 mg PO DAILY PANTOPRAZOLE 40 mg Tablet [Protonix 40MG Tablet] 40 mg PO DAILY Atorvastatin Calcium 40 mg PO HS Metoprolol Tartrate 100 mg PO BID Arformoterol Tartrate [Brovana] 1 vial IH BID Budesonide 0.5 mg/2 ml [Pulmicort 0.5 mg/2 ml Respules] 1 vial IH BID Acetaminophen 325 mg [Tylenol 325 mg] 650 mg PO Q4H PRN PRN tablet PRN Reason: Pain And/Or Fever Montelukast Sodium 10 mg [Singulair 10 MG] 10 mg PO DAILY Risperidone [Risperdal] 2 mg PO TID Ondansetron ODT 4 MG [Zofran Odt 4 mg] 4 mg PO Q6H PRN PRN Reason: Nausea Ipratropium/Albuterol Sulfate [Iprat-Albut 0.5-3(2.5) mg/3 ml] 3 ml IH Q6H Mineral Oil/Petrolatum,White [Eucerin Creme] 120 gm TP BID Aspirin [Aspirin EC] 81 mg PO DAILY Alprazolam 0.25 mg [xanAX 0.25 MG] 0.25 mg PO TID Albuterol/Ipratropium 3ml Neb* [DUONEB 0.5-3 MG/3 ml Neb] 3 ml IH Q2H/PRN PRN PRN Reason: breathing Discontinued Guaifenesin 600 mg ER [Mucinex 600MG ER Tabs] 600 mg PO BID 7 Days tablet Gabapentin 300 mg PO DAILY Gabapentin 600 mg PO HS Ropinirole HCl 0.5 mg [Requip 0.5 MG] 0.5 mg PO HS Ranitidine HCl 150 mg PO DAILY PRN PRN Reason: Belching Duloxetine HCl [Cymbalta] 60 mg PO DAILY Tramadol HCl 50 mg [Ultram 50 mg] 50 mg PO Q8H PRN PRN Reason: Pain Additional Instructions: MARISSA HAILE ORDERS: cbc, cmp in 1 week RESUME ALL OTHER LONG TERM ORDERS SEE ATTACHED FOR CURRENT MED LIST. Follow up with: LINDA HAILE [Primary Care Provider] - 1 Week
== END 2018-09-09 17:25 | DRG 871 ==
LOC: ED 09:52 → MED SURG 13:10 → OBSVTOIN 09-04 08:16 → MED SURG 09-05 13:55 → ICU 09-06 16:04 → MED SURG 09-07 13:34
PROVIDERS: ADMIT Family Medicine; ATTEND Family Medicine
DX: A41.9 Sepsis, unspecified organism (principal); R06.02 Shortness of breath; G93.41 Metabolic encephalopathy; J96.21 Acute and chronic respiratory failure with hypoxia; J44.1 Chronic obstructive pulmonary disease with (acute) exacerbation; I48.91 Unspecified atrial fibrillation; D64.9 Anemia, unspecified; J18.9 Pneumonia, unspecified organism; J45.909 Unspecified asthma, uncomplicated; I10 Essential (primary) hypertension; F31.9 Bipolar disorder, unspecified; E03.9 Hypothyroidism, unspecified; F03.90 Unspecified dementia, unspecified severity, without behavioral disturbance, psychotic disturbance, mood disturbance, and anxiety; G40.909 Epilepsy, unspecified, not intractable, without status epilepticus; M19.90 Unspecified osteoarthritis, unspecified site; M79.7 Fibromyalgia; F41.9 Anxiety disorder, unspecified; F32.9 Major depressive disorder, single episode, unspecified; Z85.41 Personal history of malignant neoplasm of cervix uteri; R01.1 Cardiac murmur, unspecified; Z79.899 Other long term (current) drug therapy
CPT/HCPCS: 36000; 36415; 36600; 71045; 71260; 80048; 80053; 80202; 82375; 82803; 82805; 82962; 83605; 83735; 83880; 84132; 84436; 84443; 84484; 85025; 85027; 85379; 85610; 85730; 87040; 87086; 87493; 87631; 93005; 93041; 93268; 94002; 94003; 94150; 94640; 94760; 94762; 96360; 96365; 96374; 99285; G0378; J0360; J0696; J1650; J1885; J1940; J2060; J2405; J2930; J3370; J3480; J7609; A9270-GY

== ENCOUNTER 2018-09-21 09:11 | Emergency (ER) | payer MEDICARE ==
--- NOTE | 2018-09-21 09:21 | ERPHSYRPT ---
- History of Present Illness Time Seen by Provider: 09/21/18 09:15 Source: patient, EMS Physician History: 63 y/o white female with h/o anxiety, seizure d/o, atrial fibrillation, chronic soa, copd, copd exacerbation, and recurring episodes of respiratory distress, presents with worsening soa. pt has been "fighting pneumonia for last few weeks. ". pt just completed a cephalosporin. pt seen by pcp 2 days ago and told she was doing fine. Activities at Onset: none Severity of Dyspnea-Max: moderate Severity of Dyspnea-Current: mild Possible Cause: frequent episodes Modifying Factors: Improves With: albuterol nebulizer (improved) Associated Symptoms: anxiety, weakness, No chest pain/discomfort, No wheezing, No painful breathing, No productive cough, No sweating Allergies/Adverse Reactions: tramadol HCl [From Ultram] Allergy (Mild, Verified 09/21/18 09:13) Rash azithromycin Allergy (Verified 09/21/18 09:13) ciprofloxacin [From Cipro] Allergy (Verified 09/21/18 09:13) Rash ciprofloxacin HCl [From Cipro] Allergy (Verified 09/21/18 09:13) Rash metronidazole Allergy (Verified 09/21/18 09:13) penicillin V [Penicillin V] Allergy (Verified 09/21/18 09:13) Rash Quinolones Allergy (Verified 09/21/18 09:13) Sulfa (Sulfonamide Antibiotics) Allergy (Verified 09/21/18 09:13) sulfisoxazole Allergy (Verified 09/21/18 09:13) tramadol Allergy (Verified 09/21/18 09:13) Home Medications: Alendronate Sodium 70 mg [Fosamax 70 MG] 70 mg PO WEEKLY 12/19/15 [History ] Levetiracetam [Keppra] 750 mg PO BID 12/19/15 [History] Lisinopril [Zestril] 20 mg PO QAM 12/19/15 [History] Potassium Chloride 10 Meq Tab* [Klor Con 10 MEQ] 10 meq PO TID 12/19/15 [ History] Folic Acid 1 mg PO DAILY 02/26/18 [History] Atorvastatin Calcium 40 mg PO HS 05/15/18 [History] Metoprolol Tartrate 100 mg PO BID 05/15/18 [History] Arformoterol Tartrate [Brovana] 1 vial IH BID 06/10/18 [History] Budesonide 0.5 mg/2 ml [Pulmicort 0.5 mg/2 ml Respules] 1 vial IH BID [History] Albuterol/Ipratropium 3ml Neb* [DUONEB 0.5-3 MG/3 ml Neb] 3 ml IH Q2H/PRN PRN 09/02/18 [History] Alprazolam 0.25 mg [xanAX 0.25 MG] 0.25 mg PO TID 09/02/18 [History] Aspirin [Aspirin EC] 81 mg PO DAILY 09/02/18 [History] Ipratropium/Albuterol Sulfate [Iprat-Albut 0.5-3(2.5) mg/3 ml] 3 ml IH Q6H 09/02 [History] Mineral Oil/Petrolatum,White [Eucerin Creme] 120 gm TP BID 09/02/18 [History] Ondansetron ODT 4 MG [Zofran Odt 4 mg] 4 mg PO Q6H PRN 09/02/18 [History] Risperidone [Risperdal] 2 mg PO TID 09/02/18 [History] Hx Tetanus, Diphtheria Vaccination/Date Given: Yes Hx Influenza Vaccination/Date Given: Yes Hx Pneumococcal Vaccination/Date Given: Yes - Review of Systems Constitutional: No Symptoms Eyes: No Symptoms Ears, Nose, & Throat: No Symptoms Respiratory: Dyspnea Cardiac: No Symptoms, No Chest Pain, No Palpitations, No Syncope Abdominal/Gastrointestinal: No Symptoms, No Abdominal Pain, No Nausea, No Vomiting, No Diarrhea Genitourinary Symptoms: No Symptoms, No Dysuria, No Frequency, No Hematuria Musculoskeletal: No Symptoms Skin: No Symptoms Neurological: No Symptoms Psychological: No Symptoms Endocrine: No Symptoms Hematologic/Lymphatic: No Symptoms Immunological/Allergic: No Symptoms All Other Systems: Reviewed and Negative - Past Medical History Pertinent Past Medical History: Yes Neurological History: Dementia, Seizures ENT History: Cataracts Cardiac History: Other Respiratory History: Asthma, COPD, Pneumonia Endocrine Medical History: Hypothyroidism Musculoskeletal History: Arthritis, Fibromyalgia GI Medical History: Diverticulitis History: No Pertinent History Psycho-Social History: Anxiety, Depression Female Reproductive Disorders: Cervical Cancer Other Medical History: pt states she has a murmur. c. Diff - Past Surgical History Past Surgical History: Yes Neuro Surgical History: No Pertinent History Cardiac: No Pertinent History Respiratory: No Pertinent History Gastrointestinal: Appendectomy, Cholecystectomy Genitourinary: No Pertinent History Musculoskeletal: Orthopedic Surgery Female Surgical History: Hysterectomy Other Surgical History: LEFT x 4, RIGHT x 1 HIP SURGERY - Social History Smoking Status: Former smoker How long have you smoked: 40 Exposure to second hand smoke: No Drug Use: none Patient Lives Alone: No - Nursing Vital Signs Nursing Vital Signs: Initial Vital Signs Temperature 99.0 F 09/21/18 09:13 Pulse Rate 79 09/21/18 09:13 Respiratory Rate 22 09/21/18 09:13 Blood Pressure 91/45 09/21/18 09:13 O2 Sat by Pulse Oximetry 98 09/21/18 09:13 Pain Scale Pain Intensity 5 - Physical Exam General Appearance: no apparent distress, alert, anxiety Eye Exam: PERRL/EOMI Ears, Nose, Throat Exam: hearing grossly normal, normal ENT inspection Neck Exam: normal inspection, non-tender, supple, full range of motion Respiratory Exam: normal breath sounds, lungs clear, airway intact, No chest tenderness, No respiratory distress, No diminished breath sounds, No accessory muscle use, No rhonchi, No wheezing, No stridor Cardiovascular/Chest Exam: normal heart sounds, regular rate/rhythm Abdominal/Gastrointestinal Exam: soft, normal bowel sounds, No tenderness, No guarding, No rebound Rectal Exam: not done Extremity Exam: non-tender, normal range of motion, normal inspection Neurologic Exam: alert, oriented x 3, cooperative, vice president of procurement II-XII nml as tested Skin Exam: normal color, warm, dry Lymphatic Exam: adenopathy SpO2 Interpretation: normal Oxygen Delivery: Room Air - Course Nursing assessment & vital signs reviewed: Yes Ordered Tests: Active Orders 24 hr Category Date Time Status Consumer Credit Counselor STAT Care 09/21/18 09:26 Active IV Insertion STAT Care 09/21/18 09:25 Active CHEST 1 VIEW (PORTABLE) Stat Exams 09/21/18 09:26 Taken ABG [ARTERIAL BLOOD GASES] Stat Lab 09/21/18 11:25 Completed CBC W DIFF Stat Lab 09/21/18 09:54 Completed CMP Stat Lab 09/21/18 09:54 Completed Lactic Acid Stat Lab 09/21/18 09:26 Completed Lactic Acid Stat Lab 09/21/18 11:25 Completed NT PRO BNP Stat Lab 09/21/18 09:54 Completed PROTIME WITH INR Stat Lab 09/21/18 09:54 Completed VBG [VENOUS BLOOD GAS] Stat Lab 09/21/18 09:26 Completed Medication Summary Generic Name Dose Route Start Last Admin Trade Name Frecontreras PRN Reason Stop Dose Admin Sodium Chloride 500 mls @ 500 mls/hr 09/21/18 10:58 09/21/18 11:13 Sodium Chloride 0.9% 500 Ml IV 09/21/18 11:57 500 mls/hr .Q1H ONE Administration Discontinued Medications Generic Name Dose Route Start Last Admin Trade Name Freq PRN Reason Stop Dose Admin Sodium Chloride Confirm 09/21/18 11:09 Sodium Chloride 0.9% 1000 Ml Administered 09/21/18 11:10 Dose 1,000 mls @ ud .ROUTE .STK-MED ONE Methylprednisolone Sodium Succinate 125 mg 09/21/18 09:25 09/21/18 10:25 Solu-Medrol 125 Mg IV 09/21/18 09:26 125 mg STAT ONE Administration Methylprednisolone Sodium Succinate Confirm 09/21/18 10:24 Solu-Medrol 125 Mg Administered 09/21/18 10:25 Dose 125 mg .ROUTE .STK-MED ONE Lab/Rad Data: Laboratory Result Diagrams 09/21/18 09:54 09/21/18 09:54 Laboratory Results 09/21/18 09/21/18 09/21/18 Range/Units 11:25 11:25 09:54 WBC (4.0-10.5) K/mm3 RBC (4.1-5.4) M/mm3 Hgb (12.0-16.0) gm/dl Hct (35-47) % MCV (78-100) fl MCH (26-32) pg MCHC (32-36) g/dl RDW (11.5-14.0) % Plt Count (150-450) K/mm3 MPV (6-9.5) fl Gran % (36.0-66.0) % Eos # (Auto) (0-0.5) Absolute Lymphs (auto) (1.0-4.6) Absolute Monos (auto) (0.0-1.3) Lymphocytes % (24.0-44.0) % Monocytes % (0.0-12.0) % Eosinophils % (0.00-5.0) % Basophils % (0.0-0.4) % Absolute Granulocytes (1.4-6.9) Basophils # (0-0.4) PT 11.4 (9.95-12.35) SECONDS INR 0.98 (0.8-3.0) Puncture Site LEFT BRACHIAL pCO2 44 (35-45) mmHg pO2 91 (75-100) mmHg pO2/FiO2 Ratio % Base Excess 5.2 H (-2.0-2.0) O2 Saturation 95.5 (94-100) g/dF ABG pH 7.44 (7.35-7.45) ABG HCO3 29.9 H* (22-28) ABG O2 Sat (Measured) 99.1 (95-100) % Tyson Test NOT APPLICABLE VBG pH (7.32-7.42) VBG pCO2 at Pat Temp (42-55) mm/Hg VBG pO2 at Pat Temp (25-40) mm/Hg VBG HCO3 (22-28) meq/L VBG O2 Sat ([place]) (95-100) VBG Base Excess (-2.0-2.0) VBG Hemoglobin VBG Carboxyhemoglobin (0.0-6.9) % T HGB A-a Gradient 82 a/A Ratio 0.53 Hemoglobin 9.4 Carboxyhemoglobin 2.7 (0.0-6.9) % THgb Methemoglobin 0.9 L (1.4-1.5) % POC Potassium (3.5-5.1) Temperature 37.0 C POC O2 Flow Rate 32 % Sodium (137-145) mmol/L Potassium 4.2 (3.5-5.1) mmol/L Chloride (98-107) mmol/L Carbon Dioxide (22-30) mmol/L Anion Gap (5-15) MEQ/L BUN (7-17) mg/dL Creatinine (0.52-1.04) mg/dL Estimated GFR ML/MIN Glucose (74-106) mg/dL Lactic Acid 1.5 (0.4-2.0) Calcium (8.4-10.2) mg/dL Total Bilirubin (0.2-1.3) mg/dL AST (14-36) U/L ALT (0-35) U/L Alkaline Phosphatase (38-126) U/L NT-Pro-B Natriuret Pep (0-900) pg/mL Serum Total Protein (6.3-8.2) g/dL Albumin (3.5-5.0) g/dL 09/21/18 09/21/18 09/21/18 Range/Units 09:54 09:54 09:26 WBC 14.4 H (4.0-10.5) K/mm3 RBC 2.93 L (4.1-5.4) M/mm3 Hgb 8.7 L (12.0-16.0) gm/dl Hct 28.5 L (35-47) % MCV 97.3 (78-100) fl MCH 29.6 (26-32) pg MCHC 30.5 L (32-36) g/dl RDW 17.3 H (11.5-14.0) % Plt Count 271 (150-450) K/mm3 MPV 10.9 H (6-9.5) fl Gran % 71.9 H (36.0-66.0) % Eos # (Auto) 0.62 H (0-0.5) Absolute Lymphs (auto) 2.07 (1.0-4.6) Absolute Monos (auto) 1.33 H (0.0-1.3) Lymphocytes % 14.4 L (24.0-44.0) % Monocytes % 9.3 (0.0-12.0) % Eosinophils % 4.3 (0.00-5.0) % Basophils % 0.1 (0.0-0.4) % Absolute Granulocytes 10.32 H (1.4-6.9) Basophils # 0.01 (0-0.4) PT (9.95-12.35) SECONDS INR (0.8-3.0) Puncture Site pCO2 (35-45) mmHg pO2 (75-100) mmHg pO2/FiO2 Ratio % Base Excess (-2.0-2.0) O2 Saturation (94-100) g/dF ABG pH (7.35-7.45) ABG HCO3 (22-28) ABG O2 Sat (Measured) (95-100) % Tyson Test VBG pH (7.32-7.42) VBG pCO2 at Pat Temp (42-55) mm/Hg VBG pO2 at Pat Temp (25-40) mm/Hg VBG HCO3 (22-28) meq/L VBG O2 Sat ([place]) (95-100) VBG Base Excess (-2.0-2.0) VBG Hemoglobin VBG Carboxyhemoglobin (0.0-6.9) % T HGB A-a Gradient a/A Ratio Hemoglobin Carboxyhemoglobin (0.0-6.9) % THgb Methemoglobin (1.4-1.5) % POC Potassium (3.5-5.1) Temperature C POC O2 Flow Rate % Sodium 137 (137-145) mmol/L Potassium 4.1 (3.5-5.1) mmol/L Chloride 101 (98-107) mmol/L Carbon Dioxide 28 (22-30) mmol/L Anion Gap 12.1 (5-15) MEQ/L BUN 6 L (7-17) mg/dL Creatinine 0.76 (0.52-1.04) mg/dL Estimated GFR > 60.0 ML/MIN Glucose 141 H (74-106) mg/dL Lactic Acid 4.3 H (0.4-2.0) Calcium 8.8 (8.4-10.2) mg/dL Total Bilirubin 0.50 (0.2-1.3) mg/dL AST 27 (14-36) U/L ALT 24 (0-35) U/L Alkaline Phosphatase 70 (38-126) U/L NT-Pro-B Natriuret Pep 170 (0-900) pg/mL Serum Total Protein 5.7 L (6.3-8.2) g/dL Albumin 3.0 L (3.5-5.0) g/dL 09/21/18 Range/Units 09:26 WBC (4.0-10.5) K/mm3 RBC (4.1-5.4) M/mm3 Hgb (12.0-16.0) gm/dl Hct (35-47) % MCV (78-100) fl MCH (26-32) pg MCHC (32-36) g/dl RDW (11.5-14.0) % Plt Count (150-450) K/mm3 MPV (6-9.5) fl Gran % (36.0-66.0) % Eos # (Auto) (0-0.5) Absolute Lymphs (auto) (1.0-4.6) Absolute Monos (auto) (0.0-1.3) Lymphocytes % (24.0-44.0) % Monocytes % (0.0-12.0) % Eosinophils % (0.00-5.0) % Basophils % (0.0-0.4) % Absolute Granulocytes (1.4-6.9) Basophils # (0-0.4) PT (9.95-12.35) SECONDS INR (0.8-3.0) Puncture Site pCO2 (35-45) mmHg pO2 (75-100) mmHg pO2/FiO2 Ratio 32.0 % Base Excess (-2.0-2.0) O2 Saturation (94-100) g/dF ABG pH (7.35-7.45) ABG HCO3 (22-28) ABG O2 Sat (Measured) (95-100) % Tyson Test VBG pH 7.41 (7.32-7.42) VBG pCO2 at Pat Temp 45 (42-55) mm/Hg VBG pO2 at Pat Temp 35 (25-40) mm/Hg VBG HCO3 28.5 H (22-28) meq/L VBG O2 Sat ([place]) 73.4 L (95-100) VBG Base Excess 3.4 H (-2.0-2.0) VBG Hemoglobin 9.0 VBG Carboxyhemoglobin 3.3 (0.0-6.9) % T HGB A-a Gradient a/A Ratio Hemoglobin Carboxyhemoglobin (0.0-6.9) % THgb Methemoglobin (1.4-1.5) % POC Potassium 3.8 (3.5-5.1) Temperature C POC O2 Flow Rate % Sodium (137-145) mmol/L Potassium (3.5-5.1) mmol/L Chloride (98-107) mmol/L Carbon Dioxide (22-30) mmol/L Anion Gap (5-15) MEQ/L BUN (7-17) mg/dL Creatinine (0.52-1.04) mg/dL Estimated GFR ML/MIN Glucose (74-106) mg/dL Lactic Acid (0.4-2.0) Calcium (8.4-10.2) mg/dL Total Bilirubin (0.2-1.3) mg/dL AST (14-36) U/L ALT (0-35) U/L Alkaline Phosphatase (38-126) U/L NT-Pro-B Natriuret Pep (0-900) pg/mL Serum Total Protein (6.3-8.2) g/dL Albumin (3.5-5.0) g/dL - Progress Progress: improved, re-examined Air Movement: good Progress Note: 09/21/18 11:38 pt states shes feeling better. pt has chronic anemia. pts wbc elevated secondary to steroids. pt has lactic acid wnl. arterial blood gas good on 2 liters oxygen (which is what she is on at [facility]), cxr shows no infiltrate and improved over cxr dated on 09/02/19. pts bnp and anion gap wnl. clinically, pt is stable, feeling well, she is not in any distress, denies cp, denies soa and denies abd pain. she will be discharged Blood Culture(s) Obtained: No Antibiotics given: No Counseled pt/family regarding: lab results, diagnosis, rad results - Departure Time of Disposition: 11:43 Departure Disposition: Home Clinical Impression: Shortness of breath, Chronic anemia Condition: Stable Critical Care Time: No Referrals: LINDA HAILE [Primary Care Provider] - Additional Instructions: take your medications and make sure patient is on her oxygen at [facility]. follow up with primary doctor for further management
[2018-09-21] MEDS ORDERED: solu-MEDROL 125 MG IV ONE (09:25)
[2018-09-21 09:33] LABS: Lactic Acid 4.3 (0.4-2.0)
[2018-09-21 09:34] LABS: VBG BASE EXCESS 3.4 (-2.0-2.0); VBG CARBOXYHEMOGLOBIN 3.3 % T HGB (0.0-6.9); VBG HCO3- 28.5 meq/L (22-28); VBG O2 SATURATION 73.4 (95-100); VBG POTASSIUM 3.8 (3.5-5.1); VBG pH 7.41 (7.32-7.42)
[2018-09-21 10:00] LABS: BASOPHIL % 0.1 % (0.0-0.4); Basophil (Absolute #) 0.01 (0-0.4); Eosinophil % 4.3 % (0.00-5.0); Eosinophil (Absolute #) 0.62 (0-0.5); Granulocyte Absolute (ANC) 10.32 (1.4-6.9); Granulocytes % 71.9 % (36.0-66.0); Hematocrit 28.5 % (35-47); Hemoglobin 8.7 gm/dl (12.0-16.0); Lymphocyte (Absolute #) 2.07 (1.0-4.6); Lymphocytes % 14.4 % (24.0-44.0); Mean Cell Volume 97.3 fl (78-100); Mean Corpuscular Hgb Concent. 30.5 g/dl (32-36); Mean Platelet Volume 10.9 fl (6-9.5); Monocyte (Absolute #) 1.33 (0.0-1.3); Monocytes % 9.3 % (0.0-12.0); Platelet Count 271 K/mm3 (150-450); Red Blood Count 2.93 M/mm3 (4.1-5.4); Red Cell Distribution Width 17.3 % (11.5-14.0); White Blood Count 14.4 K/mm3 (4.0-10.5)
[2018-09-21 10:02] LABS: Mean Corpuscular Hemoglobin 29.6 pg (26-32)
[2018-09-21 10:14] LABS: INR 0.98 (0.8-3.0)
[2018-09-21] MEDS ORDERED: solu-MEDROL 125 MG ONE (10:24)
[2018-09-21 10:29] LABS: ALKALINE PHOSPHATASE 70 U/L (38-126); ANION GAP 12.1 MEQ/L (5-15); BLOOD UREA NITROGEN 6 mg/dL (7-17); CHLORIDE 101 mmol/L (98-107); Calcium 8.8 mg/dL (8.4-10.2); Carbon Dioxide 28 mmol/L (22-30); Creatinine 1 0.76 mg/dL (0.52-1.04); Glucose 141 mg/dL (74-106); NT PRO BNP 170 pg/mL (0-900); Potassium 4.1 mmol/L (3.5-5.1); SGOT/AST 27 U/L (14-36); SGPT/ALT 24 U/L (0-35); SODIUM 137 mmol/L (137-145); Total Protein 5.7 g/dL (6.3-8.2)
[2018-09-21] MEDS ORDERED: Sodium Chloride 0.9% 500 ML 500 ML IV ONE (10:58)
[2018-09-21] MEDS ORDERED: Sodium Chloride 0.9% 1000 ML 1,000 ML ONE (11:09)
[2018-09-21 11:28] LABS: A-aADO2 82; ABG HEMOGLOBIN 9.4; ABG POTASSIUM 4.2 (3.5-5.1); ABG SITE LEFT BRACHIAL; ARTERIAL BLD GAS O2 SATURATION 99.1 % (95-100); ARTERIAL BLOOD GAS BASE EXCESS 5.2 (-2.0-2.0); ARTERIAL BLOOD GAS FIO2 32 %; ARTERIAL BLOOD GAS PCO2 44 mmHg (35-45); ARTERIAL BLOOD GAS PO2 91 mmHg (75-100); ARTERIAL BLOOD GAS pH 7.44 (7.35-7.45); CARBOXYHEMOGLOBIN 2.7 % THgb (0.0-6.9); HCO3- 29.9 (22-28); HGB O2 SAT 95.5 g/dF (94-100); Methhemoglobin 0.9 % (1.4-1.5); paO2 pAO1 0.53
[2018-09-21 11:50] VITALS: O2SAT 98
[2018-09-21 12:39] VITALS: BP 132/70; PULSE 70
--- NOTE | 2018-09-21 18:41 | XRAY ---
Indication: Short of breath. Comparison: September 06, 2018. Portable chest again demonstrates chronic lung markings without focal infiltrate, consolidation, or large effusion. Heart is not enlarged. Small hiatal hernia. Bony thorax intact again with mild osteopenia and degenerative changes. Impression: Nonacute chest with chronic features.
== END 2018-09-21 12:39 | disposition home or self-care (01) ==
LOC: ED 09:11
DX: R06.02 Shortness of breath (principal); D64.9 Anemia, unspecified; D72.829 Elevated white blood cell count, unspecified; Z79.899 Other long term (current) drug therapy; R53.1 Weakness; F41.9 Anxiety disorder, unspecified; I48.91 Unspecified atrial fibrillation
CPT/HCPCS: 36000; 36415; 36600; 71045; 80053; 82375; 82803; 82805; 83605; 83880; 85025; 85610; 93041; 96374; 99284; J2930

== ENCOUNTER 2018-09-30 18:28 | Observation (INO) | payer MEDICARE ==
--- NOTE | 2018-09-30 19:55 | ERPHSYRPT ---
- History of Present Illness Time Seen by Provider: 09/30/18 19:49 Source: patient, EMS, care home records Patient Subjective Stated Complaint: detention stated "she has been lethargic all day and not her normal self, her blood pressure has been low and we called Dr. Tim and he said to send her to the ED.". PT stated "I do not know why I am here." Triage Nursing Assessment: Pt alert and lethargic, able to speak in clear full sentences. Pt in no respiratory distress. PT has red dry rough skin bilat breasts and right inner upper arm. Physician History: The patient is a 63-year-old female resident of [facility] brought in by ambulance for lethargy, not eating her normal self today, confusion, and low blood pressure all day. The patient states she does not know why she is here. She tells me she hurts all over". Her past medical history is significant for A. fib, COPD, bipolar disorder, hypothyroidism, seizure disorder, and C. difficile colitis. Dr. Mancilla was notified and requested the patient be sent to the ER for evaluation. Timing/Duration: today, constant, improved (upon arrival pt is better and knows day and where she is.) Severity: moderate Modifying Factors: Improves With: nothing Associated Symptoms: malaise Allergies/Adverse Reactions: tramadol HCl [From Ultram] Allergy (Mild, Verified 09/21/18 09:13) Rash azithromycin Allergy (Verified 09/21/18 09:13) ciprofloxacin [From Cipro] Allergy (Verified 09/21/18 09:13) Rash ciprofloxacin HCl [From Cipro] Allergy (Verified 09/21/18 09:13) Rash metronidazole Allergy (Verified 09/21/18 09:13) penicillin V [Penicillin V] Allergy (Verified 09/21/18 09:13) Rash Quinolones Allergy (Verified 09/21/18 09:13) Sulfa (Sulfonamide Antibiotics) Allergy (Verified 09/21/18 09:13) sulfisoxazole Allergy (Verified 09/21/18 09:13) tramadol Allergy (Verified 09/21/18 09:13) Home Medications: Alendronate Sodium 70 mg [Fosamax 70 MG] 70 mg PO WEEKLY 12/19/15 [History ] Levetiracetam [Keppra] 750 mg PO BID 12/19/15 [History] Lisinopril [Zestril] 20 mg PO QAM 12/19/15 [History] Potassium Chloride 10 Meq Tab* [Klor Con 10 MEQ] 10 meq PO TID 12/19/15 [ History] Folic Acid 1 mg PO DAILY 02/26/18 [History] Atorvastatin Calcium 40 mg PO HS 05/15/18 [History] Metoprolol Tartrate 100 mg PO BID 05/15/18 [History] Arformoterol Tartrate [Brovana] 1 vial IH BID 06/10/18 [History] Budesonide 0.5 mg/2 ml [Pulmicort 0.5 mg/2 ml Respules] 1 vial IH BID [History] Albuterol/Ipratropium 3ml Neb* [DUONEB 0.5-3 MG/3 ml Neb] 3 ml IH Q2H/PRN PRN 09/02/18 [History] Alprazolam 0.25 mg [xanAX 0.25 MG] 0.25 mg PO TID 09/02/18 [History] Aspirin [Aspirin EC] 81 mg PO DAILY 09/02/18 [History] Ipratropium/Albuterol Sulfate [Iprat-Albut 0.5-3(2.5) mg/3 ml] 3 ml IH Q6H 09/02 [History] Mineral Oil/Petrolatum,White [Eucerin Creme] 120 gm TP BID 09/02/18 [History] Ondansetron ODT 4 MG [Zofran Odt 4 mg] 4 mg PO Q6H PRN 09/02/18 [History] Risperidone [Risperdal] 2 mg PO TID 09/02/18 [History] Hx Tetanus, Diphtheria Vaccination/Date Given: Yes Hx Influenza Vaccination/Date Given: Yes Hx Pneumococcal Vaccination/Date Given: Yes Immunizations Up to Date: Yes - Review of Systems Constitutional: Lethargy Eyes: No Symptoms Ears, Nose, & Throat: No Symptoms Respiratory: No Cough, No Dyspnea Cardiac: No Chest Pain, No Edema, No Syncope Abdominal/Gastrointestinal: No Abdominal Pain, No Nausea, No Vomiting, No Diarrhea Genitourinary Symptoms: No Dysuria Musculoskeletal: No Back Pain, No Neck Pain Skin: No Rash Neurological: Other (mental status changes) Psychological: No Symptoms Endocrine: No Symptoms Hematologic/Lymphatic: No Symptoms Immunological/Allergic: No Symptoms All Other Systems: Reviewed and Negative - Past Medical History Pertinent Past Medical History: Yes Neurological History: Dementia, Seizures ENT History: Cataracts Cardiac History: Other Respiratory History: Asthma, COPD, Pneumonia Endocrine Medical History: Hypothyroidism Musculoskeletal History: Arthritis, Fibromyalgia GI Medical History: Diverticulitis History: No Pertinent History Psycho-Social History: Anxiety, Depression Female Reproductive Disorders: Cervical Cancer Other Medical History: pt states she has a murmur. c. Diff - Past Surgical History Past Surgical History: Yes Neuro Surgical History: No Pertinent History Cardiac: No Pertinent History Respiratory: No Pertinent History Gastrointestinal: Appendectomy, Cholecystectomy Genitourinary: No Pertinent History Musculoskeletal: Orthopedic Surgery Female Surgical History: Hysterectomy Other Surgical History: LEFT x 4, RIGHT x 1 HIP SURGERY - Social History Smoking Status: Smoker, status unknown How long have you smoked: 40 Exposure to second hand smoke: No Drug Use: none Patient Lives Alone: No - Female History Hx Now: No - Nursing Vital Signs Nursing Vital Signs: Initial Vital Signs Temperature 98.3 F 09/30/18 18:30 Pulse Rate 86 09/30/18 18:30 Respiratory Rate 14 09/30/18 18:30 Blood Pressure 82/42 09/30/18 18:30 O2 Sat by Pulse Oximetry 94 L 09/30/18 18:30 Pain Scale Pain Intensity 0 - Physical Exam General Appearance: no apparent distress Eye Exam: PERRL/EOMI, eyes nml inspection Ears, Nose, Throat Exam: normal ENT inspection, TMs normal, pharynx normal, moist mucous membranes Neck Exam: normal inspection, non-tender, supple, full range of motion Respiratory Exam: rhonchi Cardiovascular Exam: regular rate/rhythm, normal heart sounds, normal peripheral pulses Gastrointestinal/Abdomen Exam: soft, normal bowel sounds, No tenderness, No mass Pelvic Exam: not done Rectal Exam: not done Back Exam: normal inspection, normal range of motion, No CVA tenderness, No vertebral tenderness Extremity Exam: normal inspection, normal range of motion, pelvis stable Neurologic Exam: alert, oriented x 3 Skin Exam: normal color, warm, dry, No rash Lymphatic Exam: No adenopathy SpO2 Interpretation: normal SpO2: 94 Oxygen Delivery: Nasal Cannula (2L) - Course EKG Interpreted by Me: RATE, NORMAL AXIS, NORMAL INTERVALS, NORMAL QRS, NORMAL ST-T, Other (comp EKG from 10/06/18.) - Radiology Exams Chest X-ray Interpretation: Interpreted by me, Negative (1V chest comp from 09/21/18.) - CT Exams Head CT Interpretation: Negative, Tele-radiologist Report (per Dr De Dios), No/ Intracranial Hemorrhag Ordered Tests: Active Orders 24 hr Category Date Time Status Clean Catch Urine Specimen STAT Care 09/30/18 20:00 Active EKG-ER Only STAT Care 09/30/18 20:00 Active IV Insertion STAT Care 09/30/18 20:00 Active Oxygen-ED Only NASAL CANNULA 2 lpm Care 09/30/18 20:03 Active cath [Cath for Specimen-Straight] STAT Care 09/30/18 20:46 Active CHEST 1 VIEW (PORTABLE) Stat Exams 09/30/18 20:01 Taken HEAD WITHOUT CONTRAST [CT] Stat Exams 09/30/18 22:13 Taken CBC W DIFF Stat Lab 09/30/18 20:23 Completed CMP Stat Lab 09/30/18 20:23 Completed LIPASE Stat Lab 09/30/18 20:23 Completed Lactic Acid Stat Lab 09/30/18 20:22 Completed NT PRO BNP Stat Lab 09/30/18 20:23 Completed TROPONIN Q3H Lab 09/30/18 20:23 Completed TROPONIN Q3H Lab 09/30/18 23:00 Ordered TROPONIN Q3H Lab 10/01/18 02:00 Ordered TROPONIN Q3H Lab 10/01/18 05:00 Ordered TROPONIN Q3H Lab 10/01/18 08:00 Ordered UA W/RFX UR CULTURE Stat Lab 09/30/18 20:47 Completed Medication Summary Generic Name Dose Route Start Last Admin Trade Name Freq PRN Reason Stop Dose Admin Sodium Chloride 1,000 mls @ 100 mls/hr 09/30/18 20:00 09/30/18 20:10 Sodium Chloride 0.9% 1000 Ml IV 10/30/18 19:59 100 mls/hr .Q10H [id number] Administration Lab/Rad Data: Laboratory Result Diagrams 09/30/18 20:23 09/30/18 20:23 Laboratory Results 12/17/18 12/17/18 12/17/18 Range/Units 20:47 20:23 20:23 WBC (4.0-10.5) K/mm3 RBC (4.1-5.4) M/mm3 Hgb (12.0-16.0) gm/dl Hct (35-47) % MCV (78-100) fl MCH (26-32) pg MCHC (32-36) g/dl RDW (11.5-14.0) % Plt Count (150-450) K/mm3 MPV (6-9.5) fl Gran % (36.0-66.0) % Eos # (Auto) (0-0.5) Absolute Lymphs (auto) (1.0-4.6) Absolute Monos (auto) (0.0-1.3) Lymphocytes % (24.0-44.0) % Monocytes % (0.0-12.0) % Eosinophils % (0.00-5.0) % Basophils % (0.0-0.4) % Absolute Granulocytes (1.4-6.9) Basophils # (0-0.4) Sodium 138 (137-145) mmol/L Potassium 4.1 (3.5-5.1) mmol/L Chloride 104 (98-107) mmol/L Carbon Dioxide 26 (22-30) mmol/L Anion Gap 11.6 (5-15) MEQ/L BUN 9 (7-17) mg/dL Creatinine 0.84 (0.52-1.04) mg/dL Estimated GFR > 60.0 ML/MIN Glucose 107 H (74-106) mg/dL Lactic Acid (0.4-2.0) Calcium 8.8 (8.4-10.2) mg/dL Total Bilirubin 0.60 (0.2-1.3) mg/dL AST 14 (14-36) U/L ALT 17 (0-35) U/L Alkaline Phosphatase 106 (38-126) U/L Troponin I (0.000-0.034) ng/mL NT-Pro-B Natriuret Pep 98.4 (0-900) pg/mL Serum Total Protein 6.3 (6.3-8.2) g/dL Albumin 3.4 L (3.5-5.0) g/dL Lipase 83 (23-300) U/L Urine Color YELLOW (YELLOW) Urine Appearance CLEAR (CLEAR) Urine pH 5.0 (5-6) Ur Specific Hamlin 1.011 (1.005-1.025) Urine Protein NEGATIVE (Negative) Urine Ketones NEGATIVE (NEGATIVE) Urine Blood NEGATIVE (0-5) Velasquez/ul Urine Nitrite NEGATIVE (NEGATIVE) Urine Bilirubin NEGATIVE (NEGATIVE) Urine Urobilinogen NEGATIVE (0-1) mg/dL Ur Leukocyte Esterase NEGATIVE (NEGATIVE) Urine WBC (Auto) 3-5 (0-5) /HPF Urine RBC (Auto) 3-5 (0-2) /HPF U Hyaline Cast (Auto) 0-2 (0-2) /LPF U Epithel Cells (Auto) FEW (FEW) /HPF Urine Bacteria (Auto) RARE (NEGATIVE) /HPF U Non-Squamous Epi Cells RARE (FEW) /HPF Other Casts (Auto) NEGATIVE (NEGATIVE) /LPF Urine Mucus (Auto) SLIGHT (NEGATIVE) /HPF Urine Culture Reflexed NO (NO) Urine Glucose NEGATIVE (NEGATIVE) mg/dL 09/30/18 09/30/18 09/30/18 Range/Units 20:23 20:23 20:22 WBC 9.3 (4.0-10.5) K/mm3 RBC 3.33 L (4.1-5.4) M/mm3 Hgb 10.0 L (12.0-16.0) gm/dl Hct 32.6 L (35-47) % MCV 97.9 (78-100) fl MCH 30.0 (26-32) pg MCHC 30.7 L (32-36) g/dl RDW 16.9 H (11.5-14.0) % Plt Count 233 (150-450) K/mm3 MPV 9.2 (6-9.5) fl Gran % 57.7 (36.0-66.0) % Eos # (Auto) 0.61 H (0-0.5) Absolute Lymphs (auto) 2.34 (1.0-4.6) Absolute Monos (auto) 0.96 (0.0-1.3) Lymphocytes % 25.2 (24.0-44.0) % Monocytes % 10.3 (0.0-12.0) % Eosinophils % 6.6 H (0.00-5.0) % Basophils % 0.2 (0.0-0.4) % Absolute Granulocytes 5.35 (1.4-6.9) Basophils # 0.02 (0-0.4) Sodium (137-145) mmol/L Potassium (3.5-5.1) mmol/L Chloride (98-107) mmol/L Carbon Dioxide (22-30) mmol/L Anion Gap (5-15) MEQ/L BUN (7-17) mg/dL Creatinine (0.52-1.04) mg/dL Estimated GFR ML/MIN Glucose (74-106) mg/dL Lactic Acid 1.3 (0.4-2.0) Calcium (8.4-10.2) mg/dL Total Bilirubin (0.2-1.3) mg/dL AST (14-36) U/L ALT (0-35) U/L Alkaline Phosphatase (38-126) U/L Troponin I < 0.012 (0.000-0.034) ng/mL NT-Pro-B Natriuret Pep (0-900) pg/mL Serum Total Protein (6.3-8.2) g/dL Albumin (3.5-5.0) g/dL Lipase (23-300) U/L Urine Color (YELLOW) Urine Appearance (CLEAR) Urine pH (5-6) Ur Specific Hamlin (1.005-1.025) Urine Protein (Negative) Urine Ketones (NEGATIVE) Urine Blood (0-5) Velasquez/ul Urine Nitrite (NEGATIVE) Urine Bilirubin (NEGATIVE) Urine Urobilinogen (0-1) mg/dL Ur Leukocyte Esterase (NEGATIVE) Urine WBC (Auto) (0-5) /HPF Urine RBC (Auto) (0-2) /HPF U Hyaline Cast (Auto) (0-2) /LPF U Epithel Cells (Auto) (FEW) /HPF Urine Bacteria (Auto) (NEGATIVE) /HPF U Non-Squamous Epi Cells (FEW) /HPF Other Casts (Auto) (NEGATIVE) /LPF Urine Mucus (Auto) (NEGATIVE) /HPF Urine Culture Reflexed (NO) Urine Glucose (NEGATIVE) mg/dL - Progress Progress: improved Progress Note: 09/30/18 20:05 BP has improved to 103/67. Discussed with : Kevin Will see patient in: hospital (observation) Counseled pt/family regarding: lab results, diagnosis, rad results - Departure Time of Disposition: 23:03 Departure Disposition: Observation (per Dr James Mancilla) Clinical Impression: Hypotension Condition: Stable Critical Care Time: No Referrals: LINDA HAILE [Primary Care Provider] -
[2018-09-30] MEDS: Sodium Chloride 0.9% 1000 ML 1,000 ML IV SCH (20:10)
[2018-09-30 20:28] LABS: BASOPHIL % 0.2 % (0.0-0.4); Basophil (Absolute #) 0.02 (0-0.4); Eosinophil % 6.6 % (0.00-5.0); Eosinophil (Absolute #) 0.61 (0-0.5); Granulocyte Absolute (ANC) 5.35 (1.4-6.9); Granulocytes % 57.7 % (36.0-66.0); Hematocrit 32.6 % (35-47); Lymphocyte (Absolute #) 2.34 (1.0-4.6); Lymphocytes % 25.2 % (24.0-44.0); Mean Cell Volume 97.9 fl (78-100); Mean Corpuscular Hgb Concent. 30.7 g/dl (32-36); Mean Platelet Volume 9.2 fl (6-9.5); Monocyte (Absolute #) 0.96 (0.0-1.3); Monocytes % 10.3 % (0.0-12.0); Platelet Count 233 K/mm3 (150-450); Red Blood Count 3.33 M/mm3 (4.1-5.4); Red Cell Distribution Width 16.9 % (11.5-14.0); White Blood Count 9.3 K/mm3 (4.0-10.5)
[2018-09-30 20:47] LABS: ALBUMIN 3.4 g/dL (3.5-5.0); ALKALINE PHOSPHATASE 106 U/L (38-126); ANION GAP 11.6 MEQ/L (5-15); BLOOD UREA NITROGEN 9 mg/dL (7-17); CHLORIDE 104 mmol/L (98-107); Calcium 8.8 mg/dL (8.4-10.2); Carbon Dioxide 26 mmol/L (22-30); Creatinine 1 0.84 mg/dL (0.52-1.04); Glucose 107 mg/dL (74-106); LIPASE 83 U/L (23-300); Potassium 4.1 mmol/L (3.5-5.1); SGOT/AST 14 U/L (14-36); SGPT/ALT 17 U/L (0-35); SODIUM 138 mmol/L (137-145); Total Protein 6.3 g/dL (6.3-8.2)
[2018-09-30 21:32] LABS: Appearance CLEAR (CLEAR); Bilirubin NEGATIVE (NEGATIVE); Blood NEGATIVE Ery/ul (0-5); Glucose NEGATIVE (NEGATIVE); Ketones NEGATIVE (NEGATIVE); Leukocyte Esterase NEGATIVE (NEGATIVE); Nitrite NEGATIVE (NEGATIVE); Protein,Urine Dip NEGATIVE (Negative); Specific Gravity 1.011 (1.005-1.025); Urobilinogen NEGATIVE mg/dL (0-1)
[2018-09-30] MEDS ORDERED: DUONEB 0.5-3 MG/3 ml Neb IH ONE (23:39)
[2018-09-30] MEDS: DUONEB 0.5-3 MG/3 ml Neb IH SCH (23:46)
[2018-09-30] MEDS ORDERED: Zofran 4 MG/2 ML VIAL IV PRN (23:51)
[2018-09-30] MEDS ORDERED: TYLENOL 325 MG PO PRN (23:51)
[2018-10-01] MEDS: Sodium Chloride 0.9% 1000 ML 1,000 ML IV SCH (00:01)
[2018-10-01] MEDS ORDERED: PROVENTIL 2.5 MG/3 ML NEB IH PRN (03:29)
[2018-10-01 06:16] LABS: ANION GAP 10.6 MEQ/L (5-15); BLOOD UREA NITROGEN 7 mg/dL (7-17); CHLORIDE 108 mmol/L (98-107); Calcium 8.1 mg/dL (8.4-10.2); Carbon Dioxide 24 mmol/L (22-30); Creatinine 1 0.63 mg/dL (0.52-1.04); Glucose 97 mg/dL (74-106); Potassium 4.2 mmol/L (3.5-5.1); SODIUM 139 mmol/L (137-145)
[2018-10-01 06:46] LABS: BASOPHIL % 0.2 % (0.0-0.4); Basophil (Absolute #) 0.02 (0-0.4); Eosinophil % 4.5 % (0.00-5.0); Eosinophil (Absolute #) 0.47 (0-0.5); Granulocyte Absolute (ANC) 6.92 (1.4-6.9); Granulocytes % 66.1 % (36.0-66.0); Hematocrit 29.5 % (35-47); Lymphocyte (Absolute #) 2.11 (1.0-4.6); Lymphocytes % 20.2 % (24.0-44.0); Mean Cell Volume 98.3 fl (78-100); Mean Corpuscular Hgb Concent. 30.5 g/dl (32-36); Mean Platelet Volume 10.2 fl (6-9.5); Monocyte (Absolute #) 0.94 (0.0-1.3); Platelet Count 232 K/mm3 (150-450); Red Cell Distribution Width 16.8 % (11.5-14.0); White Blood Count 10.5 K/mm3 (4.0-10.5)
[2018-10-01 06:47] VITALS: BP 96/52
[2018-10-01] MEDS ORDERED: PULMICORT 0.5 MG/2 ML RESPULES IH SCH (07:00)
[2018-10-01] MEDS: DUONEB 0.5-3 MG/3 ml Neb IH SCH (07:13)
[2018-10-01 07:19] VITALS: PULSE 81; O2SAT 96
--- NOTE | 2018-10-01 08:36 | PCM.HP ---
History of Present Illness - Chief Complaint Chief Complaint: hypotension Date: 10/01/18 History of Present Illness: is a 63 year old female. who has been residing at [facility]. She was noted yesterday to be more somonolent then her usual and her blood pressre was checked and low on several attempts with systolics in the 60's she was otherwise not having complaints but was less responsive and slow to respond. She was sent to the ED. There she was reported to be talkative with no complaints and doing well but bp remained low. SHe was given iv fluids and observed overnight. Today she notes her legs are wanting to be more restless but otherwise she is feeling well eating and drinking well and no complaints. Her bp is improving this am. - Review of Systems Constitutional: No Fever, No Chills Eyes: No Symptoms Ears, Nose, & Throat: No Symptoms Respiratory: No Cough, No Short Of Breath Cardiac: No Chest Pain, No Edema, No Syncope Abdominal/Gastrointestinal: No Abdominal Pain, No Nausea, No Vomiting, No Diarrhea Genitourinary Symptoms: No Dysuria Musculoskeletal: No Back Pain, No Neck Pain Skin: No Rash Neurological: No Dizziness, No Focal Weakness, No Sensory Changes Psychological: No Symptoms Endocrine: No Symptoms Hematologic/Lymphatic: No Symptoms Immunological/Allergic: No Symptoms Medications & Allergies Home Medications: Home Medication List Alendronate Sodium 70 mg [Fosamax 70 MG] 70 mg PO WEEKLY 12/19/15 [ History Confirmed 09/30/18] Levetiracetam [Keppra] 750 mg PO BID 12/19/15 [History Confirmed 09/30/18] Potassium Chloride 10 Meq Tab* [Klor Con 10 MEQ] 10 meq PO TID 12/19/15 [ History Confirmed 09/30/18] Folic Acid 1 mg PO DAILY 02/26/18 [History Confirmed 09/30/18] Atorvastatin Calcium 40 mg PO HS 05/15/18 [History Confirmed 09/30/18] Arformoterol Tartrate [Brovana] 1 vial IH BID 06/10/18 [History Confirmed ] Budesonide 0.5 mg/2 ml [Pulmicort 0.5 mg/2 ml Respules] 1 vial IH BID [History Confirmed 09/30/18] Acetaminophen 325 mg [Tylenol 325 mg] 650 mg PO Q4H PRN PRN tablet [Rx Confirmed 09/30/18] Albuterol/Ipratropium 3ml Neb* [DUONEB 0.5-3 MG/3 ml Neb] 3 ml IH Q2H/PRN PRN 09/02/18 [History Confirmed 09/30/18] Alprazolam 0.25 mg [xanAX 0.25 MG] 0.25 mg PO TID 09/02/18 [History Confirmed 09/30/18] Aspirin [Aspirin EC] 81 mg PO DAILY 09/02/18 [History Confirmed 09/30/18] Ipratropium/Albuterol Sulfate [Iprat-Albut 0.5-3(2.5) mg/3 ml] 3 ml IH Q6H 09/02 [History Confirmed 09/30/18] Mineral Oil/Petrolatum,White [Eucerin Creme] 120 gm TP BID 09/02/18 [History Confirmed 09/30/18] Ondansetron ODT 4 MG [Zofran Odt 4 mg] 4 mg PO Q6H PRN 09/02/18 [History Confirmed 09/30/18] Hydrocodone Bit/Acetaminophen [[place] 5-325 Tablet] 1 each PO Q8HPRN PRN [History Confirmed 10/01/18] Metoprolol Tartrate 50 mg [Lopressor 50 MG] 50 mg PO BID #60 tablet [Rx] Montelukast Sodium 10 mg [Singulair 10 MG] 10 mg PO DAILY 10/01/18 [History Confirmed 10/01/18] PANTOPRAZOLE 40 mg Tablet [Protonix 40MG Tablet] 40 mg PO QAM 10/01/18 [ History Confirmed 10/01/18] Risperidone [Risperdal] 2 mg PO UD #90 10/01/18 [Rx Confirmed 09/30/18] Allergies/Adverse Reactions: Allergies Allergy/AdvReac Type Severity Reaction Status Date / Time tramadol HCl [From [facility]] Allergy Mild Rash Verified 09/21/18 09:13 azithromycin Allergy Verified 09/21/18 09:13 ciprofloxacin [From Cipro] Allergy Rash Verified 09/21/18 09:13 ciprofloxacin HCl Allergy Rash Verified 09/21/18 09:13 [From Cipro] metronidazole Allergy Verified 09/21/18 09:13 penicillin V [Penicillin V] Allergy Rash Verified 09/21/18 09:13 Quinolones Allergy Verified 09/21/18 09:13 Sulfa (Sulfonamide Allergy Verified 09/21/18 09:13 Antibiotics) sulfisoxazole Allergy Verified 09/21/18 09:13 tramadol Allergy Verified 09/21/18 09:13 - Past Medical History Past Medical History: Yes Neurological History: Dementia, Seizures, Stroke ENT History: Cataracts Cardiac History: Myocardial Infarction (PR), Other Respiratory History: Asthma, COPD, Pneumonia Endocrine Medical History: Hypothyroidism Musculoskelatal History: Arthritis, Fibromyalgia GI Medical History: Diverticulitis History: No Pertinent History Pyscho-Social History: Anxiety, Depression Reproductive Disorders: Cervical Cancer Comment: pt states she has a murmur. c. Diff - Female History Are you now?: No - Past Surgical History Past Surgical History: Yes Neuro Surgical History: No Pertinent History Cardiac History: No Pertinent History Respiratory Surgery: No Pertinent History GI Surgical History: Appendectomy, Cholecystectomy Genitourinary Surgical Hx: No Pertinent History Musculskeletal Surgical Hx: Orthopedic Surgery Female Surgical History: Hysterectomy Other Surgical History: LEFT x 4, RIGHT x 1 HIP SURGERY - Social History Smoking Status: Former smoker How long have you smoked: 40 Exposure to second hand smoke: No Alcohol: None Drug Use: none - Physical Exam Vital Signs: Vital Signs - 24 hr Temp Pulse Resp BP Pulse Ox 10/01/18 07:17 81 18 96 10/01/18 06:46 98.2 F 78 18 96/52 93 L 10/01/18 04:00 99 F 79 36 H 96/46 92 L 10/01/18 03:34 94 H 25 H 95 10/01/18 02:23 85 97/49 10/01/18 01:30 89 100/50 10/01/18 01:00 93 H 87/50 10/01/18 00:30 90 26 H 84/41 10/01/18 00:10 98.2 F 85 26 H 99/54 94 L 10/01/18 00:00 98 F 92 H 87/52 09/30/18 23:51 94 L 09/30/18 23:46 85 26 H 94 L 09/30/18 23:45 80 25 H 100/48 09/30/18 23:30 98.2 F 85 26 H 99/54 94 L 09/30/18 23:07 94 L 09/30/18 23:06 79/37 09/30/18 22:50 74 20 93/41 96 09/30/18 22:04 75/40 09/30/18 21:40 82 90/44 95 09/30/18 20:47 84 88/42 98 09/30/18 19:50 93 H 18 103/67 94 L 09/30/18 18:30 98.3 F 86 14 82/42 94 L Oxygen-Last 24 hours O2 Percentage 3 Liters = 32% O2 Percentage 3 Liters = 32% O2 Percentage 3 Liters = 32% O2 Percentage 3 Liters = 32% O2 Percentage 3 Liters = 32% O2 Percentage 3 Liters = 32% O2 Percentage 3 Liters = 32% O2 Percentage 2 Liters = 28% O2 Percentage 2 Liters = 28% O2 Percentage 2 Liters = 28% O2 Percentage 2 Liters = 28% O2 Percentage 2 Liters = 28% General Appearance: no apparent distress, alert Neurologic Exam: alert, oriented x 3, cooperative, normal mood/affect, nml cerebellar function, nml station & gait, sensation nml, No motor deficits Eye Exam: PERRL/EOMI, eyes nml inspection Ears, Nose, Throat Exam: normal ENT inspection, pharynx normal, moist mucous membranes Neck Exam: normal inspection, non-tender, supple, full range of motion Respiratory Exam: normal breath sounds, lungs clear, No respiratory distress Cardiovascular Exam: regular rate/rhythm, normal heart sounds, normal peripheral pulses Gastrointestinal/Abdomen Exam: soft, normal bowel sounds, No tenderness, No mass Back Exam: normal inspection, normal range of motion, No CVA tenderness, No vertebral tenderness Extremity Exam: normal inspection, normal range of motion, pelvis stable Skin Exam: normal color, warm, dry, No rash Lymphatic Exam: No adenopathy Results - Labs Lab/Micro Results: Lab Results-Last 24 Hours 09/30/18 09/30/18 09/30/18 Range/Units 20:22 20:23 20:23 WBC 9.3 (4.0-10.5) K/mm3 RBC 3.33 L (4.1-5.4) M/mm3 Hgb 10.0 L (12.0-16.0) gm/dl Hct 32.6 L (35-47) % MCV 97.9 (78-100) fl MCH 30.0 (26-32) pg MCHC 30.7 L (32-36) g/dl RDW 16.9 H (11.5-14.0) % Plt Count 233 (150-450) K/mm3 MPV 9.2 (6-9.5) fl Gran % 57.7 (36.0-66.0) % Eos # (Auto) 0.61 H (0-0.5) Absolute Lymphs (auto) 2.34 (1.0-4.6) Absolute Monos (auto) 0.96 (0.0-1.3) Lymphocytes % 25.2 (24.0-44.0) % Monocytes % 10.3 (0.0-12.0) % Eosinophils % 6.6 H (0.00-5.0) % Basophils % 0.2 (0.0-0.4) % Absolute Granulocytes 5.35 (1.4-6.9) Basophils # 0.02 (0-0.4) Sodium (137-145) mmol/L Potassium (3.5-5.1) mmol/L Chloride (98-107) mmol/L Carbon Dioxide (22-30) mmol/L Anion Gap (5-15) MEQ/L BUN (7-17) mg/dL Creatinine (0.52-1.04) mg/dL Estimated GFR ML/MIN Glucose (74-106) mg/dL Lactic Acid 1.3 (0.4-2.0) Calcium (8.4-10.2) mg/dL Total Bilirubin (0.2-1.3) mg/dL AST (14-36) U/L ALT (0-35) U/L Alkaline Phosphatase (38-126) U/L Troponin I < 0.012 (0.000-0.034) ng/mL NT-Pro-B Natriuret Pep (0-900) pg/mL Serum Total Protein (6.3-8.2) g/dL Albumin (3.5-5.0) g/dL Lipase (23-300) U/L Urine Color (YELLOW) Urine Appearance (CLEAR) Urine pH (5-6) Ur Specific [place] (1.005-1.025) Urine Protein (Negative) Urine Ketones (NEGATIVE) Urine Blood (0-5) Velasquez/ul Urine Nitrite (NEGATIVE) Urine Bilirubin (NEGATIVE) Urine Urobilinogen (0-1) mg/dL Ur Leukocyte Esterase (NEGATIVE) Urine WBC (Auto) (0-5) /HPF Urine RBC (Auto) (0-2) /HPF U Hyaline Cast (Auto) (0-2) /LPF U Epithel Cells (Auto) (FEW) /HPF Urine Bacteria (Auto) (NEGATIVE) /HPF U Non-Squamous Epi Cells (FEW) /HPF Other Casts (Auto) (NEGATIVE) /LPF Urine Mucus (Auto) (NEGATIVE) /HPF Urine Culture Reflexed (NO) Urine Glucose (NEGATIVE) mg/dL 09/30/18 09/30/18 09/30/18 Range/Units 20:23 20:23 20:47 WBC (4.0-10.5) K/mm3 RBC (4.1-5.4) M/mm3 Hgb (12.0-16.0) gm/dl Hct (35-47) % MCV (78-100) fl MCH (26-32) pg MCHC (32-36) g/dl RDW (11.5-14.0) % Plt Count (150-450) K/mm3 MPV (6-9.5) fl Gran % (36.0-66.0) % Eos # (Auto) (0-0.5) Absolute Lymphs (auto) (1.0-4.6) Absolute Monos (auto) (0.0-1.3) Lymphocytes % (24.0-44.0) % Monocytes % (0.0-12.0) % Eosinophils % (0.00-5.0) % Basophils % (0.0-0.4) % Absolute Granulocytes (1.4-6.9) Basophils # (0-0.4) Sodium 138 (137-145) mmol/L Potassium 4.1 (3.5-5.1) mmol/L Chloride 104 (98-107) mmol/L Carbon Dioxide 26 (22-30) mmol/L Anion Gap 11.6 (5-15) MEQ/L BUN 9 (7-17) mg/dL Creatinine 0.84 (0.52-1.04) mg/dL Estimated GFR > 60.0 ML/MIN Glucose 107 H (74-106) mg/dL Lactic Acid (0.4-2.0) Calcium 8.8 (8.4-10.2) mg/dL Total Bilirubin 0.60 (0.2-1.3) mg/dL AST 14 (14-36) U/L ALT 17 (0-35) U/L Alkaline Phosphatase 106 (38-126) U/L Troponin I (0.000-0.034) ng/mL NT-Pro-B Natriuret Pep 98.4 (0-900) pg/mL Serum Total Protein 6.3 (6.3-8.2) g/dL Albumin 3.4 L (3.5-5.0) g/dL Lipase 83 (23-300) U/L Urine Color YELLOW (YELLOW) Urine Appearance CLEAR (CLEAR) Urine pH 5.0 (5-6) Ur Specific [place] 1.011 (1.005-1.025) Urine Protein NEGATIVE (Negative) Urine Ketones NEGATIVE (NEGATIVE) Urine Blood NEGATIVE (0-5) Velasquez/ul Urine Nitrite NEGATIVE (NEGATIVE) Urine Bilirubin NEGATIVE (NEGATIVE) Urine Urobilinogen NEGATIVE (0-1) mg/dL Ur Leukocyte Esterase NEGATIVE (NEGATIVE) Urine WBC (Auto) 3-5 (0-5) /HPF Urine RBC (Auto) 3-5 (0-2) /HPF U Hyaline Cast (Auto) 0-2 (0-2) /LPF U Epithel Cells (Auto) FEW (FEW) /HPF Urine Bacteria (Auto) RARE (NEGATIVE) /HPF U Non-Squamous Epi Cells RARE (FEW) /HPF Other Casts (Auto) NEGATIVE (NEGATIVE) /LPF Urine Mucus (Auto) SLIGHT (NEGATIVE) /HPF Urine Culture Reflexed NO (NO) Urine Glucose NEGATIVE (NEGATIVE) mg/dL 09/30/18 10/01/18 10/01/18 Range/Units 23:10 02:05 05:25 WBC (4.0-10.5) K/mm3 RBC (4.1-5.4) M/mm3 Hgb (12.0-16.0) gm/dl Hct (35-47) % MCV (78-100) fl MCH (26-32) pg MCHC (32-36) g/dl RDW (11.5-14.0) % Plt Count (150-450) K/mm3 MPV (6-9.5) fl Gran % (36.0-66.0) % Eos # (Auto) (0-0.5) Absolute Lymphs (auto) (1.0-4.6) Absolute Monos (auto) (0.0-1.3) Lymphocytes % (24.0-44.0) % Monocytes % (0.0-12.0) % Eosinophils % (0.00-5.0) % Basophils % (0.0-0.4) % Absolute Granulocytes (1.4-6.9) Basophils # (0-0.4) Sodium (137-145) mmol/L Potassium (3.5-5.1) mmol/L Chloride (98-107) mmol/L Carbon Dioxide (22-30) mmol/L Anion Gap (5-15) MEQ/L BUN (7-17) mg/dL Creatinine (0.52-1.04) mg/dL Estimated GFR ML/MIN Glucose (74-106) mg/dL Lactic Acid (0.4-2.0) Calcium (8.4-10.2) mg/dL Total Bilirubin (0.2-1.3) mg/dL AST (14-36) U/L ALT (0-35) U/L Alkaline Phosphatase (38-126) U/L Troponin I < 0.012 < 0.012 < 0.012 (0.000-0.034) ng/mL NT-Pro-B Natriuret Pep (0-900) pg/mL Serum Total Protein (6.3-8.2) g/dL Albumin (3.5-5.0) g/dL Lipase (23-300) U/L Urine Color (YELLOW) Urine Appearance (CLEAR) Urine pH (5-6) Ur Specific [place] (1.005-1.025) Urine Protein (Negative) Urine Ketones (NEGATIVE) Urine Blood (0-5) Velasquez/ul Urine Nitrite (NEGATIVE) Urine Bilirubin (NEGATIVE) Urine Urobilinogen (0-1) mg/dL Ur Leukocyte Esterase (NEGATIVE) Urine WBC (Auto) (0-5) /HPF Urine RBC (Auto) (0-2) /HPF U Hyaline Cast (Auto) (0-2) /LPF U Epithel Cells (Auto) (FEW) /HPF Urine Bacteria (Auto) (NEGATIVE) /HPF U Non-Squamous Epi Cells (FEW) /HPF Other Casts (Auto) (NEGATIVE) /LPF Urine Mucus (Auto) (NEGATIVE) /HPF Urine Culture Reflexed (NO) Urine Glucose (NEGATIVE) mg/dL 10/01/18 10/01/18 Range/Units 05:25 05:25 WBC 10.5 (4.0-10.5) K/mm3 RBC 3.00 L (4.1-5.4) M/mm3 Hgb 9.0 L (12.0-16.0) gm/dl Hct 29.5 L (35-47) % MCV 98.3 (78-100) fl MCH 30.0 (26-32) pg MCHC 30.5 L (32-36) g/dl RDW 16.8 H (11.5-14.0) % Plt Count 232 (150-450) K/mm3 MPV 10.2 H (6-9.5) fl Gran % 66.1 H (36.0-66.0) % Eos # (Auto) 0.47 (0-0.5) Absolute Lymphs (auto) 2.11 (1.0-4.6) Absolute Monos (auto) 0.94 (0.0-1.3) Lymphocytes % 20.2 L (24.0-44.0) % Monocytes % 9.0 (0.0-12.0) % Eosinophils % 4.5 (0.00-5.0) % Basophils % 0.2 (0.0-0.4) % Absolute Granulocytes 6.92 H (1.4-6.9) Basophils # 0.02 (0-0.4) Sodium 139 (137-145) mmol/L Potassium 4.2 (3.5-5.1) mmol/L Chloride 108 H (98-107) mmol/L Carbon Dioxide 24 (22-30) mmol/L Anion Gap 10.6 (5-15) MEQ/L BUN 7 (7-17) mg/dL Creatinine 0.63 (0.52-1.04) mg/dL Estimated GFR > 60.0 ML/MIN Glucose 97 (74-106) mg/dL Lactic Acid (0.4-2.0) Calcium 8.1 L (8.4-10.2) mg/dL Total Bilirubin (0.2-1.3) mg/dL AST (14-36) U/L ALT (0-35) U/L Alkaline Phosphatase (38-126) U/L Troponin I (0.000-0.034) ng/mL NT-Pro-B Natriuret Pep (0-900) pg/mL Serum Total Protein (6.3-8.2) g/dL Albumin (3.5-5.0) g/dL Lipase (23-300) U/L Urine Color (YELLOW) Urine Appearance (CLEAR) Urine pH (5-6) Ur Specific [place] (1.005-1.025) Urine Protein (Negative) Urine Ketones (NEGATIVE) Urine Blood (0-5) Velasquez/ul Urine Nitrite (NEGATIVE) Urine Bilirubin (NEGATIVE) Urine Urobilinogen (0-1) mg/dL Ur Leukocyte Esterase (NEGATIVE) Urine WBC (Auto) (0-5) /HPF Urine RBC (Auto) (0-2) /HPF U Hyaline Cast (Auto) (0-2) /LPF U Epithel Cells (Auto) (FEW) /HPF Urine Bacteria (Auto) (NEGATIVE) /HPF U Non-Squamous Epi Cells (FEW) /HPF Other Casts (Auto) (NEGATIVE) /LPF Urine Mucus (Auto) (NEGATIVE) /HPF Urine Culture Reflexed (NO) Urine Glucose (NEGATIVE) mg/dL - Radiology Impressions Radiology Exams & Impressions: Radiology Procedures Category Date Time Status CHEST 1 VIEW (PORTABLE) Stat Exams 09/30/18 20:01 Taken HEAD WITHOUT CONTRAST [CT] Stat Exams 09/30/18 22:13 Taken - Other Procedures and Tests Respiratory Therapy 09/30/18 23:47 Oxygen NASAL CANNULA 3 lpm 09/30/18 23:48 Respiratory Therapy Assessment DAILY Assessment/Plan (1) Hypotension Status: Acute Assessment & Plan: resolved with judy jur[facility] with her low bp now will stop her cardizem and lisinopril and decrease her metoprolol from 100 bid to 50 bid. her heart rate has been controlled since arrival no ekg changes will d/c back to [facility] with her restlessness in her legs will try to decrease the risperdal again this time by just 1mg per day to 2mg morning and night and 1mg in afternoon from 2mg tid Code(s): I95.9 - HYPOTENSION, UNSPECIFIED (2) Chronic anemia Status: Chronic Code(s): D64.9 - ANEMIA, UNSPECIFIED (3) Bipolar disorder Status: Chronic Qualifiers: Active/Remission status: currently active Current bipolar episode type: depressed Current episode severity: severe Psychotic features: with psychotic features Qualified Code(s): F31.5 - Bipolar disorder, current episode depressed, severe, with psychotic features (4) Hypothyroidism Status: Chronic Code(s): E03.9 - HYPOTHYROIDISM, UNSPECIFIED (5) Seizure disorder Status: Chronic Code(s): G40.909 - EPILEPSY, UNSP, NOT INTRACTABLE, WITHOUT STATUS EPILEPTICUS (6) COPD (chronic obstructive pulmonary disease) Status: Chronic
--- NOTE | 2018-10-01 08:39 | PCM.DCORD ---
- Discharge Discharge Date: 10/01/18 Disposition: DC TO [facility] Condition: Stable Prescriptions: New Metoprolol Tartrate 50 mg [Lopressor 50 MG] 50 mg PO BID #60 tablet Continue Levetiracetam [Keppra] 750 mg PO BID Potassium Chloride 10 Meq Tab* [Klor Con 10 MEQ] 10 meq PO TID Alendronate Sodium 70 mg [Fosamax 70 MG] 70 mg PO WEEKLY Folic Acid 1 mg PO DAILY Atorvastatin Calcium 40 mg PO HS Arformoterol Tartrate [Brovana] 1 vial IH BID Budesonide 0.5 mg/2 ml [Pulmicort 0.5 mg/2 ml Respules] 1 vial IH BID Acetaminophen 325 mg [Tylenol 325 mg] 650 mg PO Q4H PRN PRN tablet PRN Reason: Pain And/Or Fever Ondansetron ODT 4 MG [Zofran Odt 4 mg] 4 mg PO Q6H PRN PRN Reason: Nausea Ipratropium/Albuterol Sulfate [Iprat-Albut 0.5-3(2.5) mg/3 ml] 3 ml IH Q6H Mineral Oil/Petrolatum,White [Eucerin Creme] 120 gm TP BID Aspirin [Aspirin EC] 81 mg PO DAILY Alprazolam 0.25 mg [xanAX 0.25 MG] 0.25 mg PO TID Albuterol/Ipratropium 3ml Neb* [DUONEB 0.5-3 MG/3 ml Neb] 3 ml IH Q2H/PRN PRN PRN Reason: breathing PANTOPRAZOLE 40 mg Tablet [Protonix 40MG Tablet] 40 mg PO QAM Montelukast Sodium 10 mg [Singulair 10 MG] 10 mg PO DAILY Hydrocodone Bit/Acetaminophen [[place] 5-325 Tablet] 1 each PO Q8HPRN PRN PRN Reason: Pain Changed Risperidone [Risperdal] 2 mg PO UD #90 Discontinued Lisinopril [Zestril] 20 mg PO QAM Metoprolol Tartrate 100 mg PO BID Diltiazem HCl 300 mg [Cardizem CD 300 MG] 300 mg PO DAILY #30 cap Acyclovir 800 mg [Zovirax 800 mg] 800 mg PO 5XD Follow up with: LINDA HAILE [Primary Care Provider] - 1 Week
--- NOTE | 2018-10-01 08:40 | XRAY ---
Indication: Rhonchi. Comparison: September 21, 2018. Portable chest unchanged again demonstrating chronic lung markings and left base fibrosis/scarring. Heart is not enlarged. No new/acute cardiopulmonary abnormalities.
[2018-10-01] MEDS ORDERED: NORCO 5/325 MG PO PRN (08:44)
[2018-10-01] MEDS ORDERED: ZOFRAN ODT 4 MG PO PRN (08:44)
[2018-10-01] MEDS ORDERED: DUONEB 0.5-3 MG/3 ml Neb IH SCH (08:45)
--- NOTE | 2018-10-01 08:47 | XRAY ---
Indication: Altered mental status. Multiple contiguous axial images obtained through the head without contrast. Comparison: June 10, 2018. Stable mild asymmetric left temporoparietal atrophy and minimal periventricular degenerative micro-ischemia. Again no acute intracranial hemorrhage, abnormal extra-axial fluid collection, or mass effect. Fourth ventricle is midline without hydrocephalus. Sharp-white matter differentiation preserved. Bony calvarium intact. Visualized paranasal sinuses and mastoid air cells are clear. Impression: Stable nonacute senile brain. Comment: Preliminary interpretation was made by [facility]. No critical discrepancy. CT DI 69.25
[2018-10-01] MEDS ORDERED: Risperdal 1 MG PO SCH (10:00)
[2018-10-01] MEDS ORDERED: ECOTRIN 81 MG PO SCH (10:00)
[2018-10-01] MEDS ORDERED: Keppra 250 MG PO SCH (10:00)
[2018-10-01] MEDS ORDERED: xanAX 0.25 MG PO SCH (10:00)
[2018-10-01] MEDS ORDERED: Singulair 10 MG PO SCH (10:00)
[2018-10-01] MEDS ORDERED: FOLATE 1 MG PO SCH (10:00)
[2018-10-01] MEDS ORDERED: Protonix 40MG Tablet PO SCH (10:00)
[2018-10-01] MEDS ORDERED: Klor Con 10 MEQ PO SCH (10:00)
[2018-10-01] MEDS ORDERED: ARFORMOTEROL TARTRATE IH SCH (10:00)
[2018-10-01] MEDS ORDERED: NON-FORMULARY ITEM (Levetiracetam [Keppra] 750 MG) PO SCH (10:00)
[2018-10-01] MEDS ORDERED: NON-FORMULARY ITEM (Atorvastatin Calcium [Atorvastatin Calcium] 40 MG) PO SCH (22:00)
[2018-10-01] MEDS ORDERED: ZOCOR 20MG PO SCH (22:00)
== END 2018-10-01 10:30 ==
LOC: ED 18:28 → MED SURG 23:24
PROVIDERS: ADMIT General Practice; ATTEND Family Medicine
DX: I95.9 Hypotension, unspecified (principal); D64.9 Anemia, unspecified; F31.9 Bipolar disorder, unspecified; E03.9 Hypothyroidism, unspecified; G40.909 Epilepsy, unspecified, not intractable, without status epilepticus; J44.9 Chronic obstructive pulmonary disease, unspecified; Z79.899 Other long term (current) drug therapy
CPT/HCPCS: 36415; 70450; 71045; 80048; 80053; 81001; 83605; 83690; 83880; 84484; 85025; 93005; 93268; 94640; 94760; 94762; 96360; 96361; 99285; G0378; P9612; J7609; A9270-GY

== ENCOUNTER 2018-12-22 19:43 | Observation (INO) | payer MEDICARE ==
[2018-12-22] MEDS ORDERED: Sodium Chloride 0.9% 1000 ML 1,000 ML IV STA (19:47)
[2018-12-22] MEDS ORDERED: DUONEB 0.5-3 MG/3 ml Neb IH ONE ×2 (19:47→20:44)
[2018-12-22] MEDS ORDERED: CLINDAMYCIN-D5W 600 MG/50 ML*** 600 MG/50 ML BAG IV STA (19:50)
[2018-12-22] MEDS ORDERED: Sodium Chloride 0.9% 1000 ML 1,000 ML ONE (19:56)
[2018-12-22 20:08] LABS: A-aADO2 93; ABG HEMOGLOBIN 13.1; ABG POTASSIUM 4.1 (3.5-5.1); ARTERIAL BLD GAS O2 SATURATION 93.7 % (95-100); ARTERIAL BLOOD GAS BASE EXCESS -1.6 (-2.0-2.0); ARTERIAL BLOOD GAS FIO2 28 %; ARTERIAL BLOOD GAS PCO2 37 mmHg (35-45); ARTERIAL BLOOD GAS PO2 60 mmHg (75-100); CARBOXYHEMOGLOBIN 1.8 % THgb (0.0-6.9); HCO3- 22.9 (22-28); Methhemoglobin 1.1 % (1.4-1.5); paO2 pAO1 0.39
[2018-12-22 20:09] LABS: ABG SITE RIGHT RADIAL; ALLEN TEST OK? YES
[2018-12-22] MEDS ORDERED: CLINDAMYCIN-D5W 600 MG/50 ML*** 600 MG/50 ML BAG IV ONE (20:24)
[2018-12-22 20:45] LABS: BASOPHIL % 0.2 % (0.0-0.4); Basophil (Absolute #) 0.02 (0-0.4); Eosinophil % 0.1 % (0.00-5.0); Eosinophil (Absolute #) 0.01 (0-0.5); Granulocyte Absolute (ANC) 5.74 (1.4-6.9); Granulocytes % 61.9 % (36.0-66.0); Hemoglobin 11.4 gm/dl (12.0-16.0); Lymphocyte (Absolute #) 2.02 (1.0-4.6); Lymphocytes % 21.7 % (24.0-44.0); Mean Cell Volume 95.5 fl (78-100); Mean Corpuscular Hemoglobin 30.2 pg (26-32); Mean Corpuscular Hgb Concent. 31.7 g/dl (32-36); Mean Platelet Volume 10.9 fl (6-9.5); Monocytes % 16.1 % (0.0-12.0); Platelet Count 218 K/mm3 (150-450); Red Blood Count 3.77 M/mm3 (4.1-5.4); Red Cell Distribution Width 14.6 % (11.5-14.0); White Blood Count 9.3 K/mm3 (4.0-10.5)
[2018-12-22 20:51] LABS: INFLUENZA A POSITIVE (NEGATIVE); INFLUENZA B NEGATIVE (NEGATIVE); RESPIRATORY SYNCTIAL VIRUS NEGATIVE (Negative)
[2018-12-22 20:57] LABS: ALBUMIN 3.1 g/dL (3.5-5.0); BILIRUBIN,TOTAL 0.3 mg/dL (0.2-1.3); Calcium 8.2 mg/dL (8.4-10.2); Creatinine 1 1.03 mg/dL (0.52-1.04); Potassium 3.9 mmol/L (3.5-5.1); Total Protein 5.9 g/dL (6.3-8.2)
[2018-12-22 21:05] LABS: Appearance SLIGHTLY CLOUDY (CLEAR); Bacteria RARE /HPF (NEGATIVE); Bilirubin NEGATIVE (NEGATIVE); Blood NEGATIVE Ery/ul (0-5); Epithelial Cells RARE /HPF (FEW); Glucose NEGATIVE (NEGATIVE); Ketones TRACE (NEGATIVE); Leukocyte Esterase NEGATIVE (NEGATIVE); Mucus SLIGHT /HPF (NEGATIVE); Nitrite NEGATIVE (NEGATIVE); Protein,Urine Dip NEGATIVE (Negative); Specific Gravity 1.017 (1.005-1.025); Urobilinogen NEGATIVE mg/dL (0-1)
[2018-12-22 21:09] LABS: TROPONIN 0.025 ng/mL (0.000-0.034)
[2018-12-22] MEDS ORDERED: Tamiflu 75MG Capsule PO ONE (21:23)
--- NOTE | 2018-12-22 21:30 | ERPHSYRPT ---
- History of Present Illness Source: EMS, half-way records Exam Limitations: clinical condition, physical impairment (H/O CVA) Patient Subjective Stated Complaint: per ems, pt was lethargic at [facility] and difficult to rouse. wet cough and decreased o2 sat Triage Nursing Assessment: pt awake. responsive to voice on arrival and folowing commands. pt arrive per ambulance, transfer to stretcher with assist of 4. o2 on alt 2l per nc- pt wears at all times. lungs coarse with occasional moist cough noted. Physician History: Pt is a 63 y/o female that had a h/o CVA and is a resident in [facility]. Pt was found in [facility], non responsive, awake to sternal rub only, and hypoxic. EMS were called and pt was brought to the ER. Pt can't give clear ROS, secondary to her clinical condition. Timing/Duration: today Activities at Onset: none Severity of Dyspnea-Max: moderate Severity of Dyspnea-Current: moderate Possible Cause: unknown cause Modifying Factors: Improves With: albuterol nebulizer, lying down, oxygen Allergies/Adverse Reactions: tramadol HCl [From Ultram] Allergy (Mild, Verified 12/22/18 20:11) Rash azithromycin Allergy (Verified 12/22/18 20:11) ciprofloxacin [From Cipro] Allergy (Verified 12/22/18 20:11) Rash ciprofloxacin HCl [From Cipro] Allergy (Verified 12/22/18 20:11) Rash metronidazole Allergy (Verified 12/22/18 20:11) penicillin V [Penicillin V] Allergy (Verified 12/22/18 20:11) Rash Quinolones Allergy (Verified 12/22/18 20:11) Sulfa (Sulfonamide Antibiotics) Allergy (Verified 12/22/18 20:11) sulfisoxazole Allergy (Verified 12/22/18 20:11) tramadol Allergy (Verified 12/22/18 20:11) Home Medications: Alendronate Sodium 70 mg [Fosamax 70 MG] 70 mg PO WEEKLY 12/19/15 [History ] Levetiracetam [Keppra] 750 mg PO BID 12/19/15 [History] Potassium Chloride 10 Meq Tab* [Klor Con 10 MEQ] 10 meq PO TID 12/19/15 [ History] Folic Acid 1 mg PO DAILY 02/26/18 [History] Atorvastatin Calcium 40 mg PO HS 05/15/18 [History] Arformoterol Tartrate [Brovana] 1 vial IH BID 06/10/18 [History] Budesonide 0.5 mg/2 ml [Pulmicort 0.5 mg/2 ml Respules] 1 vial IH BID [History] Albuterol/Ipratropium 3ml Neb* [DUONEB 0.5-3 MG/3 ml Neb] 3 ml IH Q2H/PRN PRN 09/02/18 [History] Alprazolam 0.25 mg [xanAX 0.25 MG] 0.25 mg PO TID 09/02/18 [History] Aspirin [Aspirin EC] 81 mg PO DAILY 09/02/18 [History] Ondansetron ODT 4 MG [Zofran Odt 4 mg] 4 mg PO Q6H PRN 09/02/18 [History] Hydrocodone Bit/Acetaminophen [[place] 5-325 Tablet] 1 each PO Q8HPRN PRN [History] Montelukast Sodium 10 mg [Singulair 10 MG] 10 mg PO DAILY 10/01/18 [History] PANTOPRAZOLE 40 mg Tablet [Protonix 40MG Tablet] 40 mg PO QAM 10/01/18 [ History] Lisinopril 20 mg [Zestril 20 MG] 20 mg PO DAILY 12/22/18 [History] Risperidone 1 mg [Risperdal 1 MG] 1 mg PO DAILY 12/22/18 [History] Risperidone [Risperdal] 1 mg PO BID 12/22/18 [History] Hx Tetanus, Diphtheria Vaccination/Date Given: Yes Hx Influenza Vaccination/Date Given: Yes Hx Pneumococcal Vaccination/Date Given: Yes Immunizations Up to Date: Yes - Review of Systems Constitutional: Other (Pt is poor historian, and information was retrieved from notes in [facility].) - Past Medical History Pertinent Past Medical History: Yes Neurological History: Dementia, Seizures, Stroke ENT History: Cataracts Cardiac History: Myocardial Infarction (HI), Other Respiratory History: Asthma, COPD, Pneumonia Endocrine Medical History: Hypothyroidism Musculoskeletal History: Arthritis, Fibromyalgia GI Medical History: Diverticulitis History: No Pertinent History Psycho-Social History: Anxiety, Depression Female Reproductive Disorders: Cervical Cancer Other Medical History: pt states she has a murmur. c. Diff - Past Surgical History Past Surgical History: Yes Neuro Surgical History: No Pertinent History Cardiac: No Pertinent History Respiratory: No Pertinent History Gastrointestinal: Appendectomy, Cholecystectomy Genitourinary: No Pertinent History Musculoskeletal: Orthopedic Surgery Female Surgical History: Hysterectomy Other Surgical History: LEFT x 4, RIGHT x 1 HIP SURGERY - Social History Smoking Status: Former smoker How long have you smoked: 40 Exposure to second hand smoke: No Drug Use: none Patient Lives Alone: No (MMM) - Nursing Vital Signs Nursing Vital Signs: Initial Vital Signs Temperature 99.9 F 12/22/18 19:50 Pulse Rate 118 H 12/22/18 19:50 Respiratory Rate 42 H 12/22/18 19:50 Blood Pressure 115/63 12/22/18 19:50 O2 Sat by Pulse Oximetry 93 L 12/22/18 19:50 - Physical Exam General Appearance: moderate distress (secondary to SOB) Eye Exam: PERRL/EOMI Neck Exam: normal inspection, supple Respiratory Exam: respiratory distress, accessory muscle use, crackles/rales, wheezing Cardiovascular/Chest Exam: normal heart sounds, regular rate/rhythm Abdominal/Gastrointestinal Exam: soft, No tenderness, No distention, No mass Extremity Exam: non-tender, normal range of motion, normal inspection, no calf tenderness, no pedal edema Neurologic Exam: alert (minimally. Able to answer minimal yes/no questions.) SpO2 Interpretation: hypoxic SpO2: 97 O2 Delivery: Nasal Cannula - Course Nursing assessment & vital signs reviewed: Yes EKG Interpreted by Me: RATE, Sinus Tach, Non-specific ST Changes - Radiology Exams Chest X-ray Interpretation: Interpreted by me (Small pleural effusion, CHF, RLL infiltrate.) Ordered Tests: Active Orders 24 hr Category Date Time Status Chargeback Specialist STAT Care 12/22/18 19:48 Active EKG-ER Only STAT Care 12/22/18 19:47 Active IV Insertion STAT Care 12/22/18 19:47 Active Oxygen-ED Only Nasal Cannula 2 lpm Care 12/22/18 19:47 Active CHEST 1 VIEW (PORTABLE) Stat Exams 12/22/18 19:48 Taken ARTERIAL BLOOD GASES Stat Lab 12/22/18 20:05 Completed BLOOD CULTURE Stat Lab 12/22/18 20:39 Received CBC W DIFF Stat Lab 12/22/18 20:39 Completed CMP Stat Lab 12/22/18 20:39 Completed Lactic Acid Stat Lab 12/22/18 20:05 Completed NT PRO BNP Routine Lab 12/22/18 20:39 Completed TROPONIN Q3H Lab 12/22/18 20:39 Completed TROPONIN Q3H Lab 12/22/18 23:00 Ordered UA W/RFX UR CULTURE Stat Lab 12/22/18 20:38 Completed Respiratory Nebulizer STAT RT 12/22/18 19:49 Active Respiratory Therapy Assessment DAILY RT 12/22/18 20:45 Active Medication Summary Discontinued Medications Generic Name Dose Route Start Last Admin Trade Name Freq PRN Reason Stop Dose Admin Albuterol/Ipratropium 3 ml 12/22/18 19:47 12/22/18 20:46 Duoneb 0.5-3 Mg/3 Ml Neb IH 12/22/18 19:48 3 ml STAT ONE Administration Albuterol/Ipratropium Confirm 12/22/18 20:44 Duoneb 0.5-3 Mg/3 Ml Neb Administered 12/22/18 20:45 Dose 3 ml IH .STK-MED ONE Clindamycin HCl/Dextrose 600 mg in 50 mls @ 100 mls/hr 12/22/18 19:50 20:58 Clindamycin-D5w 600 Mg/50 Ml IV 12/22/18 20:19 Infused STAT STA Infusion Sodium Chloride 1,000 mls @ 999 mls/hr 12/22/18 19:47 12/22/18 21:00 Sodium Chloride 0.9% 1000 Ml IV 12/22/18 20:47 Infused .Q1H1M STA Infusion Sodium Chloride Confirm 12/22/18 19:56 Sodium Chloride 0.9% 1000 Ml Administered 12/22/18 19:57 Dose 1,000 mls @ ud .ROUTE .STK-MED ONE Clindamycin HCl/Dextrose Confirm 12/22/18 20:24 Clindamycin-D5w 600 Mg/50 Ml Administered 12/22/18 20:25 Dose 600 mg in 50 mls @ ud IV .STK-MED ONE Oseltamivir Phosphate 75 mg 12/22/18 21:23 Tamiflu 75mg Capsule PO 12/22/18 21:24 STAT ONE Lab/Rad Data: Laboratory Result Diagrams 12/22/18 20:39 12/22/18 20:39 Laboratory Results 12/22/18 12/22/18 12/22/18 Range/Units 20:39 20:39 20:39 WBC 9.3 (4.0-10.5) K/mm3 RBC 3.77 L (4.1-5.4) M/mm3 Hgb 11.4 L (12.0-16.0) gm/dl Hct 36.0 (35-47) % MCV 95.5 (78-100) fl MCH 30.2 (26-32) pg MCHC 31.7 L (32-36) g/dl RDW 14.6 H (11.5-14.0) % Plt Count 218 (150-450) K/mm3 MPV 10.9 H (6-9.5) fl Gran % 61.9 (36.0-66.0) % Eos # (Auto) 0.01 (0-0.5) Absolute Lymphs (auto) 2.02 (1.0-4.6) Absolute Monos (auto) 1.50 H (0.0-1.3) Lymphocytes % 21.7 L (24.0-44.0) % Monocytes % 16.1 H (0.0-12.0) % Eosinophils % 0.1 (0.00-5.0) % Basophils % 0.2 (0.0-0.4) % Absolute Granulocytes 5.74 (1.4-6.9) Basophils # 0.02 (0-0.4) Puncture Site pCO2 (35-45) mmHg pO2 (75-100) mmHg Base Excess (-2.0-2.0) O2 Saturation (94-100) g/dF ABG pH (7.35-7.45) ABG HCO3 (22-28) ABG O2 Sat (Measured) (95-100) % Tyson Test A-a Gradient a/A Ratio Hemoglobin Carboxyhemoglobin (0.0-6.9) % THgb Methemoglobin (1.4-1.5) % Potassium 3.9 (3.5-5.1) Temperature C POC O2 Flow Rate % Sodium 134 L (137-145) mmol/L Chloride 103 (98-107) mmol/L Carbon Dioxide 22 (22-30) mmol/L Anion Gap 13.0 (5-15) MEQ/L BUN 20 H (7-17) mg/dL Creatinine 1.03 (0.52-1.04) mg/dL Estimated GFR 57.3 ML/MIN Glucose 89 (74-106) mg/dL Lactic Acid (0.4-2.0) Calcium 8.2 L (8.4-10.2) mg/dL Total Bilirubin 0.30 (0.2-1.3) mg/dL AST 20 (14-36) U/L ALT 10 (0-35) U/L Alkaline Phosphatase 61 (38-126) U/L Troponin I 0.025 (0.000-0.034) ng/mL NT-Pro-B Natriuret Pep 311 (0-900) pg/mL Serum Total Protein 5.9 L (6.3-8.2) g/dL Albumin 3.1 L (3.5-5.0) g/dL Urine Color (YELLOW) Urine Appearance (CLEAR) Urine pH (5-6) Ur Specific Leburn (1.005-1.025) Urine Protein (Negative) Urine Ketones (NEGATIVE) Urine Blood (0-5) Velasquez/ul Urine Nitrite (NEGATIVE) Urine Bilirubin (NEGATIVE) Urine Urobilinogen (0-1) mg/dL Ur Leukocyte Esterase (NEGATIVE) Urine WBC (Auto) (0-5) /HPF Urine RBC (Auto) (0-2) /HPF U Hyaline Cast (Auto) (0-2) /LPF U Epithel Cells (Auto) (FEW) /HPF Urine Bacteria (Auto) (NEGATIVE) /HPF Unidentified Crystals (NEGATIVE) /HPF Urine Mucus (Auto) (NEGATIVE) /HPF Urine Culture Reflexed (NO) Urine Glucose (NEGATIVE) mg/dL Influenza Type A Ag (NEGATIVE) Influenza Type B Ag (NEGATIVE) RSV (PCR) (Negative) 12/22/18 12/22/18 12/22/18 Range/Units 20:38 20:05 19:57 WBC (4.0-10.5) K/mm3 RBC (4.1-5.4) M/mm3 Hgb (12.0-16.0) gm/dl Hct (35-47) % MCV (78-100) fl MCH (26-32) pg MCHC (32-36) g/dl RDW (11.5-14.0) % Plt Count (150-450) K/mm3 MPV (6-9.5) fl Gran % (36.0-66.0) % Eos # (Auto) (0-0.5) Absolute Lymphs (auto) (1.0-4.6) Absolute Monos (auto) (0.0-1.3) Lymphocytes % (24.0-44.0) % Monocytes % (0.0-12.0) % Eosinophils % (0.00-5.0) % Basophils % (0.0-0.4) % Absolute Granulocytes (1.4-6.9) Basophils # (0-0.4) Puncture Site RIGHT RADIAL pCO2 37 (35-45) mmHg pO2 60 L (75-100) mmHg Base Excess -1.6 (-2.0-2.0) O2 Saturation 91.0 L (94-100) g/dF ABG pH 7.40 (7.35-7.45) ABG HCO3 22.9 (22-28) ABG O2 Sat (Measured) 93.7 L (95-100) % Tyson Test YES A-a Gradient 93 a/A Ratio 0.39 Hemoglobin 13.1 Carboxyhemoglobin 1.8 (0.0-6.9) % THgb Methemoglobin 1.1 L (1.4-1.5) % Potassium 4.1 (3.5-5.1) Temperature 37.0 C POC O2 Flow Rate 28 % Sodium (137-145) mmol/L Chloride (98-107) mmol/L Carbon Dioxide (22-30) mmol/L Anion Gap (5-15) MEQ/L BUN (7-17) mg/dL Creatinine (0.52-1.04) mg/dL Estimated GFR ML/MIN Glucose (74-106) mg/dL Lactic Acid 1.0 (0.4-2.0) Calcium (8.4-10.2) mg/dL Total Bilirubin (0.2-1.3) mg/dL AST (14-36) U/L ALT (0-35) U/L Alkaline Phosphatase (38-126) U/L Troponin I (0.000-0.034) ng/mL NT-Pro-B Natriuret Pep (0-900) pg/mL Serum Total Protein (6.3-8.2) g/dL Albumin (3.5-5.0) g/dL Urine Color YELLOW (YELLOW) Urine Appearance SLIGHTLY CLOUDY (CLEAR) Urine pH 5.0 (5-6) Ur Specific Leburn 1.017 (1.005-1.025) Urine Protein NEGATIVE (Negative) Urine Ketones TRACE (NEGATIVE) Urine Blood NEGATIVE (0-5) Velasquez/ul Urine Nitrite NEGATIVE (NEGATIVE) Urine Bilirubin NEGATIVE (NEGATIVE) Urine Urobilinogen NEGATIVE (0-1) mg/dL Ur Leukocyte Esterase NEGATIVE (NEGATIVE) Urine WBC (Auto) 3-5 (0-5) /HPF Urine RBC (Auto) NONE (0-2) /HPF U Hyaline Cast (Auto) 6-10 (0-2) /LPF U Epithel Cells (Auto) RARE (FEW) /HPF Urine Bacteria (Auto) RARE (NEGATIVE) /HPF Unidentified Crystals 2-5 (NEGATIVE) /HPF Urine Mucus (Auto) SLIGHT (NEGATIVE) /HPF Urine Culture Reflexed NO (NO) Urine Glucose NEGATIVE (NEGATIVE) mg/dL Influenza Type A Ag POSITIVE (NEGATIVE) Influenza Type B Ag NEGATIVE (NEGATIVE) RSV (PCR) NEGATIVE (Negative) - Progress Progress: improved Air Movement: fair Progress Note: 12/22/18 21:38 Pt was brought from [facility] with hypoxia, and SOB. She did have influenza A that is positive, and Tamiflu was given. Pt is treated with Clindamycin IV for PNA, as she has multiple drug allergies, and she probably has aspiration PNA. Pt's urine is clean and she did get 1 lit of fluid, secondary to hypotension. At this point, I did not give any Lasix, secondary to fragile BP. Duo neb treatment was given., Dr Alston is accepting pt for admission. Will see patient in: hospital (full admit) Counseled pt/family regarding: lab results, rad results - Departure Time of Disposition: 21:43 Departure Disposition: In-patient Admission Clinical Impression: Influenza A Condition: Stable Critical Care Time: Yes Critical Care Time(excluding separately billable procedures): 30-74 minutes Referrals: LINDA HAILE [Primary Care Provider] -
[2018-12-22] MEDS ORDERED: Sodium Chloride 0.9% 10 ML FLUSH Syringe IV PRN (21:45)
[2018-12-22] MEDS ORDERED: Cleocin Phosphate IV 600 MG/4 ML IV SCH (22:00)
[2018-12-22] MEDS: Tamiflu 75MG Capsule PO SCH (23:12)
[2018-12-23] MEDS ORDERED: NORCO 5/325 MG PO PRN (00:29)
[2018-12-23] MEDS ORDERED: Lopressor 50 MG PO ONE (00:45)
[2018-12-23] MEDS ORDERED: Klor Con 10 MEQ PO ONE (00:45)
[2018-12-23] MEDS ORDERED: KEPPRA 500 MG PO ONE (00:45)
[2018-12-23] MEDS ORDERED: Risperdal 1 MG PO ONE (00:45)
[2018-12-23] MEDS: DUONEB 0.5-3 MG/3 ml Neb IH SCH ×5 (03:03→15:00)
[2018-12-23 05:38] LABS: Hematocrit 35.2 % (35-47); Mean Cell Volume 95.9 fl (78-100); Mean Corpuscular Hgb Concent. 31.3 g/dl (32-36); Mean Platelet Volume 10.7 fl (6-9.5); Platelet Count 198 K/mm3 (150-450); Red Blood Count 3.67 M/mm3 (4.1-5.4); Red Cell Distribution Width 14.4 % (11.5-14.0); White Blood Count 8.2 K/mm3 (4.0-10.5)
[2018-12-23 05:43] LABS: Mean Corpuscular Hemoglobin 29.9 pg (26-32)
[2018-12-23 05:59] LABS: ALKALINE PHOSPHATASE 59 U/L (38-126); ANION GAP 12.2 MEQ/L (5-15); BLOOD UREA NITROGEN 17 mg/dL (7-17); CHLORIDE 104 mmol/L (98-107); Calcium 8.4 mg/dL (8.4-10.2); Carbon Dioxide 22 mmol/L (22-30); Creatinine 1 0.72 mg/dL (0.52-1.04); Glucose 82 mg/dL (74-106); Potassium 4.1 mmol/L (3.5-5.1); SGOT/AST 22 U/L (14-36); SGPT/ALT 11 U/L (0-35); SODIUM 135 mmol/L (137-145); Total Protein 5.8 g/dL (6.3-8.2)
[2018-12-23] MEDS ORDERED: DUONEB 0.5-3 MG/3 ml Neb IH ONE (06:38)
[2018-12-23] MEDS: CLINDAMYCIN-D5W 600 MG/50 ML*** 600 MG/50 ML BAG IV SCH ×2 (07:26→15:00)
--- NOTE | 2018-12-23 08:45 | XRAY ---
Indication: Short of breath. Weakness. Comparison: September 30, 2018. Portable chest demonstrates new right infrahilar infiltrate versus atelectasis and small bibasilar effusions. Upper lungs clear. Heart is not enlarged for AP portable technique. Bony thorax intact again with mild osteopenia and degenerative changes. Impression: New right infrahilar infiltrate/atelectasis and small bibasilar effusions. Correlate clinically.
[2018-12-23] MEDS ORDERED: ENOXAPARIN SODIUM SQ SCH (10:00)
[2018-12-23] MEDS: Tamiflu 75MG Capsule PO SCH (10:07)
--- NOTE | 2018-12-23 12:37 | PCM.HP ---
History of Present Illness - Chief Complaint Chief Complaint: c/o cough fever chills History of Present Illness: is a 63 year old female came to ER from [place] for fever chills - Review of Systems Constitutional: Fever, Chills Eyes: No Symptoms Ears, Nose, & Throat: No Symptoms Respiratory: Cough, No Short Of Breath Cardiac: No Chest Pain, No Edema, No Syncope Abdominal/Gastrointestinal: No Abdominal Pain, No Nausea, No Vomiting, No Diarrhea Genitourinary Symptoms: No Dysuria Musculoskeletal: No Back Pain, No Neck Pain Skin: No Rash Neurological: Dizziness, Focal Weakness, No Sensory Changes Psychological: No Symptoms Endocrine: No Symptoms Hematologic/Lymphatic: No Symptoms Immunological/Allergic: No Symptoms Medications & Allergies Home Medications: Home Medication List Alendronate Sodium 70 mg [Fosamax 70 MG] 70 mg PO WEEKLY 12/19/15 [ History Confirmed 12/22/18] Levetiracetam [Keppra] 750 mg PO BID 12/19/15 [History Confirmed 12/22/18] Potassium Chloride 10 Meq Tab* [Klor Con 10 MEQ] 10 meq PO TID 12/19/15 [ History Confirmed 12/22/18] Folic Acid 1 mg PO DAILY 02/26/18 [History Confirmed 12/22/18] Atorvastatin Calcium 40 mg PO HS 05/15/18 [History Confirmed 12/22/18] Arformoterol Tartrate [Brovana] 1 vial IH BID 06/10/18 [History Confirmed ] Budesonide 0.5 mg/2 ml [Pulmicort 0.5 mg/2 ml Respules] 1 vial IH BID [History Confirmed 12/22/18] Acetaminophen 325 mg [Tylenol 325 mg] 650 mg PO Q4H PRN PRN tablet [Rx Confirmed 12/22/18] Albuterol/Ipratropium 3ml Neb* [DUONEB 0.5-3 MG/3 ml Neb] 3 ml IH Q2H/PRN PRN 09/02/18 [History Confirmed 12/22/18] Alprazolam 0.25 mg [xanAX 0.25 MG] 0.25 mg PO TID 09/02/18 [History Confirmed 12/22/18] Aspirin [Aspirin EC] 81 mg PO DAILY 09/02/18 [History Confirmed 12/22/18] Ondansetron ODT 4 MG [Zofran Odt 4 mg] 4 mg PO Q6H PRN 09/02/18 [History Confirmed 12/22/18] Hydrocodone Bit/Acetaminophen [[place] 5-325 Tablet] 1 each PO Q8HPRN PRN [History Confirmed 12/22/18] Metoprolol Tartrate 50 mg [Lopressor 50 MG] 50 mg PO BID #60 tablet [Rx Confirmed 12/22/18] Montelukast Sodium 10 mg [Singulair 10 MG] 10 mg PO DAILY 10/01/18 [History Confirmed 12/22/18] PANTOPRAZOLE 40 mg Tablet [Protonix 40MG Tablet] 40 mg PO QAM 10/01/18 [ History Confirmed 12/22/18] Lisinopril 20 mg [Zestril 20 MG] 20 mg PO DAILY 12/22/18 [History Confirmed 12/22/18] Risperidone 1 mg [Risperdal 1 MG] 1 mg PO DAILY 12/22/18 [History Confirmed 12/23/18] Risperidone [Risperdal] 2 mg PO BID 12/22/18 [History Confirmed 12/23/18] Allergies/Adverse Reactions: Allergies Allergy/AdvReac Type Severity Reaction Status Date / Time tramadol HCl [From Ultram] Allergy Mild Rash Verified 12/22/18 20:11 azithromycin Allergy Verified 12/22/18 20:11 ciprofloxacin [From Cipro] Allergy Rash Verified 12/22/18 20:11 ciprofloxacin HCl Allergy Rash Verified 12/22/18 20:11 [From Cipro] metronidazole Allergy Verified 12/22/18 20:11 penicillin V [Penicillin V] Allergy Rash Verified 12/22/18 20:11 Quinolones Allergy Verified 12/22/18 20:11 Sulfa (Sulfonamide Allergy Verified 12/22/18 20:11 Antibiotics) sulfisoxazole Allergy Verified 12/22/18 20:11 tramadol Allergy Verified 12/22/18 20:11 - Past Medical History Past Medical History: Yes Neurological History: Dementia, Seizures, Stroke ENT History: Cataracts Cardiac History: Myocardial Infarction ([place]), Other Respiratory History: Asthma, COPD, Pneumonia Endocrine Medical History: Hypothyroidism Musculoskelatal History: Arthritis, Fibromyalgia GI Medical History: Diverticulitis History: No Pertinent History Pyscho-Social History: Anxiety, Depression Reproductive Disorders: Cervical Cancer Comment: pt states she has a murmur. Hx of c. Diff - Female History Are you now?: No - Past Surgical History Past Surgical History: Yes Neuro Surgical History: No Pertinent History Cardiac History: No Pertinent History Respiratory Surgery: No Pertinent History GI Surgical History: Appendectomy, Cholecystectomy Genitourinary Surgical Hx: No Pertinent History Musculskeletal Surgical Hx: Orthopedic Surgery Female Surgical History: Hysterectomy Other Surgical History: LEFT x 4, RIGHT x 1 HIP SURGERY - Social History Smoking Status: Former smoker How long have you smoked: 40 Exposure to second hand smoke: No Alcohol: None Drug Use: none - Physical Exam Vital Signs: Vital Signs - 24 hr Temp Pulse Resp BP Pulse Ox 12/23/18 11:58 97.6 F 129 H 18 159/71 94 L 12/23/18 10:51 115 H 18 99 12/23/18 07:41 98.7 F 72 18 127/60 99 12/23/18 07:29 72 18 93 L 12/23/18 04:00 98.8 F 95 H 38 H 128/60 99 12/23/18 03:10 79 24 98 12/22/18 23:29 98.8 F 114 H 44 H 139/74 100 12/22/18 22:46 98.8 F 114 H 44 H 139/74 100 12/22/18 21:49 100 12/22/18 21:43 97 12/22/18 20:57 99.3 F 116 H 32 H 130/84 97 12/22/18 20:20 108 H 20 98 12/22/18 19:50 99.9 F 118 H 42 H 115/63 93 L Oxygen-Last 24 hours O2 Percentage 2 Liters = 28% O2 Percentage 3 Liters = 32% O2 Percentage 2 Liters = 28% O2 Percentage 2 Liters = 28% O2 Percentage 2 Liters = 28% O2 Percentage 2 Liters = 28% O2 Percentage 2 Liters = 28% Oxygen Flowrate (L/min)-RT 2 General Appearance: no apparent distress, alert Neurologic Exam: alert, oriented x 3, cooperative, normal mood/affect, nml cerebellar function, nml station & gait, sensation nml, No motor deficits Eye Exam: PERRL/EOMI, eyes nml inspection Ears, Nose, Throat Exam: normal ENT inspection, TMs normal, pharynx normal, moist mucous membranes Neck Exam: normal inspection, non-tender, supple, full range of motion Respiratory Exam: normal breath sounds, lungs clear, No respiratory distress Cardiovascular Exam: regular rate/rhythm, normal heart sounds, normal peripheral pulses Gastrointestinal/Abdomen Exam: soft, normal bowel sounds, No tenderness, No mass Back Exam: normal inspection, normal range of motion, No CVA tenderness, No vertebral tenderness Extremity Exam: normal inspection, normal range of motion, pelvis stable Skin Exam: normal color, warm, dry, No rash Lymphatic Exam: No adenopathy Results - Labs Lab/Micro Results: Lab Results-Last 24 Hours 12/22/18 12/22/18 12/22/18 Range/Units 19:57 20:05 20:38 WBC (4.0-10.5) K/mm3 RBC (4.1-5.4) M/mm3 Hgb (12.0-16.0) gm/dl Hct (35-47) % MCV (78-100) fl MCH (26-32) pg MCHC (32-36) g/dl RDW (11.5-14.0) % Plt Count (150-450) K/mm3 MPV (6-9.5) fl Gran % (36.0-66.0) % Eos # (Auto) (0-0.5) Absolute Lymphs (auto) (1.0-4.6) Absolute Monos (auto) (0.0-1.3) Lymphocytes % (24.0-44.0) % Monocytes % (0.0-12.0) % Eosinophils % (0.00-5.0) % Basophils % (0.0-0.4) % Absolute Granulocytes (1.4-6.9) Basophils # (0-0.4) Puncture Site RIGHT RADIAL pCO2 37 (35-45) mmHg pO2 60 L (75-100) mmHg Base Excess -1.6 (-2.0-2.0) O2 Saturation 91.0 L (94-100) g/dF ABG pH 7.40 (7.35-7.45) ABG HCO3 22.9 (22-28) ABG O2 Sat (Measured) 93.7 L (95-100) % Tyson Test YES A-a Gradient 93 a/A Ratio 0.39 Hemoglobin 13.1 Carboxyhemoglobin 1.8 (0.0-6.9) % THgb Methemoglobin 1.1 L (1.4-1.5) % Potassium 4.1 (3.5-5.1) Temperature 37.0 C POC O2 Flow Rate 28 % Sodium (137-145) mmol/L Chloride (98-107) mmol/L Carbon Dioxide (22-30) mmol/L Anion Gap (5-15) MEQ/L BUN (7-17) mg/dL Creatinine (0.52-1.04) mg/dL Estimated GFR ML/MIN Glucose (74-106) mg/dL Lactic Acid 1.0 (0.4-2.0) Calcium (8.4-10.2) mg/dL Total Bilirubin (0.2-1.3) mg/dL AST (14-36) U/L ALT (0-35) U/L Alkaline Phosphatase (38-126) U/L Troponin I (0.000-0.034) ng/mL NT-Pro-B Natriuret Pep (0-900) pg/mL Serum Total Protein (6.3-8.2) g/dL Albumin (3.5-5.0) g/dL Urine Color YELLOW (YELLOW) Urine Appearance SLIGHTLY CLOUDY (CLEAR) Urine pH 5.0 (5-6) Ur Specific [place] 1.017 (1.005-1.025) Urine Protein NEGATIVE (Negative) Urine Ketones TRACE (NEGATIVE) Urine Blood NEGATIVE (0-5) Velasquez/ul Urine Nitrite NEGATIVE (NEGATIVE) Urine Bilirubin NEGATIVE (NEGATIVE) Urine Urobilinogen NEGATIVE (0-1) mg/dL Ur Leukocyte Esterase NEGATIVE (NEGATIVE) Urine WBC (Auto) 3-5 (0-5) /HPF Urine RBC (Auto) NONE (0-2) /HPF U Hyaline Cast (Auto) 6-10 (0-2) /LPF U Epithel Cells (Auto) RARE (FEW) /HPF Urine Bacteria (Auto) RARE (NEGATIVE) /HPF Unidentified Crystals 2-5 (NEGATIVE) /HPF Urine Mucus (Auto) SLIGHT (NEGATIVE) /HPF Urine Culture Reflexed NO (NO) Urine Glucose NEGATIVE (NEGATIVE) mg/dL Influenza Type A Ag POSITIVE (NEGATIVE) Influenza Type B Ag NEGATIVE (NEGATIVE) RSV (PCR) NEGATIVE (Negative) 12/22/18 12/22/18 12/22/18 Range/Units 20:39 20:39 20:39 WBC 9.3 (4.0-10.5) K/mm3 RBC 3.77 L (4.1-5.4) M/mm3 Hgb 11.4 L (12.0-16.0) gm/dl Hct 36.0 (35-47) % MCV 95.5 (78-100) fl MCH 30.2 (26-32) pg MCHC 31.7 L (32-36) g/dl RDW 14.6 H (11.5-14.0) % Plt Count 218 (150-450) K/mm3 MPV 10.9 H (6-9.5) fl Gran % 61.9 (36.0-66.0) % Eos # (Auto) 0.01 (0-0.5) Absolute Lymphs (auto) 2.02 (1.0-4.6) Absolute Monos (auto) 1.50 H (0.0-1.3) Lymphocytes % 21.7 L (24.0-44.0) % Monocytes % 16.1 H (0.0-12.0) % Eosinophils % 0.1 (0.00-5.0) % Basophils % 0.2 (0.0-0.4) % Absolute Granulocytes 5.74 (1.4-6.9) Basophils # 0.02 (0-0.4) Puncture Site pCO2 (35-45) mmHg pO2 (75-100) mmHg Base Excess (-2.0-2.0) O2 Saturation (94-100) g/dF ABG pH (7.35-7.45) ABG HCO3 (22-28) ABG O2 Sat (Measured) (95-100) % Tyson Test A-a Gradient a/A Ratio Hemoglobin Carboxyhemoglobin (0.0-6.9) % THgb Methemoglobin (1.4-1.5) % Potassium 3.9 (3.5-5.1) Temperature C POC O2 Flow Rate % Sodium 134 L (137-145) mmol/L Chloride 103 (98-107) mmol/L Carbon Dioxide 22 (22-30) mmol/L Anion Gap 13.0 (5-15) MEQ/L BUN 20 H (7-17) mg/dL Creatinine 1.03 (0.52-1.04) mg/dL Estimated GFR 57.3 ML/MIN Glucose 89 (74-106) mg/dL Lactic Acid (0.4-2.0) Calcium 8.2 L (8.4-10.2) mg/dL Total Bilirubin 0.30 (0.2-1.3) mg/dL AST 20 (14-36) U/L ALT 10 (0-35) U/L Alkaline Phosphatase 61 (38-126) U/L Troponin I 0.025 (0.000-0.034) ng/mL NT-Pro-B Natriuret Pep 311 (0-900) pg/mL Serum Total Protein 5.9 L (6.3-8.2) g/dL Albumin 3.1 L (3.5-5.0) g/dL Urine Color (YELLOW) Urine Appearance (CLEAR) Urine pH (5-6) Ur Specific [place] (1.005-1.025) Urine Protein (Negative) Urine Ketones (NEGATIVE) Urine Blood (0-5) Velasquez/ul Urine Nitrite (NEGATIVE) Urine Bilirubin (NEGATIVE) Urine Urobilinogen (0-1) mg/dL Ur Leukocyte Esterase (NEGATIVE) Urine WBC (Auto) (0-5) /HPF Urine RBC (Auto) (0-2) /HPF U Hyaline Cast (Auto) (0-2) /LPF U Epithel Cells (Auto) (FEW) /HPF Urine Bacteria (Auto) (NEGATIVE) /HPF Unidentified Crystals (NEGATIVE) /HPF Urine Mucus (Auto) (NEGATIVE) /HPF Urine Culture Reflexed (NO) Urine Glucose (NEGATIVE) mg/dL Influenza Type A Ag (NEGATIVE) Influenza Type B Ag (NEGATIVE) RSV (PCR) (Negative) 12/22/18 12/23/18 12/23/18 Range/Units 23:08 05:15 05:15 WBC 8.2 (4.0-10.5) K/mm3 RBC 3.67 L (4.1-5.4) M/mm3 Hgb 11.0 L (12.0-16.0) gm/dl Hct 35.2 (35-47) % MCV 95.9 (78-100) fl MCH 29.9 (26-32) pg MCHC 31.3 L (32-36) g/dl RDW 14.4 H (11.5-14.0) % Plt Count 198 (150-450) K/mm3 MPV 10.7 H (6-9.5) fl Gran % (36.0-66.0) % Eos # (Auto) (0-0.5) Absolute Lymphs (auto) (1.0-4.6) Absolute Monos (auto) (0.0-1.3) Lymphocytes % (24.0-44.0) % Monocytes % (0.0-12.0) % Eosinophils % (0.00-5.0) % Basophils % (0.0-0.4) % Absolute Granulocytes (1.4-6.9) Basophils # (0-0.4) Puncture Site pCO2 (35-45) mmHg pO2 (75-100) mmHg Base Excess (-2.0-2.0) O2 Saturation (94-100) g/dF ABG pH (7.35-7.45) ABG HCO3 (22-28) ABG O2 Sat (Measured) (95-100) % Tyson Test A-a Gradient a/A Ratio Hemoglobin Carboxyhemoglobin (0.0-6.9) % THgb Methemoglobin (1.4-1.5) % Potassium 4.1 (3.5-5.1) Temperature C POC O2 Flow Rate % Sodium 135 L (137-145) mmol/L Chloride 104 (98-107) mmol/L Carbon Dioxide 22 (22-30) mmol/L Anion Gap 12.2 (5-15) MEQ/L BUN 17 (7-17) mg/dL Creatinine 0.72 (0.52-1.04) mg/dL Estimated GFR > 60.0 ML/MIN Glucose 82 (74-106) mg/dL Lactic Acid (0.4-2.0) Calcium 8.4 (8.4-10.2) mg/dL Total Bilirubin 0.20 (0.2-1.3) mg/dL AST 22 (14-36) U/L ALT 11 (0-35) U/L Alkaline Phosphatase 59 (38-126) U/L Troponin I 0.020 (0.000-0.034) ng/mL NT-Pro-B Natriuret Pep (0-900) pg/mL Serum Total Protein 5.8 L (6.3-8.2) g/dL Albumin 3.0 L (3.5-5.0) g/dL Urine Color (YELLOW) Urine Appearance (CLEAR) Urine pH (5-6) Ur Specific [place] (1.005-1.025) Urine Protein (Negative) Urine Ketones (NEGATIVE) Urine Blood (0-5) Velasquez/ul Urine Nitrite (NEGATIVE) Urine Bilirubin (NEGATIVE) Urine Urobilinogen (0-1) mg/dL Ur Leukocyte Esterase (NEGATIVE) Urine WBC (Auto) (0-5) /HPF Urine RBC (Auto) (0-2) /HPF U Hyaline Cast (Auto) (0-2) /LPF U Epithel Cells (Auto) (FEW) /HPF Urine Bacteria (Auto) (NEGATIVE) /HPF Unidentified Crystals (NEGATIVE) /HPF Urine Mucus (Auto) (NEGATIVE) /HPF Urine Culture Reflexed (NO) Urine Glucose (NEGATIVE) mg/dL Influenza Type A Ag (NEGATIVE) Influenza Type B Ag (NEGATIVE) RSV (PCR) (Negative) - Radiology Impressions Radiology Exams & Impressions: Radiology Procedures Category Date Time Status CHEST 1 VIEW (PORTABLE) Stat Exams 12/22/18 19:48 Completed - Other Procedures and Tests Respiratory Therapy 12/22/18 20:45 Respiratory Therapy Assessment DAILY 12/22/18 21:45 Oxygen Nasal Cannula 2 lpm 12/23/18 07:25 Peak Expiratory Flow Rate ONCE Assessment/Plan (1) Influenza A Current Visit: Yes Status: Acute Code(s): J10.1 - FLU DUE TO OTH IDENT INFLUENZA VIRUS W OTH RESP MANIFEST
[2018-12-23] MEDS ORDERED: ZOFRAN ODT 4 MG PO PRN (13:08)
[2018-12-23] MEDS ORDERED: TYLENOL 325 MG PO PRN (13:08)
[2018-12-23] MEDS ORDERED: Fosamax 70 MG PO PRN (13:15)
[2018-12-23] MEDS ORDERED: MEDICATION INTERVENTION MC SCH (13:45)
[2018-12-23] MEDS ORDERED: MEDICATION INTERVENTION PO SCH (13:45)
[2018-12-23] MEDS ORDERED: Lopressor 50 MG PO SCH (14:00)
[2018-12-23] MEDS ORDERED: ECOTRIN 81 MG PO SCH (14:00)
[2018-12-23] MEDS ORDERED: Keppra 250 MG PO SCH (14:00)
[2018-12-23] MEDS ORDERED: Singulair 10 MG PO SCH (14:00)
[2018-12-23] MEDS ORDERED: PULMICORT 0.5 MG/2 ML RESPULES IH SCH (14:00)
[2018-12-23] MEDS ORDERED: Protonix 40MG Tablet PO SCH (14:00)
[2018-12-23] MEDS ORDERED: KEPPRA 500 MG PO SCH (14:00)
[2018-12-23] MEDS ORDERED: Zestril 20 MG PO SCH (14:00)
[2018-12-23] MEDS ORDERED: FOLATE 1 MG PO SCH (14:00)
[2018-12-23] MEDS ORDERED: xanAX 0.25 MG PO SCH (15:00)
[2018-12-23] MEDS ORDERED: Klor Con 10 MEQ PO SCH (15:00)
[2018-12-23 15:40] VITALS: BP 167/79; PULSE 130; O2SAT 100
[2018-12-23] MEDS ORDERED: Risperdal 1 MG PO SCH ×2 (16:00→21:00)
[2018-12-23] MEDS ORDERED: ZOCOR 20MG PO SCH (22:00)
[2018-12-23] MEDS ORDERED: NON-FORMULARY ITEM (Atorvastatin Calcium [Atorvastatin Calcium] 40 MG) PO SCH (22:00)
[2018-12-23] MEDS ORDERED: NON-FORMULARY ITEM (Levetiracetam [Keppra] 750 MG) PO SCH (22:00)
[2018-12-23] MEDS ORDERED: NON-FORMULARY ITEM (Risperidone [Risperdal] 2 MG) PO SCH (22:00)
[2018-12-23] MEDS ORDERED: ARFORMOTEROL TARTRATE IH SCH (22:00)
== END 2018-12-23 16:27 ==
LOC: ED 19:43 → INTOOBSV 22:05 → MED SURG 22:05
PROVIDERS: ADMIT General Practice; ATTEND General Practice
DX: J09.X2 Influenza due to identified novel influenza A virus with other respiratory manifestations (principal); J44.9 Chronic obstructive pulmonary disease, unspecified; Z79.899 Other long term (current) drug therapy; R42 Dizziness and giddiness
CPT/HCPCS: 36000; 36415; 36600; 71045; 80053; 81001; 82375; 82803; 83605; 83880; 84484; 85025; 85027; 87040; 87631; 93005; 93041; 94150; 94640; 94762; 99285; G0378; J1650; A9270-GY

== ENCOUNTER 2019-09-15 12:35 | Emergency (ER) | payer MEDICARE ==
[2019-09-15] MEDS ORDERED: Sodium Chloride 0.9% 1000 ML 1,000 ML IV STA (12:41)
--- NOTE | 2019-09-15 12:47 | ERPHSYRPT ---
- History of Present Illness Time Seen by Provider: 09/15/19 12:35 Source: EMS, prison records Exam Limitations: clinical condition Physician History: Prior to coming into the emergency department, patient had cardiovascular collapse per prison after possibly choking on a meatball at approximately 12:10. EMS was called at 12:15, immediately arrived at the scene, and patient had a pulse and blood pressure. Patient was shocked one time by prison personnel and no medications given by prison or EMS. EMS did not have to give any medications at any time. No CPR was performed at any time. Timing/Duration: today, constant Activities at Onset: other (eating) Quality: other (no ) Location: other (no history of pain per prison) Chest Pain Radiation: no radiation Modifying Factors: Worsens With: eating Nitro Today/Relief: no nitro taken today Aspirin Treatment Today: no aspirin today Associated Symptoms: seizure (possible, since she has a history), No abdominal pain, No shortness of breath, No chest pain, No malaise Prior Chest Pain/Cardiac Workup: no prior cardiac workup, heart attack Allergies/Adverse Reactions: tramadol HCl [From Ultram] Allergy (Mild, Verified 09/15/19 13:02) Rash azithromycin Allergy (Verified 09/15/19 13:02) ciprofloxacin [From Cipro] Allergy (Verified 09/15/19 13:02) Rash ciprofloxacin HCl [From Cipro] Allergy (Verified 09/15/19 13:02) Rash metronidazole Allergy (Verified 09/15/19 13:02) penicillin V [Penicillin V] Allergy (Verified 09/15/19 13:02) Rash Quinolones Allergy (Verified 09/15/19 13:02) Sulfa (Sulfonamide Antibiotics) Allergy (Verified 09/15/19 13:02) sulfisoxazole Allergy (Verified 09/15/19 13:02) tramadol Allergy (Verified 09/15/19 13:02) Home Medications: Alendronate Sodium 70 mg [Fosamax 70 MG] 70 mg PO WEEKLY 12/19/15 [History ] Levetiracetam [Keppra] 750 mg PO BID 12/19/15 [History] Potassium Chloride 10 Meq Tab* [Klor Con 10 MEQ] 10 meq PO TID 12/19/15 [ History] Folic Acid 1 mg PO DAILY 02/26/18 [History] Atorvastatin Calcium 10 mg PO HS 05/15/18 [History] Arformoterol Tartrate [Brovana] 1 vial IH BID 06/10/18 [History] Budesonide 0.5 mg/2 ml [Pulmicort 0.5 mg/2 ml Respules] 1 vial IH BID [History] Albuterol/Ipratropium 3ml Neb* [DUONEB 0.5-3 MG/3 ml Neb] 3 ml IH Q2H/PRN PRN 09/02/18 [History] Alprazolam 0.25 mg [xanAX 0.25 MG] 0.25 mg PO TID 09/02/18 [History] Aspirin [Aspirin EC] 81 mg PO DAILY 09/02/18 [History] Hydrocodone Bit/Acetaminophen [[place] 5-325 Tablet] 1 each PO Q8HPRN PRN [History] Montelukast Sodium 10 mg [Singulair 10 MG] 10 mg PO DAILY 10/01/18 [History] PANTOPRAZOLE 40 mg Tablet [Protonix 40MG Tablet] 20 mg PO QAM 10/01/18 [ History] Lisinopril 20 mg [Zestril 20 MG] 20 mg PO DAILY 12/22/18 [History] Risperidone 1 mg [Risperdal 1 MG] 1 mg PO DAILY 12/22/18 [History] Risperidone [Risperdal] 2 mg PO BID 12/22/18 [History] Arformoterol Tartrate [Brovana] 1 vial IH BID 09/15/19 [History] Carboxymethylcellulose Sodium [Thera Tears] 1 drop OP QID 09/15/19 [History] Duloxetine HCl [Cymbalta] 1 cap PO HS 09/15/19 [History] Hx Tetanus, Diphtheria Vaccination/Date Given: Yes Hx Influenza Vaccination/Date Given: Yes Hx Pneumococcal Vaccination/Date Given: Yes - Review of Systems Constitutional: No Fever, No Chills Eyes: No Eye Pain, No Vision Changes Ears, Nose, & Throat: No Mouth Swelling, No Throat Swelling, No Painful Swallowing Respiratory: Dyspnea Cardiac: Syncope, No Chest Pain Abdominal/Gastrointestinal: No Abdominal Pain, No Vomiting, No Hematemesis Genitourinary Symptoms: No Flank Pain Musculoskeletal: No Back Pain Neurological: Seizure (possible) Endocrine: No Excessive Sweating Hematologic/Lymphatic: No Easy Bleeding, No Easy Bruising All Other Systems: Reviewed and Negative (per patient's condition and report from prison) - Past Medical History Pertinent Past Medical History: Yes Neurological History: Dementia, Seizures, Stroke ENT History: Cataracts Cardiac History: Myocardial Infarction ([place]), Other Respiratory History: Asthma, COPD, Pneumonia Endocrine Medical History: Hypothyroidism Musculoskeletal History: Arthritis, Fibromyalgia GI Medical History: Diverticulitis History: No Pertinent History Psycho-Social History: Anxiety, Depression Female Reproductive Disorders: Cervical Cancer Other Medical History: pt states she has a murmur. Hx of c. Diff - Past Surgical History Past Surgical History: Yes Neuro Surgical History: No Pertinent History Cardiac: No Pertinent History Respiratory: No Pertinent History Gastrointestinal: Appendectomy, Cholecystectomy Genitourinary: No Pertinent History Musculoskeletal: Orthopedic Surgery Female Surgical History: Hysterectomy Other Surgical History: LEFT x 4, RIGHT x 1 HIP SURGERY - Social History Smoking Status: Former smoker How long have you smoked: 40 Exposure to second hand smoke: No Drug Use: none Patient Lives Alone: No (MMM) - Nursing Vital Signs Nursing Vital Signs: Initial Vital Signs Pulse Rate 114 H 09/15/19 12:36 Respiratory Rate 16 09/15/19 12:36 Blood Pressure 185/106 09/15/19 12:36 O2 Sat by Pulse Oximetry 100 09/15/19 12:36 Pain Scale Pain Intensity 0 - Physical Exam General Appearance: other (patient is non-responsive) Eye Exam: PERRL/EOMI, eyes nml inspection, No scleral icterus, No pale conjunctivae Ears, Nose, Throat Exam: pharynx normal, moist mucous membranes Neck Exam: normal inspection, non-tender, other (neck tilted to the right) Respiratory Exam: lungs clear, airway intact, other (tachypnea), No diminished breath sounds, No accessory muscle use, No prolonged expirations, No crackles/ rales, No rhonchi, No wheezing, No stridor Cardiovascular Exam: normal heart sounds, normal peripheral pulses, tachycardia , capillary refill <2 sec Gastrointestinal/Abdomen Exam: soft, normal bowel sounds, No tenderness, No distention Extremity Exam: normal inspection, normal range of motion, pelvis stable, No swelling Neurologic Exam: other (patient unresponsive) Skin Exam: normal color, warm, dry, No petechiae, No abrasion, No ecchymosis SpO2 Interpretation: normal SpO2: 100 O2 Delivery: Non-rebreather - Course Nursing assessment & vital signs reviewed: Yes EKG Interpreted by Me: RATE ([id number]), Sinus Tach, NORMAL AXIS, NORMAL INTERVALS, NORMAL QRS, NORMAL ST-T, Other (negative previous EKG for comparison) - Radiology Exams Chest X-ray Interpretation: Interpreted by me, Reviewed by me, No Pneumonia, No Pneumothorax, No Infiltrates, Nml Mediastinum, Nml Soft Tissues, Other (per radiologist interpretation: portable chest is clear. Heart is not enlarged. Bony thorax intact again with osteopenia, degenerative changes and T12-L2 compression deformities. Over impression: Nonacute chest) Other X-ray Interpretation: Interpreted by me, Reviewed by me, Other (per radiologist interpretation: Soft tissue of the neck: AP/lateral soft tissue neck demonstrates supra-and infraorbital are to airway to be patent. No radiopaque foreign body. Normal epiglottis. Underlying cervical spine intact with mild osteopenia and degenerative changes. Patient is incidentally and pendulous. Overall impression: Negative soft tissue neck. Chronic bony findings) - CT Exams Head CT Interpretation: Negative, Other (per radiologist interpretation: new paranasal sinus disease. stable aging brain including atrophy and degenerative micro-ischemia. No acute intracranial abnormalities) Ordered Tests: Active Orders 24 hr Category Date Time Status CO2 Monitoring STAT Care 09/15/19 12:41 Active Sheet Metal Foreman STAT Care 09/15/19 12:42 Active Catheter-[place] Hinojosa STAT Care 09/15/19 12:41 Active EKG-ER Only STAT Care 09/15/19 12:41 Active IV Insertion STAT Care 09/15/19 12:41 Active IV Insertion-2nd Peripheral STAT Care 09/15/19 12:49 Active NPO (ED) STAT Care 09/15/19 12:41 Active Oxygen-ED Only NON-REBREATHER 100% Care 09/15/19 12:41 Active Pulse Oximetry (ED) STAT Care 09/15/19 12:41 Active CHEST 1 VIEW (PORTABLE) Stat Exams 09/15/19 13:06 Completed HEAD WITHOUT CONTRAST [CT] Stat Exams 09/15/19 13:32 Completed NECK SOFT TISSUE Stat Exams 09/15/19 12:43 Completed ABG [ARTERIAL BLOOD GASES] Stat Lab 09/15/19 13:20 Completed ARTERIAL BLOOD GASES Stat Lab 09/15/19 12:41 Results CBC W DIFF Stat Lab 09/15/19 12:48 Completed CMP Stat Lab 09/15/19 12:48 Completed CULTURE,URINE Stat Lab 09/15/19 12:48 Received Lactic Acid Stat Lab 09/15/19 12:41 Results MAGNESIUM Stat Lab 09/15/19 12:48 Completed Manual Differential NC Stat Lab 09/15/19 12:48 Completed NT PRO BNP Stat Lab 09/15/19 12:48 Completed PROTIME WITH INR Stat Lab 09/15/19 12:48 Completed PTT Stat Lab 09/15/19 12:48 Completed TROPONIN Q3H Lab 09/15/19 12:45 Completed TROPONIN Q3H Lab 09/15/19 15:45 Ordered TROPONIN Q3H Lab 09/15/19 18:45 Ordered TROPONIN Q3H Lab 09/15/19 21:45 Ordered TROPONIN Q3H Lab 09/16/19 00:45 Ordered UA W/RFX UR CULTURE Stat Lab 09/15/19 12:48 Completed BiPap/CPAP STAT RT 09/15/19 12:44 Active Medication Summary Discontinued Medications Generic Name Dose Route Start Last Admin Trade Name Franq PRN Reason Stop Dose Admin Sodium Chloride 1,000 mls @ 999 mls/hr 09/15/19 12:41 09/15/19 12:59 Sodium Chloride 0.9% 1000 Ml IV 09/15/19 13:41 999 mls/hr .Q1H1M STA Administration Sodium Chloride Confirm 09/15/19 12:58 Sodium Chloride 0.9% 1000 Ml Administered 09/15/19 12:59 Dose 1,000 mls @ ud .ROUTE .STK-MED ONE Lab/Rad Data: Laboratory Result Diagrams 09/15/19 12:48 09/15/19 12:48 Laboratory Results 09/15/19 09/15/19 09/15/19 Range/Units 13:20 12:48 12:48 WBC (4.0-10.5) K/mm3 RBC (4.1-5.4) M/mm3 Hgb (12.0-16.0) gm/dl Hct (35-47) % MCV (78-100) fl MCH (26-32) pg MCHC (32-36) g/dl RDW (11.5-14.0) % Plt Count (150-450) K/mm3 MPV (6-9.5) fl Segmented Neutrophils (36.0-66.0) % Lymphocytes (Manual) (24-44) % Monocytes (Manual) (0.0-12.0) % Eosinophils (Manual) (0.00-3.0) % Basophils (Manual) (0.0-1.0) % Atypical Lymphocytes % Toxic Granulation Platelet Estimate (NORMAL) RBC Morphology PT 11.7 (9.95-12.35) SECONDS INR 1.03 (0.8-3.0) APTT 29.8 (25.3-37.0) SECONDS Puncture Site RIGHT RADIAL pCO2 42 (35-45) mmHg pO2 120 H (75-100) mmHg Base Excess 1.0 (-2.0-2.0) O2 Saturation 96.9 (94-100) g/dF ABG pH 7.40 (7.35-7.45) ABG HCO3 26.0 (22-28) ABG O2 Sat (Measured) 99.5 (95-100) % Tyson Test YES A-a Gradient 184 a/A Ratio 0.39 Hemoglobin 9.5 Carboxyhemoglobin 2.2 (0.0-6.9) % THgb Methemoglobin 0.4 L (1.4-1.5) % Potassium 4.0 (3.5-5.1) Temperature 37.0 C POC O2 Flow Rate 50 % Vent Mode BiPAP Inspiratory BiPAP 12 Expiratory BiPAP 6 Sodium (137-145) mmol/L Chloride (98-107) mmol/L Carbon Dioxide (22-30) mmol/L Anion Gap (5-15) MEQ/L BUN (7-17) mg/dL Creatinine (0.52-1.04) mg/dL Estimated GFR ML/MIN Glucose (74-106) mg/dL Lactic Acid (0.4-2.0) Calcium (8.4-10.2) mg/dL Magnesium (1.6-2.3) mg/dL Total Bilirubin (0.2-1.3) mg/dL AST (14-36) U/L ALT (0-35) U/L Alkaline Phosphatase (38-126) U/L Troponin I (0.000-0.034) ng/mL NT-Pro-B Natriuret Pep (0-900) pg/mL Serum Total Protein (6.3-8.2) g/dL Albumin (3.5-5.0) g/dL Urine Color YELLOW (YELLOW) Urine Appearance CLOUDY (CLEAR) Urine pH 6.0 (5-6) Ur Specific [place] 1.015 (1.005-1.025) Urine Protein 100 (Negative) Urine Ketones NEGATIVE (NEGATIVE) Urine Blood NEGATIVE (0-5) Velasquez/ul Urine Nitrite NEGATIVE (NEGATIVE) Urine Bilirubin NEGATIVE (NEGATIVE) Urine Urobilinogen NEGATIVE (0-1) mg/dL Ur Leukocyte Esterase NEGATIVE (NEGATIVE) Urine WBC (Auto) 11-15 (0-5) /HPF Urine RBC (Auto) 11-15 (0-2) /HPF U Hyaline Cast (Auto) 6-10 (0-2) /LPF U Epithel Cells (Auto) RARE (FEW) /HPF Urine Bacteria (Auto) RARE (NEGATIVE) /HPF Urine Mucus (Auto) SLIGHT (NEGATIVE) /HPF Urine Culture Reflexed ORDERED SEPARATELY (NO) Urine Glucose NEGATIVE (NEGATIVE) mg/dL 09/15/19 09/15/19 09/15/19 Range/Units 12:48 12:48 12:45 WBC 16.4 H (4.0-10.5) K/mm3 RBC 4.33 (4.1-5.4) M/mm3 Hgb 13.0 (12.0-16.0) gm/dl Hct 41.0 (35-47) % MCV 94.7 (78-100) fl MCH 30.0 (26-32) pg MCHC 31.7 L (32-36) g/dl RDW 13.4 (11.5-14.0) % Plt Count 299 (150-450) K/mm3 MPV 11.0 H (6-9.5) fl Segmented Neutrophils 60 (36.0-66.0) % Lymphocytes (Manual) 25 (24-44) % Monocytes (Manual) 5 (0.0-12.0) % Eosinophils (Manual) 4 H (0.00-3.0) % Basophils (Manual) 2 H (0.0-1.0) % Atypical Lymphocytes 4 % Toxic Granulation 1+ Platelet Estimate NORMAL (NORMAL) RBC Morphology NORMAL PT (9.95-12.35) SECONDS INR (0.8-3.0) APTT (25.3-37.0) SECONDS Puncture Site pCO2 (35-45) mmHg pO2 (75-100) mmHg Base Excess (-2.0-2.0) O2 Saturation (94-100) g/dF ABG pH (7.35-7.45) ABG HCO3 (22-28) ABG O2 Sat (Measured) (95-100) % Tyson Test A-a Gradient a/A Ratio Hemoglobin Carboxyhemoglobin (0.0-6.9) % THgb Methemoglobin (1.4-1.5) % Potassium 4.5 (3.5-5.1) Temperature C POC O2 Flow Rate % Vent Mode Inspiratory BiPAP Expiratory BiPAP Sodium 140 (137-145) mmol/L Chloride 103 (98-107) mmol/L Carbon Dioxide 27 (22-30) mmol/L Anion Gap 14.3 (5-15) MEQ/L BUN 17 (7-17) mg/dL Creatinine 0.61 (0.52-1.04) mg/dL Estimated GFR > 60.0 ML/MIN Glucose 129 H (74-106) mg/dL Lactic Acid (0.4-2.0) Calcium 9.6 (8.4-10.2) mg/dL Magnesium 1.8 (1.6-2.3) mg/dL Total Bilirubin 0.40 (0.2-1.3) mg/dL AST 108 H (14-36) U/L ALT 59 H (0-35) U/L Alkaline Phosphatase 108 (38-126) U/L Troponin I < 0.012 (0.000-0.034) ng/mL NT-Pro-B Natriuret Pep 213 (0-900) pg/mL Serum Total Protein 7.6 (6.3-8.2) g/dL Albumin 3.8 (3.5-5.0) g/dL Urine Color (YELLOW) Urine Appearance (CLEAR) Urine pH (5-6) Ur Specific [place] (1.005-1.025) Urine Protein (Negative) Urine Ketones (NEGATIVE) Urine Blood (0-5) Velasquez/ul Urine Nitrite (NEGATIVE) Urine Bilirubin (NEGATIVE) Urine Urobilinogen (0-1) mg/dL Ur Leukocyte Esterase (NEGATIVE) Urine WBC (Auto) (0-5) /HPF Urine RBC (Auto) (0-2) /HPF U Hyaline Cast (Auto) (0-2) /LPF U Epithel Cells (Auto) (FEW) /HPF Urine Bacteria (Auto) (NEGATIVE) /HPF Urine Mucus (Auto) (NEGATIVE) /HPF Urine Culture Reflexed (NO) Urine Glucose (NEGATIVE) mg/dL 09/15/19 Range/Units 12:41 WBC (4.0-10.5) K/mm3 RBC (4.1-5.4) M/mm3 Hgb (12.0-16.0) gm/dl Hct (35-47) % MCV (78-100) fl MCH (26-32) pg MCHC (32-36) g/dl RDW (11.5-14.0) % Plt Count (150-450) K/mm3 MPV (6-9.5) fl Segmented Neutrophils (36.0-66.0) % Lymphocytes (Manual) (24-44) % Monocytes (Manual) (0.0-12.0) % Eosinophils (Manual) (0.00-3.0) % Basophils (Manual) (0.0-1.0) % Atypical Lymphocytes % Toxic Granulation Platelet Estimate (NORMAL) RBC Morphology PT (9.95-12.35) SECONDS INR (0.8-3.0) APTT (25.3-37.0) SECONDS Puncture Site RIGHT RADIAL pCO2 49 H (35-45) mmHg pO2 180 H* (75-100) mmHg Base Excess -1.4 (-2.0-2.0) O2 Saturation 97.2 (94-100) g/dF ABG pH 7.32 L (7.35-7.45) ABG HCO3 25.2 (22-28) ABG O2 Sat (Measured) 100.2 H (95-100) % Tyson Test YES A-a Gradient 472 a/A Ratio 0.28 Hemoglobin 13.4 Carboxyhemoglobin 2.3 (0.0-6.9) % THgb Methemoglobin 0.7 L (1.4-1.5) % Potassium 4.3 (3.5-5.1) Temperature 37.0 C POC O2 Flow Rate 100 % Vent Mode Inspiratory BiPAP Expiratory BiPAP Sodium (137-145) mmol/L Chloride (98-107) mmol/L Carbon Dioxide (22-30) mmol/L Anion Gap (5-15) MEQ/L BUN (7-17) mg/dL Creatinine (0.52-1.04) mg/dL Estimated GFR ML/MIN Glucose (74-106) mg/dL Lactic Acid 3.0 H (0.4-2.0) Calcium (8.4-10.2) mg/dL Magnesium (1.6-2.3) mg/dL Total Bilirubin (0.2-1.3) mg/dL AST (14-36) U/L ALT (0-35) U/L Alkaline Phosphatase (38-126) U/L Troponin I (0.000-0.034) ng/mL NT-Pro-B Natriuret Pep (0-900) pg/mL Serum Total Protein (6.3-8.2) g/dL Albumin (3.5-5.0) g/dL Urine Color (YELLOW) Urine Appearance (CLEAR) Urine pH (5-6) Ur Specific [place] (1.005-1.025) Urine Protein (Negative) Urine Ketones (NEGATIVE) Urine Blood (0-5) Velasquez/ul Urine Nitrite (NEGATIVE) Urine Bilirubin (NEGATIVE) Urine Urobilinogen (0-1) mg/dL Ur Leukocyte Esterase (NEGATIVE) Urine WBC (Auto) (0-5) /HPF Urine RBC (Auto) (0-2) /HPF U Hyaline Cast (Auto) (0-2) /LPF U Epithel Cells (Auto) (FEW) /HPF Urine Bacteria (Auto) (NEGATIVE) /HPF Urine Mucus (Auto) (NEGATIVE) /HPF Urine Culture Reflexed (NO) Urine Glucose (NEGATIVE) mg/dL - Progress Progress: re-examined Air Movement: good Progress Note: 09/15/19 12:50 Checked upper lower airway with Glidoscope and no foreign bodies seen at the vocal cords, but some food debris on the right side of the vallecula that was suctioned out 09/15/19 13:33 Patient is hemodynamically in good condition, oxygenating well with BiPAP and has negative chest x-ray and soft tissue of the neck, but patient is still unresponsive. I will check a CT of the brain 09/15/19 13:35 ABG and Lactic Acid have normalized after BiPAP and IV hydration 09/15/19 14:28 Patient is alert, answering and oxygenating well on her own. snf states patient had a meatball removed during her unresponsive episode 09/15/19@14:34 Discussed the patient with Dr Heard, patient's physician at [facility]. Dr Heard states patient is at her baseline as she does not speak very much and only answers in brief sentences. Dr Heard feels patient does not need inpatient admission as patient is back to her baseline. Dr Heard will see the patient on 09/17/[address] Heard has natanael in the staff to notify her if anything changes. 09/15/19 14:48 Patient able to maintain oxygenation without any respiratory distress or tachypnea after taking her off the BiPAP for 45 minutes. Patient does not require inpatient observation at this time as she has no abnormal findings after multiple repeat examinations, imaging, and lab testing. Patient most likely had a neurocardiogenic syncopal event with a possible seizure causing her to become unresponsive and her primary care provider, Dr Heard, who knows the patient very well, feels patient may be discharged as she is at her baseline and does not require any further treatment or intensive monitoring as an inpatient with correction of her labs with treatment in the emergency department and her nursing staff will be able to monitor her at the [place] she lives. Blood Culture(s) Obtained: No Antibiotics given: No Discussed with : Solis (patient may be discharged back to her prison and she will see her there in follow-up versus admission) Counseled pt/family regarding: lab results, diagnosis, need for follow-up, rad results - Departure Departure Disposition: Extended Care Facility Clinical Impression: Essential hypertension, Acute respiratory acidosis, Unresponsive state, Elevated lactic acid level Condition: Good Critical Care Time: Yes Critical Care Time(excluding separately billable procedures): Critical 30-74 mins Referrals: LINDA HAILE [Primary Care Provider] - 09/16/19 Instructions: Shortness of Breath (Dyspnea) (DC) Additional Instructions: Return immediately back to the emergency room if any new shortness of breath, change in mental status, chest pain, low blood pressure,or any other concerning signs or symptoms that were not present at today's emergency department visit for immediate reevaluation in the emergency department.
[2019-09-15 12:53] LABS: A-aADO2 472; ABG HEMOGLOBIN 13.4; ABG POTASSIUM 4.3 (3.5-5.1); ARTERIAL BLD GAS O2 SATURATION 100.2 % (95-100); ARTERIAL BLOOD GAS BASE EXCESS -1.4 (-2.0-2.0); ARTERIAL BLOOD GAS FIO2 100 %; ARTERIAL BLOOD GAS PCO2 49 mmHg (35-45); ARTERIAL BLOOD GAS PO2 180 mmHg (75-100); ARTERIAL BLOOD GAS pH 7.32 (7.35-7.45); CARBOXYHEMOGLOBIN 2.3 % THgb (0.0-6.9); HCO3- 25.2 (22-28); HGB O2 SAT 97.2 g/dF (94-100); Methhemoglobin 0.7 % (1.4-1.5); paO2 pAO1 0.28
[2019-09-15 12:54] LABS: ABG SITE RIGHT RADIAL; ALLEN TEST OK? YES
[2019-09-15 12:56] LABS: Mean Cell Volume 94.7 fl (78-100); Mean Corpuscular Hgb Concent. 31.7 g/dl (32-36); Platelet Count 299 K/mm3 (150-450); Red Blood Count 4.33 M/mm3 (4.1-5.4); Red Cell Distribution Width 13.4 % (11.5-14.0); White Blood Count 16.4 K/mm3 (4.0-10.5)
[2019-09-15 12:58] LABS: INR 1.03 (0.8-3.0); PROTIME 11.7 SECONDS (9.95-12.35)
[2019-09-15] MEDS ORDERED: Sodium Chloride 0.9% 1000 ML 1,000 ML ONE (12:58)
[2019-09-15 12:59] LABS: Appearance CLOUDY (CLEAR); Bacteria RARE /HPF (NEGATIVE); Bilirubin NEGATIVE (NEGATIVE); Blood NEGATIVE Ery/ul (0-5); Epithelial Cells RARE /HPF (FEW); Glucose NEGATIVE (NEGATIVE); Ketones NEGATIVE (NEGATIVE); Leukocyte Esterase NEGATIVE (NEGATIVE); Mucus SLIGHT /HPF (NEGATIVE); Nitrite NEGATIVE (NEGATIVE); Protein,Urine Dip 100 (Negative); Specific Gravity 1.015 (1.005-1.025); Urobilinogen NEGATIVE mg/dL (0-1)
[2019-09-15 13:00] LABS: PTT 29.8 SECONDS (25.3-37.0)
[2019-09-15 13:14] LABS: ALBUMIN 3.8 g/dL (3.5-5.0); ALKALINE PHOSPHATASE 108 U/L (38-126); ANION GAP 14.3 MEQ/L (5-15); BLOOD UREA NITROGEN 17 mg/dL (7-17); CHLORIDE 103 mmol/L (98-107); Calcium 9.6 mg/dL (8.4-10.2); Carbon Dioxide 27 mmol/L (22-30); Creatinine 1 0.61 mg/dL (0.52-1.04); Glucose 129 mg/dL (74-106); MAGNESIUM 1.8 mg/dL (1.6-2.3); NT PRO BNP 213 pg/mL (0-900); Potassium 4.5 mmol/L (3.5-5.1); SGOT/AST 108 U/L (14-36); SGPT/ALT 59 U/L (0-35); SODIUM 140 mmol/L (137-145); Total Protein 7.6 g/dL (6.3-8.2)
--- NOTE | 2019-09-15 13:15 | XRAY ---
Indication: Cardiovascular collapse. Cardiac arrest. Comparison: December 22, 2018. Portable chest is clear. Heart is not enlarged. Bony thorax intact again with osteopenia, degenerative changes, and T12-L2 compression deformities. Impression: Nonacute chest.
--- NOTE | 2019-09-15 13:17 | XRAY ---
Indication: Possible obstruction. Comparison: None AP/lateral soft tissue neck demonstrates supra-and infraglottic airway to be patent. No radiopaque foreign body. Normal epiglottis. Underlying cervical spine intact with mild osteopenia and degenerative changes. Patient is incidentally edentulous. Impression: Negative soft tissue neck. Chronic bony findings.
[2019-09-15 13:32] LABS: A-aADO2 184; ABG HEMOGLOBIN 9.5; ABG SITE RIGHT RADIAL; ALLEN TEST OK? YES; ARTERIAL BLD GAS O2 SATURATION 99.5 % (95-100); ARTERIAL BLOOD GAS FIO2 50 %; ARTERIAL BLOOD GAS PCO2 42 mmHg (35-45); ARTERIAL BLOOD GAS PO2 120 mmHg (75-100); ARTERIAL BLOOD GAS VENT MODE BiPAP; CARBOXYHEMOGLOBIN 2.2 % THgb (0.0-6.9); HGB O2 SAT 96.9 g/dF (94-100); Methhemoglobin 0.4 % (1.4-1.5); paO2 pAO1 0.39
[2019-09-15 13:39] LABS: ATYPICAL LYMPHS 4 %; Basophil 2 % (0.0-1.0); Eosinophil 4 % (0.00-3.0); Lymphocytes 25 % (24-44); Monocyte 5 % (0.0-12.0); Neutrophils 60 % (36.0-66.0); Platelet Estimate NORMAL (NORMAL); Total Cells Counted 100; Toxic Granulation 1+
--- NOTE | 2019-09-15 14:22 | XRAY ---
Indication: Unresponsive. Cardiac arrest. Multiple contiguous axial images obtained through the head without contrast. Comparison: September 30, 2018. Stable mild left temporoparietal atrophy and minimal periventricular degenerative micro-ischemia bilaterally. No acute intracranial hemorrhage, abnormal extra-axial fluid collection, or mass effect. Fourth ventricle is midline without hydrocephalus. Sharp-white matter differentiation preserved. Bony calvarium intact. There is now near-complete opacification of the right maxillary sinus and mild mucosal thickening of both ethmoid, left sphenoid, and left frontal sinuses. Stable partial opacification of the inferior right mastoid air cells. Impression: 1. New paranasal sinus disease. 2. Stable aging brain including atrophy and degenerative micro-ischemia. 3. No acute intracranial abnormalities. CTDI 56.67
[2019-09-15 15:06] VITALS: BP 175/83; PULSE 86; O2SAT 96
== END 2019-09-15 15:20 ==
LOC: ED 12:35
DX: I10 Essential (primary) hypertension (principal); E87.2 Acidosis; R40.20 Unspecified coma; R74.0 Nonspecific elevation of levels of transaminase and lactic acid dehydrogenase [LDH]; J44.9 Chronic obstructive pulmonary disease, unspecified; F03.90 Unspecified dementia, unspecified severity, without behavioral disturbance, psychotic disturbance, mood disturbance, and anxiety; G40.909 Epilepsy, unspecified, not intractable, without status epilepticus; E03.9 Hypothyroidism, unspecified; M79.7 Fibromyalgia; M19.90 Unspecified osteoarthritis, unspecified site; Z79.899 Other long term (current) drug therapy; R55 Syncope and collapse; F41.9 Anxiety disorder, unspecified; H53.40 Unspecified visual field defects
CPT/HCPCS: 36000; 36415; 36600; 51702; 70360; 70450; 71045; 80053; 80177; 81001; 82375; 82803; 83605; 83735; 83880; 84146; 84484; 85025; 85610; 85730; 87086; 93005; 93041; 94002; 94760; 96360; 99285; 99291

== ENCOUNTER 2019-09-16 01:56 | Observation (INO) | payer MEDICARE ==
[2019-09-16] MEDS ORDERED: Sodium Chloride 0.9% 1000 ML 1,000 ML IV STA (02:09)
[2019-09-16] MEDS ORDERED: DUONEB 0.5-3 MG/3 ml Neb IH ONE ×2 (02:09→02:42)
--- NOTE | 2019-09-16 02:16 | ERPHSYRPT ---
- History of Present Illness Time Seen by Provider: 09/16/19 02:05 Source: patient, EMS, halfway records Exam Limitations: no limitations Physician History: Patient had a choking episode at lunch that caused patient to go unresponsive, in which the nursing staff performed a shock and compressions confirmed by EMS who brought her in. Patient was evaluated in the emergency department and stabilized to her baseline and transferred back to the nursing facility after her physician, Dr Heard, recommended follow-up as an outpatient. Patient is returned to the emergency department after having over 7 hours of hypoxia and respiratory distress at her nursing facility, in which Dr Heard called 20 minutes prior to patient arriving due to getting the call from the nursing facility from staff. Patient is brought in on non-rebreather and has no acute complaints. Timing/Duration: today, hour(s) (7) Activities at Onset: none Severity of Dyspnea-Max: moderate Severity of Dyspnea-Current: moderate Possible Cause: frequent episodes Modifying Factors: Worsens With: deep breath Associated Symptoms: constant, wheezing, heart racing, tightness, No cough, No chest pain/discomfort, No fever, No lightheadedness, No heaviness, No lightheadedness, No painful breathing, No productive cough Allergies/Adverse Reactions: tramadol HCl [From Ultram] Allergy (Mild, Verified 09/15/19 13:02) Rash azithromycin Allergy (Verified 09/15/19 13:02) ciprofloxacin [From Cipro] Allergy (Verified 09/15/19 13:02) Rash ciprofloxacin HCl [From Cipro] Allergy (Verified 09/15/19 13:02) Rash metronidazole Allergy (Verified 09/15/19 13:02) penicillin V [Penicillin V] Allergy (Verified 09/15/19 13:02) Rash Quinolones Allergy (Verified 09/15/19 13:02) Sulfa (Sulfonamide Antibiotics) Allergy (Verified 09/15/19 13:02) sulfisoxazole Allergy (Verified 09/15/19 13:02) tramadol Allergy (Verified 09/15/19 13:02) Home Medications: Alendronate Sodium 70 mg [Fosamax 70 MG] 70 mg PO WEEKLY 12/19/15 [History ] Levetiracetam [Keppra] 750 mg PO BID 12/19/15 [History] Potassium Chloride 10 Meq Tab* [Klor Con 10 MEQ] 10 meq PO TID 12/19/15 [ History] Folic Acid 1 mg PO DAILY 02/26/18 [History] Atorvastatin Calcium 10 mg PO HS 05/15/18 [History] Arformoterol Tartrate [Brovana] 1 vial IH BID 06/10/18 [History] Budesonide 0.5 mg/2 ml [Pulmicort 0.5 mg/2 ml Respules] 1 vial IH BID [History] Albuterol/Ipratropium 3ml Neb* [DUONEB 0.5-3 MG/3 ml Neb] 3 ml IH Q2H/PRN PRN 09/02/18 [History] Alprazolam 0.25 mg [xanAX 0.25 MG] 0.25 mg PO TID 09/02/18 [History] Aspirin [Aspirin EC] 81 mg PO DAILY 09/02/18 [History] Hydrocodone Bit/Acetaminophen [Shelby 5-325 Tablet] 1 each PO Q8HPRN PRN [History] Montelukast Sodium 10 mg [Singulair 10 MG] 10 mg PO DAILY 10/01/18 [History] PANTOPRAZOLE 40 mg Tablet [Protonix 40MG Tablet] 20 mg PO QAM 10/01/18 [ History] Lisinopril 20 mg [Zestril 20 MG] 20 mg PO DAILY 12/22/18 [History] Risperidone 1 mg [Risperdal 1 MG] 1 mg PO DAILY 12/22/18 [History] Risperidone [Risperdal] 2 mg PO BID 12/22/18 [History] Arformoterol Tartrate [Brovana] 1 vial IH BID 09/15/19 [History] Carboxymethylcellulose Sodium [Thera Tears] 1 drop OP QID 09/15/19 [History] Duloxetine HCl [Cymbalta] 1 cap PO HS 09/15/19 [History] Hx Tetanus, Diphtheria Vaccination/Date Given: Yes Hx Influenza Vaccination/Date Given: Yes Hx Pneumococcal Vaccination/Date Given: Yes - Review of Systems Constitutional: No Fever, No Chills Eyes: No Eye Redness, No Tearing Ears, Nose, & Throat: No Nose Discharge, No Mouth Swelling, No Painful Swallowing Respiratory: Dyspnea, No Cough Cardiac: No Chest Pain, No Edema, No Syncope Abdominal/Gastrointestinal: No Abdominal Pain, No Nausea, No Vomiting, No Diarrhea Genitourinary Symptoms: No Dysuria, No Flank Pain Musculoskeletal: No Back Pain, No Neck Pain Skin: No Rash Neurological: No Dizziness, No Focal Weakness, No Headache, No Lethargy, No Seizure, No Sensory Changes Psychological: No Emotional Lability Endocrine: No Excessive Sweating Hematologic/Lymphatic: No Easy Bleeding, No Easy Bruising All Other Systems: Reviewed and Negative - Past Medical History Pertinent Past Medical History: Yes Neurological History: Dementia, Seizures, Stroke ENT History: Cataracts Cardiac History: Myocardial Infarction (AR), Other Respiratory History: Asthma, COPD, Pneumonia Endocrine Medical History: Hypothyroidism Musculoskeletal History: Arthritis, Fibromyalgia GI Medical History: Diverticulitis History: No Pertinent History Psycho-Social History: Anxiety, Depression Female Reproductive Disorders: Cervical Cancer Other Medical History: pt states she has a murmur. Hx of c. Diff - Past Surgical History Past Surgical History: Yes Neuro Surgical History: No Pertinent History Cardiac: No Pertinent History Respiratory: No Pertinent History Gastrointestinal: Appendectomy, Cholecystectomy Genitourinary: No Pertinent History Musculoskeletal: Orthopedic Surgery Female Surgical History: Hysterectomy Other Surgical History: LEFT x 4, RIGHT x 1 HIP SURGERY - Social History Smoking Status: Former smoker How long have you smoked: 40 Exposure to second hand smoke: No Drug Use: none Patient Lives Alone: No (MMM) - Nursing Vital Signs Nursing Vital Signs: Initial Vital Signs Pulse Rate 116 H 09/16/19 02:00 Respiratory Rate 24 09/16/19 02:00 Blood Pressure 142/84 09/16/19 02:00 O2 Sat by Pulse Oximetry 95 09/16/19 02:00 - Physical Exam General Appearance: no apparent distress, alert Eye Exam: PERRL/EOMI Ears, Nose, Throat Exam: normal pharynx, No nasal congestion Neck Exam: normal inspection, non-tender, supple, full range of motion, No meningismus, No JVD Respiratory Exam: airway intact, accessory muscle use, rhonchi, No respiratory distress, No crackles/rales, No wheezing Cardiovascular/Chest Exam: normal heart sounds, normal peripheral pulses, tachycardia Abdominal/Gastrointestinal Exam: soft, No normal bowel sounds, No tenderness, No distention, No mass, No rebound Extremity Exam: non-tender, normal range of motion, normal inspection, no calf tenderness, no pedal edema Peripheral Pulses Exam: dorsalis-pedis (R): 2+, dorsalis-pedis (L): 2+ Neurologic Exam: alert, oriented x 3, cooperative, mobility architect II-XII nml as tested, normal mood/affect, sensation nml, No motor deficits Skin Exam: normal color, warm, No dry SpO2 Interpretation: normal O2 Delivery: Room Air - Course Nursing assessment & vital signs reviewed: Yes EKG Interpreted by Me: RATE ([id number]), Sinus Tach, NORMAL AXIS, NORMAL INTERVALS, NORMAL QRS, NORMAL ST-T, Other (negative for any acute changes 09/15/2019 EKG besides deeper S waves on leads V2/V3 on 09/16/2019 EKG) - Radiology Exams Chest X-ray Interpretation: Interpreted by me, Reviewed by me, Negative, No Fracture, No Pneumonia, No Pneumothorax, Nml Heart Size, No Infiltrates, Nml Mediastinum Ordered Tests: Active Orders 24 hr Category Date Time Status Tipple Repairer STAT Care 09/16/19 02:09 Active EKG-ER Only STAT Care 09/16/19 02:09 Active IV Insertion STAT Care 09/16/19 02:09 Active NPO (ED) STAT Care 09/16/19 02:09 Active Pulse Oximetry (ED) STAT Care 09/16/19 02:09 Active CHEST 1 VIEW (PORTABLE) Stat Exams 09/16/19 02:09 Taken ARTERIAL BLOOD GASES Stat Lab 09/16/19 02:15 Completed BLOOD CULTURE Stat Lab 09/16/19 02:56 Received CBC W DIFF Stat Lab 09/16/19 02:15 Completed CMP Stat Lab 09/16/19 02:15 Completed Lactic Acid Stat Lab 09/16/19 02:15 Completed MAGNESIUM Stat Lab 09/16/19 02:15 Completed Manual Differential NC Stat Lab 09/16/19 02:15 Completed NT PRO BNP Stat Lab 09/16/19 02:15 Completed TROPONIN Q3H Lab 09/16/19 02:15 Completed TROPONIN Q3H Lab 09/16/19 05:15 Ordered TROPONIN Q3H Lab 09/16/19 08:15 Ordered TROPONIN Q3H Lab 09/16/19 11:15 Ordered TROPONIN Q3H Lab 09/16/19 14:15 Ordered BiPap/CPAP STAT RT 09/16/19 02:09 Active Respiratory Therapy Assessment DAILY RT 09/16/19 02:54 Active Medication Summary Discontinued Medications Generic Name Dose Route Start Last Admin Trade Name Franq PRN Reason Stop Dose Admin Albuterol/Ipratropium 3 ml 09/16/19 02:09 09/16/19 02:40 Duoneb 0.5-3 Mg/3 Ml Neb IH 09/16/19 02:10 3 ml STAT ONE Administration Albuterol/Ipratropium Confirm 09/16/19 02:42 Duoneb 0.5-3 Mg/3 Ml Neb Administered 09/16/19 02:43 Dose 3 ml IH .STK-MED ONE Sodium Chloride 1,000 mls @ 999 mls/hr 09/16/19 02:09 09/16/19 02:37 Sodium Chloride 0.9% 1000 Ml IV 09/16/19 03:09 999 mls/hr .Q1H1M STA Administration Sodium Chloride Confirm 09/16/19 02:34 Sodium Chloride 0.9% 1000 Ml Administered 09/16/19 02:35 Dose 1,000 mls @ ud .ROUTE .STK-MED ONE Lab/Rad Data: Laboratory Result Diagrams 09/16/19 02:15 09/16/19 02:15 Laboratory Results 09/16/19 09/16/19 09/16/19 Range/Units 02:15 02:15 02:15 WBC (4.0-10.5) K/mm3 RBC (4.1-5.4) M/mm3 Hgb (12.0-16.0) gm/dl Hct (35-47) % MCV (78-100) fl MCH (26-32) pg MCHC (32-36) g/dl RDW (11.5-14.0) % Plt Count (150-450) K/mm3 MPV (6-9.5) fl Puncture Site LEFT RADIAL pCO2 45 (35-45) mmHg pO2 83 (75-100) mmHg Base Excess 1.0 (-2.0-2.0) O2 Saturation 95.7 (94-100) g/dF ABG pH 7.38 (7.35-7.45) ABG HCO3 26.6 (22-28) ABG O2 Sat (Measured) 98.6 (95-100) % Tyson Test Yes A-a Gradient 574 a/A Ratio 0.13 Hemoglobin 13.8 Carboxyhemoglobin 2.3 (0.0-6.9) % THgb Methemoglobin 0.6 L (1.4-1.5) % Potassium 4.2 3.9 (3.5-5.1) Temperature 37.0 C POC O2 Flow Rate 100 % Sodium 140 (137-145) mmol/L Chloride 102 (98-107) mmol/L Carbon Dioxide 30 (22-30) mmol/L Anion Gap 11.2 (5-15) MEQ/L BUN 15 (7-17) mg/dL Creatinine 0.66 (0.52-1.04) mg/dL Estimated GFR > 60.0 ML/MIN Glucose 129 H (74-106) mg/dL Lactic Acid 0.9 (0.4-2.0) Calcium 9.5 (8.4-10.2) mg/dL Magnesium 1.6 (1.6-2.3) mg/dL Total Bilirubin 0.60 (0.2-1.3) mg/dL AST 76 H (14-36) U/L ALT 56 H (0-35) U/L Alkaline Phosphatase 125 (38-126) U/L Troponin I 0.071 H* (0.000-0.034) ng/mL NT-Pro-B Natriuret Pep 1440 H (0-900) pg/mL Serum Total Protein 7.7 (6.3-8.2) g/dL Albumin 3.8 (3.5-5.0) g/dL 09/16/19 Range/Units 02:15 WBC 28.8 H* (4.0-10.5) K/mm3 RBC 4.33 (4.1-5.4) M/mm3 Hgb 13.0 (12.0-16.0) gm/dl Hct 40.1 (35-47) % MCV 92.6 (78-100) fl MCH 30.0 (26-32) pg MCHC 32.4 (32-36) g/dl RDW 13.4 (11.5-14.0) % Plt Count 272 (150-450) K/mm3 MPV 10.7 H (6-9.5) fl Puncture Site pCO2 (35-45) mmHg pO2 (75-100) mmHg Base Excess (-2.0-2.0) O2 Saturation (94-100) g/dF ABG pH (7.35-7.45) ABG HCO3 (22-28) ABG O2 Sat (Measured) (95-100) % Tyson Test A-a Gradient a/A Ratio Hemoglobin Carboxyhemoglobin (0.0-6.9) % THgb Methemoglobin (1.4-1.5) % Potassium (3.5-5.1) Temperature C POC O2 Flow Rate % Sodium (137-145) mmol/L Chloride (98-107) mmol/L Carbon Dioxide (22-30) mmol/L Anion Gap (5-15) MEQ/L BUN (7-17) mg/dL Creatinine (0.52-1.04) mg/dL Estimated GFR ML/MIN Glucose (74-106) mg/dL Lactic Acid (0.4-2.0) Calcium (8.4-10.2) mg/dL Magnesium (1.6-2.3) mg/dL Total Bilirubin (0.2-1.3) mg/dL AST (14-36) U/L ALT (0-35) U/L Alkaline Phosphatase (38-126) U/L Troponin I (0.000-0.034) ng/mL NT-Pro-B Natriuret Pep (0-900) pg/mL Serum Total Protein (6.3-8.2) g/dL Albumin (3.5-5.0) g/dL - Progress Progress: re-examined Air Movement: good Progress Note: 09/16/19 03:20 Patient resting comfortably on BiPAP with oxygen at 98%. Sinus tachycardia on the monitor in the low 100s Blood Culture(s) Obtained: Yes Antibiotics given: No Discussed with .: [facility] (Discussed the patient with Dr Heard, Hospitalist. Dr Heard accepted the patient for observation and would like antibiotics for aspiration pneumonia coverage and fluids at 100ml/hr with repeat labs in the am of 09/16/2019) Counseled pt/family regarding: lab results, diagnosis, need for follow-up, rad results - Departure Departure Disposition: Observation ([facility]) Clinical Impression: Respiratory distress, COPD exacerbation, SIRS (systemic inflammatory response syndrome), Elevated troponin, Hypoxia Condition: Fair Critical Care Time: No Referrals: LINDA HAILE [Primary Care Provider] - Instructions: Chronic Obstructive Pulmonary Disease
[2019-09-16 02:23] LABS: Hematocrit 40.1 % (35-47); Mean Cell Volume 92.6 fl (78-100); Mean Corpuscular Hgb Concent. 32.4 g/dl (32-36); Mean Platelet Volume 10.7 fl (6-9.5); Platelet Count 272 K/mm3 (150-450); Red Blood Count 4.33 M/mm3 (4.1-5.4); Red Cell Distribution Width 13.4 % (11.5-14.0)
[2019-09-16 02:34] LABS: A-aADO2 574; ABG HEMOGLOBIN 13.8; ABG POTASSIUM 3.9 (3.5-5.1); ABG SITE LEFT RADIAL; ALLEN TEST OK? Yes; ARTERIAL BLD GAS O2 SATURATION 98.6 % (95-100); ARTERIAL BLOOD GAS FIO2 100 %; ARTERIAL BLOOD GAS PCO2 45 mmHg (35-45); ARTERIAL BLOOD GAS PO2 83 mmHg (75-100); ARTERIAL BLOOD GAS pH 7.38 (7.35-7.45); CARBOXYHEMOGLOBIN 2.3 % THgb (0.0-6.9); HCO3- 26.6 (22-28); HGB O2 SAT 95.7 g/dF (94-100); Lactic Acid 0.9 (0.4-2.0); Methhemoglobin 0.6 % (1.4-1.5); paO2 pAO1 0.13
[2019-09-16] MEDS ORDERED: Sodium Chloride 0.9% 1000 ML 1,000 ML ONE (02:34)
[2019-09-16 02:37] LABS: White Blood Count 28.8 K/mm3 (4.0-10.5)
[2019-09-16 02:43] LABS: ALBUMIN 3.8 g/dL (3.5-5.0); ALKALINE PHOSPHATASE 125 U/L (38-126); ANION GAP 11.2 MEQ/L (5-15); BLOOD UREA NITROGEN 15 mg/dL (7-17); CHLORIDE 102 mmol/L (98-107); Calcium 9.5 mg/dL (8.4-10.2); Carbon Dioxide 30 mmol/L (22-30); Creatinine 1 0.66 mg/dL (0.52-1.04); Glucose 129 mg/dL (74-106); MAGNESIUM 1.6 mg/dL (1.6-2.3); NT PRO BNP 1440 pg/mL (0-900); Potassium 4.2 mmol/L (3.5-5.1); SGOT/AST 76 U/L (14-36); SGPT/ALT 56 U/L (0-35); SODIUM 140 mmol/L (137-145); Total Protein 7.7 g/dL (6.3-8.2)
[2019-09-16] MEDS ORDERED: Sodium Chloride 0.9% 100 ML IVPB 0 ML IV ONE (03:48)
[2019-09-16] MEDS ORDERED: Merrem 1 GM IV ONE ×2 (03:48→05:32)
[2019-09-16 03:58] LABS: BAND 8 % (0.0-2.0); Lymphocytes 11 % (24-44); Neutrophils 81 % (36.0-66.0); Platelet Estimate NORMAL (NORMAL); Total Cells Counted 100
[2019-09-16 04:03] LABS: Poikilocytosis 1+
[2019-09-16 04:04] LABS: ANISOCYTOSIS 1+
[2019-09-16 04:07] LABS: Toxic Granulation 1+
[2019-09-16] MEDS ORDERED: TYLENOL 325 MG PO PRN (04:52)
[2019-09-16] MEDS ORDERED: Sodium Chloride 0.9% 1000 ML 1,000 ML IV SCH (04:52)
[2019-09-16] MEDS ORDERED: Sodium Chloride 0.9% 100 ML IVPB 100 ML IV ONE (05:33)
[2019-09-16] MEDS ORDERED: Merrem 1 GM 1 G in Sodium Chloride 100ML MINI-BAG PLUS 100 ML IV SCH (06:00)
[2019-09-16] MEDS ORDERED: DUONEB 0.5-3 MG/3 ml Neb IH SCH (07:00)
[2019-09-16 07:17] VITALS: BP 148/80
[2019-09-16 08:14] VITALS: PULSE 114
--- NOTE | 2019-09-16 09:31 | XRAY ---
Indication: Short of breath. Comparison: One day earlier. Portable chest demonstrates patient now slightly side bent/rotated. Lungs remain clear. Heart is not enlarged. No new/acute findings.
[2019-09-16] MEDS ORDERED: ENOXAPARIN SODIUM SQ SCH (10:00)
[2019-09-16 10:22] VITALS: O2SAT 92
--- NOTE | 2019-10-02 21:10 | PCM.NOTE ---
Date and Time: 09/16/19 0000 Subjective Assessment: Patient is a 64 year old female with hemiplegia and hemiparesis following remote Hx CVA affecting right dominant side,also suffers from bipolar depression and cognitive communication defecit and a hx seizures,COPD on continuous O2,HTN.CHF,CAD and GERD. She is a resident at [facility]. Patient had an episode in the dining room 09/15/19 where she was finishing up her meatball dinner and choked and had seizure activity where her right arm was stiff and jerking. The nursing staff was in the dining room and removed a piece of meatball from the patient's throat with a finger sweep. ER physician used glidoscope and removed food debris from right side of the vallecula. Patient was observed after treatment and was stable and returned to [facility] with close nursing observation. The following day she developed tachycardia and difficulty breathing and was admitted through ER (WBC was 28,800) for treatment of aspiration pneumonia.Soon after admission it became apparent that bronchosopy was needed as patient's O2 sats became difficult to maintain. DR Drummond,Acid Retort Operator, requested patient be transferred to [facility] so he could do a timely bronchoscopy. Arrangements were made for transfer. OBJECTIVE DATA Vital Signs: Pain Assessment - Last Documented Pain Scale Used 0-10 Pain Scale Assessment/Plan (1) Acute and chronic respiratory failure with hypoxia Status: Acute Onset Date: ~09/06/18 Code(s): J96.21 - ACUTE AND CHRONIC RESPIRATORY FAILURE WITH HYPOXIA (2) Aspiration pneumonitis Status: Acute Code(s): J69.0 - PNEUMONITIS DUE TO INHALATION OF FOOD AND VOMIT (3) Foreign body Status: Acute Code(s): BPK1057 - (4) Foreign body in bronchioles Status: Acute Code(s): T17.808A - UNSP FB IN OTH PRT RESP TRACT CAUSING OTH INJURY, INIT
== END 2019-09-16 10:40 | disposition short-term general hospital (02) ==
LOC: ED 01:56 → MED SURG 04:04
PROVIDERS: ADMIT Family Medicine; ATTEND Family Medicine
DX: J96.21 Acute and chronic respiratory failure with hypoxia (principal); J44.1 Chronic obstructive pulmonary disease with (acute) exacerbation; J69.0 Pneumonitis due to inhalation of food and vomit; Z86.73 Personal history of transient ischemic attack (TIA), and cerebral infarction without residual deficits; I10 Essential (primary) hypertension; I25.10 Atherosclerotic heart disease of native coronary artery without angina pectoris; K21.9 Gastro-esophageal reflux disease without esophagitis; Z99.81 Dependence on supplemental oxygen; Z79.899 Other long term (current) drug therapy
CPT/HCPCS: 36000; 36415; 36600; 71045; 80053; 82375; 82803; 83605; 83735; 83880; 84134; 84484; 85025; 87040; 93005; 93041; 93268; 94002; 94003; 94640; 94760; 96360; 99284; G0378; A9270-GY

== ENCOUNTER 2019-10-07 09:24 | Inpatient (IN) | payer MEDICARE ==
--- NOTE | 2019-10-07 09:48 | ERPHSYRPT ---
- History of Present Illness Time Seen by Provider: 10/07/19 09:34 Source: [facility] Exam Limitations: no limitations Patient Subjective Stated Complaint: pt here for increase sob, high WBC, pt resides at [facility] and has been in and out of hospital this month after chocking on a meatball, pt wears o2 at 4 l n[place], Triage Nursing Assessment: pt alert, but slow to respind which is normal for her , resp labored with movement, edema to lower legs, congested sounding cough , pt denies any cos Physician History: pt c/o SOB x few days denies cough/Chest pain/palpitations/recent infections/fever.abdominal pain pt. is a poor historian and is minimally verbal- which seems to be her baseline per nursing staff Pt. is from a [facility]- per [facility] staff- pot. had a CXR yesterday showing persistent pneumonia, had a high WBC count pt. was on clindamycin Po BID x 7 days which she completed on 09/30/19. Timing/Duration: day(s), gradual onset, worse Cough Quality/Degree: mild Possible Cause: occasional episodes Modifying Factors: Improves With: coughing, deep breath, exertion Associated Symptoms: cough, No fever, No chills, No chest pain/soreness, No dizziness International travel in last 2 weeks: No Allergies/Adverse Reactions: tramadol HCl [From Ultram] Allergy (Mild, Verified 10/07/19 09:44) Rash azithromycin Allergy (Verified 10/07/19 09:44) ciprofloxacin [From Cipro] Allergy (Verified 10/07/19 09:44) Rash ciprofloxacin HCl [From Cipro] Allergy (Verified 10/07/19 09:44) Rash metronidazole Allergy (Verified 10/07/19 09:44) penicillin V [Penicillin V] Allergy (Verified 10/07/19 09:44) Rash Quinolones Allergy (Verified 10/07/19 09:44) Sulfa (Sulfonamide Antibiotics) Allergy (Verified 10/07/19 09:44) sulfisoxazole Allergy (Verified 10/07/19 09:44) tramadol Allergy (Verified 10/07/19 09:44) Home Medications: Alendronate Sodium 70 mg [Fosamax 70 MG] 70 mg PO WEEKLY 12/19/15 [History ] Levetiracetam [Keppra] 750 mg PO BID 12/19/15 [History] Potassium Chloride 10 Meq Tab* [Klor Con 10 MEQ] 10 meq PO TID 12/19/15 [ History] Folic Acid 1 mg PO DAILY 02/26/18 [History] Atorvastatin Calcium 10 mg PO HS 05/15/18 [History] Arformoterol Tartrate [Brovana] 1 vial IH BID 06/10/18 [History] Budesonide 0.5 mg/2 ml [Pulmicort 0.5 mg/2 ml Respules] 1 vial IH BID [History] Albuterol/Ipratropium 3ml Neb* [DUONEB 0.5-3 MG/3 ml Neb] 3 ml IH Q2H/PRN PRN 09/02/18 [History] Alprazolam 0.25 mg [xanAX 0.25 MG] 0.25 mg PO TID 09/02/18 [History] Aspirin [Aspirin EC] 81 mg PO DAILY 09/02/18 [History] Hydrocodone Bit/Acetaminophen [[place] 5-325 Tablet] 1 each PO Q8HPRN PRN [History] Montelukast Sodium 10 mg [Singulair 10 MG] 10 mg PO DAILY 10/01/18 [History] PANTOPRAZOLE 40 mg Tablet [Protonix 40MG Tablet] 20 mg PO QAM 10/01/18 [ History] Lisinopril 20 mg [Zestril 20 MG] 20 mg PO DAILY 12/22/18 [History] Risperidone 1 mg [Risperdal 1 MG] 1 mg PO EVENING MEAL 12/22/18 [History] Risperidone [Risperdal] 2 mg PO BID 12/22/18 [History] Carboxymethylcellulose Sodium [Thera Tears] 1 drop OP QID 09/15/19 [History] Duloxetine HCl [Cymbalta] 60 mg PO HS 09/15/19 [History] Hx Tetanus, Diphtheria Vaccination/Date Given: Yes Hx Influenza Vaccination/Date Given: Yes Hx Pneumococcal Vaccination/Date Given: Yes Immunizations Up to Date: Yes - Review of Systems Constitutional: No Fever, No Chills, No Fatigue Eyes: No No Symptoms Ears, Nose, & Throat: No No Symptoms Respiratory: Cough, Dyspnea, Wheezing Cardiac: Edema, No No Symptoms, No Chest Pain, No Palpitations, No Syncope Abdominal/Gastrointestinal: No No Symptoms Genitourinary Symptoms: No No Symptoms Musculoskeletal: No No Symptoms Skin: No No Symptoms Neurological: No No Symptoms Psychological: No No Symptoms Endocrine: No No Symptoms Hematologic/Lymphatic: No No Symptoms Immunological/Allergic: No No Symptoms All Other Systems: Reviewed and Negative - Past Medical History Pertinent Past Medical History: Yes Neurological History: Dementia, Seizures, Stroke ENT History: Cataracts Cardiac History: High Cholesterol, Hypertension, Myocardial Infarction ([place]), Other Respiratory History: Asthma, CHF, COPD, Pneumonia Endocrine Medical History: Hypothyroidism Musculoskeletal History: Arthritis, Fibromyalgia, Osteoporosis GI Medical History: Diverticulitis, GERD History: No Pertinent History Psycho-Social History: Anxiety, Bipolar, Depression Female Reproductive Disorders: Cervical Cancer Other Medical History: pt states she has a murmur. Hx of c. Diff - Past Surgical History Past Surgical History: Yes Neuro Surgical History: No Pertinent History Cardiac: No Pertinent History Respiratory: No Pertinent History Gastrointestinal: Appendectomy, Cholecystectomy Genitourinary: No Pertinent History Musculoskeletal: Orthopedic Surgery Female Surgical History: Hysterectomy Other Surgical History: LEFT x 4, RIGHT x 1 HIP SURGERY - Social History Smoking Status: Former smoker How long have you smoked: 40 Exposure to second hand smoke: No Drug Use: none Patient Lives Alone: No ([facility]) - Female History Hx Last Menstrual Period: post Hx Now: No - Nursing Vital Signs Nursing Vital Signs: Initial Vital Signs Pulse Rate 124 H 10/07/19 09:29 Respiratory Rate 28 H 10/07/19 09:29 Blood Pressure 83/56 10/07/19 09:29 O2 Sat by Pulse Oximetry 95 10/07/19 09:29 Pain Scale Pain Intensity 0 - Physical Exam General Appearance: mild distress Eye Exam: PERRL/EOMI Ears, Nose, Throat Exam: normal ENT inspection, TMs normal, pharynx normal, dry mucous membranes Neck Exam: normal inspection Respiratory Exam: diminished breath sounds, accessory muscle use, wheezing Cardiovascular Exam: murmur, tachycardia, edema Gastrointestinal/Abdomen Exam: soft Pelvic Exam: not done Rectal Exam: deferred Back Exam: normal inspection, No CVA tenderness Extremity Exam: normal inspection Neurologic Exam: oriented x 3, cooperative, normal mood/affect Skin Exam: normal color Lymphatic Exam: No adenopathy SpO2 Interpretation: borderline oxygenation SpO2: 95 O2 Delivery: Room Air - Course EKG Interpreted by Me: RATE, Sinus Rhythm, NORMAL AXIS, NORMAL INTERVALS, NORMAL QRS Rhythm Strip: Rate, Normal Sinus Rhythm Ordered Tests: Active Orders 24 hr Category Date Time Status EKG-ER Only STAT Care 10/07/19 09:52 Active IV Insertion STAT Care 10/07/19 09:52 Active CHEST 2 VIEWS (PA AND LAT) Stat Exams 10/07/19 09:52 Completed BLOOD CULTURE Stat Lab 10/07/19 10:28 Received CBC W DIFF Stat Lab 10/07/19 10:20 Completed CK-Creatinine Phosphokinase Stat Lab 10/07/19 10:00 Completed CMP Stat Lab 10/07/19 10:20 Completed CULTURE,URINE Stat Lab 10/07/19 09:54 Received Lactic Acid Stat Lab 10/07/19 10:17 Completed Lactic Acid Stat Lab 10/07/19 12:37 Ordered MAGNESIUM Stat Lab 10/07/19 10:20 Completed Manual Differential NC Stat Lab 10/07/19 10:20 Completed NT PRO BNP Stat Lab 10/07/19 10:20 Completed TROPONIN Q3H Lab 10/07/19 10:20 Completed TROPONIN Q3H Lab 10/07/19 12:59 Received TROPONIN Q3H Lab 10/07/19 16:00 Ordered TROPONIN Q3H Lab 10/07/19 19:00 Ordered TROPONIN Q3H Lab 10/07/19 22:00 Ordered UA W/RFX UR CULTURE Stat Lab 10/07/19 09:54 Completed Respiratory Therapy Assessment ONCE RT 10/07/19 10:32 Active Transfer Order Routine Transfer 10/07/19 Ordered Medication Summary Generic Name Dose Route Start Last Admin Trade Name Freq PRN Reason Stop Dose Admin Sodium Chloride 1,000 mls @ 100 mls/hr 10/07/19 10:00 10/07/19 11:36 Sodium Chloride 0.9% 1000 Ml IV 11/06/19 09:59 Infused .Q10H EDMUNDO Infusion Discontinued Medications Generic Name Dose Route Start Last Admin Trade Name Freq PRN Reason Stop Dose Admin Albuterol/Ipratropium 3 ml 10/07/19 09:52 10/07/19 10:27 Duoneb 0.5-3 Mg/3 Ml Neb IH 10/07/19 09:53 3 ml STAT ONE Administration Albuterol/Ipratropium Confirm 10/07/19 10:06 Duoneb 0.5-3 Mg/3 Ml Neb Administered 10/07/19 10:07 Dose 3 ml IH .STK-MED ONE Ceftriaxone Sodium 1,000 mg/ 100 mls @ 100 mls/hr 10/07/19 10:45 10/07/19 10: 56 Sodium Chloride IV 10/07/19 11:44 Not Given STAT ONE Ceftriaxone Sodium/Dextrose Confirm 10/07/19 10:54 Rocephin 1 Gm-D5w 50 Ml Bag Administered 10/07/19 10:55 Dose 1 g in 50 mls @ ud IV .STK-MED ONE Ceftriaxone Sodium/Dextrose 1 g in 50 mls @ 100 mls/hr 10/07/19 10:55 11:37 Rocephin 1 Gm-D5w 50 Ml Bag IV 10/07/19 11:24 Infused STAT STA Infusion Lab/Rad Data: Laboratory Result Diagrams 10/07/19 10:20 10/07/19 10:20 Laboratory Results 10/07/19 10/07/19 10/07/19 Range/Units 10:30 10:20 10:20 WBC (4.0-10.5) K/mm3 RBC (4.1-5.4) M/mm3 Hgb (12.0-16.0) gm/dl Hct (35-47) % MCV (78-100) fl MCH (26-32) pg MCHC (32-36) g/dl RDW (11.5-14.0) % Plt Count (150-450) K/mm3 MPV (6-9.5) fl Segmented Neutrophils (36.0-66.0) % Band Neutrophils (0.0-2.0) % Lymphocytes (Manual) (24-44) % Monocytes (Manual) (0.0-12.0) % Toxic Granulation Platelet Estimate (NORMAL) RBC Morphology Anisocytosis Sodium 139 (137-145) mmol/L Potassium 3.9 (3.5-5.1) mmol/L Chloride 102 (98-107) mmol/L Carbon Dioxide 29 (22-30) mmol/L Anion Gap 11.1 (5-15) MEQ/L BUN 22 H (7-17) mg/dL Creatinine 1.00 (0.52-1.04) mg/dL Estimated GFR 59.1 ML/MIN Glucose 115 H (74-106) mg/dL Lactic Acid (0.4-2.0) Calcium 9.3 (8.4-10.2) mg/dL Magnesium 1.9 (1.6-2.3) mg/dL Total Bilirubin 0.90 (0.2-1.3) mg/dL AST 36 (14-36) U/L ALT 16 (0-35) U/L Alkaline Phosphatase 197 H (38-126) U/L Creatine Kinase (30-135) U/L Troponin I 0.171 H* (0.000-0.034) ng/mL NT-Pro-B Natriuret Pep 1330 H (0-900) pg/mL Serum Total Protein 6.6 (6.3-8.2) g/dL Albumin 3.3 L (3.5-5.0) g/dL Urine Color (YELLOW) Urine Appearance (CLEAR) Urine pH (5-6) Ur Specific [place] (1.005-1.025) Urine Protein (Negative) Urine Ketones (NEGATIVE) Urine Blood (0-5) Velasquez/ul Urine Nitrite (NEGATIVE) Urine Bilirubin (NEGATIVE) Urine Urobilinogen (0-1) mg/dL Ur Leukocyte Esterase (NEGATIVE) Urine WBC (Auto) (0-5) /HPF Urine RBC (Auto) (0-2) /HPF U Epithel Cells (Auto) (FEW) /HPF Urine Bacteria (Auto) (NEGATIVE) /HPF Urine Mucus (Auto) (NEGATIVE) /HPF Urine Culture Reflexed (NO) Urine Glucose (NEGATIVE) mg/dL Influenza Type A Ag NEGATIVE (NEGATIVE) Influenza Type B Ag NEGATIVE (NEGATIVE) RSV (PCR) NEGATIVE (Negative) 10/07/19 10/07/19 10/07/19 Range/Units 10:20 10:17 10:00 WBC 28.7 H* (4.0-10.5) K/mm3 RBC 3.93 L (4.1-5.4) M/mm3 Hgb 11.8 L (12.0-16.0) gm/dl Hct 38.0 (35-47) % MCV 96.7 (78-100) fl MCH 30.0 (26-32) pg MCHC 31.1 L (32-36) g/dl RDW 15.1 H (11.5-14.0) % Plt Count 221 (150-450) K/mm3 MPV 11.0 H (6-9.5) fl Segmented Neutrophils 83 H (36.0-66.0) % Band Neutrophils 4 H (0.0-2.0) % Lymphocytes (Manual) 9 L (24-44) % Monocytes (Manual) 4 (0.0-12.0) % Toxic Granulation 1+ Platelet Estimate NORMAL (NORMAL) RBC Morphology ABNORMAL Anisocytosis 1+ Sodium (137-145) mmol/L Potassium (3.5-5.1) mmol/L Chloride (98-107) mmol/L Carbon Dioxide (22-30) mmol/L Anion Gap (5-15) MEQ/L BUN (7-17) mg/dL Creatinine (0.52-1.04) mg/dL Estimated GFR ML/MIN Glucose (74-106) mg/dL Lactic Acid 2.6 H (0.4-2.0) Calcium (8.4-10.2) mg/dL Magnesium (1.6-2.3) mg/dL Total Bilirubin (0.2-1.3) mg/dL AST (14-36) U/L ALT (0-35) U/L Alkaline Phosphatase (38-126) U/L Creatine Kinase 210 H (30-135) U/L Troponin I (0.000-0.034) ng/mL NT-Pro-B Natriuret Pep (0-900) pg/mL Serum Total Protein (6.3-8.2) g/dL Albumin (3.5-5.0) g/dL Urine Color (YELLOW) Urine Appearance (CLEAR) Urine pH (5-6) Ur Specific [place] (1.005-1.025) Urine Protein (Negative) Urine Ketones (NEGATIVE) Urine Blood (0-5) Velasquez/ul Urine Nitrite (NEGATIVE) Urine Bilirubin (NEGATIVE) Urine Urobilinogen (0-1) mg/dL Ur Leukocyte Esterase (NEGATIVE) Urine WBC (Auto) (0-5) /HPF Urine RBC (Auto) (0-2) /HPF U Epithel Cells (Auto) (FEW) /HPF Urine Bacteria (Auto) (NEGATIVE) /HPF Urine Mucus (Auto) (NEGATIVE) /HPF Urine Culture Reflexed (NO) Urine Glucose (NEGATIVE) mg/dL Influenza Type A Ag (NEGATIVE) Influenza Type B Ag (NEGATIVE) RSV (PCR) (Negative) 10/07/19 Range/Units 09:54 WBC (4.0-10.5) K/mm3 RBC (4.1-5.4) M/mm3 Hgb (12.0-16.0) gm/dl Hct (35-47) % MCV (78-100) fl MCH (26-32) pg MCHC (32-36) g/dl RDW (11.5-14.0) % Plt Count (150-450) K/mm3 MPV (6-9.5) fl Segmented Neutrophils (36.0-66.0) % Band Neutrophils (0.0-2.0) % Lymphocytes (Manual) (24-44) % Monocytes (Manual) (0.0-12.0) % Toxic Granulation Platelet Estimate (NORMAL) RBC Morphology Anisocytosis Sodium (137-145) mmol/L Potassium (3.5-5.1) mmol/L Chloride (98-107) mmol/L Carbon Dioxide (22-30) mmol/L Anion Gap (5-15) MEQ/L BUN (7-17) mg/dL Creatinine (0.52-1.04) mg/dL Estimated GFR ML/MIN Glucose (74-106) mg/dL Lactic Acid (0.4-2.0) Calcium (8.4-10.2) mg/dL Magnesium (1.6-2.3) mg/dL Total Bilirubin (0.2-1.3) mg/dL AST (14-36) U/L ALT (0-35) U/L Alkaline Phosphatase (38-126) U/L Creatine Kinase (30-135) U/L Troponin I (0.000-0.034) ng/mL NT-Pro-B Natriuret Pep (0-900) pg/mL Serum Total Protein (6.3-8.2) g/dL Albumin (3.5-5.0) g/dL Urine Color PABLO (YELLOW) Urine Appearance CLOUDY (CLEAR) Urine pH 5.0 (5-6) Ur Specific [place] 1.020 (1.005-1.025) Urine Protein 30 (Negative) Urine Ketones NEGATIVE (NEGATIVE) Urine Blood NEGATIVE (0-5) Velasquez/ul Urine Nitrite NEGATIVE (NEGATIVE) Urine Bilirubin NEGATIVE (NEGATIVE) Urine Urobilinogen NEGATIVE (0-1) mg/dL Ur Leukocyte Esterase MODERATE (NEGATIVE) Urine WBC (Auto) >100 (0-5) /HPF Urine RBC (Auto) 6-10 (0-2) /HPF U Epithel Cells (Auto) RARE (FEW) /HPF Urine Bacteria (Auto) MODERATE (NEGATIVE) /HPF Urine Mucus (Auto) SLIGHT (NEGATIVE) /HPF Urine Culture Reflexed YES (NO) Urine Glucose NEGATIVE (NEGATIVE) mg/dL Influenza Type A Ag (NEGATIVE) Influenza Type B Ag (NEGATIVE) RSV (PCR) (Negative) - Progress Progress: unchanged Air Movement: fair Progress Note: 10/07/19 10:54 This's a 64 yr old pt. presenting to ED for evaluation of SOb and ?pneumonia per CXR in [facility] - Vitals- showed hypotension with BP 83/56 which is chronic for pt.per chart review - tachycardia with HR 124 and tachypnea with RR 28 - she satisfies SIRS criteria with sepsis- IVF bolus + antibiotics initiated after drawing labs and cultures - ECHO 06/01 showed LVEF 66% - EKG- WNL - LActate 2.6 - cxr- No consolidation /effusion. stable nonacute chest with chronic features -CBC showed WBC 28.7 - 10/07/19 11:09 UA - cloudy, with moderate leukocytes and >100 WBC- + UTI, urine sent for culture 10/07/19 12:32 - CMP - WNL - BNP- 1330 - influenza and rsv negative - troponin elevated at 0.171, CPK wnl, EKG- NSR, pt. does not have chest pain, repeat troponin ordered - Given sepsis most likely from UTI , mild CHF exacerbation-0 advised admission - discussed with who agreed to admit the patient Blood Culture(s) Obtained: Yes Antibiotics given: Yes Discussed with : Pawel Will see patient in: hospital (full admit) Counseled pt/family regarding: lab results, diagnosis - Departure Departure Disposition: In-patient Admission Clinical Impression: Sepsis, UTI (urinary tract infection), Acute exacerbation of CHF (congestive heart failure) Condition: Fair Critical Care Time: Yes Critical Care Time(excluding separately billable procedures): Critical 30-74 mins
[2019-10-07] MEDS ORDERED: DUONEB 0.5-3 MG/3 ml Neb IH ONE ×2 (09:52→10:06)
[2019-10-07] MEDS ORDERED: Sodium Chloride 0.9% 1000 ML 1,000 ML IV SCH (10:00)
[2019-10-07] MEDS ORDERED: Sodium Chloride 0.9% 1000 ML 1,000 ML ONE (10:02)
--- NOTE | 2019-10-07 10:25 | XRAY ---
Indication: Pneumonia. Comparison: September 16, 2019. Portable chest again demonstrates chronic lung markings without focal infiltrate, consolidation, or large effusion. Heart is not enlarged for AP portable technique. Bony thorax intact again with osteopenia, degenerative changes, and remote thoracolumbar junction compression fractures. Impression: Stable nonacute chest with chronic features.
[2019-10-07 10:37] LABS: Lactic Acid 2.6 (0.4-2.0)
[2019-10-07] MEDS ORDERED: Rocephin 1000 MG INJ** 1,000 MG in Sodium Chloride 0.9% 100 ML IVPB 100 ML IV ONE (10:45)
[2019-10-07 10:46] LABS: Hemoglobin 11.8 gm/dl (12.0-16.0); Mean Cell Volume 96.7 fl (78-100); Mean Corpuscular Hgb Concent. 31.1 g/dl (32-36); Platelet Count 221 K/mm3 (150-450); Red Blood Count 3.93 M/mm3 (4.1-5.4); Red Cell Distribution Width 15.1 % (11.5-14.0)
[2019-10-07 10:53] LABS: Appearance CLOUDY (CLEAR); Bacteria MODERATE /HPF (NEGATIVE); Bilirubin NEGATIVE (NEGATIVE); Blood NEGATIVE Ery/ul (0-5); Epithelial Cells RARE /HPF (FEW); Glucose NEGATIVE (NEGATIVE); Ketones NEGATIVE (NEGATIVE); Leukocyte Esterase MODERATE (NEGATIVE); Mucus SLIGHT /HPF (NEGATIVE); Nitrite NEGATIVE (NEGATIVE); Protein,Urine Dip 30 (Negative); Urobilinogen NEGATIVE mg/dL (0-1); WBC >100 /HPF (0-5)
[2019-10-07] MEDS ORDERED: ROCEPHIN 1 Gm-D5w 50 ml Bag** 1 G/50 ML IVPB IV ONE (10:54)
[2019-10-07] MEDS ORDERED: ROCEPHIN 1 Gm-D5w 50 ml Bag** 1 G/50 ML IVPB IV STA (10:55)
[2019-10-07 10:58] LABS: White Blood Count 28.7 K/mm3 (4.0-10.5)
[2019-10-07 11:18] LABS: INFLUENZA A NEGATIVE (NEGATIVE); INFLUENZA B NEGATIVE (NEGATIVE); RESPIRATORY SYNCTIAL VIRUS NEGATIVE (Negative)
[2019-10-07 11:21] LABS: ALBUMIN 3.3 g/dL (3.5-5.0); ANION GAP 11.1 MEQ/L (5-15); BILIRUBIN,TOTAL 0.9 mg/dL (0.2-1.3); Calcium 9.3 mg/dL (8.4-10.2); MAGNESIUM 1.9 mg/dL (1.6-2.3); Potassium 3.9 mmol/L (3.5-5.1); Total Protein 6.6 g/dL (6.3-8.2)
[2019-10-07 11:31] LABS: BAND 4 % (0.0-2.0); Lymphocytes 9 % (24-44); Monocyte 4 % (0.0-12.0); Neutrophils 83 % (36.0-66.0); Total Cells Counted 100
[2019-10-07 11:32] LABS: ANISOCYTOSIS 1+; Platelet Estimate NORMAL (NORMAL); Toxic Granulation 1+
[2019-10-07] MEDS ORDERED: PROVENTIL 2.5 MG/3 ML NEB IH PRN (14:52)
[2019-10-07] MEDS ORDERED: TYLENOL 325 MG PO PRN (15:26)
[2019-10-07] MEDS ORDERED: NORCO 5/325 MG PO PRN (15:26)
[2019-10-07] MEDS ORDERED: DUONEB 0.5-3 MG/3 ml Neb IH PRN (15:26)
[2019-10-07] MEDS ORDERED: MEDICATION INTERVENTION MC SCH (15:45)
[2019-10-07] MEDS ORDERED: NON-FORMULARY ITEM (Carboxymethylcellulose Sodium [Thera Tears] 1 DROP) OP SCH (17:00)
[2019-10-07] MEDS ORDERED: Risperdal 1 MG PO SCH ×2 (18:00)
[2019-10-07] MEDS: Artificial Tears 15 ML OP SCH ×2 (18:15→21:18)
[2019-10-07] MEDS: Risperdal 1 MG PO SCH ×2 (18:15→21:17)
[2019-10-07] MEDS: PULMICORT 0.5 MG/2 ML RESPULES IH SCH (19:27)
[2019-10-07] MEDS: Sodium Chloride 0.9% 1000 ML 1,000 ML IV SCH (20:09)
[2019-10-07] MEDS: Klor Con 10 MEQ PO SCH (21:17)
[2019-10-07] MEDS: Cymbalta 30 MG Capsule PO SCH (21:18)
[2019-10-07] MEDS: KEPPRA 500 MG PO SCH (21:18)
[2019-10-07] MEDS: xanAX 0.25 MG PO SCH (21:18)
[2019-10-07] MEDS: Zocor 10MG PO SCH (21:18)
[2019-10-07] MEDS: Keppra 250 MG PO SCH (21:18)
[2019-10-07] MEDS: Lopressor 50 MG PO SCH ×2 (21:19→22:26)
[2019-10-07] MEDS ORDERED: NON-FORMULARY ITEM (Risperidone [Risperdal] 2 MG) PO SCH (22:00)
[2019-10-07] MEDS ORDERED: NON-FORMULARY ITEM (Levetiracetam [Keppra] 750 MG) PO SCH (22:00)
[2019-10-07] MEDS ORDERED: NON-FORMULARY ITEM (Atorvastatin Calcium [Atorvastatin Calcium] 10 MG) PO SCH (22:00)
[2019-10-07] MEDS ORDERED: ARFORMOTEROL TARTRATE IH SCH (22:00)
[2019-10-08] MEDS: Sodium Chloride 0.9% 1000 ML 1,000 ML IV SCH ×3 (03:59→21:42)
[2019-10-08] MEDS: PULMICORT 0.5 MG/2 ML RESPULES IH SCH ×2 (07:29→19:56)
[2019-10-08] MEDS: Zestril 20 MG PO SCH (09:51)
[2019-10-08] MEDS: Protonix 20MG Tablet PO SCH (09:51)
[2019-10-08] MEDS: KEPPRA 500 MG PO SCH ×2 (09:51→22:17)
[2019-10-08] MEDS: Lopressor 50 MG PO SCH ×2 (09:51→22:18)
[2019-10-08] MEDS: Keppra 250 MG PO SCH ×2 (09:51→22:17)
[2019-10-08] MEDS: Singulair 10 MG PO SCH (09:51)
[2019-10-08] MEDS: ECOTRIN 81 MG PO SCH (09:51)
[2019-10-08] MEDS: xanAX 0.25 MG PO SCH ×3 (09:51→22:16)
[2019-10-08] MEDS: FOLATE 1 MG PO SCH (09:51)
[2019-10-08] MEDS: Klor Con 10 MEQ PO SCH ×3 (09:51→22:17)
[2019-10-08] MEDS: ROCEPHIN 1 Gm-D5w 50 ml Bag** 1 G/50 ML IVPB IV SCH (09:52)
[2019-10-08] MEDS: Risperdal 1 MG PO SCH ×3 (09:52→22:17)
[2019-10-08] MEDS ORDERED: Protonix 40MG Tablet PO SCH (10:00)
[2019-10-08] MEDS: Artificial Tears 15 ML OP SCH ×4 (10:20→22:16)
[2019-10-08] MEDS ORDERED: Sodium Chloride 0.9% 500 ML 500 ML IV ONE (20:11)
[2019-10-08] MEDS: Cymbalta 30 MG Capsule PO SCH (22:16)
[2019-10-08] MEDS: Zocor 10MG PO SCH (22:17)
[2019-10-09] MEDS: PULMICORT 0.5 MG/2 ML RESPULES IH SCH ×2 (06:44→17:00)
[2019-10-09] MEDS: Sodium Chloride 0.9% 1000 ML 1,000 ML IV SCH ×2 (06:46→17:45)
--- NOTE | 2019-10-09 08:53 | PCM.HP ---
History of Present Illness - Chief Complaint Chief Complaint: c/o shortness of breath History of Present Illness: is a 64 year old female.pt c/o SOB x few days denies cough/Chest pain/palpitations/recent infections/fever.abdominal pain pt. is a poor historian and is minimally verbal- which seems to be her baseline per nursing staff Pt. is from a [place]- per [facility] staff- pot. had a CXR yesterday showing persistent pneumonia, had a high WBC count pt. was on clindamycin Po BID x 7 days which she completed on 09/30/19. Timing/Duration: day(s), gradual onset, worse Cough Quality/Degree: mild Possible Cause: occasional episodes Modifying Factors: Improves With: coughing, deep breath, exertion Associated Symptoms: cough, No fever, No chills, No chest pain/soreness, No dizziness International travel in last 2 weeks: No - Review of Systems Constitutional: Fever, Chills Eyes: No Symptoms Ears, Nose, & Throat: No Symptoms Respiratory: Cough, Orthopnea, Short Of Breath, Wheezing Cardiac: No Chest Pain, No Edema, No Syncope Abdominal/Gastrointestinal: No Abdominal Pain, No Nausea, No Vomiting, No Diarrhea Genitourinary Symptoms: No Dysuria Musculoskeletal: No Back Pain, No Neck Pain Skin: No Rash Neurological: No Dizziness, No Focal Weakness, No Sensory Changes Psychological: No Symptoms Endocrine: No Symptoms Hematologic/Lymphatic: No Symptoms Immunological/Allergic: No Symptoms Medications & Allergies Home Medications: Home Medication List Alendronate Sodium 70 mg [Fosamax 70 MG] 70 mg PO WEEKLY 12/19/15 [ History Confirmed 10/07/19] Levetiracetam [Keppra] 750 mg PO BID 12/19/15 [History Confirmed 10/07/19] Potassium Chloride 10 Meq Tab* [Klor Con 10 MEQ] 10 meq PO TID 12/19/15 [ History Confirmed 10/07/19] Folic Acid 1 mg PO DAILY 02/26/18 [History Confirmed 10/07/19] Atorvastatin Calcium 10 mg PO HS 05/15/18 [History Confirmed 10/07/19] Arformoterol Tartrate [Brovana] 1 vial IH BID 06/10/18 [History Confirmed ] Budesonide 0.5 mg/2 ml [Pulmicort 0.5 mg/2 ml Respules] 1 vial IH BID [History Confirmed 10/07/19] Acetaminophen 325 mg [Tylenol 325 mg] 650 mg PO Q4H PRN PRN tablet [Rx Confirmed 10/07/19] Albuterol/Ipratropium 3ml Neb* [DUONEB 0.5-3 MG/3 ml Neb] 3 ml IH Q2H/PRN PRN 09/02/18 [History Confirmed 10/07/19] Alprazolam 0.25 mg [xanAX 0.25 MG] 0.25 mg PO TID 09/02/18 [History Confirmed 10/07/19] Aspirin [Aspirin EC] 81 mg PO DAILY 09/02/18 [History Confirmed 10/07/19] Hydrocodone Bit/Acetaminophen [[place] 5-325 Tablet] 1 each PO Q8HPRN PRN [History Confirmed 10/07/19] Metoprolol Tartrate 50 mg [Lopressor 50 MG] 50 mg PO BID #60 tablet [Rx Confirmed 10/07/19] Montelukast Sodium 10 mg [Singulair 10 MG] 10 mg PO DAILY 10/01/18 [History Confirmed 10/07/19] PANTOPRAZOLE 40 mg Tablet [Protonix 40MG Tablet] 20 mg PO QAM 10/01/18 [ History Confirmed 10/07/19] Lisinopril 20 mg [Zestril 20 MG] 20 mg PO DAILY 12/22/18 [History Confirmed 10/07/19] Risperidone 1 mg [Risperdal 1 MG] 1 mg PO EVENING MEAL 12/22/18 [History Confirmed 10/07/19] Risperidone [Risperdal] 2 mg PO BID 12/22/18 [History Confirmed 10/07/19] Carboxymethylcellulose Sodium [Thera Tears] 1 drop OP QID 09/15/19 [History Confirmed 10/07/19] Duloxetine HCl [Cymbalta] 60 mg PO HS 09/15/19 [History Confirmed 10/07/19] Allergies/Adverse Reactions: Allergies Allergy/AdvReac Type Severity Reaction Status Date / Time tramadol HCl [From Ultram] Allergy Mild Rash Verified 10/07/19 09:44 azithromycin Allergy Verified 10/07/19 09:44 ciprofloxacin [From Cipro] Allergy Rash Verified 10/07/19 09:44 ciprofloxacin HCl Allergy Rash Verified 10/07/19 09:44 [From Cipro] metronidazole Allergy Verified 10/07/19 09:44 penicillin V [Penicillin V] Allergy Rash Verified 10/07/19 09:44 Quinolones Allergy Verified 10/07/19 09:44 Sulfa (Sulfonamide Allergy Verified 10/07/19 09:44 Antibiotics) sulfisoxazole Allergy Verified 10/07/19 09:44 tramadol Allergy Verified 10/07/19 09:44 - Past Medical History Past Medical History: Yes Neurological History: Dementia, Seizures, Stroke ENT History: Cataracts Cardiac History: High Cholesterol, Hypertension, Myocardial Infarction (CT), Other Respiratory History: Asthma, CHF, COPD, Pneumonia Endocrine Medical History: Hypothyroidism Musculoskelatal History: Arthritis, Fibromyalgia, Osteoporosis GI Medical History: Diverticulitis, GERD History: No Pertinent History Pyscho-Social History: Anxiety, Bipolar, Depression Reproductive Disorders: Cervical Cancer Comment: pt states she has a murmur. Hx of c. Diff, pt recently coked on a meat ball and coded. pneumonia - Female History Hx Last Menstrual Period: post Are you now?: No - Past Surgical History Past Surgical History: Yes Neuro Surgical History: No Pertinent History Cardiac History: No Pertinent History Respiratory Surgery: No Pertinent History GI Surgical History: Appendectomy, Cholecystectomy Genitourinary Surgical Hx: No Pertinent History Musculskeletal Surgical Hx: Orthopedic Surgery Female Surgical History: Hysterectomy Other Surgical History: LEFT x 4, RIGHT x 1 HIP SURGERY - Social History Smoking Status: Former smoker How long have you smoked: 40 Exposure to second hand smoke: No Alcohol: None Drug Use: none - Physical Exam Vital Signs: Vital Signs - 24 hr Temp Pulse Resp BP Pulse Ox 10/09/19 08:14 98.6 F 107 H 26 H 123/67 99 10/09/19 06:47 105 H 22 97 10/09/19 04:30 98.9 F 91 H 24 97/52 96 10/09/19 01:00 97.9 F 83 22 89/46 97 10/08/19 21:00 94/50 10/08/19 20:12 81 24 97 10/08/19 20:00 98.7 F 82 22 82/46 97 10/08/19 16:00 96.2 F 90 26 H 90/56 96 10/08/19 12:00 98.2 F 79 26 H 118/58 95 Oxygen-Last 24 hours O2 Percentage 4 Liters = 36% O2 Percentage 4 Liters = 36% O2 Percentage 4 Liters = 36% O2 Percentage 4 Liters = 36% O2 Percentage 4 Liters = 36% O2 Percentage 4 Liters = 36% General Appearance: no apparent distress, alert Neurologic Exam: alert, oriented x 3, cooperative, normal mood/affect, nml cerebellar function, nml station & gait, sensation nml, No motor deficits Eye Exam: PERRL/EOMI, eyes nml inspection Ears, Nose, Throat Exam: normal ENT inspection, TMs normal, pharynx normal, moist mucous membranes Neck Exam: normal inspection, non-tender, supple, full range of motion Respiratory Exam: normal breath sounds, lungs clear, No respiratory distress Cardiovascular Exam: regular rate/rhythm, normal heart sounds, normal peripheral pulses Gastrointestinal/Abdomen Exam: soft, normal bowel sounds, No tenderness, No mass Back Exam: normal inspection, normal range of motion, No CVA tenderness, No vertebral tenderness Extremity Exam: normal inspection, normal range of motion, pelvis stable Skin Exam: normal color, warm, dry, No rash Lymphatic Exam: No adenopathy Results - Labs Lab/Micro Results: Microbiology 10/07/19 10:28 Blood Culture - Preliminary Blood NO GROWTH TO DATE 10/07/19 10:20 Blood Culture - Preliminary Blood NO GROWTH TO DATE 10/07/19 09:54 Urine Culture - Preliminary Urine, Catheterized NO GROWTH TO DATE - Radiology Impressions Radiology Exams & Impressions: Radiology Procedures Category Date Time Status CHEST 2 VIEWS (PA AND LAT) Stat Exams 10/07/19 09:52 Completed Assessment/Plan (1) Acute exacerbation of CHF (congestive heart failure) Current Visit: Yes Status: Acute Qualifiers: Heart failure type: combined systolic and diastolic Qualified Code(s): I50.43 - Acute on chronic combined systolic (congestive) and diastolic ( congestive) heart failure Code(s): I50.9 - HEART FAILURE, UNSPECIFIED (2) Sepsis Current Visit: Yes Status: Acute Onset Date: ~09/04/18 Qualifiers: Sepsis type: Streptococcus, unspecified Sepsis acute organ dysfunction status: unspecified Qualified Code(s): A40.9 - Streptococcal sepsis, unspecified (3) UTI (urinary tract infection) Current Visit: Yes Status: Acute Qualifiers: Urinary tract infection type: acute pyelonephritis Qualified Code(s): N10 - Acute pyelonephritis Code(s): N39.0 - URINARY TRACT INFECTION, SITE NOT SPECIFIED (4) Acute and chronic respiratory failure with hypoxia Current Visit: Yes Status: Acute Onset Date: ~09/06/18 Code(s): J96.21 - ACUTE AND CHRONIC RESPIRATORY FAILURE WITH HYPOXIA
[2019-10-09] MEDS: ROCEPHIN 1 Gm-D5w 50 ml Bag** 1 G/50 ML IVPB IV SCH (09:25)
[2019-10-09] MEDS: KEPPRA 500 MG PO SCH ×2 (09:26→23:06)
[2019-10-09] MEDS: Keppra 250 MG PO SCH ×2 (09:26→23:06)
[2019-10-09] MEDS: Singulair 10 MG PO SCH (09:26)
[2019-10-09] MEDS: Lopressor 50 MG PO SCH ×2 (09:27→23:06)
[2019-10-09] MEDS: Artificial Tears 15 ML OP SCH ×4 (09:27→23:07)
[2019-10-09] MEDS: Protonix 20MG Tablet PO SCH (09:27)
[2019-10-09] MEDS: xanAX 0.25 MG PO SCH ×3 (09:27→23:06)
[2019-10-09] MEDS: ECOTRIN 81 MG PO SCH (09:27)
[2019-10-09] MEDS: Risperdal 1 MG PO SCH ×3 (09:27→23:06)
[2019-10-09] MEDS: FOLATE 1 MG PO SCH (09:27)
[2019-10-09] MEDS: Klor Con 10 MEQ PO SCH ×3 (09:27→23:06)
--- NOTE | 2019-10-09 10:01 | PCM.NOTE ---
Date and Time: 10/09/19957 Subjective Assessment: Feeling well, no complaints to day. - Review of Systems Constitutional: No Fever, No Chills Ears, Nose, & Throat: No Symptoms Respiratory: No Cough, No Short Of Breath Cardiac: No Chest Pain, No Edema, No Syncope Abdominal/Gastrointestinal: No Abdominal Pain, No Nausea, No Vomiting, No Diarrhea Genitourinary Symptoms: No Dysuria Objective Exam General Appearance: no apparent distress Neurologic Exam: alert Skin Exam: normal color, warm, dry Neck Exam: normal inspection, non-tender, supple Respiratory Exam: normal breath sounds (upper airway congestion) Cardiovascular Exam: regular rate/rhythm, normal heart sounds OBJECTIVE DATA Vital Signs: Vital Signs - 24 hr Temp Pulse Resp BP Pulse Ox 10/09/19 08:14 98.6 F 107 H 26 H 123/67 99 10/09/19 06:47 105 H 22 97 10/09/19 04:30 98.9 F 91 H 24 97/52 96 10/09/19 01:00 97.9 F 83 22 89/46 97 10/08/19 21:00 94/50 10/08/19 20:12 81 24 97 10/08/19 20:00 98.7 F 82 22 82/46 97 10/08/19 16:00 96.2 F 90 26 H 90/56 96 10/08/19 12:00 98.2 F 79 26 H 118/58 95 Oxygen-Last 24 hours O2 Percentage 4 Liters = 36% O2 Percentage 4 Liters = 36% O2 Percentage 4 Liters = 36% O2 Percentage 4 Liters = 36% O2 Percentage 4 Liters = 36% O2 Percentage 4 Liters = 36% Pain Assessment - Last Documented Pain Intensity 0 Pain Scale Used 0-10 Pain Scale Intake and Output: Intake & Output 10/06/19 10/07/19 10/08/19 10/09/19 11:59 11:59 11:59 11:59 Intake Total 1180 2980 Output Total 450 550 Balance 730 2430 Weight 52.1 kg 56.7 kg Radiology Exams: Radiology Procedures Category Date Time Status CHEST 2 VIEWS (PA AND LAT) Stat Exams 10/07/19 09:52 Completed Assessment/Plan (1) Acute exacerbation of CHF (congestive heart failure) Current Visit: Yes Status: Acute Qualifiers: Heart failure type: combined systolic and diastolic Qualified Code(s): I50.43 - Acute on chronic combined systolic (congestive) and diastolic ( congestive) heart failure Assessment & Plan: BP has been dropping will moniter fluids and hold lisinopril Code(s): I50.9 - HEART FAILURE, UNSPECIFIED (2) Sepsis Current Visit: Yes Status: Acute Onset Date: ~09/04/18 Qualifiers: Sepsis type: Streptococcus, unspecified Sepsis acute organ dysfunction status: unspecified Qualified Code(s): A40.9 - Streptococcal sepsis, unspecified Assessment & Plan: Continue iv abx (3) UTI (urinary tract infection) Current Visit: Yes Status: Acute Qualifiers: Urinary tract infection type: acute pyelonephritis Qualified Code(s): N10 - Acute pyelonephritis Assessment & Plan: Continue iv abx Code(s): N39.0 - URINARY TRACT INFECTION, SITE NOT SPECIFIED
[2019-10-09] MEDS: Zestril 20 MG PO SCH (10:14)
[2019-10-09] MEDS: Cymbalta 30 MG Capsule PO SCH (23:06)
[2019-10-09] MEDS: Zocor 10MG PO SCH (23:06)
[2019-10-10] MEDS: Sodium Chloride 0.9% 1000 ML 1,000 ML IV SCH (03:48)
[2019-10-10 04:42] LABS: Absolute Neutrophil Ct (ANC) 6.26 (1.4-6.9); BASOPHIL % 0.2 % (0.0-0.4); Basophil (Absolute #) 0.02 (0-0.4); Eosinophil % 6.9 % (0.00-5.0); Eosinophil (Absolute #) 0.65 (0-0.5); Hemoglobin 9.3 gm/dl (12.0-16.0); Lymphocyte (Absolute #) 1.69 (1.0-4.6); Lymphocytes % 17.9 % (24.0-44.0); Mean Cell Volume 98.7 fl (78-100); Mean Corpuscular Hemoglobin 29.6 pg (26-32); Mean Platelet Volume 11.2 fl (6-9.5); Monocyte (Absolute #) 0.81 (0.0-1.3); Monocytes % 8.6 % (0.0-12.0); Neutrophil % 66.4 % (36.0-66.0); Platelet Count 150 K/mm3 (150-450); Red Blood Count 3.14 M/mm3 (4.1-5.4); Red Cell Distribution Width 14.5 % (11.5-14.0); White Blood Count 9.4 K/mm3 (4.0-10.5)
[2019-10-10 04:50] LABS: ANION GAP 6.3 MEQ/L (5-15); BLOOD UREA NITROGEN 5 mg/dL (7-17); CHLORIDE 115 mmol/L (98-107); Carbon Dioxide 22 mmol/L (22-30); Creatinine 1 0.45 mg/dL (0.52-1.04); Glucose 82 mg/dL (74-106); SODIUM 139 mmol/L (137-145)
[2019-10-10] MEDS: PULMICORT 0.5 MG/2 ML RESPULES IH SCH (05:04)
[2019-10-10 05:52] LABS: Slide Review 1 YES
[2019-10-10] MEDS: ROCEPHIN 1 Gm-D5w 50 ml Bag** 1 G/50 ML IVPB IV SCH (09:28)
[2019-10-10] MEDS: ECOTRIN 81 MG PO SCH (09:29)
[2019-10-10] MEDS: Protonix 20MG Tablet PO SCH (09:29)
[2019-10-10] MEDS: Risperdal 1 MG PO SCH (09:29)
[2019-10-10] MEDS: xanAX 0.25 MG PO SCH (09:29)
[2019-10-10] MEDS: KEPPRA 500 MG PO SCH (09:29)
[2019-10-10] MEDS: FOLATE 1 MG PO SCH (09:29)
[2019-10-10] MEDS: Lopressor 50 MG PO SCH (09:29)
[2019-10-10] MEDS: Singulair 10 MG PO SCH (09:29)
[2019-10-10] MEDS: Klor Con 10 MEQ PO SCH (09:29)
[2019-10-10] MEDS: Keppra 250 MG PO SCH (09:29)
[2019-10-10] MEDS: Artificial Tears 15 ML OP SCH ×2 (09:30→14:25)
[2019-10-10 11:06] LABS: Absolute Neutrophil Ct (ANC) 4.52 (1.4-6.9); BASOPHIL % 0.3 % (0.0-0.4); Basophil (Absolute #) 0.02 (0-0.4); Eosinophil % 6.9 % (0.00-5.0); Eosinophil (Absolute #) 0.54 (0-0.5); Hematocrit 31.1 % (35-47); Hemoglobin 9.5 gm/dl (12.0-16.0); Lymphocyte (Absolute #) 1.69 (1.0-4.6); Lymphocytes % 21.7 % (24.0-44.0); Mean Cell Volume 97.5 fl (78-100); Mean Corpuscular Hemoglobin 29.8 pg (26-32); Mean Corpuscular Hgb Concent. 30.5 g/dl (32-36); Mean Platelet Volume 10.8 fl (6-9.5); Monocyte (Absolute #) 1.02 (0.0-1.3); Monocytes % 13.1 % (0.0-12.0); Platelet Count 176 K/mm3 (150-450); Red Blood Count 3.19 M/mm3 (4.1-5.4); Red Cell Distribution Width 14.1 % (11.5-14.0); White Blood Count 7.8 K/mm3 (4.0-10.5)
[2019-10-10 12:50] VITALS: BP 121/68
[2019-10-10 13:34] VITALS: PULSE 77; O2SAT 97
--- NOTE | 2019-10-10 13:39 | PCM.DCORD ---
- Discharge Discharge Date: 10/10/19 Disposition: DC TO [facility] Condition: Good Prescriptions: New Albuterol/Ipratropium 3ml Neb* [DUONEB 0.5-3 MG/3 ml Neb] 3 ml IH Q6H 90 Days ampul.neb Albuterol 2.5 mg/3 ml Neb [Proventil 2.5 mg/3 ml Neb] 2.5 mg IH Q4HPRN PRN 90 Days neb PRN Reason: Shortness Of Breath Continue Levetiracetam [Keppra] 750 mg PO BID Potassium Chloride 10 Meq Tab* [Klor Con 10 MEQ] 10 meq PO TID Alendronate Sodium 70 mg [Fosamax 70 MG] 70 mg PO WEEKLY Folic Acid 1 mg PO DAILY Atorvastatin Calcium 10 mg PO HS Arformoterol Tartrate [Brovana] 1 vial IH BID Budesonide 0.5 mg/2 ml [Pulmicort 0.5 mg/2 ml Respules] 1 vial IH BID Acetaminophen 325 mg [Tylenol 325 mg] 650 mg PO Q4H PRN PRN tablet PRN Reason: Pain And/Or Fever Aspirin [Aspirin EC] 81 mg PO DAILY Alprazolam 0.25 mg [xanAX 0.25 MG] 0.25 mg PO TID Albuterol/Ipratropium 3ml Neb* [DUONEB 0.5-3 MG/3 ml Neb] 3 ml IH Q2H/PRN PRN PRN Reason: breathing PANTOPRAZOLE 40 mg Tablet [Protonix 40MG Tablet] 20 mg PO QAM Montelukast Sodium 10 mg [Singulair 10 MG] 10 mg PO DAILY Hydrocodone Bit/Acetaminophen [[place] 5-325 Tablet] 1 each PO Q8HPRN PRN PRN Reason: Pain Metoprolol Tartrate 50 mg [Lopressor 50 MG] 50 mg PO BID #60 tablet Risperidone [Risperdal] 2 mg PO BID Risperidone 1 mg [Risperdal 1 MG] 1 mg PO EVENING MEAL Duloxetine HCl [Cymbalta] 60 mg PO HS Carboxymethylcellulose Sodium [Thera Tears] 1 drop OP QID Discontinued Lisinopril 20 mg [Zestril 20 MG] 20 mg PO DAILY Additional Instructions: continue honey thick liq re eval by speech tx Follow up with: LINDA HAILE [Primary Care Provider] -
--- NOTE | 2019-10-10 13:43 | PCM.DS ---
Discharge Summary Date of Admission: 10/07/19 13:08 Date of Discharge: 10/10/19 Admitting Physician: TRISTIN CHAPMAN Primary Care Provider: LINDA HAILE Allergies Allergies tramadol HCl [From Ultram] Allergy (Mild, Verified 10/07/19 09:44) Rash azithromycin Allergy (Verified 10/07/19 09:44) ciprofloxacin [From Cipro] Allergy (Verified 10/07/19 09:44) Rash ciprofloxacin HCl [From Cipro] Allergy (Verified 10/07/19 09:44) Rash metronidazole Allergy (Verified 10/07/19 09:44) penicillin V [Penicillin V] Allergy (Verified 10/07/19 09:44) Rash Quinolones Allergy (Verified 10/07/19 09:44) Sulfa (Sulfonamide Antibiotics) Allergy (Verified 10/07/19 09:44) sulfisoxazole Allergy (Verified 10/07/19 09:44) tramadol Allergy (Verified 10/07/19 09:44) Hospital Summary - Hospital Course Hospital Course: Patient was sent from [facility] to ER with WBC 28,000 and Hx recent aspiration of meatball during seizure and required a bronchoscopy with Dr Drummond at [facility]. She also has COPD and on Albuterol neb txs at [facility]. - Vitals & Intake/Output Vital Signs: Vital Signs Temperature 98.2 F 10/10/19 12:00 Pulse Rate 77 10/10/19 13:32 Respiratory Rate 18 10/10/19 13:32 Blood Pressure 121/68 10/10/19 12:00 O2 Sat by Pulse Oximetry 97 10/10/19 13:32 Oxygen-Last Documented O2 Percentage 4 Liters = 36% Intake & Output: Intake & Output 10/08/19 10/09/19 10/10/19 10/11/19 11:59 11:59 11:59 11:59 Intake Total 1180 2980 3245 Output Total 450 550 975 Balance 730 2430 2270 Weight 52.1 kg 56.7 kg 57.3 kg - Lab Result Diagrams: 10/10/19 10:56 10/10/19 04:37 Lab Results-Last 24 Hrs: Lab Results-Last 24 Hours 10/10/19 10/10/19 10/10/19 Range/Units 04:37 04:37 10:56 WBC 9.4 7.8 (4.0-10.5) K/mm3 RBC 3.14 L 3.19 L (4.1-5.4) M/mm3 Hgb 9.3 L 9.5 L (12.0-16.0) gm/dl Hct 31.0 L 31.1 L (35-47) % MCV 98.7 97.5 (78-100) fl MCH 29.6 29.8 (26-32) pg MCHC 30.0 L 30.5 L (32-36) g/dl RDW 14.5 H 14.1 H (11.5-14.0) % Plt Count 150 176 (150-450) K/mm3 MPV 11.2 H 10.8 H (6-9.5) fl Gran % 66.4 H 58.0 (36.0-66.0) % Eos # (Auto) 0.65 H 0.54 H (0-0.5) Absolute Lymphs (auto) 1.69 1.69 (1.0-4.6) Absolute Monos (auto) 0.81 1.02 (0.0-1.3) Lymphocytes % 17.9 L 21.7 L (24.0-44.0) % Monocytes % 8.6 13.1 H (0.0-12.0) % Eosinophils % 6.9 H 6.9 H (0.00-5.0) % Basophils % 0.2 0.3 (0.0-0.4) % Absolute Granulocytes 6.26 4.52 (1.4-6.9) Basophils # 0.02 0.02 (0-0.4) Sodium 139 (137-145) mmol/L Potassium 4.0 (3.5-5.1) mmol/L Chloride 115 H (98-107) mmol/L Carbon Dioxide 22 (22-30) mmol/L Anion Gap 6.3 (5-15) MEQ/L BUN 5 L (7-17) mg/dL Creatinine 0.45 L (0.52-1.04) mg/dL Estimated GFR > 60.0 ML/MIN Glucose 82 (74-106) mg/dL Calcium 8.0 L (8.4-10.2) mg/dL Slides for Path Review YES Micro Results-Entire Visit: Microbiology 10/07/19 09:54 Urine Culture - Final Urine, Catheterized MIXED MATT; 3 OR MORE TYPES. NO PREDOMINANT ORGANISM. NO FURTHER WORKUP. PLEASE RESUBMIT IF CLINICALLY INDICATED. 10/07/19 10:28 Blood Culture - Preliminary Blood NO GROWTH TO DATE 10/07/19 10:20 Blood Culture - Preliminary Blood NO GROWTH TO DATE - Procedures and Test Procedures and Tests throughout Hospitalization: Therapy Orders & Screens 10/07/19 10:32 Respiratory Therapy Assessment ONCE Comment: Diagnosis: right breast cancer 10/07/19 14:55 Oxygen NASAL CANNULA 4 lpm Comment: Diagnosis: pneumonia, CHF 10/08/19 07:00 Respiratory Therapy Assessment DAILY Comment: Diagnosis: pneumonia, CHF - Discharge Disposition: DC TO [facility] Condition: Good Prescriptions: New Albuterol/Ipratropium 3ml Neb* [DUONEB 0.5-3 MG/3 ml Neb] 3 ml IH Q6H 90 Days ampul.neb Albuterol 2.5 mg/3 ml Neb [Proventil 2.5 mg/3 ml Neb] 2.5 mg IH Q4HPRN PRN 90 Days neb PRN Reason: Shortness Of Breath Continue Levetiracetam [Keppra] 750 mg PO BID Potassium Chloride 10 Meq Tab* [Klor Con 10 MEQ] 10 meq PO TID Alendronate Sodium 70 mg [Fosamax 70 MG] 70 mg PO WEEKLY Folic Acid 1 mg PO DAILY Atorvastatin Calcium 10 mg PO HS Arformoterol Tartrate [Brovana] 1 vial IH BID Budesonide 0.5 mg/2 ml [Pulmicort 0.5 mg/2 ml Respules] 1 vial IH BID Acetaminophen 325 mg [Tylenol 325 mg] 650 mg PO Q4H PRN PRN tablet PRN Reason: Pain And/Or Fever Aspirin [Aspirin EC] 81 mg PO DAILY Alprazolam 0.25 mg [xanAX 0.25 MG] 0.25 mg PO TID Albuterol/Ipratropium 3ml Neb* [DUONEB 0.5-3 MG/3 ml Neb] 3 ml IH Q2H/PRN PRN PRN Reason: breathing PANTOPRAZOLE 40 mg Tablet [Protonix 40MG Tablet] 20 mg PO QAM Montelukast Sodium 10 mg [Singulair 10 MG] 10 mg PO DAILY Hydrocodone Bit/Acetaminophen [[place] 5-325 Tablet] 1 each PO Q8HPRN PRN PRN Reason: Pain Metoprolol Tartrate 50 mg [Lopressor 50 MG] 50 mg PO BID #60 tablet Risperidone [Risperdal] 2 mg PO BID Risperidone 1 mg [Risperdal 1 MG] 1 mg PO EVENING MEAL Duloxetine HCl [Cymbalta] 60 mg PO HS Carboxymethylcellulose Sodium [Thera Tears] 1 drop OP QID Discontinued Lisinopril 20 mg [Zestril 20 MG] 20 mg PO DAILY Additional Instructions: continue honey thick liq re eval by speech tx Follow up with: LINDA HAILE [Primary Care Provider] -
[2019-10-12] MEDS ORDERED: Fosamax 70 MG PO SCH (06:00)
== END 2019-10-10 14:45 | DRG 291 ==
LOC: ED 09:24 → ICU 13:08
PROVIDERS: ADMIT Family Medicine; ATTEND Family Medicine
DX: I50.9 Heart failure, unspecified (principal); A41.9 Sepsis, unspecified organism; J96.21 Acute and chronic respiratory failure with hypoxia; N39.0 Urinary tract infection, site not specified; J44.9 Chronic obstructive pulmonary disease, unspecified; I10 Essential (primary) hypertension; E78.00 Pure hypercholesterolemia, unspecified; Z79.899 Other long term (current) drug therapy
CPT/HCPCS: 36415; 71046; 80048; 80053; 81001; 82550; 83605; 83735; 83880; 84484; 85025; 87040; 87086; 87631; 93005; 94002; 94003; 94640; 94760; 94762; 96365; 99285; 99291; J0696; A9270-GY

== ENCOUNTER 2019-10-30 10:29 | Emergency (ER) | payer MEDICARE ==
[2019-10-30] MEDS ORDERED: Sodium Chloride 0.9% 1000 ML 1,000 ML IV STA ×2 (10:33→10:52)
[2019-10-30] MEDS ORDERED: DUONEB 0.5-3 MG/3 ml Neb IH ONE ×2 (10:33→10:47)
[2019-10-30] MEDS ORDERED: solu-MEDROL 125 MG IV ONE (10:33)
[2019-10-30] MEDS ORDERED: Sodium Chloride 0.9% 1000 ML 1,000 ML ONE ×3 (10:36→11:30)
[2019-10-30] MEDS ORDERED: solu-MEDROL 125 MG ONE (10:39)
[2019-10-30 10:45] LABS: Lactic Acid 1.9 (0.4-2.0)
[2019-10-30 10:47] LABS: Absolute Neutrophil Ct (ANC) 8.32 (1.4-6.9); BASOPHIL % 0.3 % (0.0-0.4); Basophil (Absolute #) 0.03 (0-0.4); Eosinophil (Absolute #) 0 (0-0.5); Hematocrit 35.6 % (35-47); Hemoglobin 10.9 gm/dl (12.0-16.0); Lymphocyte (Absolute #) 1.47 (1.0-4.6); Lymphocytes % 13.5 % (24.0-44.0); Mean Cell Volume 94.7 fl (78-100); Mean Corpuscular Hgb Concent. 30.6 g/dl (32-36); Mean Platelet Volume 10.8 fl (7.5-11.0); Monocyte (Absolute #) 1.08 (0.0-1.3); Monocytes % 9.9 % (0.0-12.0); Neutrophil % 76.3 % (36.0-66.0); Platelet Count 260 K/mm3 (150-450); Red Blood Count 3.76 M/mm3 (4.1-5.4); Red Cell Distribution Width 14.9 % (11.5-14.0); White Blood Count 10.9 K/mm3 (4.0-10.5)
[2019-10-30] MEDS ORDERED: Zosyn 3.375GM/100 Ml D5W 3.375 GM/100 ML IVPB IV STA (10:48)
--- NOTE | 2019-10-30 10:48 | ERPHSYRPT ---
- History of Present Illness Time Seen by Provider: 10/30/19 10:35 Source: EMS, correction records Exam Limitations: other (intubated) Physician History: 64 years old female correction resident with multiple medical problems including stroke with residual weakness, multiple aspirations in the past is brought to the ER by EMS with worsening shortness of breath since morning. She was on BiPAP it's sats around 83%. Patient was very tachypneic and tachycardic , was intubated by EMS at the correction. 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 She is warm to touch. Other resident of correction have flu like symptoms as well.history is limited secondary to her intubation and is obtained from EMS/ medical record and Dr. Rodriguez Timing/Duration: yesterday Severity of Dyspnea-Max: severe Allergies/Adverse Reactions: tramadol HCl [From Ultram] Allergy (Mild, Verified 10/30/19 10:49) Rash azithromycin Allergy (Verified 10/30/19 10:49) ciprofloxacin [From Cipro] Allergy (Verified 10/30/19 10:49) Rash ciprofloxacin HCl [From Cipro] Allergy (Verified 10/30/19 10:49) Rash metronidazole Allergy (Verified 10/30/19 10:49) penicillin V [Penicillin V] Allergy (Verified 10/30/19 10:49) Rash Quinolones Allergy (Verified 10/30/19 10:49) Sulfa (Sulfonamide Antibiotics) Allergy (Verified 10/30/19 10:49) sulfisoxazole Allergy (Verified 10/30/19 10:49) tramadol Allergy (Verified 10/30/19 10:49) Home Medications: Alendronate Sodium 70 mg [Fosamax 70 MG] 70 mg PO WEEKLY 12/19/15 [History ] Levetiracetam [Keppra] 750 mg PO BID 12/19/15 [History] Potassium Chloride 10 Meq Tab* [Klor Con 10 MEQ] 10 meq PO TID 12/19/15 [ History] Folic Acid 1 mg PO DAILY 02/26/18 [History] Atorvastatin Calcium 10 mg PO HS 05/15/18 [History] Arformoterol Tartrate [Brovana] 1 vial IH BID 06/10/18 [History] Budesonide 0.5 mg/2 ml [Pulmicort 0.5 mg/2 ml Respules] 1 vial IH BID [History] Albuterol/Ipratropium 3ml Neb* [DUONEB 0.5-3 MG/3 ml Neb] 3 ml IH Q2H/PRN PRN 09/02/18 [History] Alprazolam 0.25 mg [xanAX 0.25 MG] 0.25 mg PO TID 09/02/18 [History] Aspirin [Aspirin EC] 81 mg PO DAILY 09/02/18 [History] Hydrocodone Bit/Acetaminophen [Lamar 5-325 Tablet] 1 each PO Q8HPRN PRN [History] Montelukast Sodium 10 mg [Singulair 10 MG] 10 mg PO DAILY 10/01/18 [History] PANTOPRAZOLE 40 mg Tablet [Protonix 40MG Tablet] 20 mg PO QAM 10/01/18 [ History] Risperidone 1 mg [Risperdal 1 MG] 1 mg PO EVENING MEAL 12/22/18 [History] Risperidone [Risperdal] 2 mg PO BID 12/22/18 [History] Carboxymethylcellulose Sodium [Thera Tears] 1 drop OP QID 09/15/19 [History] Duloxetine HCl [Cymbalta] 60 mg PO HS 09/15/19 [History] Hx Tetanus, Diphtheria Vaccination/Date Given: Yes Hx Influenza Vaccination/Date Given: Yes Hx Pneumococcal Vaccination/Date Given: Yes - Past Medical History Pertinent Past Medical History: Yes Neurological History: Dementia, Seizures, Stroke ENT History: Cataracts Cardiac History: High Cholesterol, Hypertension, Myocardial Infarction ([place]), Other Respiratory History: Asthma, CHF, COPD, Pneumonia Endocrine Medical History: Hypothyroidism Musculoskeletal History: Arthritis, Fibromyalgia, Osteoporosis GI Medical History: Diverticulitis, GERD History: No Pertinent History Psycho-Social History: Anxiety, Bipolar, Depression Female Reproductive Disorders: Cervical Cancer Other Medical History: pt states she has a murmur. Hx of c. Diff, pt recently coked on a meat ball and coded. pneumonia - Past Surgical History Past Surgical History: Yes Neuro Surgical History: No Pertinent History Cardiac: No Pertinent History Respiratory: No Pertinent History Gastrointestinal: Appendectomy, Cholecystectomy Genitourinary: No Pertinent History Musculoskeletal: Orthopedic Surgery Female Surgical History: Hysterectomy Other Surgical History: LEFT x 4, RIGHT x 1 HIP SURGERY - Social History Smoking Status: Former smoker How long have you smoked: 40 Exposure to second hand smoke: No Drug Use: none Patient Lives Alone: No ([place]) - Nursing Vital Signs Nursing Vital Signs: Initial Vital Signs Temperature 101.2 F 10/30/19 10:30 Pulse Rate 134 H 10/30/19 10:30 Respiratory Rate 16 10/30/19 10:30 Blood Pressure 58/42 10/30/19 10:30 O2 Sat by Pulse Oximetry 99 10/30/19 10:30 Pain Scale Pain Intensity 0 - Physical Exam General Appearance: other (intubated) Eye Exam: eyes nml inspection, No scleral icterus Ears, Nose, Throat Exam: normal pharynx, nasal congestion Neck Exam: normal inspection, supple Respiratory Exam: diminished breath sounds, crackles/rales Cardiovascular/Chest Exam: tachycardia Abdominal/Gastrointestinal Exam: soft, No tenderness, No distention, No mass Extremity Exam: non-tender, normal inspection Neurologic Exam: other (patient is paralyzed with rocuronium) Skin Exam: normal color, warm, No rash, No petechiae SpO2 Interpretation: airway management int. O2 Delivery: Ventilator - Course Nursing assessment & vital signs reviewed: Yes EKG Interpreted by Me: RATE (131), NORMAL AXIS, prolonged QT interval, Non- specific ST Changes Ordered Tests: Active Orders 24 hr Category Date Time Status CO2 Monitoring STAT Care 10/30/19 11:27 Active Client Support Associate STAT Care 10/30/19 10:35 Active Catheter-Dayton Hinojosa STAT Care 10/30/19 10:33 Active EKG-ER Only STAT Care 10/30/19 10:33 Active IV Insertion STAT Care 10/30/19 10:33 Active CHEST 1 VIEW (PORTABLE) Routine Exams 10/30/19 10:35 Completed ABG [ARTERIAL BLOOD GASES] Stat Lab 10/30/19 10:47 Completed BLOOD CULTURE Stat Lab 10/30/19 10:50 Received CBC W DIFF Stat Lab 10/30/19 10:40 Completed CMP Stat Lab 10/30/19 10:40 Completed CULTURE,SPUTUM Stat Lab 10/30/19 12:02 Ordered CULTURE,URINE Stat Lab 10/30/19 Received Lactic Acid Stat Lab 10/30/19 10:33 Results MAGNESIUM Stat Lab 10/30/19 10:40 Completed NT PRO BNP Stat Lab 10/30/19 10:40 Completed TROPONIN Q3H Lab 10/30/19 11:15 Completed TROPONIN Q3H Lab 10/30/19 14:15 Ordered TROPONIN Q3H Lab 10/30/19 17:15 Ordered TROPONIN Q3H Lab 10/30/19 20:15 Ordered TROPONIN Q3H Lab 10/30/19 23:15 Ordered UA W/RFX UR CULTURE Stat Lab 10/30/19 Completed Respiratory Therapy Assessment DAILY RT 10/30/19 11:05 Active Ventilator Management STAT RT 10/30/19 11:05 Active Medication Summary Generic Name Dose Route Start Last Admin Trade Name Freq PRN Reason Stop Dose Admin Sodium Chloride 1,000 mls @ 100 mls/hr 10/30/19 11:30 10/30/19 11:52 Sodium Chloride 0.9% 1000 Ml IV 11/29/19 11:29 100 mls/hr .Q10H EDMUNDO Administration Discontinued Medications Generic Name Dose Route Start Last Admin Trade Name Freq PRN Reason Stop Dose Admin Acetaminophen 650 mg 10/30/19 10:51 10/30/19 10:55 F[place] 650 Mg NV 10/30/19 10:52 650 mg STAT STA Administration Acetaminophen Confirm 10/30/19 10:54 Feverall 650 Mg Administered 10/30/19 10:55 Dose 650 mg .ROUTE .STK-MED ONE Albuterol/Ipratropium 3 ml 10/30/19 10:33 10/30/19 11:02 Duoneb 0.5-3 Mg/3 Ml Neb IH 10/30/19 10:34 3 ml STAT ONE Administration Albuterol/Ipratropium Confirm 10/30/19 10:47 Duoneb 0.5-3 Mg/3 Ml Neb Administered 10/30/19 10:48 Dose 3 ml IH .STK-MED ONE Sodium Chloride 1,000 mls @ 999 mls/hr 10/30/19 10:33 10/30/19 11:52 Sodium Chloride 0.9% 1000 Ml IV 10/30/19 11:33 Infused .Q1H1M STA Infusion Sodium Chloride Confirm 10/30/19 10:36 Sodium Chloride 0.9% 1000 Ml Administered 10/30/19 10:37 Dose 1,000 mls @ ud .ROUTE .STK-MED ONE Piperacillin Sod/Tazobactam Sod 3.375 gm in 100 mls @ 200 mls/hr 10/30/19 10: 48 10/30/19 11:55 Zosyn 3.375gm/100 Ml D5w IV 10/30/19 11:17 Infused STAT STA Infusion Sodium Chloride 1,000 mls @ 999 mls/hr 10/30/19 10:52 10/30/19 11:54 Sodium Chloride 0.9% 1000 Ml IV 10/30/19 11:52 Infused .Q1H1M STA Infusion Sodium Chloride Confirm 10/30/19 10:52 Sodium Chloride 0.9% 1000 Ml Administered 10/30/19 10:53 Dose 1,000 mls @ ud .ROUTE .STK-MED ONE Piperacillin Sod/Tazobactam Sod Confirm 10/30/19 10:55 Zosyn 3.375gm/100 Ml D5w Administered 10/30/19 10:56 Dose 3.375 gm in 100 mls @ ud IV .STK-MED ONE Clindamycin HCl/Dextrose 600 mg in 50 mls @ 100 mls/hr 10/30/19 11:43 12:26 Clindamycin-D5w 600 Mg/50 Ml IV 10/30/19 12:12 Infused STAT STA Infusion Clindamycin HCl/Dextrose Confirm 10/30/19 11:54 Clindamycin-D5w 600 Mg/50 Ml Administered 10/30/19 11:55 Dose 600 mg in 50 mls @ ud IV .STK-MED ONE Methylprednisolone Sodium Succinate 125 mg 10/30/19 10:33 10/30/19 10:46 Solu-Medrol 125 Mg IV 10/30/19 10:34 125 mg STAT ONE Administration Methylprednisolone Sodium Succinate Confirm 10/30/19 10:39 Solu-Medrol 125 Mg Administered 10/30/19 10:40 Dose 125 mg .ROUTE .STK-MED ONE Lab/Rad Data: Laboratory Result Diagrams 10/30/19 10:40 10/30/19 10:40 Laboratory Results 10/30/19 10/30/19 10/30/19 Range/Units Unknown 11:15 10:47 WBC (4.0-10.5) K/mm3 RBC (4.1-5.4) M/mm3 Hgb (12.0-16.0) gm/dl Hct (35-47) % MCV (78-100) fl MCH (26-32) pg MCHC (32-36) g/dl RDW (11.5-14.0) % Plt Count (150-450) K/mm3 MPV (7.5-11.0) fl Gran % (36.0-66.0) % Eos # (Auto) (0-0.5) Absolute Lymphs (auto) (1.0-4.6) Absolute Monos (auto) (0.0-1.3) Lymphocytes % (24.0-44.0) % Monocytes % (0.0-12.0) % Eosinophils % (0.00-5.0) % Basophils % (0.0-0.4) % Absolute Granulocytes (1.4-6.9) Basophils # (0-0.4) Puncture Site LEFT RADIAL pCO2 48 H (35-45) mmHg pO2 89 (75-100) mmHg Base Excess 1.7 (-2.0-2.0) O2 Saturation 95.7 (94-100) g/dF ABG pH 7.37 (7.35-7.45) ABG HCO3 27.7 (22-28) ABG O2 Sat (Measured) 97.9 (95-100) % Tyson Test NOT APPLICABLE A-a Gradient 564 a/A Ratio 0.14 Hemoglobin 11.8 Carboxyhemoglobin 0.9 (0.0-6.9) % THgb Methemoglobin 1.3 L (1.4-1.5) % Temperature 37.0 C POC O2 Flow Rate 100 % Vent Mode A/C Tidal Volume 550 cc PEEP 5.0 cmH2O Sodium (137-145) mmol/L Potassium 4.4 (3.5-5.1) mmol/L Chloride (98-107) mmol/L Carbon Dioxide (22-30) mmol/L Anion Gap (5-15) MEQ/L BUN (7-17) mg/dL Creatinine (0.52-1.04) mg/dL Estimated GFR ML/MIN Glucose (74-106) mg/dL Lactic Acid (0.4-2.0) Calcium (8.4-10.2) mg/dL Magnesium (1.6-2.3) mg/dL Total Bilirubin (0.2-1.3) mg/dL AST (14-36) U/L ALT (0-35) U/L Alkaline Phosphatase (38-126) U/L Troponin I 0.041 H* (0.000-0.034) ng/mL NT-Pro-B Natriuret Pep (0-900) pg/mL Serum Total Protein (6.3-8.2) g/dL Albumin (3.5-5.0) g/dL Urine Color YELLOW (YELLOW) Urine Appearance SLIGHTLY CLOUDY (CLEAR) Urine pH 8.0 (5-6) Ur Specific [place] 1.021 (1.005-1.025) Urine Protein 30 (Negative) Urine Ketones NEGATIVE (NEGATIVE) Urine Blood NEGATIVE (0-5) Velasquez/ul Urine Nitrite POSITIVE (NEGATIVE) Urine Bilirubin NEGATIVE (NEGATIVE) Urine Urobilinogen 2 (0-1) mg/dL Ur Leukocyte Esterase MODERATE (NEGATIVE) Urine WBC (Auto) >100 (0-5) /HPF Urine RBC (Auto) 6-10 (0-2) /HPF U Epithel Cells (Auto) RARE (FEW) /HPF Urine Bacteria (Auto) MODERATE (NEGATIVE) /HPF Urine Mucus (Auto) SLIGHT (NEGATIVE) /HPF Urine Culture Reflexed YES (NO) Urine Glucose NEGATIVE (NEGATIVE) mg/dL Influenza Type A Ag (NEGATIVE) Influenza Type B Ag (NEGATIVE) RSV (PCR) (Negative) 10/30/19 10/30/19 10/30/19 Range/Units 10:40 10:40 10:40 WBC 10.9 H (4.0-10.5) K/mm3 RBC 3.76 L (4.1-5.4) M/mm3 Hgb 10.9 L (12.0-16.0) gm/dl Hct 35.6 (35-47) % MCV 94.7 (78-100) fl MCH 29.0 (26-32) pg MCHC 30.6 L (32-36) g/dl RDW 14.9 H (11.5-14.0) % Plt Count 260 (150-450) K/mm3 MPV 10.8 (7.5-11.0) fl Gran % 76.3 H (36.0-66.0) % Eos # (Auto) 0 (0-0.5) Absolute Lymphs (auto) 1.47 (1.0-4.6) Absolute Monos (auto) 1.08 (0.0-1.3) Lymphocytes % 13.5 L (24.0-44.0) % Monocytes % 9.9 (0.0-12.0) % Eosinophils % 0.0 (0.00-5.0) % Basophils % 0.3 (0.0-0.4) % Absolute Granulocytes 8.32 H (1.4-6.9) Basophils # 0.03 (0-0.4) Puncture Site pCO2 (35-45) mmHg pO2 (75-100) mmHg Base Excess (-2.0-2.0) O2 Saturation (94-100) g/dF ABG pH (7.35-7.45) ABG HCO3 (22-28) ABG O2 Sat (Measured) (95-100) % Tyson Test A-a Gradient a/A Ratio Hemoglobin Carboxyhemoglobin (0.0-6.9) % THgb Methemoglobin (1.4-1.5) % Temperature C POC O2 Flow Rate % Vent Mode Tidal Volume cc PEEP cmH2O Sodium 145 (137-145) mmol/L Potassium 4.2 (3.5-5.1) mmol/L Chloride 104 (98-107) mmol/L Carbon Dioxide 30 (22-30) mmol/L Anion Gap 15.3 H (5-15) MEQ/L BUN 21 H (7-17) mg/dL Creatinine 0.79 (0.52-1.04) mg/dL Estimated GFR > 60.0 ML/MIN Glucose 114 H (74-106) mg/dL Lactic Acid (0.4-2.0) Calcium 8.0 L (8.4-10.2) mg/dL Magnesium 1.9 (1.6-2.3) mg/dL Total Bilirubin 0.40 (0.2-1.3) mg/dL AST 24 (14-36) U/L ALT 9 (0-35) U/L Alkaline Phosphatase 104 (38-126) U/L Troponin I (0.000-0.034) ng/mL NT-Pro-B Natriuret Pep 402 (0-900) pg/mL Serum Total Protein 6.3 (6.3-8.2) g/dL Albumin 2.8 L (3.5-5.0) g/dL Urine Color (YELLOW) Urine Appearance (CLEAR) Urine pH (5-6) Ur Specific [place] (1.005-1.025) Urine Protein (Negative) Urine Ketones (NEGATIVE) Urine Blood (0-5) Velasquez/ul Urine Nitrite (NEGATIVE) Urine Bilirubin (NEGATIVE) Urine Urobilinogen (0-1) mg/dL Ur Leukocyte Esterase (NEGATIVE) Urine WBC (Auto) (0-5) /HPF Urine RBC (Auto) (0-2) /HPF U Epithel Cells (Auto) (FEW) /HPF Urine Bacteria (Auto) (NEGATIVE) /HPF Urine Mucus (Auto) (NEGATIVE) /HPF Urine Culture Reflexed (NO) Urine Glucose (NEGATIVE) mg/dL Influenza Type A Ag NEGATIVE (NEGATIVE) Influenza Type B Ag NEGATIVE (NEGATIVE) RSV (PCR) POSITIVE (Negative) 10/30/19 Range/Units 10:33 WBC (4.0-10.5) K/mm3 RBC (4.1-5.4) M/mm3 Hgb (12.0-16.0) gm/dl Hct (35-47) % MCV (78-100) fl MCH (26-32) pg MCHC (32-36) g/dl RDW (11.5-14.0) % Plt Count (150-450) K/mm3 MPV (7.5-11.0) fl Gran % (36.0-66.0) % Eos # (Auto) (0-0.5) Absolute Lymphs (auto) (1.0-4.6) Absolute Monos (auto) (0.0-1.3) Lymphocytes % (24.0-44.0) % Monocytes % (0.0-12.0) % Eosinophils % (0.00-5.0) % Basophils % (0.0-0.4) % Absolute Granulocytes (1.4-6.9) Basophils # (0-0.4) Puncture Site pCO2 (35-45) mmHg pO2 (75-100) mmHg Base Excess (-2.0-2.0) O2 Saturation (94-100) g/dF ABG pH (7.35-7.45) ABG HCO3 (22-28) ABG O2 Sat (Measured) (95-100) % Tyson Test A-a Gradient a/A Ratio Hemoglobin Carboxyhemoglobin (0.0-6.9) % THgb Methemoglobin (1.4-1.5) % Temperature C POC O2 Flow Rate % Vent Mode Tidal Volume cc PEEP cmH2O Sodium (137-145) mmol/L Potassium (3.5-5.1) mmol/L Chloride (98-107) mmol/L Carbon Dioxide (22-30) mmol/L Anion Gap (5-15) MEQ/L BUN (7-17) mg/dL Creatinine (0.52-1.04) mg/dL Estimated GFR ML/MIN Glucose (74-106) mg/dL Lactic Acid 1.9 (0.4-2.0) Calcium (8.4-10.2) mg/dL Magnesium (1.6-2.3) mg/dL Total Bilirubin (0.2-1.3) mg/dL AST (14-36) U/L ALT (0-35) U/L Alkaline Phosphatase (38-126) U/L Troponin I (0.000-0.034) ng/mL NT-Pro-B Natriuret Pep (0-900) pg/mL Serum Total Protein (6.3-8.2) g/dL Albumin (3.5-5.0) g/dL Urine Color (YELLOW) Urine Appearance (CLEAR) Urine pH (5-6) Ur Specific [place] (1.005-1.025) Urine Protein (Negative) Urine Ketones (NEGATIVE) Urine Blood (0-5) Velasquez/ul Urine Nitrite (NEGATIVE) Urine Bilirubin (NEGATIVE) Urine Urobilinogen (0-1) mg/dL Ur Leukocyte Esterase (NEGATIVE) Urine WBC (Auto) (0-5) /HPF Urine RBC (Auto) (0-2) /HPF U Epithel Cells (Auto) (FEW) /HPF Urine Bacteria (Auto) (NEGATIVE) /HPF Urine Mucus (Auto) (NEGATIVE) /HPF Urine Culture Reflexed (NO) Urine Glucose (NEGATIVE) mg/dL Influenza Type A Ag (NEGATIVE) Influenza Type B Ag (NEGATIVE) RSV (PCR) (Negative) - Progress Progress: re-examined Air Movement: fair Progress Note: Patient is intubated the correction because of worsening respiratory distress/ failure. She also has a fever and is given rectal Tylenol. Patient was hypertensive and tachycardic on presentation, improved with 2 boluses of IV fluids. Chest x-ray showed aspiration and is given Zosyn/clindamycin. She is also given Solu-Medrol and DuoNeb. Discussed with Dr. Carrera primary initially plan was to admit patient here but no ICU staff available to take care of the patient and is being transferred to [facility]. Discussed with Dr. Burton the patient is accepted for transfer. 10/30/19 12:04 Blood Culture(s) Obtained: Yes Antibiotics given: Yes Discussed with DrPavel: [facility] Will see patient in: hospital (observation) Counseled pt/family regarding: lab results, diagnosis, rad results - Departure Departure Disposition: In-patient Admission, Transfer Clinical Impression: Respiratory failure Qualifiers: Chronicity: acute on chronic Respiratory failure complication: hypoxia and hypercapnia Qualified Code(s): J96.21 - Acute and chronic respiratory failure with hypoxia Sepsis Qualifiers: Sepsis type: sepsis due to unspecified organism Sepsis acute organ dysfunction status: with acute organ dysfunction Severe sepsis acute organ dysfunction type : acute respiratory failure Acute respiratory failure type: with hypercapnia Severe sepsis shock status: unspecified Qualified Code(s): A41.9 - Sepsis, unspecified organism Aspiration pneumonia Qualifiers: Aspiration pneumonia type: unspecified Laterality: right Lung location: middle lobe of lung Qualified Code(s): J69.0 - Pneumonitis due to inhalation of food and vomit Condition: Serious Critical Care Time: Yes Critical Care Time(excluding separately billable procedures): Critical 30-74 mins Referrals: LINDA HAILE [LOCATION] -
[2019-10-30 10:51] LABS: A-aADO2 564; ABG HEMOGLOBIN 11.8; ABG POTASSIUM 4.4 (3.5-5.1); ABG SITE LEFT RADIAL; ARTERIAL BLD GAS O2 SATURATION 97.9 % (95-100); ARTERIAL BLOOD GAS BASE EXCESS 1.7 (-2.0-2.0); ARTERIAL BLOOD GAS FIO2 100 %; ARTERIAL BLOOD GAS PCO2 48 mmHg (35-45); ARTERIAL BLOOD GAS PO2 89 mmHg (75-100); ARTERIAL BLOOD GAS VENT MODE A/C; ARTERIAL BLOOD GAS pH 7.37 (7.35-7.45); CARBOXYHEMOGLOBIN 0.9 % THgb (0.0-6.9); HCO3- 27.7 (22-28); HGB O2 SAT 95.7 g/dF (94-100); Methhemoglobin 1.3 % (1.4-1.5); paO2 pAO1 0.14
[2019-10-30] MEDS ORDERED: FEVERALL 650 MG PR STA (10:51)
[2019-10-30] MEDS ORDERED: FEVERALL 650 MG ONE (10:54)
[2019-10-30] MEDS ORDERED: Zosyn 3.375GM/100 Ml D5W 3.375 GM/100 ML IVPB IV ONE (10:55)
--- NOTE | 2019-10-30 10:56 | XRAY ---
Indication: Tube placement. Comparison: October 07, 2019. Portable chest demonstrates new endotracheal tube tip 3.5 cm above the cecille. Monitoring patch overlies majority of the right lung. Visualized lungs again demonstrates chronic lung markings without focal infiltrate or consolidation. No large left effusion. Heart is not enlarged. Bony thorax again demonstrates osteopenia, degenerative changes, and remote thoracolumbar junction compression fractures. Impression: Status post intubation with endotracheal tube tip in good position.
[2019-10-30 11:00] VITALS: O2SAT 100
[2019-10-30 11:10] LABS: ALBUMIN 2.8 g/dL (3.5-5.0); ALKALINE PHOSPHATASE 104 U/L (38-126); ANION GAP 15.3 MEQ/L (5-15); BLOOD UREA NITROGEN 21 mg/dL (7-17); CHLORIDE 104 mmol/L (98-107); Carbon Dioxide 30 mmol/L (22-30); Creatinine 1 0.79 mg/dL (0.52-1.04); Glucose 114 mg/dL (74-106); MAGNESIUM 1.9 mg/dL (1.6-2.3); NT PRO BNP 402 pg/mL (0-900); Potassium 4.2 mmol/L (3.5-5.1); SGOT/AST 24 U/L (14-36); SGPT/ALT 9 U/L (0-35); SODIUM 145 mmol/L (137-145); Total Protein 6.3 g/dL (6.3-8.2)
[2019-10-30] MEDS ORDERED: Sodium Chloride 0.9% 1000 ML 1,000 ML IV SCH (11:30)
[2019-10-30 11:31] LABS: INFLUENZA A NEGATIVE (NEGATIVE); INFLUENZA B NEGATIVE (NEGATIVE); RESPIRATORY SYNCTIAL VIRUS POSITIVE (Negative)
[2019-10-30] MEDS ORDERED: CLINDAMYCIN-D5W 600 MG/50 ML*** 600 MG/50 ML BAG IV STA (11:43)
[2019-10-30] MEDS ORDERED: CLINDAMYCIN-D5W 600 MG/50 ML*** 600 MG/50 ML BAG IV ONE (11:54)
[2019-10-30 12:24] LABS: Appearance SLIGHTLY CLOUDY (CLEAR); Bacteria MODERATE /HPF (NEGATIVE); Bilirubin NEGATIVE (NEGATIVE); Blood NEGATIVE Ery/ul (0-5); Epithelial Cells RARE /HPF (FEW); Glucose NEGATIVE (NEGATIVE); Ketones NEGATIVE (NEGATIVE); Leukocyte Esterase MODERATE (NEGATIVE); Mucus SLIGHT /HPF (NEGATIVE); Nitrite POSITIVE (NEGATIVE); Protein,Urine Dip 30 (Negative); Specific Gravity 1.021 (1.005-1.025); Urobilinogen 2 mg/dL (0-1); WBC >100 /HPF (0-5)
[2019-10-30 12:43] VITALS: BP 124/66; PULSE 122
== END 2019-10-30 13:04 | disposition short-term general hospital (02) ==
LOC: ED 10:29
DX: J96.21 Acute and chronic respiratory failure with hypoxia (principal); A41.9 Sepsis, unspecified organism; J69.0 Pneumonitis due to inhalation of food and vomit; Z79.899 Other long term (current) drug therapy; E78.00 Pure hypercholesterolemia, unspecified; I10 Essential (primary) hypertension; I25.2 Old myocardial infarction; E03.9 Hypothyroidism, unspecified; I50.9 Heart failure, unspecified; J44.9 Chronic obstructive pulmonary disease, unspecified; Z79.891 Long term (current) use of opiate analgesic
CPT/HCPCS: 36000; 36415; 36600; 51702; 71045; 80053; 81001; 82375; 82803; 82962; 83605; 83735; 83880; 84484; 85025; 87040; 87070; 87077; 87086; 87186; 87631; 93005; 93041; 94002; 94640; 94799; 96365; 96367; 96374; 99285; 99291; J2543; J2930; A9270-GY